=== PATIENT | female | born 1935 | race Caucasian/White ===

== ENCOUNTER 2016-10-18 21:18 | Emergency (ER) | payer MEDICARE ==
[~2016-10-18] VITALS: Ht 170.2 cm; Wt 64.4 kg
[~2016-10-18 21:18] MED LIST changes: -AMOX-355 PO; -Xarelto
--- OUTSIDE RECORDS SUMMARY | 2016-10-18 21:23 | XMS REPORT | Continuity of Care Document ---
Author Author [facility] Organization [facility] Address Unknown Phone Unavailable Care Team Providers Care Table Lever Operator Name Role Phone ESTHER ARZOLA MD PCP Insurance Providers Payer Name Policy Number Subscriber Name Relationship Wps Medicare [id number] Danielle Miller 16 Self / Same As Patient Blue Cross [facility] [id number] Danielle Miller 16 Self / Same As Patient Advance Directives Directive Response Recorded Date/Time Advance Directives No 07/14/15 1:40pm Health Care Power of Software Implementation Project Manager No 07/14/15 1:40pm Organ Donor No 07/14/15 [...] Reaction Status Last Updated Sulfa (Sulfonamide Antibiotics) ([id number]) Allergy Unknown SWELLING Active 07/09/15 Immunizations Name Given Type Date of Pneumonia Vaccine 07/11/12 Historical Date of Influenza Vaccine 06/29/15 Historical Tetanus Booster (TDap) Unknown Historical Vital Signs No known vital signs results. Results No known relevant diagnostic tests, laboratory data and/or discharge summary. Procedures No known history of procedures. Encounters Encounter Location Arrival/Admit Date Discharge/Depart Date Attending Provider Discharged Recurring [facility] 01/21/16 2:24pm 11:59pm ESTHER ARZOLA MD
[2016-10-18] MEDS ORDERED: LIDOCAINE/EPI 1%-1:100,000 (XYLOCAINE) 20ML ONE (21:26)
[2016-10-18] MEDS ORDERED: LIDOCAINE/EPI 1%-1:200,000 (XYLOCAINE) 30 ML VIAL INJ ONE (21:30)
[2016-10-18] MEDS ORDERED: AUGMENTIN 875 MG TAB (AMOXICILLIN/CLAVULANATE) PO SCH (21:30)
[2016-10-18] MEDS ORDERED: Xarelto (21:39)
[2016-10-18] MEDS ORDERED: AMOX-355 PO (21:56)
--- NOTE | 2016-10-18 21:57 | ED Integumentary General ---
General Chief Complaint: Bite-Animal/Human/Insect Stated Complaint: L HAND INJ Nursing Triage Note: Patient presents to ER after her pet dog jumped in her lap and its nail caught her skin on top of left hand creating a skin tear. Pt Super Glued the edges shut as on [place] and was bleeding and now with large hematoma. Source: patient Exam Limitations: no limitations History of Present Illness Time seen by provider: 21:52 Initial Comments To ER or with the laceration to the dorsal aspect of the left hand. This occurred at home just prior to arrival when her dog jumped on her. She has very thin skin and there was a skin tear. The family tried to glue this shut and then the area swelled up. Timing/Duration: just prior to arrival Severity: moderate Associated Symptoms: denies symptoms Allergies and Home Medications Allergies Coded Allergies: Sulfa (Sulfonamide Antibiotics) (Unverified Allergy, Unknown, SWELLING, ) Home Medications (Reported) 0.9 % Sodium Chloride 2 Ml Syringe #1 10-40 ML IV PRN Prescribed by: CONCHIS DOE on 07/23/15 1424 0.9 % Sodium Chloride 2 Ml Syringe #1 10 ML IV Q8H Prescribed by: CONCHIS DOE on 07/23/15 1424 Acetaminophen 325 Mg Tablet #1 650 MG PO Q4H PRN PRN Fever or Pain Prescribed by: BINDU WYLIE on 07/14/15 0842 Amlodipine Besylate 5 Mg Tablet 5 MG PO DAILY (Reported) Aspirin 81 Mg Tabec 81 MG PO HS (Reported) Clonidine HCl 0.2 Mg Tablet 0.2 MG PO HS (Reported) Levothyroxine Sodium 50 Mcg Tablet 50 MCG PO DAILY (Reported) Lisinopril 40 Mg Tablet 40 MG PO DAILY (Reported) Lorazepam 1 Mg Tablet 0.5 MG PO Q4H (Reported) TAKES 1/2 OF A (1 MG) TABLET Metoprolol Succinate 100 Mg Tab.er.24h 50 MG PO DAILY (Reported) TAKES 1/2 OF A (100 MG) TABLET Nitroglycerin 0.4 Mg Tab.subl 0.4 MG PO UD PRN PRN CHEST PAIN (Reported) Polyethylene Glycol 3350 17 Gm Powd.pack #1 34 GM PO BID Prescribed by: CONCHIS DOE on 07/23/15 1430 Sennosides/Docusate Sodium 1 Each Tablet #1 2 EA PO BID Prescribed by: BINDU WYLIE on 07/14/15 0842 Simvastatin 20 Mg Tablet 20 MG PO HS (Reported) Constitutional: see HPI EENTM: see HPI Respiratory: no symptoms reported Cardiovascular: no symptoms reported Genitourinary: no symptoms reported Musculoskeletal: no symptoms reported Skin: see HPI Psychiatric/Neurological: No Symptoms Reported Endocrine: No Symptoms Reported Past Zzzantw-Zmprsi-Xetuly Hx Patient Social History Alcohol Use: Denies Use Recreational Drug Use: No Smoking Status: Former Smoker Former Smoker/When Quit: Jul 10, 1980 Recent Foreign Travel: No Contact w/Someone Who Travel: No Recent Infectious Disease Expo: No Recent Hopitalizations: No Physical Abuse Screen: No Sexual Abuse: No Immunizations Up To Date Tetanus Booster (TDap): Unknown Date of Pneumonia Vaccine: Jul 11, 2012 Date of Influenza Vaccine: Jun 29, 2015 Seasonal Allergies Seasonal Allergies: No Surgeries HX Surgeries: Yes (total knee replacement) Surgeries: Cardiac, Eye Surgery, Joint Replacement Respiratory Hx Respiratory Disorders: Yes Respiratory Disorders: Pulmonary Embolism Cardiovascular Hx Cardiac Disorders: Yes Cardiac Disorders: Atrial Fibrillation, Coronary Artery Disease, Heart Attack Neurological Hx Neurological Disorders: No Reproductive System Hx Reproductive Disorders: No Genitourinary Hx Genitourinary Disorders: No Gastrointestinal Hx Gastrointestinal Disorders: Yes (LACTOSE INTOLERANT) Gastrointestinal Disorders: Hiatal Hernia Musculoskeletal Hx Musculoskeletal Disorders: Yes (DJD RIGHT KNEE) Endocrine Hx Endocrine Disorders: Yes Endocrine Disorders: Hypothyroidsim HEENT HX ENT Disorders: Yes HEENT Disorders: Cataract Cancer Hx Cancer: No Psychosocial Hx Psychiatric Problems: Yes Behavioral Health Disorders: Anxiety Integumentary HX Skin/Integumentary Disorder: No Blood Transfusions Hx Blood Disorders: No Family Medical History Family Medial History: Blood cancer G8 SISTER Diabetes mellitus 19 MOTHER Physical Exam Vital Signs Vital Sign - Last 12Hours 10/18/16 21:26 Temp 98.0 Pulse 80 Resp 18 B/P 168/109 Pulse Ox 93 O2 Delivery Room Air Capillary Refill : Less Than 3 Seconds General Appearance: WD/WN no apparent distress HEENT: PERRL/EOMI normal ENT inspection Neck: non-tender full range of motion Respiratory: no respiratory distress no accessory muscle use Neurologic/Psychiatric: alert normal mood/affect oriented x 3 Skin: normal color warm/dry Skin Problem Character: other (skin tear to the dorsal aspect of the left hand about 1.5 cm in length. The glue that the family had applied was peeled off, the laceration was opened and irrigated with 100 mL saline. A large amount of blood was expressed in addition to a small amount of clot. There was no active bleeding when this was finished.) Laceration Repair : Wound Location: Upper Extremities Wound Length (cm): 2 Wound's Depth, Shape: superficial Wound Explored: clean Irrigated w/ Saline (ccs): 100 Betadine Prep?: Yes Anesthesia: Lidocaine w/ Epi Volume Anesthetic (ccs): 2 Number of Sutures: 1 Layer Closure?: 1 Number Deep Layer Sutures: 0 Progress Area was anesthetized with 1 percent lidocaine with epinephrine. The glue was then peeled off and area was reopened. Blood was expressed and the swelling was immediately reduced, small amount of clot was also expressed. Area was then irrigated with 100-200 mL of saline. Then the largest of the laceration was loosely closed with 1 suture size 5-0 Prolene. Area was then covered with a pressure dressing and left partially open for drainage. Progress/Results/Core Measures Results/Orders My Orders Orders-ESTEFANY GEORGES APRN Amoxicillin/Clavulanate Tablet (Augmenti (10/18/16 21:30) Lidocaine/Epi 1% 1:200,00 (Xylocaine/Epi (10/18/16 21:30) Lidocaine/Epi 1% 1:100,000 (Xylocaine /E (10/18/16 21:26) Medications Given in ED Current Medications Medications Dose Ordered Sig/Julianne Route Start Time Stop Time Status Last Admin Dose Admin Lidocaine/ Epinephrine 20 ml STK-MED ONCE .ROUTE 10/18/16 21:26 10/18/16 21:34 DC 10/18/16 21:50 1 ML Vital Signs/I&O Vital Sign - Last 12Hours 10/18/16 10/18/16 21:26 21:50 Temp 98.0 98.0 Pulse 80 Resp 18 B/P 168/109 Pulse Ox 93 O2 Delivery Room Air Blood Pressure Mean: 128 Departure Impression Impression: Primary Impression: Skin tear Disposition: 01 HOME, SELF-CARE Condition: Stable Departure-Patient Inst. Decision time for Depature: 21:56 Referrals: KIKO KHAN MD (PCP/Family) Primary Care Physician Patient Instructions: Laceration Repair With Stitches (DC) Add. Discharge Instructions: 1. Antibiotics as directed 2. Return to ER in 7 days to have the stitches removed 3. Return to ER before then for any increasing redness swelling or fevers which may indicate infection All discharge instructions reviewed with patient and/or family. Voiced understanding. Scripts Amoxicillin/Potassium Clav (Augmentin 500-125 Tablet)1 Each Tablet1 Each PO BID #10 TAB Prov:ESTEFANY GEORGES APRN 10/18/16 ESTEFANY GEORGES APRN Oct 18, 2016 21:56
[2016-10-18 22:03] VITALS: BP 144/86
== END 2016-10-18 22:03 | disposition home or self-care (01) ==
LOC: EDUNIT# 21:18 → ER 21:19
DX: S61.412A Laceration without foreign body of left hand, initial encounter (principal); I48.2 Chronic atrial fibrillation; I25.10 Atherosclerotic heart disease of native coronary artery without angina pectoris; Z79.82 Long term (current) use of aspirin; Z79.01 Long term (current) use of anticoagulants; Z79.899 Other long term (current) drug therapy; Z86.711 Personal history of pulmonary embolism; W54.8XXA Other contact with dog, initial encounter; Y92.009 Unspecified place in unspecified non-institutional (private) residence as the place of occurrence of the external cause; Y99.8 Other external cause status
CPT/HCPCS: 10160

== ENCOUNTER → 2016-10-18 | Outpatient (CLI) | payer MEDICARE ==
[~2016-10-18] MED LIST: ACET325T49 PO; AMLO5TAB2 PO; AMOX-355 PO; ASP81TEC PO; CIPR250S2 PO; CLON-378 PO; CLON0.2T PO; CLPD75T PO; DABI75CA3 PO; DILT360C30 PO; LEVO50TA6 PO; LISI-597 PO; LISI40TA PO; LORA1TAB PO; LVT.05T PO; METO-274 PO; MORP5SYR IV; MTP100TCR PO; Morphine Sulfate IV; NITR0.4T PO; NITR50CA PO; NORM2DIS3 IV; NTR.4SL SL; ONDA2VIA3 IV; ONDA4VIA28 IV; OXYC-12 PO; OXYC-471 PO; PANT40TA3 PO; POLY17PO23 PO; POLY17PO6 PO; SENN-20 PO; SIMV20TA3 PO; TELM1TAB3 PO; WRF2T PO; Xarelto
--- OUTSIDE RECORDS SUMMARY | 2016-10-18 12:37 | XMS REPORT | Continuity of Care Document ---
Author Author [facility] Organization [facility] Address Unknown Phone Unavailable Care Team Providers Care Quill Machine Operator Name Role Phone ESTHER ARZOLA MD PCP Insurance Providers Payer Name Policy Number Subscriber Name Relationship Wps Medicare [id number] Danielle Miller 18 Self / Same As Patient Blue Cross [facility] [id number] Danielle Miller 16 Self / Same As Patient Advance Directives Directive Response Recorded Date/Time Advance Directives No 07/14/15 1:40pm Health Care Power of Bridge Carpenter No 07/14/15 1:40pm Organ Donor No 07/14/15 1:40pm Problems Active Problems Medical Problem Onset Date Status Chronic atrial fibrillation Unknown Acute Fracture, intertrochanteric, left femur Unknown Acute Intertrochanteric fracture of left hip Unknown Acute Medications Current Home Medications Medication Dose Units Route Directions Days/Qty Instructions Start Date Aspirin 81 Mg 81 Mg Oral Bedtime 03/17/12 Amlodipine Besylate 5 Mg 5 Mg Oral Daily 07/10/15 Lisinopril 40 Mg 40 Mg Oral Daily 07/10/15 Pantoprazole Sodium 40 Mg 40 Mg Oral Twice A Day 07/10/15 Nitrofurantoin Macrocrystal 50 Mg 50 Mg Oral Daily 07/10/15 Simvastatin 20 Mg 20 Mg Oral Bedtime 07/10/15 Levothyroxine Sodium 50 Mcg 50 Mcg Oral Daily 07/10/15 Clonidine Hcl 0.2 Mg 0.2 Mg Oral Bedtime 07/10/15 Lorazepam 1 Mg 0.5 Mg Oral Every 4HRS TAKES 1/2 OF A (1 MG) TABLET Metoprolol Succinate 100 Mg 50 Mg Oral Daily TAKES 1/2 OF A (100 MG) TABLET 07/10/15 Nitroglycerin 0.4 Mg 0.4 Mg Oral As Directed as needed for Chest Pain 07/10/15 Dabigatran Etexilate Mesylate 75 Mg 75 Mg Oral Twice A Day 07/13/15 Oxycodone Hcl/Acetaminophen 1 Each 1 Tab Oral Every 4HRS as needed for Pain 1 07/14/15 Acetaminophen 325 Mg 650 Mg Oral Every 4HRS as needed for Fever Or Pain 1 07/14/15 Sennosides/Docusate Sodium 1 Each 2 Ea Oral Twice A Day 1 07/14/15 Oxycodone Hcl/Acetaminophen 1 Each 1-2 Tab Oral Every 4HRS as needed for Pain 60 07/23/15 0.9 % Sodium Chloride 2 Ml 10-40 Ml Intraven As Needed 1 07/23/15 Morphine Sulfate 5 Mg/1 Ml 5 Mg Intraven Every 2 Hours for Pain 1 Ondansetron Hcl 2 Mg/1 Ml 4 Mg Intraven Every 4HRS for Nausea 1 0.9 % Sodium Chloride 2 Ml 10 Ml Intraven Every 8HRS 1 07/23/15 Polyethylene Glycol 3350 17 Gm 34 Gm Oral Twice A Day 1 07/23/15 Past Home Medications Medication Directions Ordered Status Telmisartan/Hydrochlorothiazide 1 Each Tablet, 1 Each Oral Daily 01/06/11 Discontinued Clonidine Hcl 0.2 Mg Tab, 1 Each Oral Bedtime 01/06/11 Discontinued Simvastatin 20 Mg Tablet, 20 Mg Oral Bedtime 01/06/11 Discontinued Diltiazem Hcl (Tiazac) 360 Mg Capsule.sa, 1 Each Oral Bedtime 01/06/11 Discontinued Lorazepam 1 Mg Tablet, 1 Mg Oral Bedtime as needed 01/06/11 Discontinued Levothyroxine Sodium (Levothroid) 50 Mcg Tablet, 1 Each Oral Daily 01/06/11 Discontinued Metoprolol Succinate 100 Mg Tab, 50 Mg Oral Daily 01/20/11 Discontinued Oxycodone Hcl/Acetaminophen 1 Each Tablet, 1 - 2 Each Oral As Needed Discontinued Warfarin Sodium 2 Mg Tab, 2 Mg Oral Daily@18 01/20/11 Discontinued Ciprofloxacin 250 Mg/5 Ml Daniela.mc.rec, 250 Mg Oral Twice A Day 01/20/11 Discontinued Clopidogrel Bisulfate 75 Mg Tablet, 1 Each Oral Daily 03/17/12 Discontinued Lisinopril 40 Mg Tablet, 40 Mg Oral Daily 03/17/12 Discontinued Nitroglycerin 0.4 Mg Subl, 0.4 Mg Sublingual As Needed 03/17/12 Discontinued Amlodipine Besylate (Norvasc 5 Mg) 5 Mg Tablet, 5 Mg Oral Daily 03/17/12 Discontinued Oxycodone Hcl/Acetaminophen 1 Each Tablet, 1 - 2 Each Oral Every 6 Hours 11/06 Discontinued Dabigatran Etexilate Mesylate 75 Mg Capsule, 75 Mg Oral 08/27/13 Discontinued Polyethylene Glycol 3350 17 Gm Powd.pack, 34 Gm Oral Twice A Day 07/14/15 Discontinued Social History Social History Problem Response Recorded Date/Time Alcohol Use Denies Use 07/14/2015 1:41pm Recreational Drug Use No 07/14/2015 1:41pm Recent Foreign Travel No 11/06/2015 2:13pm Do you dip or chew tobacco? No 07/14/2015 1:44pm Hospital Discharge Instructions No hospital discharge instructions. Plan of Care Prescriptions See Medication Section Functional Status No functional status results. Allergies, Adverse Reactions, Alerts Allergen Type Severity Reaction Status Last Updated Sulfa (Sulfonamide Antibiotics) ([id number]) Allergy Unknown SWELLING Active 07/09/15 Immunizations Name Given Type Date of Pneumonia Vaccine 07/11/12 Historical Date of Influenza Vaccine 06/29/15 Historical Tetanus Booster (TDap) Unknown Historical Vital Signs No known vital signs results. Results No known relevant diagnostic tests, laboratory data and/or discharge summary. Procedures No known history of procedures. Encounters Encounter Location Arrival/Admit Date Discharge/Depart Date Attending Provider Discharged Recurring [facility] 01/21/16 2:24pm 11:59pm ESTHER ARZOLA MD
--- NOTE | 2016-10-21 11:23 | ECHOCARDIOGRAPHY REPORT ---
PROCEDURE PHYSICIAN: MICHAEL DAVID DATE OF PROCEDURE: 10/18/2016 TWO DIMENSIONAL ECHOCARDIOGRAM REPORT PRIMARY PHYSICIAN: Dr. Saeed OTHER PHYSICIAN: REFERRING PHYSICIAN: ORDERING PHYSICIAN: Dr. David INDICATION FOR THE PROCEDURE: Coronary artery disease, hyperlipidemia MEASUREMENTS DERIVED VALUES LV DIAMETER (LAX) NORMALS NORMALS Diastolic 3.7 (3.6-5.2) Eject. Fract. (60%+/-6%) Systolic (2.3-3.9) Diastolic Vol. % Shortening (0.22-0.42) Systolic Vol. Aortic Root 2.8 IVS THICKNESS Diastolic 1.5 (0.6-1.1) LVPW THICKNESS Diastolic 1.4 (0.6-1.1) LA DIAMETER Systolic 5.1 (2.1-3.7) DESCRIPTION: Two dimensional echocardiography shows well preserved global left ventricular systolic function. Left ventricular ejection fraction is approximately 50 to 55%. There is mild to moderate mitral annular calcification. There is mild aortic valve sclerosis. There is no significant pericardial effusion. Aortic, mitral and tricuspid valve leaflets show fair to good leaflet excursion. There is moderate enlargement of the left atrium. There is mild to moderate concentric left ventricular hypertrophy. Doppler imaging shows moderate tricuspid regurgitation. Pulmonary artery systolic pressure is estimated to be approximately 45 to 50 mmHg. There is mild pulmonic regurgitation. Peak pressure gradient across the aortic valve is approximately 11 mmHg. The aortic valve area is calculated to be approximately 1.5 sq cm. There is mild to moderate mitral regurgitation. There is no evidence of any significant mitral stenosis. CONCLUSIONS: 1. Well preserved global left ventricular systolic function with an ejection fraction of 50 to 55%. 2. Mild concentric left ventricular hypertrophy. 3. Moderate enlargement of the left atrium. 4. Mitral annular calcification and aortic valve sclerosis, moderate, without evidence of significant valvular stenosis. 5. Moderate tricuspid regurgitation. 6. Mild to moderate mitral regurgitation. 7. Mild pulmonic regurgitation. 8. Pulmonary artery systolic pressure estimated to be 45 to 50 mmHg. Job ID: [id number] Dictated Date: 10/21/2016 10:17:00 Newspaper Peddler Date: 10/21/2016 11:13:32 / natali
== END ==
LOC: CARD 12:33
PROVIDERS: ATTEND Internal Medicine Cardiovascular Disease
DX: I25.10 Atherosclerotic heart disease of native coronary artery without angina pectoris (principal); I65.23 Occlusion and stenosis of bilateral carotid arteries; E78.4 Other hyperlipidemia; I10 Essential (primary) hypertension
CPT/HCPCS: 93306

== ENCOUNTER → 2017-05-23 | Outpatient (CLI) | payer MEDICARE ==
[~2017-05-23] MED LIST changes: +AMOX-355 PO; +Xarelto
--- NOTE | 2017-05-23 11:38 | Diagnostic Imaging Report ---
INDICATION: Screening. TECHNIQUE: Screening digital mammography was performed bilaterally with a Computer Aided Detection (CAD) system. COMPARISON: 05/17/2016, 08/08/2014, and 07/26/2013. FINDINGS: There is a moderate amount of residual fibroglandular tissue bilaterally. There are benign type calcifications and vascular calcifications. There is no dominant mass, spiculated lesion, or suspicious calcification identified. The skin, nipples, and axillae are unremarkable. IMPRESSION: Benign findings. ACR BI-RADS Category 2: Benign findings. Result letter will be mailed to the patient. Note: At least 10% of breast cancer is not imaged by mammography. Dictated by: Dictated on workstation # [id number]
== END ==
LOC: RAD 09:37
PROVIDERS: ATTEND Nurse Practitioner
DX: Z12.31 Encounter for screening mammogram for malignant neoplasm of breast (principal)
CPT/HCPCS: 77067

== ENCOUNTER → 2018-05-25 | Outpatient (CLI) | payer MEDICARE ==
[~2018-05-25] MED LIST changes: +AMLO5TAB7 PO; -METO-274 PO; +METO-395 PO; +ONDA2VIACC IV; -ONDA4VIA28 IV
--- NOTE | 2018-05-25 11:57 | Diagnostic Imaging Report ---
Indication: Screening. The current study was also evaluated with a Computer Aided Detection (CAD) system. 3-D tomosynthesis was also performed and reviewed. Comparison made with prior examination of 02/20/2017 back through 07/19/2011. Findings: There are scattered fibroglandular densities bilaterally. There are extensive vascular calcifications. There are a few benign type calcifications. There is no new dominant mass, spiculated lesion or suspicious calcifications identified. Skin, nipples and axilla are unremarkable. Impression: Category 2 benign. Dictated by: Dictated on workstation # [id number]
== END ==
LOC: RAD 09:22
PROVIDERS: ATTEND Nurse Practitioner
DX: Z12.31 Encounter for screening mammogram for malignant neoplasm of breast (principal)
CPT/HCPCS: 77067

== ENCOUNTER → 2019-05-28 | Outpatient (CLI) | payer MEDICARE ==
[~2019-05-28] MED LIST changes: -AMLO5TAB7 PO; +AMLO5TAB9 PO; -POLY17PO23 PO; +POLY17PO31 PO
--- NOTE | 2019-05-28 13:17 | Diagnostic Imaging Report ---
Indication: Routine screening. Comparison is made with prior mammogram 05/25/2018 and 05/23/2017. 2-D and 3-D bilateral screening mammography was performed with CAD. Scattered fibroglandular densities are identified bilaterally. Vascular calcifications are again noted bilaterally. No mass or malignant- appearing microcalcifications are identified. Axillae are unremarkable. Impression: BI-RADS category 1. No mammographic features suspicious for malignancy are identified. ACR BI-RADS Category 1: Negative. Result letter will be mailed to the patient. Note: At least 10% of breast cancer is not imaged by mammography. Dictated by: Dictated on workstation # [id number]
== END ==
LOC: RAD 10:17
PROVIDERS: ATTEND Physician Assistant
DX: Z12.31 Encounter for screening mammogram for malignant neoplasm of breast (principal)
CPT/HCPCS: 77067

== ENCOUNTER → 2020-08-17 | Outpatient (CLI) | payer MEDICARE ==
[~2020-08-17] MED LIST changes: +AMLO-250 PO; -AMLO5TAB9 PO; +CATHETER FLUSH 10 ML SYR IV PRN; +CLN.2T PO; -CLON0.2T PO; +HOLD METFORMIN - RECEIVED CONTRAST 20 ML VIAL IV SCH; +IOHEXOL 350 MG/ML 100 ML (OMNIPAQUE 350) VIAL IV ONE; -METO-395 PO; +NS 100 ML (IVPB) BAG IV ONE; -PANT40TA3 PO; +PANT40TA52 PO; +SIMV20TA26 PO
[2020-08-17 12:32] LABS: HEMOGLOBIN 12.6 g/dL (11.5-16.0); MEAN PLATELET VOLUME 9.6 fL (9.0-12.2); WHITE BLOOD COUNT 4.7 10^3/uL (4.3-11.0)
[2020-08-17 12:51] LABS: ALBUMIN 3.7 GM/DL (3.2-4.5); BILIRUBIN,TOTAL 1.1 MG/DL (0.1-1.0); CALCIUM 8.4 MG/DL (8.5-10.1); CREATININE SERUM 1.11 MG/DL (0.60-1.30); POTASSIUM 3.5 MMOL/L (3.6-5.0); TOTAL PROTEIN 7.8 GM/DL (6.4-8.2)
--- NOTE | 2020-08-17 13:54 | Diagnostic Imaging Report ---
PROCEDURE: CT abdomen and pelvis with contrast. TECHNIQUE: Multiple contiguous axial images were obtained through the abdomen and pelvis after administration of intravenous contrast. Auto Exposure Controls were utilized during the CT exam to meet ALARA standards for radiation dose reduction. All CT scans use one or more of the following dose optimizing techniques: automated exposure control, MA and/or KvP adjustment based on patient size and exam type or iterative reconstruction. INDICATION: 4 days history of pain. FINDINGS: There is a nonobstructing hernia in the right groin medial to the neurovascular bundle comprised of fat as well as unobstructed distal small bowel. No inflammatory changes within the hernia sac to suggest strangulation. There is a right pleural effusion nonloculated to a depth of 3 cm. There is some soft plaque in the lumen of the lower thoracic aorta and at least mild degree of cardiomegaly partially visualized. The atherosclerotic aortoiliac vessels are patent and nonaneurysmal. There were no findings of acute end organ ischemia. There is noninflamed diverticulosis of the sigmoid. Kidneys are unobstructed. No acute hepatobiliary abnormality or probable stone within the lumen of the partially contracted gallbladder noted. No bile duct dilatation. Spleen, adrenals and pancreas negative. No mesenteric or retroperitoneal adenopathy. There were no findings of appendicitis or diverticulitis. The uterus, adnexa and urinary bladder unremarkable. IMPRESSION: Right pleural effusion. Atherosclerotic disease without occlusive arterial disease or ischemia. Noninflamed diverticulosis. Nonobstructing and nonacute appearing right inguinal hernia. Probable cholelithiasis without bile duct dilatation. Nonfocal unobstructed urinary tracts Dictated by: Dictated on workstation # [id number]
[2020-08-18 09:38] LABS: BILIRUBIN,URINE NEGATIVE (NEGATIVE); CLARITY,URINE CLEAR; COLOR,URINE YELLOW; GLUCOSE, URINE (UA) NEGATIVE (NEGATIVE); KETONES,URINE NEGATIVE (NEGATIVE); LEUKOCYTE ESTERASE ,URINE 2+ (NEGATIVE); NITRITE,URINE NEGATIVE (NEGATIVE); PH,URINE 7.5 (5-9); PROTEIN,URINE NEGATIVE (NEGATIVE)
[2020-08-18 10:08] LABS: BACTERIA,URINE FEW /HPF; RBC,URINE 0-2 /HPF
== END ==
LOC: RAD 12:10
PROVIDERS: ATTEND Physician Assistant
DX: K57.30 Diverticulosis of large intestine without perforation or abscess without bleeding (principal); J90 Pleural effusion, not elsewhere classified; I25.10 Atherosclerotic heart disease of native coronary artery without angina pectoris; K40.90 Unilateral inguinal hernia, without obstruction or gangrene, not specified as recurrent
CPT/HCPCS: 36415; 74177; 80053; 83690; 85027; 86141

== ENCOUNTER → 2020-08-19 | Outpatient (CLI) | payer MEDICARE ==
[~2020-08-19] MED LIST changes: -CATHETER FLUSH 10 ML SYR IV PRN; -HOLD METFORMIN - RECEIVED CONTRAST 20 ML VIAL IV SCH; -IOHEXOL 350 MG/ML 100 ML (OMNIPAQUE 350) VIAL IV ONE; -NS 100 ML (IVPB) BAG IV ONE
--- NOTE | 2020-08-19 10:39 | Diagnostic Imaging Report ---
PROCEDURE: US Gallbladder. TECHNIQUE: Multiple real-time grayscale images were obtained over the right upper quadrant in various projections. INDICATION: Abdominal pain Liver parenchyma is homogeneous with normal echotexture. There are calculi in the gallbladder. The gallbladder wall is not thickened. Common duct is not dilated. Pancreas appears normal. Aorta and IVC are unremarkable. Right kidney measures 9.7 cm length and appears normal. There is no ascites. IMPRESSION: Cholecystolithiasis Dictated by: Dictated on workstation # [id number]
== END ==
LOC: RAD 07:57
PROVIDERS: ATTEND Physician Assistant
DX: K80.20 Calculus of gallbladder without cholecystitis without obstruction (principal)
CPT/HCPCS: 76705

== ENCOUNTER 2020-09-01 19:36 | Emergency (ER) | payer MEDICARE ==
[~2020-09-01] VITALS: Ht 170.1 cm; Wt 56.2 kg
[2020-09-01] MEDS ORDERED: fentaNYL INJECTION 100 MCG/2 ML AMP IVP ONE (21:00)
[2020-09-01 21:08] LABS: BASOPHILS % (AUTO) 1 % (0-10); EOSINOPHILS # (AUTO) 0.1 10^3/uL (0.0-0.3); EOSINOPHILS % (AUTO) 2 % (0-10); HEMATOCRIT 39 % (35-52); HEMOGLOBIN 12.2 g/dL (11.5-16.0); LYMPHOCYTES # (AUTO) 1.9 10^3/uL (1.0-4.0); LYMPHOCYTES % (AUTO) 36 % (12-44); MEAN CORPUSCULAR HEMOGLOBIN 30 pg (25-34); MEAN CORPUSCULAR HGB CONC 31 g/dL (32-36); MEAN CORPUSCULAR VOLUME 97 fL (80-99); MEAN PLATELET VOLUME 10.4 fL (9.0-12.2); MONOCYTES # (AUTO) 0.5 10^3/uL (0.0-1.0); MONOCYTES % (AUTO) 10 % (0-12); NEUTROPHILS # (AUTO) 2.7 10^3/uL (1.8-7.8); NEUTROPHILS % (AUTO) 51 % (42-75); PLATELET COUNT 180 10^3/uL (130-400); WHITE BLOOD COUNT 5.3 10^3/uL (4.3-11.0)
[2020-09-01 21:15] LABS: INR 1.3 (0.8-1.4); PROTHROMBIN TIME PATIENT 16.5 SEC (12.2-14.7)
--- NOTE | 2020-09-01 21:16 | Diagnostic Imaging Report ---
INDICATION: Atrial fibrillation. COMPARISON is made with a prior study from 07/09/2015. FINDINGS: There are advanced chronic interstitial changes present within the lungs. Parenchymal distortion within the left lung apex is unchanged from the prior examination. There are new interstitial opacities present within the lateral aspect of the right upper lobe and at both lung bases. There is marked enlargement of the cardiac silhouette though not significantly changed from the prior exam. The central pulmonary vascularity appears abnormally prominent. There is diaphragmatic flattening. There are possible pleural effusions. There is no pneumothorax. IMPRESSION: 1. Marked enlargement of the cardiac silhouette not significantly changed from the prior examination. There is prominent central pulmonary vascularity. There are advanced features of underlying pre-existing interstitial lung disease. There is new increased interstitial prominence within the lateral right upper lobe and at both lung bases. Considerations would include edema related to atrial fibrillation but the possibility of interstitial pneumonia should also be considered given the asymmetry involving the right upper lung. Dictated by: Dictated on workstation # [id number]
[2020-09-01 21:18] LABS: ALBUMIN 3.9 GM/DL (3.2-4.5); POTASSIUM 4.5 MMOL/L (3.6-5.0)
[2020-09-01 21:19] LABS: CALCIUM 8.8 MG/DL (8.5-10.1)
[2020-09-01 21:22] LABS: BILIRUBIN,TOTAL 0.7 MG/DL (0.1-1.0)
[2020-09-01 21:24] LABS: CREATININE SERUM 1.31 MG/DL (0.60-1.30)
[2020-09-01 21:28] LABS: CREATINE KINASE MB 1.1 NG/ML (<6.6)
[2020-09-01] MEDS ORDERED: hydrALAZINE (APESOLINE) 20 MG/ML VIAL IV ONE ×2 (21:45→22:00)
[2020-09-01 21:58] LABS: BILIRUBIN,URINE NEGATIVE (NEGATIVE); CLARITY,URINE CLEAR; COLOR,URINE YELLOW; GLUCOSE, URINE (UA) NEGATIVE (NEGATIVE); KETONES,URINE NEGATIVE (NEGATIVE); LEUKOCYTE ESTERASE ,URINE NEGATIVE (NEGATIVE); NITRITE,URINE NEGATIVE (NEGATIVE); PH,URINE 6.5 (5-9); PROTEIN,URINE TRACE (NEGATIVE)
[2020-09-01 22:32] LABS: WBC,URINE 0-2 /HPF
[2020-09-01 22:33] LABS: AMORPHOUS SEDIMENT,UR RARE AMOR URATES /LPF; BACTERIA,URINE TRACE /HPF
[2020-09-01] MEDS ORDERED: RX-ONDANSETRON 4 MG ODT (ZOFRAN) PPK #4 PO STA (22:36)
[2020-09-01] MEDS ORDERED: ONDA4TAB11 PO (22:44)
[2020-09-01] MEDS ORDERED: PANT40TA2 PO (22:44)
[2020-09-01] MEDS ORDERED: ACHD5005 PO (22:44)
--- NOTE | 2020-09-01 22:44 | ED Abdominal Pain ---
General Chief Complaint: Abdominal/GI Problems Stated Complaint: STOMACH PAIN Nursing Triage Note: Pt ambulatory to ED. Pt reports having gallbladder stones and is supposed to have surgery after seeing Dr. Reddy on next Monday. Pt reports pain has worsened tonight. Pt has bilateral edema which pt states is not normal. Sepsis Screen: No Definite Risk Allergies and Home Medications Allergies Coded Allergies: Sulfa (Sulfonamide Antibiotics) (Unverified Allergy, Unknown, SWELLING, 07/09/15) Home Medications 0.9 % Sodium Chloride 2 Ml Syringe, 10-40 ML IV PRN Prescribed by: CONCHIS DOE on 07/23/15 142 0.9 % Sodium Chloride 2 Ml Syringe, 10 ML IV Q8H Prescribed by: CONCHIS DOE on 07/23/15 142 Acetaminophen 325 Mg Tablet, 650 MG PO Q4H PRN for Fever or Pain Prescribed by: BINDU WYLIE on 07/14/15 08 Amlodipine Besylate 5 Mg Tablet, 5 MG PO DAILY, (Reported) Amoxicillin/Potassium Clav 1 Each Tablet, 1 EACH PO BID Prescribed by: ESTEFANY GEORGES on 10/18/162155 Aspirin 81 Mg Tabec, 81 MG PO HS, (Reported) Clonidine HCl 0.2 Mg Tablet, 0.2 MG PO HS, (Reported) Levothyroxine Sodium 50 Mcg Tablet, 50 MCG PO DAILY, (Reported) Lisinopril 40 Mg Tablet, 40 MG PO DAILY, (Reported) Lorazepam 1 Mg Tablet, 0.5 MG PO Q4H, (Reported) TAKES 1/2 OF A (1 MG) TABLET Metoprolol Succinate 100 Mg Tab.er.24h, 50 MG PO DAILY, (Reported) TAKES 1/2 OF A (100 MG) TABLET Nitroglycerin 0.4 Mg Tab.subl, 0.4 MG PO UD PRN for CHEST PAIN, (Reported) Polyethylene Glycol 3350 17 Gm Powd.pack, 34 GM PO BID Prescribed by: CONCHIS DOE on 07/23/15 1430 Sennosides/Docusate Sodium 1 Each Tablet, 2 EA PO BID Prescribed by: BINDU WYLIE on 07/14/15 08 Simvastatin 20 Mg Tablet, 20 MG PO HS, (Reported) Past Pxotbsd-Cjerpi-Xgcyvw Hx Patient Social History Alcohol Use: Denies Use Recreational Drug Use: No Smoking Status: Former Smoker Former Smoker, Quit: Sep 25, 1984 Recent Foreign Travel: No Contact w/Someone Who Travel: No Recent Infectious Disease Expo: No Recent Hopitalizations: No Immunizations Up To Date Tetanus Booster (TDap): Unknown Date of Pneumonia Vaccine: Jul 11, 2012 Date of Influenza Vaccine: Jun 29, 2015 Seasonal Allergies Seasonal Allergies: No Past Medical History Surgeries: Yes (total knee replacement) Cardiac, Eye Surgery, Joint Replacement Respiratory: Yes Pulmonary Embolism Cardiac: Yes Atrial Fibrillation, Coronary Artery Disease, Heart Attack Neurological: No Reproductive Disorders: No Gastrointestinal: Yes (LACTOSE INTOLERANT) Hiatal Hernia Musculoskeletal: Yes (DJD RIGHT KNEE) Endocrine: Yes Hypothyroidsim Cataract Cancer: No Psychosocial: Yes Anxiety Integumentary: No Blood Disorders: No Family Medical History Blood cancer G8 SISTER Diabetes mellitus 19 MOTHER Physical Exam Vital Signs Vital Signs - First Documented 09/01/20 20:25 Temp 36.2 Pulse 79 Resp 21 B/P (MAP) 186/106 (132) Pulse Ox 88 O2 Delivery Room Air Capillary Refill : Less Than 3 Seconds Height/Weight/BMI Height: 5'7" Weight: 142lbs. 5.0oz. [id number]; 19.00 BMI Method:Stated Focused Exam Lactate Level 09/01/20 20:45: Lactic Acid Level 0.86 Lactic Acid Level Laboratory Tests Test 09/01/20 20:45 Lactic Acid Level 0.86 MMOL/L (0.50-2.00) Progress/Results/Core Measures Results/Orders Lab Results Laboratory Tests Test 09/01/20 20:45 09/01/20 21:45 Range/Units White Blood Count 5.3 4.3-11.0 10^3/uL Red Blood Count 4.04 3.80-5.11 10^6/uL Hemoglobin 12.2 11.5-16.0 g/dL Hematocrit 39 35-52 % Mean Corpuscular Volume 97 80-99 fL Mean Corpuscular Hemoglobin 30 25-34 pg Mean Corpuscular Hemoglobin Concent 31 L 32-36 g/dL Red Cell Distribution Width 14.6 H 10.0-14.5 % Platelet Count 180 130-400 10^3/uL Mean Platelet Volume 10.4 9.0-12.2 fL Immature Granulocyte % (Auto) 0 % Neutrophils (%) (Auto) 51 42-75 % Lymphocytes (%) (Auto) 36 12-44 % Monocytes (%) (Auto) 10 0-12 % Eosinophils (%) (Auto) 2 0-10 % Basophils (%) (Auto) 1 0-10 % Neutrophils # (Auto) 2.7 1.8-7.8 10^3/uL Lymphocytes # (Auto) 1.9 1.0-4.0 10^3/uL Monocytes # (Auto) 0.5 0.0-1.0 10^3/uL Eosinophils # (Auto) 0.1 0.0-0.3 10^3/uL Basophils # (Auto) 0.0 0.0-0.1 10^3/uL Immature Granulocyte # (Auto) 0.0 0.0-0.1 10^3/uL Prothrombin Time 16.5 H 12.2-14.7 SEC INR Comment 1.3 0.8-1.4 Activated Partial Thromboplast Time 34 24-35 SEC Sodium Level 138 135-145 MMOL/L Potassium Level 4.5 3.6-5.0 MMOL/L Chloride Level 102 98-107 MMOL/L Carbon Dioxide Level 24 21-32 MMOL/L Anion Gap 12 5-14 MMOL/L Blood Urea Nitrogen 23 H 7-18 MG/DL Creatinine 1.31 H 0.60-1.30 MG/DL Estimat Glomerular Filtration Rate 38 BUN/Creatinine Ratio 18 Glucose Level 102 70-105 MG/DL Lactic Acid Level 0.86 0.50-2.00 MMOL/L Calcium Level 8.8 8.5-10.1 MG/DL Corrected Calcium 8.9 8.5-10.1 MG/DL Magnesium Level 2.0 1.6-2.4 MG/DL Total Bilirubin 0.7 0.1-1.0 MG/DL Aspartate Amino Transf (AST/SGOT) 52 H 5-34 U/L Alanine Aminotransferase (ALT/SGPT) 27 0-55 U/L Alkaline Phosphatase 70 40-136 U/L Total Creatine Kinase 22 L 29-168 U/L Creatine Kinase MB 1.1 <6.6 NG/ML Myoglobin 36.8 10.0-92.0 NG/ML B-Type Natriuretic Peptide 954.8 H <100.0 PG/ML Total Protein 8.0 6.4-8.2 GM/DL Albumin 3.9 3.2-4.5 GM/DL Amylase Level 64 25-125 U/L Lipase 65 8-78 U/L Procalcitonin 0.05 <0.10 NG/ML Urine Color YELLOW Urine Clarity CLEAR Urine pH 6.5 5-9 Urine Specific [place] 1.010 L 1.016-1.022 Urine Protein TRACE H NEGATIVE Urine Glucose (UA) NEGATIVE NEGATIVE Urine Ketones NEGATIVE NEGATIVE Urine Nitrite NEGATIVE NEGATIVE Urine Bilirubin NEGATIVE NEGATIVE Urine Urobilinogen 0.2 < = 1.0 MG/DL Urine Leukocyte Esterase NEGATIVE NEGATIVE Urine RBC (Auto) TRACE-I NEGATIVE Urine RBC 2-5 H /HPF Urine WBC 0-2 /HPF Urine Crystals PRESENT H /LPF Urine Amorphous Sediment RARE DANILO URATES H /LPF Urine Bacteria TRACE /HPF Urine Casts NONE /LPF Urine Mucus NEGATIVE /LPF Urine Culture Indicated NO My Orders Orders - BIBI LEONE DO Ed Iv/Invasive Line Start (09/01/20 20:19) Ekg Tracing (09/01/20 20:19) Monitor-Rhythm Ecg Trace Only (09/01/20 20:19) Amylase (09/01/20 20:19) Cbc With Automated Diff (09/01/20 20:19) Comprehensive Metabolic Panel (09/01/20 20:19) Lipase (09/01/20 20:19) Magnesium (09/01/20 20:19) Ua Culture If Indicated (09/01/20 20:19) Chest 1 View, Ap/Pa Only (09/01/20 20:52) BNP (09/01/20 20:52) Creatine Kinase (09/01/20 20:52) Creatine Kinase Mb (09/01/20 20:52) Lactic Acid Analyzer (09/01/20 20:52) Procalcitonin (Pct) (09/01/20 20:52) Protime With Inr (09/01/20 20:52) Partial Thromboplastin Time (09/01/20 20:52) Blood Culture (09/01/20 20:52) Myoglobin Serum (09/01/20 20:52) Fentanyl Injection (Sublimaze Injection (09/01/20 21:00) Hydralazine Injection (Apresoline Inject (09/01/20 21:45) Straight Cath For Spec.-Adult (09/01/20 21:40) Hydralazine Injection (Apresoline Inject (09/01/20 22:00) Rx-Hydrocodone/Apap 5-325 Mg (Rx-Vicodin (09/01/20 22:45) Rx-Ondansetron Po (Rx-Zofran Po) (09/01/20 22:36) Medications Given in ED Current Medications Medications Dose Ordered Sig/Julianne Route Start Time Stop Time Status Last Admin Dose Admin Fentanyl Citrate 50 mcg ONCE ONCE IVP 09/01/20 21:00 09/01/20 21:01 DC 09/01/20 21:19 50 MCG Hydralazine HCl 10 mg ONCE ONCE IV 09/01/20 21:45 09/01/20 21:46 DC 09/01/20 22:06 10 MG Vital Signs/I&O 09/01/20 20:25 Temp 36.2 Pulse 79 Resp 21 B/P (MAP) 186/106 (132) Pulse Ox 88 O2 Delivery Room Air Blood Pressure Mean: 132 Departure Impression Primary Impression: Abdominal pain Additional Impressions: Biliary colic HTN (hypertension) Disposition: HOME, SELF-CARE Condition: Improved Departure-Patient Inst. Referrals: CHRIS SAVAGE MD, JOHN D MD (PCP/Family) Primary Care Physician Patient Instructions: DASH Diet, Gallbladder Diet, Gallstones (DC), High Blood Pressure (DC), Severe Abdominal Pain, Adult (DC) Add. Discharge Instructions: CLEAR LIQUIDS TOMORROW--WATER, BROTH, JELLO, GATORADE WHEN YOUR PAIN IS BETTER, YOU MAY ADD A BLAND DIET TO CLEAR LIQUIDS--NO FAT, NO SPICY OR ACIDIC FOOD OR DRINK FOLLOW UP WITH DR. REDDY AND DR. SAVAGE THIS WEEK FOR FURTHER CARE All discharge instructions reviewed with patient and/or family. Voiced understanding. Scripts Pantoprazole Sodium (Protonix) 40 Mg Tablet. 40 MG PO DAILY, #15 TAB Prov: BIBI LEONE K DO 09/01/20 Ondansetron (Ondansetron Odt) 4 Mg Tab.rapdis 4 MG PO Q4H for Nausea/Vomiting, #10 TAB Prov: SULEMABIBI K DO 09/01/20 Hydrocodone/Acetaminophen (Hydrocodone-Acetamin 5-325 mg) 1 Each Tablet 1 EACH PO Q4-6 HOURS PRN for PAIN, #20 TAB Prov: ED LEONEA K DO 09/01/20 BIBI LEONE DO Sep 01, 2020 22:44
[2020-09-01] MEDS ORDERED: RX-HYDROCODONE/APAP 5/325 MG #4 TAB PK PO PRN (22:45)
[2020-09-01 23:00] VITALS: BP 142/99
== END 2020-09-01 23:00 | disposition home or self-care (01) ==
LOC: EDUNIT# 19:36 → ER 19:40
DX: R10.9 Unspecified abdominal pain (principal); K80.50 Calculus of bile duct without cholangitis or cholecystitis without obstruction; I10 Essential (primary) hypertension; I25.2 Old myocardial infarction; I25.10 Atherosclerotic heart disease of native coronary artery without angina pectoris; E03.9 Hypothyroidism, unspecified; F41.9 Anxiety disorder, unspecified; Z87.891 Personal history of nicotine dependence; Z83.3 Family history of diabetes mellitus; Z80.6 Family history of leukemia; Z88.2 Allergy status to sulfonamides; Z79.890 Hormone replacement therapy; Z79.82 Long term (current) use of aspirin
CPT/HCPCS: 36415; 51701; 71045; 80053; 81000; 82150; 82550; 82553; 83605; 83690; 83735; 83874; 83880; 84145; 85025; 85610; 85730; 87040; 93005; 93041

== ENCOUNTER 2020-09-08 05:30 | Outpatient (RCR) | payer MEDICARE ==
[~2020-09-08] VITALS: Ht 170 cm; Wt 54.5 kg
[~2020-09-08 05:30] MED LIST changes: +ACHD5005 PO; +ONDA4TAB11 PO; +PANT40TA2 PO
[2020-09-08] MEDS ORDERED: NITR50CA4 PO (10:46)
[2020-09-08] MEDS ORDERED: LORA-405 PO (10:46)
[2020-09-08] MEDS ORDERED: LEVO75CA5 PO (10:46)
[2020-09-08] MEDS ORDERED: RIVA20TA PO (10:46)
[2020-09-08] MEDS ORDERED: CHOL10007 PO (10:46)
== END 2020-09-08 10:58 | disposition home or self-care (01) ==
LOC: PREOP 05:30
PROVIDERS: ATTEND Surgery
DX: Z01.812 Encounter for preprocedural laboratory examination (principal); K80.10 Calculus of gallbladder with chronic cholecystitis without obstruction; Z20.828 Contact with and (suspected) exposure to other viral communicable diseases
CPT/HCPCS: 87635

== ENCOUNTER 2020-09-09 07:47 | Inpatient (IN) | payer MEDICARE ==
[~2020-09-09] VITALS: Ht 165 cm; Wt 60.5 kg
[~2020-09-09 07:47] MED LIST changes: +CHOL10007 PO; +LEVO75CA5 PO; +LORA-405 PO; +NITR50CA4 PO; +RIVA20TA PO
[2020-09-09] MEDS ORDERED: fentaNYL INJECTION 100 MCG/2 ML AMP IVP ONE (08:00)
[2020-09-09] MEDS ORDERED: LACTATED RINGERS 1,000 ML IV ONE ×2 (08:00→12:30)
[2020-09-09 08:17] LABS: BASOPHILS % (AUTO) 1 % (0-10); EOSINOPHILS % (AUTO) 1 % (0-10); HEMATOCRIT 38 % (35-52); HEMOGLOBIN 11.8 g/dL (11.5-16.0); LYMPHOCYTES # (AUTO) 1.7 10^3/uL (1.0-4.0); LYMPHOCYTES % (AUTO) 27 % (12-44); MEAN CORPUSCULAR HEMOGLOBIN 30 pg (25-34); MEAN CORPUSCULAR HGB CONC 31 g/dL (32-36); MEAN CORPUSCULAR VOLUME 97 fL (80-99); MEAN PLATELET VOLUME 10.2 fL (9.0-12.2); MONOCYTES # (AUTO) 0.7 10^3/uL (0.0-1.0); MONOCYTES % (AUTO) 11 % (0-12); NEUTROPHILS # (AUTO) 3.7 10^3/uL (1.8-7.8); NEUTROPHILS % (AUTO) 60 % (42-75); PLATELET COUNT 193 10^3/uL (130-400); WHITE BLOOD COUNT 6.1 10^3/uL (4.3-11.0)
[2020-09-09 08:34] LABS: ALBUMIN 3.8 GM/DL (3.2-4.5); POTASSIUM 4.7 MMOL/L (3.6-5.0)
[2020-09-09 08:37] LABS: TOTAL PROTEIN 7.7 GM/DL (6.4-8.2)
[2020-09-09 08:38] LABS: BILIRUBIN,TOTAL 1.6 MG/DL (0.1-1.0)
[2020-09-09 08:40] LABS: CREATININE SERUM 1.47 MG/DL (0.60-1.30)
[2020-09-09 08:42] LABS: INR 1.2 (0.8-1.4); PROTHROMBIN TIME PATIENT 15.5 SEC (12.2-14.7)
--- NOTE | 2020-09-09 08:51 | Diagnostic Imaging Report ---
INDICATION: Sepsis and dyspnea AP view of the chest is obtained. Since 09/01/2020, there has been an increase in diffuse mixed interstitial and alveolar densities throughout the lungs. Airspace disease is greatest in the right lower lobe and may represent area of superimposed consolidation on background of edema and/or pneumonitis in patient with COPD. No pneumothorax is identified. There is no significant pleural fluid. IMPRESSION: Findings suggest worsening of interstitial edema and/or pneumonitis with possible superimposed atypical pneumonia or pneumonitis in the right lower lobe. Dictated by: Dictated on workstation # [id number]
--- NOTE | 2020-09-09 09:20 | NUR ---
PT STATES HER PAIN IS BETTER
--- NOTE | 2020-09-09 09:33 | NUR ---
DAUGHTER UPDATED BY PHONE.
[2020-09-09] MEDS ORDERED: amLODIPine 5 MG (NORVASC) TAB PO ONE (09:45)
[2020-09-09] MEDS ORDERED: cefTRIAXone FOR IV USE 1,000 MG in WATER (STERILE) FOR INJECTION 10 ML IV ONE (10:00)
[2020-09-09] MEDS ORDERED: RT-ALBUTEROL INHALER HFA (VENTOLIN HFA) 18 GM IH SCH (10:00)
--- NOTE | 2020-09-09 10:06 | ED General ---
General Chief Complaint: Abdominal/GI Problems Stated Complaint: ABD PAIN Nursing Triage Note: PT IS SCHEDULED FOR A LAP CHOLEY TODAY WITH JANETTE AT 1230. CAME HERE TODAY FOR THE SEVERE ABD PAIN. PT COVID WAS NEG YESTERDAY BUT PULSE OX ON ROOM AIR UPON ARRIVAL WAS 75%. PT DOES NOT WEAR OXYGEN AND DENIES SOA. Nursing Sepsis Screen: No Definite Risk Source of Information: Patient Exam Limitations: No Limitations History of Present Illness Date Seen by Provider: Sep 09, 2020 Time Seen by Provider: 07:50 Initial Comments This 85-year-old woman presents to the emergency room with complaints of right- sided abdominal pain worsening through the night. This is thought to be related to chronic cholecystitis since she has surgery scheduled with Dr. Abad later today. She comes to the emergency room because she just could not tolerate the pain any longer. On initial assessment she was found to have oxygen saturations in the mid 70s on room air. She denies recall ever requiring supplemental oxygen at home or acutely during illness. She denies history of COPD. She has remote smoking history in the and . She denies chest pain or shortness of breath. She had a Covid PCR test performed yesterday that was negative. She also reports recent treatment for urinary tract infection. Her primary care provider is Dr. Khan. Dr. Abad is her surgeon. She also had a preop appointment with Dr. Reddy yesterday and reports that he expressed no specific concerns to her about having surgery. Allergies and Home Medications Allergies Coded Allergies: Sulfa (Sulfonamide Antibiotics) (Unverified Allergy, Severe, SWELLING, 09/08/20) Home Medications Amlodipine Besylate 5 Mg Tablet, 5 MG PO DAILY, (Reported) Cholecalciferol (Vitamin D3) 25 Mcg Capsule, 25 MCG PO DAILY, (Reported) Clonidine HCl 0.2 Mg Tablet, 0.2 MG PO HS, (Reported) Levothyroxine Sodium 75 Mcg Capsule, 75 MCG PO DAILY, (Reported) Lisinopril 40 Mg Tablet, 40 MG PO DAILY, (Reported) Lorazepam 1 Mg Tablet, 0.5 MG PO PRN, (Reported) Nitrofurantoin Macrocrystal 50 Mg Capsule, 50 MG PO DAILY, (Reported) Nitroglycerin 0.4 Mg Tab.subl, 0.4 MG PO UD PRN for CHEST PAIN, (Reported) Rivaroxaban 20 Mg Tablet, 20 MG PO DAILY, (Reported) Simvastatin 20 Mg Tablet, 20 MG PO HS, (Reported) Patient Home Medication List Home Medication List Reviewed: Yes Review of Systems Review of Systems Constitutional: no symptoms reported EENTM: no symptoms reported Respiratory: see HPI Cardiovascular: no symptoms reported Gastrointestinal: see HPI Genitourinary: no symptoms reported : No Musculoskeletal: no symptoms reported Skin: no symptoms reported Psychiatric/Neurological: No Symptoms Reported Hematologic/Lymphatic: No Symptoms Reported Immunological/Allergic: no symptoms reported Past Mxttpql-Nlhwxc-Qzcpxf Hx Past Med/Social Hx: Reviewed Nursing Past Med/Soc Hx Patient Social History Alcohol Use: Denies Use Recreational Drug Use: No Smoking Status: Former Smoker Type Used: Cigarettes Former Smoker, Quit: Sep 25, 1984 2nd Hand Smoke Exposure: Yes Recent Foreign Travel: No Contact w/Someone Who Travel: No Recent Infectious Disease Expo: No Recent Hopitalizations: No Immunizations Up To Date Tetanus Booster (TDap): Unknown Date of Pneumonia Vaccine: Jul 03, 2017 Date of Influenza Vaccine: Jun 29, 2020 Seasonal Allergies Seasonal Allergies: No Past Medical History Surgeries: Yes (R TKR, L FEMUR FX) Adenoidectomy, Eye Surgery, Joint Replacement, Orthopedic, Tonsillectomy Respiratory: Yes Pulmonary Embolism Cardiac: Yes Atrial Fibrillation, Chronic Edema/Swelling, Coronary Artery Disease, Heart Attack, High Cholesterol, Hypertension Neurological: No Reproductive Disorders: No Sexually Transmitted Disease: No HIV/AIDS: No Genitourinary: Yes UTI-Chronic Gastrointestinal: Yes (LACTOSE INTOLERANT) Gastroesophageal Reflux, Chronic Constipation, Hiatal Hernia, Gall Bladder Disease Musculoskeletal: Yes (DJD RIGHT KNEE; RIGHT TOTAL KNEE REPLACEMENT) Arthritis Endocrine: Yes Hypothyroidsim HEENT: Yes (GLASSES, DENTURES) Cataract Loss of Vision: Denies Hearing Impairment: Denies Cancer: No Psychosocial: Yes Anxiety Integumentary: No Blood Disorders: No Adverse Reaction/Blood Tranf: No (N/A) Family Medical History Blood cancer G8 SISTER Diabetes mellitus 19 MOTHER Physical Exam Vital Signs Vital Signs - First Documented 09/09/20 07:55 Temp 36.3 Pulse 78 Resp 16 B/P (MAP) 158/112 (127) Pulse Ox 75 O2 Delivery Nasal Cannula O2 Flow Rate 2.00 Capillary Refill : Less Than 3 Seconds Height, Weight, BMI Height: 5'7" Weight: 142lbs. 5.0oz. 64.783015vf; 21.00 BMI Method:Stated General Appearance: No Apparent Distress, WD/WN, Thin HEENT: PERRL/EOMI, Normal ENT Inspection Neck: Normal Inspection; No JVD Respiratory: Lungs Clear, Normal Breath Sounds, No Accessory Muscle Use, No Respiratory Distress, Other (Prolonged expiratory phase) Cardiovascular: Regular Rate, Rhythm, No Edema, Systolic Murmur Gastrointestinal: Normal Bowel Sounds, Soft, Tenderness (Right mid abdominal pain/tenderness) Extremity: Normal Inspection, No Pedal Edema Neurologic/Psychiatric: Alert, Oriented x3, No Motor/Sensory Deficits, Normal Mood/Affect, chain maker hand II-XII Norm as Tested Skin: Normal Color, Warm/Dry Focused Exam Lactate Level 09/09/20 08:07: Lactic Acid Level 2.37*H 09/09/20 10:09: Lactic Acid Level 2.34*H 09/09/20 12:30: Lactic Acid Level 1.32 Lactic Acid Level Laboratory Tests Test 09/09/20 12:30 Lactic Acid Level 1.32 MMOL/L (0.50-2.00) Progress/Results/Core Measures Suspected Sepsis Recent Fever Within 48 Hours: No Infection Criteria Present: None New/Unexplained Altered Menta: No Sepsis Screen: No Definite Risk SIRS Temperature: Pulse: 78 Respiratory Rate: 16 Laboratory Tests 09/09/20 08:07: White Blood Count 6.1 Blood Pressure 158 /112 Mean: 127 09/09/20 08:07: Lactic Acid Level 2.37*H 09/09/20 10:09: Lactic Acid Level 2.34*H 09/09/20 12:30: Lactic Acid Level 1.32 Laboratory Tests 09/09/20 08:07: Creatinine 1.47H, INR Comment 1.2, Platelet Count 193, Total Bilirubin 1.6H Results/Orders Lab Results Laboratory Tests Test 09/09/20 08:07 09/09/20 08:40 09/09/20 09:30 09/09/20 10:09 Range/Units White Blood Count 6.1 4.3-11.0 10^3/uL Red Blood Count 3.88 3.80-5.11 10^6/uL Hemoglobin 11.8 11.5-16.0 g/dL Hematocrit 38 35-52 % Mean Corpuscular Volume 97 80-99 fL Mean Corpuscular Hemoglobin 30 25-34 pg Mean Corpuscular Hemoglobin Concent 31 L 32-36 g/dL Red Cell Distribution Width 15.6 H 10.0-14.5 % Platelet Count 193 130-400 10^3/uL Mean Platelet Volume 10.2 9.0-12.2 fL Immature Granulocyte % (Auto) 1 % Neutrophils (%) (Auto) 60 42-75 % Lymphocytes (%) (Auto) 27 12-44 % Monocytes (%) (Auto) 11 0-12 % Eosinophils (%) (Auto) 1 0-10 % Basophils (%) (Auto) 1 0-10 % Neutrophils # (Auto) 3.7 1.8-7.8 10^3/uL Lymphocytes # (Auto) 1.7 1.0-4.0 10^3/uL Monocytes # (Auto) 0.7 0.0-1.0 10^3/uL Eosinophils # (Auto) 0.0 0.0-0.3 10^3/uL Basophils # (Auto) 0.0 0.0-0.1 10^3/uL Immature Granulocyte # (Auto) 0.0 0.0-0.1 10^3/uL Prothrombin Time 15.5 H 12.2-14.7 SEC INR Comment 1.2 0.8-1.4 Activated Partial Thromboplast Time 31 24-35 SEC Sodium Level 137 135-145 MMOL/L Potassium Level 4.7 3.6-5.0 MMOL/L Chloride Level 102 98-107 MMOL/L Carbon Dioxide Level 24 21-32 MMOL/L Anion Gap 11 5-14 MMOL/L Blood Urea Nitrogen 22 H 7-18 MG/DL Creatinine 1.47 H 0.60-1.30 MG/DL Estimat Glomerular Filtration Rate 34 BUN/Creatinine Ratio 15 Glucose Level 110 H 70-105 MG/DL Lactic Acid Level 2.37 *H 2.34 *H 0.50-2.00 MMOL/L Calcium Level 9.0 8.5-10.1 MG/DL Corrected Calcium 9.2 8.5-10.1 MG/DL Total Bilirubin 1.6 H 0.1-1.0 MG/DL Aspartate Amino Transf (AST/SGOT) 38 H 5-34 U/L Alanine Aminotransferase (ALT/SGPT) 31 0-55 U/L Alkaline Phosphatase 71 40-136 U/L Lactate Dehydrogenase 248 H 125-220 U/L C-Reactive Protein High Sensitivity 3.05 H 0.00-0.50 MG/DL B-Type Natriuretic Peptide 1507.0 H <100.0 PG/ML Total Protein 7.7 6.4-8.2 GM/DL Albumin 3.8 3.2-4.5 GM/DL Lipase 36 8-78 U/L Procalcitonin 0.05 <0.10 NG/ML Coronavirus 2019 (MARGY) Negative Negative Thyroid Stimulating Hormone (TSH) 1.64 0.35-4.94 UIU/ML Free Thyroxine 1.72 H 0.70-1.48 NG/DL Test 09/09/20 12:30 Range/Units Lactic Acid Level 1.32 0.50-2.00 MMOL/L My Orders Orders - DEJAH GOLD MD Cbc With Automated Diff (09/09/20 07:50) Comprehensive Metabolic Panel (09/09/20 07:50) Hs C Reactive Protein (09/09/20 07:50) Lipase (09/09/20 07:50) Ed Iv/Invasive Line Start (09/09/20 07:50) Fentanyl Injection (Sublimaze Injection (09/09/20 08:00) Lactated Ringers (Lr 1000 Ml Iv Solution (09/09/20 08:00) Procalcitonin (Pct) (09/09/20 08:08) LDH (09/09/20 08:08) Covid 19 Inhouse Test (09/09/20 08:08) Blood Culture (09/09/20 08:08) Sputum Culture (09/09/20 08:08) Urinalysis (09/09/20 08:08) Urine Culture (09/09/20 08:08) Protime With Inr (09/09/20 08:08) Partial Thromboplastin Time (09/09/20 08:08) Chest 1 View, Ap/Pa Only (09/09/20 08:08) Vital Signs Adult Sepsis Patie Q15M (09/09/20 08:08) O2 (09/09/20 08:08) Remove Rings In Anticipation O (09/09/20 08:08) Lactic Acid Analyzer (09/09/20 08:08) BNP (09/09/20 09:24) Albuterol Inhaler (Ventolin Hfa) (09/09/20 10:00) Amlodipine Tablet (Norvasc Tablet) (09/09/20 09:45) Thyroid Stimulating Hormone (09/09/20 09:45) Free T4 (Free Thyroxine) (09/09/20 09:45) Ceftriaxone For Iv Use (Rocephin For I (09/09/20 10:00) Coronavirus Sars-Cov-2 So 2019 (09/09/20 09:30) Lactated Ringers (Lr 1000 Ml Iv Solution (09/09/20 12:30) Medications Given in ED Current Medications Medications Dose Ordered Sig/Julianne Route Start Time Stop Time Status Last Admin Dose Admin Amlodipine Besylate 5 mg ONCE ONCE PO 09/09/20 09:45 09/09/20 09:47 DC 09/09/20 10:09 5 MG Fentanyl Citrate 50 mcg ONCE ONCE IVP 09/09/20 08:00 09/09/20 08:01 DC 09/09/20 08:33 50 MCG Lactated Ringer's 1,000 ml @ 0 mls/hr Q0M ONCE IV 09/09/20 08:00 09/09/20 08:01 DC 09/09/20 08:34 1,000 MLS/HR Vital Signs/I&O 09/09/20 09/09/20 09/09/20 09/09/20 07:55 07:55 13:30 13:45 Temp 36.3 36.6 Pulse 78 87 78 Resp 16 16 B/P (MAP) 158/112 (127) 168/93 145/109 Pulse Ox 75 75 91 95 O2 Delivery Nasal Cannula Room Air Nasal Cannula Nasal Cannula O2 Flow Rate 2.00 4.00 2.00 2.00 09/09/20 14:01 Pulse Ox 95 O2 Delivery Nasal Cannula O2 Flow Rate 2.00 Capillary Refill : Less Than 3 Seconds Blood Pressure Mean: 127 Progress Note #1: Time: 10:03 Progress Note Patient was treated with fentanyl and IV fluids. Nasal cannula oxygen was titrated down to 2 L/min and she was maintaining oxygen saturations in the mid 90s. An albuterol inhaler has been ordered as she had some prolonged expiratory phase and subtle wheezing. BNP and thyroid labs are pending at this time. Patient denies having any history of heart failure or cardiac conditions. I discussed the situation with Dr. Abad. Since pneumonia was identified on the chest x-ray and she is hypoxic, she cannot proceed with surgery today. He is willing to perform the surgery during this admission if she recovers well enough to proceed. I discussed CODE STATUS with the patient and she requests full code. Antibiotic therapy for pneumonia was started with Rocephin in the emergency room. She received a liter of IV fluids. Lactic acid was mildly elevated but this was felt to be due to hydration status rather than sepsis. Hypoxia is likely due to a combination of splinting, pneumonia, and mild un diagnosed COPD. I do not believe she is suffering from sepsis at this time. Progress Note #2: Progress Note Repeat lactic acid was not much improved. A second liter of IV fluid was ordered. Diagnostic Imaging Diagonstic Imaging: Xray Plain Films/CT/US/NM/MRI: chest Comments NAME: TAYLOR MILLER [facility] REC#: [id number] PT STATUS: REG ER : 1935 PHYSICIAN: DEJAH GOLD MD ADMIT DATE: 09/09/20/ER Draft Date of Exam:09/09/20 CHEST 1 VIEW, AP/PA ONLY INDICATION: Sepsis and dyspnea AP view of the chest is obtained. Since 09/01/2020, there has been an increase in diffuse mixed interstitial and alveolar densities throughout the lungs. Airspace disease is greatest in the right lower lobe and may represent area of superimposed consolidation on background of edema and/or pneumonitis in patient with COPD. No pneumothorax is identified. There is no significant pleural fluid. IMPRESSION: Findings suggest worsening of interstitial edema and/or pneumonitis with possible superimposed atypical pneumonia or pneumonitis in the right lower lobe. Dictated on workstation # [id number] Dict: 09/09/20 0845 Trans: 09/09/20 0851 PENDING SALE TO [facility] [id number] Interpreted by: PREMA SOLIS MD Reviewed: Reviewed by Me Departure Communication (Admissions) Time/Spoke to Admitting Phy: 09:50 Dr. Almanzar Time/Spoke to Consulting Phy: 09:20 Dr. Abad Impression Primary Impression: Right lower lobe pneumonia Qualified Codes: J18.9 - Pneumonia, unspecified organism Additional Impressions: Hypoxia Person under investigation for COVID-19 Chronic cholecystitis Disposition: ADMITTED INPATIENT Condition: Improved Admissions Decision to Admit Reason: Admit from ER (General) Decision to Admit/Date: Sep 09, 2020 Time/Decision to Admit Time: 08:05 Departure-Patient Inst. Referrals: KIKO KHAN MD (PCP/Family) Primary Care Physician DEJAH GOLD MD Sep 09, 2020 10:05
--- NOTE | 2020-09-09 10:18 | NUR ---
CHUCK BONER CONTACTED FOR A BED.
[2020-09-09 10:26] LABS: FREE T4 (FREE THYROXINE) 1.72 NG/DL (0.70-1.48)
--- NOTE | 2020-09-09 10:30 | NUR ---
PULSE OX 97% ON 4L ET DECREASED TO 2L NC.
--- NOTE | 2020-09-09 10:45 | NUR ---
PULSE OX 92% ON 2L NC.
--- NOTE | 2020-09-09 11:04 | NUR ---
PHOTOGRAPHIC COLORIST CONTACTED AGAIN FOR A BED.
--- NOTE | 2020-09-09 11:38 | NUR ---
PT IS SLEEPING AT THIS TIME.
--- NOTE | 2020-09-09 11:49 | NUR ---
CLEAR LIQUIDS ORDERED FOR THE PT.
--- NOTE | 2020-09-09 12:16 | NUR ---
DAUGHTER DEANDRE UPDATED. DEANDRE IS WHO I HAVE BEEN TALKING TOO. SHE SAID SHE WOULD UPDATE HER SISTER SANDRA.
--- NOTE | 2020-09-09 13:11 | NUR ---
DAUGHTER UPDATED ON ROOM NUMBER.
--- NOTE | 2020-09-09 13:15 | NUR ---
PULSE OX 88% ON 2L NC ET INCREASED TO 4L. DR NOTIFIED.
--- NOTE | 2020-09-09 13:31 | NUR ---
Report received from GABRIELA Schuler.
[2020-09-09 13:45] VITALS: BP 145/109
[2020-09-09] MEDS ORDERED: AZITHROMYCIN 500 MG/NS 250 ML IVPB IV NR ×2 (14:30)
[2020-09-09] MEDS ORDERED: HYDROcodone/APAP 5 MG/325 MG (LORTAB) TAB PO PRN (14:30)
[2020-09-09] MEDS ORDERED: fentaNYL INJECTION 100 MCG/2 ML AMP IV PRN (14:30)
[2020-09-09] MEDS ORDERED: ONDANSETRON 4 MG/2 ML (SDV) Z0FRAN IV PRN (14:30)
[2020-09-09] MEDS ORDERED: LACTATED RINGERS 1,000 ML IV SCH (14:30)
[2020-09-09] MEDS ORDERED: fentaNYL INJECTION 100 MCG/2 ML AMP IVP PRN (15:00)
[2020-09-09] MEDS: FAMOTIDINE 20 MG (PEPCID) TABLET PO SCH (15:15)
[2020-09-09] MEDS ORDERED: CATHETER FLUSH 10 ML SYR IV PRN (15:15)
--- NOTE | 2020-09-09 15:23 | History & Physical-Hospitalist ---
History of Present Illness HPI/Chief Complaint Pt is an 85yoCF with a PMH of HTN, pAF, hypothyroidism, postop PE in 2015 who presented to the ER due to abdominal pain. She was scheduled to have a cholecystectomy today with Dr Abad for chronic cholecystitis but her pain continued to worsen and became unbearable overnight prompting her to seek evaluation in the ER. She was incidentally found to be hypoxic in the 70s on arrival. She had a negative COVID test yesterday for preoperative assessment. She reports no symptoms of hypoxia and is not coughing or SOB. She states she's been told she is "low breather" but never diagnosed with any lung diseases. She smoked for years in the 70s and 80s but quit over 30 years ago. She does not use any inhalers at home. Her only complaint is her abdominal pain still. Source: patient Date Seen 09/09/20 Time Seen by a Provider: 14:30 Attending Physician Star Almanzar MD PCP Chuck Saeed MD Referring Physician Date of Admission Sep 09, 2020 at 09:57 Home Medications & Allergies Home Medications Reviewed patient Home Medication Reconciliation performed by pharmacy medication reconciliations glass technician/installer and/or nursing. Patients Allergies have been reviewed. Allergies Allergies Coded Allergies Sulfa (Sulfonamide Antibiotics) (Unverified Allergy, Severe, SWELLING, 09/08/20) Past Ebzkqwq-Hnguvc-Wqzrkl Hx Past Med/Social Hx: Reviewed Nursing Past Med/Soc Hx Patient Social History Alcohol Use: Denies Use Recreational Drug Use: No Smoking Status: Former Smoker Former Smoker, Quit: Sep 25, 1984 Type Used: Cigarettes 2nd Hand Smoke Exposure: Yes Recent Foreign Travel: No Contact w/other who traveled: No Recent Hopitalizations: No Recent Infectious Disease Expo: No Immunizations Up To Date Tetanus Booster (TDap): Unknown Date of Pneumonia Vaccine: Jul 03, 2017 Date of Influenza Vaccine: Jun 29, 2020 Seasonal Allergies Seasonal Allergies: No Past Medical History Surgeries: Adenoidectomy, Eye Surgery, Joint Replacement, Orthopedic, Tonsillectomy Cardiac: Atrial Fibrillation, Chronic Edema/Swelling, Coronary Artery Disease, Heart Attack, High Cholesterol, Hypertension Reproductive: No Sexually Transmitted Disease: No HIV/AIDS: No Genitourinary: UTI-Chronic Gastrointestinal: Gastroesophageal Reflux, Chronic Constipation, Hiatal Hernia, Gall Bladder Disease Musculoskeletal: Arthritis Endocrine: Hypothyroidsim HEENT: Cataract Loss of Vision: Denies Hearing Impairment: Denies Psychosocial: Anxiety History of Blood Disorders: No Adverse Reaction to Blood Daley: No (N/A) Family History Blood cancer G8 SISTER Diabetes mellitus 19 MOTHER Review of Systems Constitutional: No chills, No fever, No weakness EENTM: no symptoms reported Respiratory: see HPI Cardiovascular: No chest pain, No edema, No palpitations Gastrointestinal: see HPI, abdominal pain Genitourinary: no symptoms reported Musculoskeletal: no symptoms reported Skin: no symptoms reported Physical Exam Physical Exam Vital Signs Vital Signs - First Documented 09/09/20 07:55 Temp 36.3 Pulse 78 Resp 16 B/P (MAP) 158/112 (127) Pulse Ox 75 O2 Delivery Nasal Cannula O2 Flow Rate 2.00 Capillary Refill : Less Than 3 SecondsLess Than 3 Seconds Height, Weight, BMI Height: 5'7" Weight: 142lbs. 5.0oz. [id number]; 21.48 BMI Method:Stated General Appearance: No Apparent Distress, Chronically ill, Thin HEENT: PERRL/EOMI, Moist Mucous Membranes Respiratory: Lungs Clear, No Accessory Muscle Use, No Respiratory Distress, Other (on 2lpm NC) Cardiovascular: Regular Rate, Rhythm, No Murmur Gastrointestinal: Normal Bowel Sounds, Non Tender, Soft Extremity: No Calf Tenderness, No Pedal Edema Neurologic/Psychiatric: Alert, Oriented x3 Results Results/Procedures Labs Laboratory Tests 09/12/20 04:37 Patient resulted labs reviewed. Imaging: Reviewed Imaging Report Imaging [facility], [place] NAME: ANGELATAYLOR J MED REC#: [id number] PT STATUS: REG ER : 1935 PHYSICIAN: DEJAH GOLD MD ADMIT DATE: 09/09/20/ER Draft Date of Exam:09/09/20 CHEST 1 VIEW, AP/PA ONLY INDICATION: Sepsis and dyspnea AP view of the chest is obtained. Since 09/01/2020, there has been an increase in diffuse mixed interstitial and alveolar densities throughout the lungs. Airspace disease is greatest in the right lower lobe and may represent area of superimposed consolidation on background of edema and/or pneumonitis in patient with COPD. No pneumothorax is identified. There is no significant pleural fluid. IMPRESSION: Findings suggest worsening of interstitial edema and/or pneumonitis with possible superimposed atypical pneumonia or pneumonitis in the right lower lobe. Dictated on workstation # [id number] Dict: 09/09/20 0845 Trans: 09/09/20 0851 [facility] [id number] Interpreted by: PREMA SOLIS MD Electronically signed by: Assessment/Plan Admission Diagnosis Acute hypoxic Respiratory Failure Admission Status: Inpatient Order (span 2 midnights) Reason for Inpatient Admission: see below Assessment and Plan Acute hypoxic Respiratory Failure RLL PNA COVID PUI Continue on IV abx Does not meet sepsis criteria Lacic acidosis likely due to hypoxia Continue oxygen supplementation to maintain sats >90 Await cultures D-dimer Chronic Cholecystitis Dr Abad consulted, appreciate recs Continue pain regimen pAF HTN HLD Continue home antihypertensives Rate controlled, has not filled Metoprolol since April Continue statin Hold Xarelto for surgery DVT ppx: SCDS Clinical Quality Measures DVT/VTE Risk/Contraindication: Risk Factor Score Per Nursin RFS Level Per Nursing on Admit: 4+=Very High STAR ALMANZAR MD Sep 09, 2020 15:23
[2020-09-09 16:00] VITALS: BP 173/121
[2020-09-09 16:42] VITALS: BP 173/121
[2020-09-09] MEDS ORDERED: RT-ALBUTEROL/IPRATROPIUM 3 ML (DUONEB) VIAL INH PRN (17:00)
[2020-09-09 19:45] VITALS: BP 193/115
[2020-09-09] MEDS: LORazepam 0.5 MG (ATIVAN) TABLET PO PRN (20:47)
[2020-09-09] MEDS: cloNIDine 0.2 MG (CATAPRES) TAB PO SCH (20:47)
[2020-09-10] VITALS: BP 123/55
[2020-09-10 04:04] VITALS: BP 142/71
[2020-09-10] MEDS: LEVOTHYROXINE 75 MCG (LEVOTHROID) TABLET PO SCH (06:40)
--- NOTE | 2020-09-10 07:36 | Diagnostic Imaging Report ---
CHEST 1 VIEW, AP/PA ONLY Indication: Shortness of air. Comparison: 09/09/2020. Findings: Worsening of diffuse bilateral heterogeneous opacities which are more confluent in the bilateral lung bases. Small to moderate right pleural effusion and small left pleural effusion. Marked cardiomegaly is unchanged. Atherosclerotic aorta. Impression: 1. Worsening of diffuse bilateral pulmonary opacities that may be due to pulmonary edema and/or ARDS superimposed on multifocal pneumonia. Dictated by: Dictated on workstation # [id number]
[2020-09-10 08:10] VITALS: BP 145/88
[2020-09-10] MEDS: AZITHROMYCIN 250 MG TAB (ZITHROMAX) PO SCH (09:08)
[2020-09-10] MEDS: cloNIDine 0.2 MG (CATAPRES) TAB PO SCH ×2 (09:08→19:38)
[2020-09-10] MEDS: FAMOTIDINE 20 MG (PEPCID) TABLET PO SCH (09:08)
[2020-09-10] MEDS: amLODIPine 5 MG (NORVASC) TAB PO SCH (09:09)
[2020-09-10] MEDS: cefTRIAXone 1,000 MG/SWFI 10 ML IV PUSH IV SCH ×2 (09:09)
--- NOTE | 2020-09-10 10:14 | Progress Note - Hospitalist ---
Subjective HPI/CC On Admission Date Seen by Provider: Sep 10, 2020 Time Seen by Provider: 10:09 Pt is an 85yoCF with a PMH of HTN, pAF, hypothyroidism, postop PE in 2014 who presented to the ER due to abdominal pain. She was scheduled to have a cholecystectomy today with Dr Abad for chronic cholecystitis but her pain continued to worsen and became unbearable overnight prompting her to seek evaluation in the ER. She was incidentally found to be hypoxic in the 70s on arrival. She had a negative COVID test yesterday for preoperative assessment. She reports no symptoms of hypoxia and is not coughing or SOB. She states she's been told she is "low breather" but never diagnosed with any lung diseases. She smoked for years in the 70s and 80s but quit over 30 years ago. She does not use any inhalers at home. Her only complaint is her abdominal pain still. Subjective/Events-last exam Pt reports doing better today. Ate breakfast and doing well. No complaints. Focused Exam Lactate Level 09/09/20 08:07: Lactic Acid Level 2.37*H 09/09/20 10:09: Lactic Acid Level 2.34*H 09/09/20 12:30: Lactic Acid Level 1.32 Objective Exam Vital Signs Vital Signs Date Time Temp Pulse Resp B/P (MAP) Pulse Ox O2 Delivery O2 Flow Rate FiO2 09/10/20 16:00 36.6 102 16 157/82 (107) 92 Nasal Cannula 4.00 Capillary Refill : Less Than 3 SecondsLess Than 3 Seconds General Appearance: No Apparent Distress, Chronically ill, Thin Respiratory: Lungs Clear, No Respiratory Distress Cardiovascular: Regular Rate, Rhythm, No Murmur Neurologic/Psychiatric: Alert, Oriented x3 Results/Procedures Lab Laboratory Tests 09/10/20 10:35 Patient resulted labs reviewed. Imaging: Reviewed Imaging Report Assessment/Plan Assessment and Plan Assess & Plan/Chief Complaint Acute hypoxic Respiratory Failure RLL PNA Continue on IV abx Continue oxygen supplementation to maintain sats >90 Await cultures D-dimer up at 3.79, will get usg cover with Lovenox for now COVID negative Chronic Cholecystitis Dr Abad consulted, appreciate recs Continue pain regimen pAF HTN HLD Continue home antihypertensives Rate controlled, has not filled Metoprolol since April Continue statin Hold Xarelto for surgery but now covering with Lovenox due to elevated d- dimer DVT ppx: SCDS Clinical Quality Measures DVT/VTE Risk/Contraindication: Risk Factor Score Per Nursin RFS Level Per Nursing on Admit: 4+=Very High STAR CID MD Sep 10, 2020 10:14
--- NOTE | 2020-09-10 10:35 | NUR ---
PHARMACY TO DOSE LOVENOX TREATMENT DOSE: CrCl 24; DOSED LOVENOX 60 MG SC DAILY
--- NOTE | 2020-09-10 10:51 | NUR ---
"RD ASSESSMENT PMHx: HTN; hypothyroidism; hypercholesterolemia; PE; CAD; GERD; chronic constipation; hiatal hernia; chronic UTI; afib; PT INTERACTION: Note pt is currently in COVID isolation, per chart review. Note all diet information for nutrition assessment is per Rachel RN, or per chart review. Rachel states current appetite appears alright. Note avg PO intake 45% x2meal, per chart review. Rachel states no issues with nausea, vomiting, constipation, or diarrhea that she is aware of, and that her last BM was 09/09. Note pt not currently on bowel regimen per chart review. Note unable to determine recent wt hx, per chart review. ABNORMAL NUTRITION-RELATED LAB VALUES LOW: HIGH: BUN 22; cr 1.47; glu 110; bili 1.6; AST 38 Est. kcal needs: 4412-6327 kcal | 25-30 kcal/kg Est. Pro needs: 49-61 g Pro | 0.8-1.0 g Pro/kg PES STATEMENT: Inadequate oral intake (NI-2.1) related to loss of appetite, as evidenced by chart review, and avg PO intake 45% x2meal. INTERVENTION: Continue with current diet order of Fat Restricted diet. Add Ensure Enlive (vary) to meals TID, for increased kcal intake. Provides 350 kcal and 20 g Pro per serving. Will continue to follow and reassess as pt needs, intake, and status change. Carin JUAREZ, MS RD LD [phone] cell"
[2020-09-10 10:58] LABS: CALCIUM 7.9 MG/DL (8.5-10.1); CREATININE SERUM 1.24 MG/DL (0.60-1.30); POTASSIUM 3.9 MMOL/L (3.6-5.0)
[2020-09-10] MEDS ORDERED: ENOXAPARIN 60 MG/0.6 ML (LOVENOX) SYR SC SCH (11:00)
[2020-09-10 11:25] VITALS: BP 118/67
--- NOTE | 2020-09-10 12:01 | Progress Note ---
Subjective Date Seen by a Provider: Sep 10, 2020 Time Seen by a Provider: 11:00 Subjective/Events-last exam doing better today. less abd pain. still has some SOB. mild LE swelling. Focused Exam Lactate Level 09/09/20 08:07: Lactic Acid Level 2.37*H 09/09/20 10:09: Lactic Acid Level 2.34*H 09/09/20 12:30: Lactic Acid Level 1.32 Objective Exam Vital Signs Date Time Temp Pulse Resp B/P (MAP) Pulse Ox O2 Delivery O2 Flow Rate FiO2 09/10/20 08:10 36.6 74 16 145/88 (107) 91 Nasal Cannula 3.50 09/10/20 04:04 36.0 63 18 142/71 (94) 93 Nasal Cannula 4.00 09/10/20 00:00 37.0 70 14 123/55 (77) 90 Nasal Cannula 4.00 09/09/20 20:00 91 Nasal Cannula 3.00 09/09/20 19:53 91 Nasal Cannula 3.00 09/09/20 19:45 36.8 92 18 193/115 (141) Nasal Cannula 4.00 09/09/20 16:42 37.0 88 92 09/09/20 16:00 37.0 88 18 173/121 (138) 92 Nasal Cannula 4.00 09/09/20 14:01 95 Nasal Cannula 2.00 09/09/20 13:45 36.6 78 16 145/109 95 Nasal Cannula 2.00 2.00 09/09/20 13:30 87 16 168/93 91 Nasal Cannula 4.00 I & O 09/10/20 06:59 Intake Total 3785 ml Output Total 0 ml Balance 3785 ml Capillary Refill : Less Than 3 SecondsLess Than 3 Seconds General Appearance: No Apparent Distress HEENT: PERRL/EOMI Neck: Full Range of Motion Respiratory: Chest Non Tender, Decreased Breath Sounds Cardiovascular: Regular Rate, Rhythm Gastrointestinal: normal bowel sounds, soft, tenderness Extremity: Normal Capillary Refill Neurologic/Psychiatric: Alert, Oriented x3 Skin: Normal Color Lymphatic: No Adenopathy Results Lab Laboratory Tests 09/09/20 12:30: Lactic Acid Level 1.32 09/10/20 10:35: Sodium Level 137, Potassium Level 3.9, Chloride Level 104, Carbon Dioxide Level 27, Anion Gap 6, Blood Urea Nitrogen 17, Creatinine 1.24, Estimat Glomerular Filtration Rate 41, BUN/Creatinine Ratio 14, Glucose Level 110H, Calcium Level 7.9L Assessment/Plan Assessment/Plan Assess & Plan/Chief Complaint sx chronic calculous cholecystitis with pneumonia vs. r/o PE check u/s LE. if less sx from gallbladder standpoint will wait for surgery until medically optimized Clinical Quality Measures DVT/VTE Risk/Contraindication: Risk Factor Score Per Nursin RFS Level Per Nursing on Admit: 4+=Very High CHRIS SAVAGE MD Sep 10, 2020 12:01
[2020-09-10 16:00] VITALS: BP 157/82
--- NOTE | 2020-09-10 16:51 | Diagnostic Imaging Report ---
PROCEDURE: US venous lower ext izabel. TECHNIQUE: Multiple real-time grayscale images were obtained over the lower extremities in various projections, bilaterally. Additional duplex Doppler and color Doppler images were also obtained. INDICATION: Elevated d-dimer. Bilateral leg pain and swelling. FINDINGS: Color Doppler imaging shows normal blood flow throughout the lower extremity venous system, bilaterally. Calf compression shows normal augmentation of flow at the popliteal level. No evidence of popliteal cyst. IMPRESSION: No evidence of venous thrombosis within the lower extremities. Dictated by: Dictated on workstation # [id number]
--- NOTE | 2020-09-10 17:12 | NUR ---
Low urine output, Dr Almanzar notified. 270 ml bladder scanned after voiding 200 mls. Patient states this is normal for her and voids frequently at night. Encouraged to increase fluids as urine concentrated.
[2020-09-10] MEDS ORDERED: HOLD METFORMIN - RECEIVED CONTRAST 20 ML VIAL IV SCH (17:30)
[2020-09-10] MEDS ORDERED: NS 100 ML (IVPB) BAG IV ONE (17:30)
[2020-09-10] MEDS ORDERED: IOHEXOL 350 MG/ML 100 ML (OMNIPAQUE 350) VIAL IV ONE (17:30)
--- NOTE | 2020-09-10 18:33 | Diagnostic Imaging Report ---
EXAMINATION: CT angiography of the chest. TECHNIQUE: Contrast enhanced thin section helical images were obtained through the chest with intravenous contrast timed for the optimal opacification of the arterial structures per CTA protocol. Post-processing, reconstructions and interpretation of angiographic images of the vessels was performed. 3D MIP reconstructions were performed and reviewed. All CT scans use one or more of the following dose optimizing techniques: automated exposure control, MA and/or KvP adjustment based on a patient size and exam type, or iterative reconstruction. HISTORY: Shortness of breath, pneumonia COMPARISON: 01/15/2011 FINDINGS: There is no pulmonary embolism. There is moderate pulmonary edema. There is a moderate right and small left pleural effusion. There is mild pulmonary emphysema. There is right lower lobe collapse. No pneumothorax. No suspicious nodules. There is no axillary or supraclavicular lymphadenopathy. Mildly enlarged mediastinal lymph nodes are likely reactive. There is severe dilation of the atria and moderate dilation of the ventricles. There are moderate coronary artery calcifications. No pericardial effusion. Aorta is normal in caliber. The inferior vena cava is distended. Limited views of the upper abdomen are unremarkable. There are no suspicious osseus lesions. There is a moderate L1 compression fracture, age indeterminate. IMPRESSION: 1. Findings of heart failure with moderate right and small left effusions, markedly dilated atria and moderately dilated ventricles, distended inferior vena cava and moderate pulmonary edema. 2. No pulmonary embolism. 3. Moderate age-indeterminate L1 compression fracture. Dictated by: Dictated on workstation # [id number]
[2020-09-10] MEDS: LORazepam 0.5 MG (ATIVAN) TABLET PO PRN (19:38)
[2020-09-10] MEDS: SIMvastatin 20 MG (ZOCOR) TAB PO SCH (19:38)
[2020-09-10 20:00] VITALS: BP 163/91
[2020-09-11] VITALS (7 sets, daily range): BP systolic 105–145; BP diastolic 61–87
[2020-09-11] MEDS: LEVOTHYROXINE 75 MCG (LEVOTHROID) TABLET PO SCH (05:56)
[2020-09-11] MEDS: LORazepam 0.5 MG (ATIVAN) TABLET PO PRN ×2 (07:13→16:11)
--- NOTE | 2020-09-11 08:56 | Progress Note - Hospitalist ---
Subjective HPI/CC On Admission Date Seen by Provider: Sep 11, 2020 Time Seen by Provider: 08:51 Pt is an 85yoCF with a PMH of HTN, pAF, hypothyroidism, postop PE in 2014 who presented to the ER due to abdominal pain. She was scheduled to have a cholecystectomy today with Dr Abad for chronic cholecystitis but her pain continued to worsen and became unbearable overnight prompting her to seek evaluation in the ER. She was incidentally found to be hypoxic in the 70s on arrival. She had a negative COVID test yesterday for preoperative assessment. She reports no symptoms of hypoxia and is not coughing or SOB. She states she's been told she is "low breather" but never diagnosed with any lung diseases. She smoked for years in the 70s and 80s but quit over 30 years ago. She does not use any inhalers at home. Her only complaint is her abdominal pain still. Subjective/Events-last exam Pt reports doing well this mornign. Eating breakfast, States she got quite anxious about an hour ago but resolved with ativan. Focused Exam Lactate Level 09/09/20 08:07: Lactic Acid Level 2.37*H 09/09/20 10:09: Lactic Acid Level 2.34*H 09/09/20 12:30: Lactic Acid Level 1.32 Objective Exam Vital Signs Vital Signs Date Time Temp Pulse Resp B/P (MAP) Pulse Ox O2 Delivery O2 Flow Rate FiO2 09/11/20 04:00 35.9 54 18 120/61 (80) 93 Nasal Cannula 3.50 Capillary Refill : Less Than 3 SecondsLess Than 3 Seconds General Appearance: No Apparent Distress, Chronically ill Respiratory: No Crackles; Decreased Breath Sounds; No Wheezing; Other (on 3lpm) Cardiovascular: Regular Rate, Rhythm, No Murmur Gastrointestinal: Normal Bowel Sounds, Non Tender, Soft Neurologic/Psychiatric: Alert, Oriented x3 Results/Procedures Lab Laboratory Tests 09/10/20 10:35 Patient resulted labs reviewed. Imaging: Reviewed Imaging Report Assessment/Plan Assessment and Plan Assess & Plan/Chief Complaint Acute hypoxic Respiratory Failure RLL PNA Continue on IV abx Continue oxygen supplementation to maintain sats >90- stable on 3-4lpm Await cultures D-dimer up at 3.79, b/l usg negative as is CTA (not PE but finding of heart failure) Echo ordered COVID negative Chronic Cholecystitis Dr Abad consulted, appreciate recs Continue pain regimen pAF HTN HLD Continue home antihypertensives Rate controlled, has not filled Metoprolol since April Continue statin Resume Xarelto as surgery on hold for now DVT ppx: SCDS Diagnosis/Problems Diagnosis/Problems (1) Right lower lobe pneumonia Status: Acute Qualifiers: Pneumonia type: due to unspecified organism Qualified Codes: J18.9 - Pneumonia, unspecified organism (2) Hypoxia Status: Acute (3) Chronic calculous cholecystitis (4) HTN (hypertension) Status: Acute (5) Chronic atrial fibrillation Status: Acute Clinical Quality Measures DVT/VTE Risk/Contraindication: Risk Factor Score Per Nursin RFS Level Per Nursing on Admit: 4+=Very High STAR CID MD Sep 11, 2020 08:56
[2020-09-11] MEDS: cloNIDine 0.2 MG (CATAPRES) TAB PO SCH ×2 (10:01→20:44)
[2020-09-11] MEDS: amLODIPine 5 MG (NORVASC) TAB PO SCH (10:01)
[2020-09-11] MEDS: FAMOTIDINE 20 MG (PEPCID) TABLET PO SCH (10:01)
[2020-09-11] MEDS: cefTRIAXone 1,000 MG/SWFI 10 ML IV PUSH IV SCH ×2 (10:01)
[2020-09-11] MEDS: AZITHROMYCIN 250 MG TAB (ZITHROMAX) PO SCH (10:01)
--- NOTE | 2020-09-11 11:44 | Progress Note ---
Subjective Date Seen by a Provider: Sep 11, 2020 Time Seen by a Provider: 10:00 Subjective/Events-last exam doing better.tolerating diet. still on O2 NC at 15L/min. Focused Exam Lactate Level 09/09/20 08:07: Lactic Acid Level 2.37*H 09/09/20 10:09: Lactic Acid Level 2.34*H 09/09/20 12:30: Lactic Acid Level 1.32 Objective Exam Vital Signs Date Time Temp Pulse Resp B/P (MAP) Pulse Ox O2 Delivery O2 Flow Rate FiO2 09/11/20 08:00 36.2 70 20 138/87 (104) 96 Nasal Cannula 4.00 09/11/20 04:00 35.9 54 18 120/61 (80) 93 Nasal Cannula 3.50 09/11/20 00:00 36.0 68 18 105/68 (80) 94 Nasal Cannula 3.50 09/10/20 21:30 91 Nasal Cannula 3.50 09/10/20 20:00 36.5 78 18 163/91 (115) 91 Nasal Cannula 4.00 09/10/20 20:00 Nasal Cannula 3.50 09/10/20 16:00 36.6 102 16 157/82 (107) 92 Nasal Cannula 4.00 I & O 09/11/20 07:00 Intake Total 1090 ml Output Total 650 ml Balance 440 ml Capillary Refill : Less Than 3 SecondsLess Than 3 Seconds General Appearance: No Apparent Distress HEENT: PERRL/EOMI Neck: Full Range of Motion Respiratory: Chest Non Tender, Decreased Breath Sounds Cardiovascular: Regular Rate, Rhythm Gastrointestinal: normal bowel sounds, non tender, soft Extremity: Normal Capillary Refill Neurologic/Psychiatric: Alert, Oriented x3 Skin: Normal Color Lymphatic: No Adenopathy Results Lab Microbiology 09/09/20 Blood Culture - Preliminary, Resulted No growth Assessment/Plan Assessment/Plan Assess & Plan/Chief Complaint sx chronic calculous cholecystitis with pneumonia vs. r/o PE check u/s LE. if less sx from gallbladder standpoint will wait for surgery until medically optimized Clinical Quality Measures DVT/VTE Risk/Contraindication: Risk Factor Score Per Nursin RFS Level Per Nursing on Admit: 4+=Very High CHRIS SAVAGE MD Sep 11, 2020 11:44
[2020-09-11] MEDS: RIVAROXABAN 20 MG TABLET (XARELTO) PO SCH (17:00)
[2020-09-11] MEDS: SIMvastatin 20 MG (ZOCOR) TAB PO SCH (20:44)
[2020-09-12 03:45] VITALS: BP 139/81
[2020-09-12 05:13] LABS: HEMOGLOBIN 10.1 g/dL (11.5-16.0); MEAN PLATELET VOLUME 10.3 fL (9.0-12.2); WHITE BLOOD COUNT 4.4 10^3/uL (4.3-11.0)
[2020-09-12 05:28] LABS: POTASSIUM 4.5 MMOL/L (3.6-5.0)
[2020-09-12 05:34] LABS: CREATININE SERUM 1.17 MG/DL (0.60-1.30)
[2020-09-12] MEDS: LORazepam 0.5 MG (ATIVAN) TABLET PO PRN ×3 (06:00→21:20)
[2020-09-12] MEDS: LEVOTHYROXINE 75 MCG (LEVOTHROID) TABLET PO SCH (06:01)
[2020-09-12 08:00] VITALS: BP 149/90
[2020-09-12] MEDS: FAMOTIDINE 20 MG (PEPCID) TABLET PO SCH (08:25)
[2020-09-12] MEDS: cefTRIAXone 1,000 MG/SWFI 10 ML IV PUSH IV SCH ×2 (08:25)
[2020-09-12] MEDS: cloNIDine 0.2 MG (CATAPRES) TAB PO SCH ×2 (08:25→20:17)
[2020-09-12] MEDS: amLODIPine 5 MG (NORVASC) TAB PO SCH (08:25)
[2020-09-12] MEDS: AZITHROMYCIN 250 MG TAB (ZITHROMAX) PO SCH (08:28)
--- NOTE | 2020-09-12 11:30 | Progress Note - Hospitalist ---
Subjective HPI/CC On Admission Date Seen by Provider: Sep 12, 2020 Time Seen by Provider: 11:21 Pt is an 85yoCF with a PMH of HTN, pAF, hypothyroidism, postop PE in 2014 who presented to the ER due to abdominal pain. She was scheduled to have a cholecystectomy today with Dr Abad for chronic cholecystitis but her pain continued to worsen and became unbearable overnight prompting her to seek evaluation in the ER. She was incidentally found to be hypoxic in the 70s on arrival. She had a negative COVID test yesterday for preoperative assessment. She reports no symptoms of hypoxia and is not coughing or SOB. She states she's been told she is "low breather" but never diagnosed with any lung diseases. She smoked for years in the 70s and 80s but quit over 30 years ago. She does not use any inhalers at home. Her only complaint is her abdominal pain still. Subjective/Events-last exam Pt reports feeling well. No complaints. Abdominal pain better. Patient's only request is to be able to watch the [employer] game tomorrow. I called and spoke with daughter, Victoria, and updated her to all of this. Focused Exam Lactate Level 09/09/20 12:30: Lactic Acid Level 1.32 Objective Exam Vital Signs Vital Signs Date Time Temp Pulse Resp B/P (MAP) Pulse Ox O2 Delivery O2 Flow Rate FiO2 09/12/20 08:00 36.5 89 20 149/90 (109) 95 Nasal Cannula 4.00 Capillary Refill : Less Than 3 SecondsLess Than 3 Seconds General Appearance: No Apparent Distress, WD/WN Respiratory: Lungs Clear, No Respiratory Distress Cardiovascular: Regular Rate, Rhythm, No Murmur Gastrointestinal: Normal Bowel Sounds, Non Tender, Soft Neurologic/Psychiatric: Alert, Oriented x3 Results/Procedures Lab Laboratory Tests 09/12/20 04:37 Patient resulted labs reviewed. Imaging: Reviewed Imaging Report Assessment/Plan Assessment and Plan Assess & Plan/Chief Complaint Acute hypoxic Respiratory Failure RLL PNA Continue on IV abx Continue oxygen supplementation to maintain sats >90- stable on 3-4lpm NGTD on blood cultures D-dimer up at 3.79, b/l usg negative as is CTA (not PE but finding of heart failure) Echo reveals EF of 40% with severe mitral regurg Cardiology consulted, appreciate recs COVID negative Chronic Cholecystitis Dr Abad consulted, appreciate recs Continue pain regimen Plan for surgery after this acute stay pAF HTN HLD Continue home antihypertensives Rate controlled, has not filled Metoprolol since April Continue statin Continue Xarelto DVT ppx: SCDS Diagnosis/Problems Diagnosis/Problems (1) Right lower lobe pneumonia Status: Acute Qualifiers: Pneumonia type: due to unspecified organism Qualified Codes: J18.9 - Pneumonia, unspecified organism (2) Hypoxia Status: Acute (3) Chronic calculous cholecystitis (4) HTN (hypertension) Status: Acute (5) Chronic atrial fibrillation Status: Acute Clinical Quality Measures DVT/VTE Risk/Contraindication: Risk Factor Score Per Nursin RFS Level Per Nursing on Admit: 4+=Very High STAR CID MD Sep 12, 2020 11:30
[2020-09-12 12:00] VITALS: BP 148/85
[2020-09-12 16:00] VITALS: BP 146/77
[2020-09-12] MEDS ORDERED: BENZOCAINE 20% ORAL GEL (ORALJEL MAX ST) MM PRN (16:15)
[2020-09-12] MEDS: RIVAROXABAN 20 MG TABLET (XARELTO) PO SCH (16:35)
--- NOTE | 2020-09-12 16:43 | NUR ---
PT C/O GUM PAIN. DR CID NOTIFIED AND ORDERED AMBUSOL FOR GUMS. ADMIN TO PT BY THIS RN. TUBE OF AMBUSOL IS IN ABORIGINAL EDUCATION WORKER COORDINATOR ROOM AND BARCODE IS ON A LABEL ON THE CARDBOARD CONTAINER IT CAME IN WELL.
--- NOTE | 2020-09-12 18:24 | Consultation-Cardiology ---
HPI-Cardiology Cardiology Consultation: Date of Consultation 09/12/20 Date of Admission Attending Physician Arlene Almanzar MD Admitting Physician Chuck Saeed MD Consulting Physician Kristin SNELL MD HPI: Time Seen by a Provider: 14:00 Chief Complaint: Preop cardiovascular risk assessment This is a 85 year old lady with history of PAF, HTN who presented with abdominal pain. She is being considered for cholecystectomy by Dr Abad for chronic cholecystitis. Hypoxic in the ER with Oxygen saturation in the 70s in the ER. negative covid. Previous smoker. Review of Systems-Cardiology Review of Systems Constitutional: As described under HPI; No As described under HPI, No no symptoms reported, No chills, No fever, No lightheadedness Eyes: No As described under HPI, No no symptoms reported, No blindness, No blurred vision, No contact lenses, No drainage, No decreased acuity, No foreign body sensation, No pain, No vision change Ears/Nose/Throat: No As described under HPI, No no symptoms reported, No rubber tubing splicer kay hearing loss, No ear discharge, No ear pain, No nasal drainage, No ulcerations Respiratory: No no symptoms reported; As described under HPI; No As described under HPI, No cough, No orthopnea; shortness of breath; No SOB with excertion Cardiovascular: No no symptoms reported; As described under HPI; No As described under HPI, No chest pain, No edema, No irregular heart rate, No lightheadedness, No palpitations Gastrointestinal: No no symptoms reported, No As described under HPI, No abdomen distended; abdominal pain; No blood streaked bowels, No constipation, No diarrhea, No nausea, No vomiting, No stool coloration changes Genitourinary: No As described under HPI, No burning, No dysuria, No discharge, No frequency, No flank pain, No hematuria, No urgency : No Skin: No rash, No skin related problems, No ulcerations Psychiatric/Neurological: No anxiety, No depression, No seizure, No focal weakness, No syncope Hematologic: No bleeding abnormalities [id number] Hx Patient Social History Alcohol Use: Denies Use Recreational Drug Use: No Smoking Status: Former Smoker Former smoker/When Quit: Jul 10, 1980 Type Used: Cigarettes 2nd Hand Smoke Exposure: Yes Recent Foreign Travel: No Recent Infectious Disease Expo: No Immunizations Up To Date Tetanus Booster (TDap): Unknown Date of Pneumonia Vaccine: Jul 03, 2017 Date of Influenza Vaccine: Jun 29, 2020 Past Medical History PMH As described under Assessment. Family Medical History Family History: Blood cancer G8 SISTER Diabetes mellitus 19 MOTHER Allergies and Home Medications Allergies Coded Allergies: Sulfa (Sulfonamide Antibiotics) (Unverified Allergy, Severe, SWELLING, 09/08/20) Home Medications Amlodipine Besylate 5 Mg Tablet, 5 MG PO DAILY, (Reported) Cholecalciferol (Vitamin D3) 25 Mcg Capsule, 25 MCG PO DAILY, (Reported) Clonidine HCl 0.2 Mg Tablet, 0.2 MG PO HS, (Reported) Levothyroxine Sodium 75 Mcg Capsule, 75 MCG PO DAILY, (Reported) Lisinopril 40 Mg Tablet, 40 MG PO DAILY, (Reported) Lorazepam 1 Mg Tablet, 0.5 MG PO PRN, (Reported) Nitrofurantoin Macrocrystal 50 Mg Capsule, 50 MG PO DAILY, (Reported) Nitroglycerin 0.4 Mg Tab.subl, 0.4 MG PO UD PRN for CHEST PAIN, (Reported) Rivaroxaban 20 Mg Tablet, 20 MG PO DAILY, (Reported) Simvastatin 20 Mg Tablet, 20 MG PO HS, (Reported) Patient Home Medication List Home Medication List Reviewed: Yes Physical Exam-Cardiology Physical Exam Vital Signs/I&O 09/13/20 09/13/20 09/13/20 09/13/20 07:56 08:00 10:43 12:41 Temp 36.2 36.5 Pulse 76 84 Resp 18 18 B/P (MAP) 166/85 (112) 137/76 (96) Pulse Ox 92 94 92 O2 Delivery Nasal Cannula Nasal Cannula Nasal Cannula O2 Flow Rate 4.00 3.00 3.00 4.00 09/13/20 16:00 Temp 36.7 Pulse 73 Resp 18 B/P (MAP) 138/73 (94) Pulse Ox 95 O2 Delivery Nasal Cannula O2 Flow Rate 4.00 09/13/20 00:00 Intake Total 1140 ml Output Total 400 ml Balance 740 ml Capillary Refill : Less Than 3 SecondsLess Than 3 Seconds Constitutional: AAO x 3 HEENT: PERRL; No discharge; hearing is well preserved, oral hygience is good; No ulceration, No xanthelasmas are seen Neck: No carotid bruit; carotid pulses are 2 + bilaterally Respiratory: chest is bilaterally symmetric, lungs clear to auscultation Cardiovascular: regular rate-rhythm, S1 and S2, systolic murmur Gastrointestinal: soft, audible bowel sounds; No spleenomegaly Rectal: deferred Extremities: normal range of motion, non-tender, normal inspection; No clubbing, No cyanosis; no lower extremity edema bilateral; No significant edema Neurologic/Psychiatric: no motor/sensory deficits, alert, normal mood/affect, oriented x 3, power is 5/5 both on sides Skin: normal color, warm/dry; No rash, No ulcerations Data Review Labs Microbiology 09/09/20 Blood Culture - Preliminary, Resulted No growth A/P-Cardiology Assessment/Admission Diagnosis Preop Cardiovascular risk assessment, chronic cholecystitis, Aortic stenosis, Mitral regurgitation, Severe pulmonary hypertension Plan Preop Cardiovascular risk assessment, The patient will be considered at moderate to high risk for perioperative major adverse cardiac events undergoing an intermediate risk non-cardiac surgery. chronic cholecystitis, defer to Dr Abad and Dr Almanzar. Aortic stenosis, likely overestimated on Echo. likely atleast moderate . Severe Mitral regurgitation, not in congestive heart failure. Severe pulmonary hypertension; could be due to previous PE. Thank you for your consultation. Please call me if you have any questions. Jj Snell MD, FACP, FACC, FSCAI, FHRS, CCDS Interventional Cardiology Cardiac Electrophysiology Vascular Medicine and Endovascular Interventions Clinical Quality Measures DVT/VTE Risk/Contraindication: Risk Factor Score Per Nursin RFS Level Per Nursing on Admit: 4+=Very High Kristin SNELL MD Sep 12, 2020 18:24
[2020-09-12 20:00] VITALS: BP 123/75
[2020-09-12] MEDS: SIMvastatin 20 MG (ZOCOR) TAB PO SCH (20:17)
[2020-09-12 23:32] VITALS: BP 136/75
[2020-09-13 04:14] VITALS: BP 140/81
[2020-09-13] MEDS: LEVOTHYROXINE 75 MCG (LEVOTHROID) TABLET PO SCH (05:48)
[2020-09-13 07:56] VITALS: BP 166/85
[2020-09-13] MEDS: LORazepam 0.5 MG (ATIVAN) TABLET PO PRN ×2 (08:15→17:22)
[2020-09-13] MEDS: AZITHROMYCIN 250 MG TAB (ZITHROMAX) PO SCH (08:15)
[2020-09-13] MEDS: amLODIPine 5 MG (NORVASC) TAB PO SCH (08:15)
[2020-09-13] MEDS: FAMOTIDINE 20 MG (PEPCID) TABLET PO SCH (08:15)
[2020-09-13] MEDS: cefTRIAXone 1,000 MG/SWFI 10 ML IV PUSH IV SCH ×2 (08:15)
[2020-09-13] MEDS: cloNIDine 0.2 MG (CATAPRES) TAB PO SCH ×2 (08:16→20:26)
--- NOTE | 2020-09-13 10:27 | Progress Note - Hospitalist ---
Subjective HPI/CC On Admission Date Seen by Provider: Sep 13, 2020 Time Seen by Provider: 10:24 Pt is an 85yoCF with a PMH of HTN, pAF, hypothyroidism, postop PE in 2014 who presented to the ER due to abdominal pain. She was scheduled to have a cholecystectomy today with Dr Abad for chronic cholecystitis but her pain continued to worsen and became unbearable overnight prompting her to seek evaluation in the ER. She was incidentally found to be hypoxic in the 70s on arrival. She had a negative COVID test yesterday for preoperative assessment. She reports no symptoms of hypoxia and is not coughing or SOB. She states she's been told she is "low breather" but never diagnosed with any lung diseases. She smoked for years in the 70s and 80s but quit over 30 years ago. She does not use any inhalers at home. Her only complaint is her abdominal pain still. Subjective/Events-last exam Pt reports feeling more short of breath but thinks it is due to anxiety and it is improving since she took her Ativan this morning. Now her only request is to watch the [employer] game later today. Objective Exam Vital Signs Vital Signs Date Time Temp Pulse Resp B/P (MAP) Pulse Ox O2 Delivery O2 Flow Rate FiO2 09/13/20 08:00 Nasal Cannula 3.00 09/13/20 07:56 36.2 76 18 166/85 (112) 92 Capillary Refill : Less Than 3 SecondsLess Than 3 Seconds General Appearance: No Apparent Distress, Chronically ill Respiratory: Lungs Clear, No Accessory Muscle Use Cardiovascular: Regular Rate, Rhythm, No Murmur Gastrointestinal: Normal Bowel Sounds, Non Tender, Soft Neurologic/Psychiatric: Alert, Oriented x3, Normal Mood/Affect Results/Procedures Lab Patient resulted labs reviewed. Imaging: Reviewed Imaging Report Assessment/Plan Assessment and Plan Assess & Plan/Chief Complaint Acute hypoxic Respiratory Failure RLL PNA New diagnosis of systolic CHF Continue on IV abx Continue oxygen supplementation to maintain sats >90- stable on 3-4lpm NGTD on blood cultures D-dimer up at 3.79, b/l usg negative as is CTA (not PE but finding of heart failure) Echo reveals EF of 40% with severe mitral regurg Cardiology consulted, appreciate recs COVID negative Chronic Cholecystitis Dr Abad consulted, appreciate recs Continue pain regimen Plan for surgery after this acute stay per Dr Abad pAF HTN HLD Continue home antihypertensives Rate controlled, has not filled Metoprolol since April Continue statin Continue Xarelto DVT ppx: Xarelto Diagnosis/Problems Diagnosis/Problems (1) Right lower lobe pneumonia Status: Acute Qualifiers: Pneumonia type: due to unspecified organism Qualified Codes: J18.9 - Pneumonia, unspecified organism (2) Hypoxia Status: Acute (3) Chronic calculous cholecystitis (4) HTN (hypertension) Status: Acute (5) Chronic atrial fibrillation Status: Acute Clinical Quality Measures DVT/VTE Risk/Contraindication: Risk Factor Score Per Nursin RFS Level Per Nursing on Admit: 4+=Very High STAR CID MD Sep 13, 2020 10:27
[2020-09-13 12:41] VITALS: BP 137/76
[2020-09-13 16:00] VITALS: BP 138/73
[2020-09-13] MEDS: RIVAROXABAN 20 MG TABLET (XARELTO) PO SCH (17:22)
--- NOTE | 2020-09-13 19:18 | Cardiology Progress Note ---
Cardiology SOAP Progress Note Subjective: no cardiac complaints Objective: I&O/Vital Signs 09/13/20 09/13/20 09/13/20 09/13/20 07:56 08:00 10:43 12:41 Temp 36.2 36.5 Pulse 76 84 Resp 18 18 B/P (MAP) 166/85 (112) 137/76 (96) Pulse Ox 92 94 92 O2 Delivery Nasal Cannula Nasal Cannula Nasal Cannula O2 Flow Rate 4.00 3.00 3.00 4.00 09/13/20 16:00 Temp 36.7 Pulse 73 Resp 18 B/P (MAP) 138/73 (94) Pulse Ox 95 O2 Delivery Nasal Cannula O2 Flow Rate 4.00 09/13/20 00:00 Intake Total 1140 ml Output Total 400 ml Balance 740 ml Weight (Pounds): 142 Weight (Ounces): 5.0 Weight (Calculated Kilograms): 64.200436 Constitutional: AAO x 3 Respiratory: chest is bilaterally symmetric, lungs clear to auscultation Cardiovascular: regular rate-rhythm, S1 and S2, systolic murmur Gastrointestional: soft, audible bowel sounds; No spleenomegaly Extremities: normal range of motion, non-tender, normal inspection; No clubbing, No cyanosis; no lower extremity edema bilateral; No significant edema Neurologic/Psychiatric: no motor/sensory deficits, alert, normal mood/affect, oriented x 3, power is 5/5 both on sides Skin: normal color, warm/dry; No rash, No ulcerations Results/Procedures: Labs Microbiology 09/09/20 Blood Culture - Preliminary, Resulted No growth A/P: Assessment/Dx: Preop Cardiovascular risk assessment, chronic cholecystitis, Aortic stenosis, Mitral regurgitation, Severe pulmonary hypertension Plan: Preop Cardiovascular risk assessment, The patient will be considered at moderate to high risk for perioperative major adverse cardiac events undergoing an intermediate risk non-cardiac surgery. This is due to valvular heart disease including aortic stenosis, mitral regurgitation, advanced age and severe pulmonary hypertension chronic cholecystitis, defer to Dr Abad and Dr Almanzar. Aortic stenosis, likely overestimated on Echo. likely atleast moderate . Severe Mitral regurgitation, not in congestive heart failure. Severe pulmonary hypertension; could be due to previous PE. Dr David bonbon dipper for cardiology tomorrow Thank you for your consultation. Please call me if you have any questions. Jj Snell MD, FACP, FACC, FSCAI, FHRS, CCDS Interventional Cardiology Cardiac Electrophysiology Vascular Medicine and Endovascular Interventions Kristin SNELL MD Sep 13, 2020 19:18
[2020-09-13 20:00] VITALS: BP 147/72
[2020-09-13] MEDS: SIMvastatin 20 MG (ZOCOR) TAB PO SCH (20:26)
[2020-09-14 00:07] VITALS: BP 160/81
[2020-09-14] MEDS: LORazepam 0.5 MG (ATIVAN) TABLET PO PRN ×2 (01:20→16:31)
[2020-09-14 03:54] VITALS: BP 147/81
[2020-09-14] MEDS: LEVOTHYROXINE 75 MCG (LEVOTHROID) TABLET PO SCH (06:34)
[2020-09-14 08:10] VITALS: BP 176/80
[2020-09-14] MEDS: cefTRIAXone 1,000 MG/SWFI 10 ML IV PUSH IV SCH ×2 (08:32)
[2020-09-14] MEDS: FAMOTIDINE 20 MG (PEPCID) TABLET PO SCH (08:32)
[2020-09-14] MEDS: cloNIDine 0.2 MG (CATAPRES) TAB PO SCH (08:32)
[2020-09-14] MEDS: amLODIPine 5 MG (NORVASC) TAB PO SCH (08:32)
--- NOTE | 2020-09-14 09:33 | Progress Note - Cardiology ---
Cardiology SOAP Progress Note Subjective: No cp Abd pain better Chronic, exertional shortness of breath No palp or syncope No n/v Gen malaise Objective: I&O/Vital Signs 09/14/20 09/14/20 09/14/20 09/14/20 00:07 02:55 03:54 07:17 Temp 35.9 36.0 Pulse 72 87 Resp 20 18 B/P (MAP) 160/81 (107) 147/81 (103) Pulse Ox 94 95 95 O2 Delivery Nasal Cannula Nasal Cannula Nasal Cannula Nasal Cannula O2 Flow Rate 4.00 3.00 3.00 3.00 09/14/20 08:10 Temp 36.4 Pulse 92 Resp 20 B/P (MAP) 176/80 (112) Pulse Ox 93 O2 Delivery Nasal Cannula O2 Flow Rate 4.00 09/14/20 00:00 Intake Total 1045 ml Output Total 850 ml Balance 195 ml Weight (Pounds): 142 Weight (Ounces): 5.0 Weight (Calculated Kilograms): 64.605743 Constitutional: AAO x 3 Respiratory: other (good air entry, scattered wheezes) Cardiovascular: regular rate-rhythm, S1 and S2, systolic murmur (2/6 MSM and HSM) Gastrointestional: soft, audible bowel sounds; No spleenomegaly Extremities: normal range of motion, non-tender, normal inspection; No clubbing, No cyanosis; no lower extremity edema bilateral; No significant edema Neurologic/Psychiatric: oriented x 3, other (moves all limbs equally), power is 5/5 both on sides Skin: normal color, warm/dry; No rash, No ulcerations Results/Procedures: Labs Microbiology 09/09/20 Blood Culture - Preliminary, Resulted No growth A/P: Assessment: RLL pneumonia Chronic HFpEF, probably related to uncontrolled hypertension, valvular heart disease and chronic cor pulmonale Valvular heart disease, chronic cor pulmonale, and mod to severe pulmonary hypertension. Echo of 09/11/20 reviewed: LVEF approx 50%, marked biatrial enlargement, mod MAC and aortic valve sclerosis, mod MR, mod , mod TR, PASP approx 75 mmHg PAF. On chronic rivaroxaban anticoag Chronic cholecystitis and intermittent abdominal pain, managed by Dr Abad and Dr Almanzar. Plan: * Increase amlodipine * Add diuretic * Monitor labs * I reviewed her records, reviewed her echo images, interviewed and examined her, and answered her questions MICHAEL MENARD MD FACP FAC CCDS Sep 14, 2020 09:33
[2020-09-14] MEDS ORDERED: KCL 8 MEQ (MICRO K) TABLET PO ONE (10:00)
[2020-09-14] MEDS ORDERED: FUROSEMIDE 20 MG (LASIX) TAB PO ONE (10:00)
[2020-09-14] MEDS ORDERED: amLODIPine 5 MG (NORVASC) TAB PO ONE (10:00)
--- NOTE | 2020-09-14 10:41 | NUR ---
REPORTED EKG RESULTS TO JOHNNA TEMPLE. NO NEW ORDERS AT THIS TIME
[2020-09-14 12:00] VITALS: BP 136/84
--- NOTE | 2020-09-14 12:52 | Progress Note - Hospitalist ---
Subjective HPI/CC On Admission Date Seen by Provider: Sep 14, 2020 Time Seen by Provider: 09:50 Pt is an 85yoCF with a PMH of HTN, pAF, hypothyroidism, postop PE in 2014 who presented to the ER due to abdominal pain. She was scheduled to have a cholecystectomy today with Dr Abad for chronic cholecystitis but her pain continued to worsen and became unbearable overnight prompting her to seek evaluation in the ER. She was incidentally found to be hypoxic in the 70s on arrival. She had a negative COVID test yesterday for preoperative assessment. She reports no symptoms of hypoxia and is not coughing or SOB. She states she's been told she is "low breather" but never diagnosed with any lung diseases. She smoked for years in the 70s and 80s but quit over 30 years ago. She does not use any inhalers at home. Her only complaint is her abdominal pain still. Subjective/Events-last exam She is feeling well. She was a bit short of breath this morning. She has not had any fevers. She denies any abdominal pain. He is not having any nausea or vomiting. Objective Exam Vital Signs Vital Signs Date Time Temp Pulse Resp B/P (MAP) Pulse Ox O2 Delivery O2 Flow Rate FiO2 09/14/20 12:00 36.6 81 20 136/84 (101) 92 Nasal Cannula 4.00 Capillary Refill : Less Than 3 SecondsLess Than 3 Seconds General Appearance: No Apparent Distress, Thin Respiratory: Lungs Clear, Normal Breath Sounds, No Respiratory Distress Cardiovascular: Systolic Murmur, Irregularly Irregular, Tachycardia Gastrointestinal: Normal Bowel Sounds, Non Tender, Soft Extremity: Normal Inspection, Non Tender, Pedal Edema Neurologic/Psychiatric: Alert, Oriented x3, No Motor/Sensory Deficits, Normal Mood/Affect Skin: Normal Color, Warm/Dry Results/Procedures Lab Patient resulted labs reviewed. Imaging: Reviewed Imaging Report Assessment/Plan Assessment and Plan Assess & Plan/Chief Complaint Acute respiratory failure with hypoxia Acute HFrEF s/p course of antibiotics Continue oxygen supplementation, requiring 6 L during my exam NGTD on blood cultures D-dimer elevated, negative dopplers and CT Echo reveals HFrEF and valvular dysfunction Cardiology consulted, appreciate recs COVID negative Begin Lasix Chronic Cholecystitis Dr Abad consulted, appreciate recs Continue pain regimen Plan for surgery after this acute stay per Dr Abad pAF HTN HLD Increase Amlodipine Continue Clonidine Continue statin Continue Xarelto DVT ppx: Xarelto RLL PNA, resolved Diagnosis/Problems Diagnosis/Problems (1) Acute respiratory failure with hypoxia Status: Acute (2) Acute HFrEF (heart failure with reduced ejection fraction) Status: Acute (3) Chronic calculous cholecystitis Status: Chronic (4) Chronic atrial fibrillation Status: Chronic (5) HTN (hypertension) Status: Acute (6) Right lower lobe pneumonia Status: Resolved Qualifiers: Pneumonia type: due to unspecified organism Qualified Codes: J18.9 - Pneumonia, unspecified organism Resolution Date/Time: 09/14/20 @ 12:53 Clinical Quality Measures DVT/VTE Risk/Contraindication: Risk Factor Score Per Nursin RFS Level Per Nursing on Admit: 4+=Very High LARON GROVE MD Sep 14, 2020 12:52
[2020-09-14] MEDS ORDERED: FURO20TA4 PO (13:39)
[2020-09-14] MEDS ORDERED: AMLO-251 PO (13:39)
--- NOTE | 2020-09-14 14:15 | NUR ---
CM/SS: Visited with pt as per plan per discharge related to oxygen set up and [employer]. Plan: Pt to be discharged to home - pt lives with daughter and will have home oxygen Summary: Pt is getting oxygen study and will need home oxygen set up at time of discharge. Pt lives with her daughter Victoria. Pt would like to use [facility] for her oxygen. Dr. Steven calls and speaks with daughter Victoria as to her plan for discharge today after the oxygen study. Pt is aware of the oxygen study and that daughter will pick her up when the oxygen has been delivered to the hospital. Pt verbalizes understanding.
--- NOTE | 2020-09-14 14:17 | NUR ---
home oxygen study pt desated to 80% on room air resting placed patient back on 3 lpm nasal cannula and stabalized spo2 at 92%, pt will require 3 lpm oxygen via nasal cannula at all times.
--- NOTE | 2020-09-14 14:31 | NUR ---
CM/SS: Qualified for oxygen - Information sent - faxed to [facility].
[2020-09-14] MEDS: RIVAROXABAN 20 MG TABLET (XARELTO) PO SCH (16:33)
[2020-09-14 16:45] VITALS: BP 136/84
[2020-09-15] MEDS ORDERED: KCL 8 MEQ (MICRO K) TABLET PO SCH (07:00)
[2020-09-15] MEDS ORDERED: FUROSEMIDE 20 MG (LASIX) TAB PO SCH (09:00)
[2020-09-15] MEDS ORDERED: amLODIPine 10 MG (NORVASC) TAB PO SCH (09:00)
== END 2020-09-14 16:45 | disposition home or self-care (01) | DRG 193 ==
LOC: EDUNIT# 07:47 → ER 07:49 → 4TH 09:57
PROVIDERS: ADMIT Family Medicine; ATTEND Internal Medicine
DX: J18.9 Pneumonia, unspecified organism (principal); J96.01 Acute respiratory failure with hypoxia; I50.23 Acute on chronic systolic (congestive) heart failure; K80.10 Calculus of gallbladder with chronic cholecystitis without obstruction; I11.0 Hypertensive heart disease with heart failure; I08.0 Rheumatic disorders of both mitral and aortic valves; I27.29 Other secondary pulmonary hypertension; I48.0 Paroxysmal atrial fibrillation; Z20.828 Contact with and (suspected) exposure to other viral communicable diseases; K21.9 Gastro-esophageal reflux disease without esophagitis; E78.00 Pure hypercholesterolemia, unspecified; E78.5 Hyperlipidemia, unspecified; I25.10 Atherosclerotic heart disease of native coronary artery without angina pectoris; E03.9 Hypothyroidism, unspecified; F41.9 Anxiety disorder, unspecified; M19.91 Primary osteoarthritis, unspecified site; Z87.891 Personal history of nicotine dependence; Z86.711 Personal history of pulmonary embolism; Z79.01 Long term (current) use of anticoagulants; I25.2 Old myocardial infarction; Z88.2 Allergy status to sulfonamides; Z88.8 Allergy status to other drugs, medicaments and biological substances
CPT/HCPCS: 36415; 71045; 71275; 80048; 80053; 83605; 83615; 83690; 83880; 84145; 84439; 84443; 85025; 85027; 85379; 85610; 85730; 86141; 87040; 87635; 93306; 93970; 94640; 94664; 94760; 94761; 96361; 96374

== ENCOUNTER → 2020-10-29 | Outpatient (CLI) | payer MEDICARE ==
[~2020-10-29] MED LIST changes: +AMLO-251 PO; +FURO20TA4 PO; +RT-ALBUTEROL SULF 2.5 MG/3 ML PRE-MIX VIAL INH ONE
== END ==
LOC: RT 15:30
PROVIDERS: ATTEND Internal Medicine Critical Care Medicine
DX: Z13.83 Encounter for screening for respiratory disorder NEC (principal); R06.00 Dyspnea, unspecified
CPT/HCPCS: 94060; 94726; 94729

== ENCOUNTER → 2020-11-16 | Outpatient (CLI) | payer MEDICARE ==
[~2020-11-16] MED LIST changes: -LISI40TA PO; +LISI40TA9 PO; -OXYC-471 PO; +OXYC1TAB11 PO; -RT-ALBUTEROL SULF 2.5 MG/3 ML PRE-MIX VIAL INH ONE
--- NOTE | 2020-11-16 10:56 | Diagnostic Imaging Report ---
INDICATION: Follow-up. History of pneumonia. COMPARISON: 09/10/2020 FINDINGS: Frontal and lateral radiograph views of the chest were obtained and show significant interval improved aeration. Cardiac silhouette remains borderline prominent. Pulmonary vasculature significantly improved. There are a few residual scattered interstitial opacities as well, greatest within the bilateral upper lungs, right greater than left. Background COPD changes are noted. There is flattening of the hemidiaphragms and asymmetric elevation right hemidiaphragm. Small bibasilar effusions are noted. There is no pneumothorax. IMPRESSION: 1. Interval improved aeration, but with residual scattered interstitial pneumonia versus pulmonary edema. 2. Background COPD changes. 3. Small bibasilar effusions. 4. Mild cardiomegaly and vascular congestion. Dictated by: Dictated on workstation # [id number]
== END ==
LOC: RAD 09:43
PROVIDERS: ATTEND Physician Assistant
DX: J84.9 Interstitial pulmonary disease, unspecified (principal); J44.9 Chronic obstructive pulmonary disease, unspecified; J90 Pleural effusion, not elsewhere classified; I51.7 Cardiomegaly
CPT/HCPCS: 71046

== ENCOUNTER → 2021-05-10 | Outpatient (CLI) | payer MEDICARE ==
[~2021-05-10] MED LIST changes: -POLY17PO31 PO; +POLY17PO54 PO
--- NOTE | 2021-05-10 13:39 | Diagnostic Imaging Report ---
INDICATION: Hypoxia. COPD. FINDINGS: Two views of the chest show cardiomegaly with normal vascularity. There is obstructive airway disease with the appearance of interstitial lung disease. There were patchy infiltrates on the study from 11/16/2020 that have resolved in the interval. There are no alveolar infiltrates or significant effusions. IMPRESSION: There is cardiomegaly. There is interstitial lung disease present. No acute abnormality is evident. Dictated by: Dictated on workstation # [id number]
== END ==
LOC: RAD 10:46
PROVIDERS: ATTEND Internal Medicine
DX: I51.7 Cardiomegaly (principal); J84.9 Interstitial pulmonary disease, unspecified; J44.9 Chronic obstructive pulmonary disease, unspecified
CPT/HCPCS: 71046

== ENCOUNTER 2021-05-16 08:50 | Outpatient (RCR) | payer MEDICARE ==
[2021-05-14 09:32] VITALS: BP 174/112
[2021-05-14] MEDS: VANCOMYCIN 1 GM/NS 250 ML IVPB IV SCH ×2 (10:47)
[2021-05-15 08:55] VITALS: BP 168/86
[2021-05-15] MEDS: VANCOMYCIN 1 GM/NS 250 ML IVPB IV SCH ×2 (09:03)
[~2021-05-16] VITALS: Ht 170.2 cm; Wt 52.7 kg
[2021-05-16] MEDS: VANCOMYCIN 1 GM/NS 250 ML IVPB IV SCH ×2 (09:02)
[2021-05-16 09:20] VITALS: BP 167/78
== END 2021-05-16 10:09 | disposition home or self-care (01) ==
LOC: SDC 08:50
PROVIDERS: ATTEND Nurse Practitioner Family
DX: N39.0 Urinary tract infection, site not specified (principal)
CPT/HCPCS: 96365

== ENCOUNTER → 2021-06-05 | Outpatient (CLI) | payer MEDICARE ==
[2021-06-05 12:20] LABS: ALBUMIN 3.4 GM/DL (3.2-4.5); BILIRUBIN,TOTAL 0.9 MG/DL (0.1-1.0); CALCIUM 9.3 MG/DL (8.5-10.1); CREATININE SERUM 1.4 MG/DL (0.60-1.30); POTASSIUM 4.5 MMOL/L (3.6-5.0); TOTAL PROTEIN 7.2 GM/DL (6.4-8.2)
== END ==
LOC: LAB 11:44
PROVIDERS: ATTEND Nurse Practitioner Family
DX: I48.91 Unspecified atrial fibrillation (principal); I48.92 Unspecified atrial flutter; I10 Essential (primary) hypertension; E78.49 Other hyperlipidemia; S61.409A Unspecified open wound of unspecified hand, initial encounter; R60.0 Localized edema
CPT/HCPCS: 36415; 80053; 83880

== ENCOUNTER 2021-06-11 10:00 | Day surgery (SDC) | payer MEDICARE ==
[~2021-06-11] VITALS: Ht 165 cm; Wt 58.0 kg
[2021-06-11] VITALS (10 sets, daily range): BP systolic 106–140; BP diastolic 47–94
[2021-06-11 08:46] LABS: HEMATOCRIT 32 % (35-52); HEMOGLOBIN 9.8 g/dL (11.5-16.0); MEAN CORPUSCULAR HEMOGLOBIN 30 pg (25-34); MEAN CORPUSCULAR HGB CONC 31 g/dL (32-36); MEAN CORPUSCULAR VOLUME 98 fL (80-99); PLATELET COUNT 199 10^3/uL (130-400); WHITE BLOOD COUNT 5.1 10^3/uL (4.3-11.0)
[2021-06-11 08:55] LABS: INR 1.2 (0.8-1.4); PROTHROMBIN TIME PATIENT 15.6 SEC (12.2-14.7)
[2021-06-11 08:58] LABS: ALBUMIN 3.4 GM/DL (3.2-4.5); POTASSIUM 3.9 MMOL/L (3.6-5.0)
[2021-06-11 08:59] LABS: CALCIUM 8.7 MG/DL (8.5-10.1)
[2021-06-11 09:01] LABS: TOTAL PROTEIN 7.3 GM/DL (6.4-8.2)
[2021-06-11 09:03] LABS: BILIRUBIN,TOTAL 0.7 MG/DL (0.1-1.0)
[2021-06-11 09:04] LABS: CREATININE SERUM 1.59 MG/DL (0.60-1.30)
--- NOTE | 2021-06-11 09:41 | Diagnostic Imaging Report ---
INDICATION: CHF Frontal chest obtained at 09:08 a.m. compared to 05/10/2021 There is cardiomegaly. There are underlying chronic interstitial changes but the interstitial disease appears to be worsened compared to the prior study, probably due to superimposed edema. There is some patchy infiltrate in the right midlung and base. There is no pneumothorax or gross pleural fluid. There is unchanged elevation of the right hemidiaphragm. IMPRESSION: Cardiomegaly and central vascular congestion. There are underlying chronic interstitial changes with worsening interstitial appearance compared to the prior study, suspect superimposed edema. There is patchy infiltrate in the right midlung and base. There is underlying COPD. There is unchanged elevation of the right hemidiaphragm. Dictated by: Dictated on workstation # [id number]
[~2021-06-11 10:00] MED LIST changes: -CEFU500T63 PO; +HEParin (CATH LAB) 2,000 ML IV ONE; +LIDOCAINE 1% INJ 20 ML 20 ML VIAL ONE; +NS IV 1000 ML 1,000 ML IV SCH; +NS IV 1000 ML 1,000 ML ONE
--- NOTE | 2021-06-11 10:46 | Conscious Sedation/ASA ---
Conscious Sedation Pre-Proced Time 09:00 ASA Score 3 For ASA 3 and 4: Consider anesthesia and medical clearance. Also, for patients with a history of failed moderate sedation consider anesthesia. Airway Lungs Heart ASA score ASA 1: a normal healthy patient ASA 2: a patient with a mild systemic disease (mid diabetes, controlled hypertension, obesity x ASA 3: a patient with a severe systemic disease that limits activity (angina, COPD, prior Myocardial infarction) ASA 4: a patient with an incapacitating disease that is a constant threat to life (CHF, renal failure) ASA 5: a moribund patient not expected to survive 24 hrs. (ruptured aneurysm) ASA 6: a declared brain- patient whose organs are being harvested. For emergent operations, add the letter E after the classification Mallampati Classification Grade 3 Sedation Plan Analgesia, Amnesia, Plan communicated to team members, Discussed options with patient/fam, Discussed risks with patient/fam The patient is an appropriate candidate to undergo the planned procedure, sedation, and anesthesia. The patient immediately re-assessed prior to indication. DELMIS FISCHER MD Jun 11, 2021 10:46
--- NOTE | 2021-06-11 10:48 | Discharge Inst-Post CATH ---
Discharge Inst-CATH/EP Problems Reviewed?: Yes Post Cardiac Cath/EP D/C Inst Follow Up/Plan Appointment with Dr. Reddy in 2 to 4 weeks <b>CARDIAC CATH/EP PROCEDURE DISCHARGE INSTRUCTIONS</b> ACTIVITY * Go Home directly and rest. * Limit activity of the leg (or wrist if it was used) for 7 days including aerobics, swimming, jogging, bicycling, etc. * Restrict stair-climbing for 7 days if possible, if not, climb up with your non-cath leg, then bring together on the same step. * Avoid lifting, pushing, pulling or excessive movement of the affected extremity for 7 days. * Customary sexual activity may be resumed after 2 days-use caution not to use a position that strains or causes pain to the affected extremity. * No driving for 24 hours. * NO SMOKING. * Avoid straining for bowel movements for 7 days. * Gentle walking on level ground is allowed. * Returning to work will depend on the type of procedure and the results. Your doctor will discuss this with you. CALL YOUR DOCTOR FOR ANY OF THE FOLLOWING: *If bleeding from the puncture site occurs- Apply gentle pressure to site with clean cloth and call your doctor or EMS. * If a knot or lump forms under the skin, increases in size, or causes pain. * If bruising appears to be worsening or moving further down your leg instead of disappearing. * Temperature above 101 F. CARE OF YOUR GROIN INCISION; * Bruising or purple discoloration of the skin near the puncture site is common. * You may shower only, no bathtub bathing for 5 days. Be careful to avoid slipping as your leg may feel stiff. * If a closure device was used on your femoral artery, please see the attached guide regarding care of the device and your leg. * Leave dressing on FOR 24 hours. CARE OF YOUR WRIST INCISION; * Bruising or purple discoloration of the skin near the puncture site is common. * You may shower. * DO NOT submerge wrist. * Leave dressing on FOR 24 hours. DELMIS REDDY MD Jun 11, 2021 10:48
[2021-06-11] MEDS ORDERED: MIDAZOLAM 5 MG/5 ML (VERSED) VIAL ONE (10:49)
[2021-06-11] MEDS ORDERED: fentaNYL INJ 100 MCG/2 ML AMP ONE (10:49)
--- NOTE | 2021-06-11 10:59 | Cardiac Cath Report ---
Cardiac Cath Report Physician (s)/Neuroscientist (s) Physician DELMIS FISCHER MD Pre-Procedure Diagnosis Pre-Procedure Diagnosis: Coronary artery disease, mitral regurgitation Post-Procedure Note Procedure Start Date: Jun 11, 2021 Name of Procedure: Right and left heart catheterization Aortic arch angiogram Abdominal aortogram Findings/Procedure Note PROCEDURE NOTE: 85-year-old lady with severe mitral regurgitation, mild to moderate coronary artery disease per cardiac catheterization over 10 years ago, we were discussing referral for mitral valve repair versus replacement, discussed the need for cardiac catheterization prior to the referral. Patient was scheduled for right and left heart catheterization possible PTCA. After explaining the procedure to the patient, all pros and cons were explained, all questions were answered. The patient signed the consent and then she was placed on the cardiac catheterization laboratory. Groin was prepped SL fashion local anesthesia was used. Sheath placed in the right femoral artery and right femoral vein. [place] catheter was advanced through the venous sheath up to the main pulmonary artery and advanced to the wedge position, due to the severe mitral regurgitation I was unable to keep the tip of the catheter in the pulmonary artery subsequently I was unable to do the thermodilution, I evaluated oxygen saturation and calculated cardiac output. During the measurement the V wave was noted to be significantly large in the wedge position due to the mitral regurgitation. Pressure and cardiac output and oxygen saturation were measured I was unable to advance J-wire through the abdominal aorta I used a Storq wire and advanced a pigtail catheter to the abdominal aorta did abdominal aortogram, was unable to cross the aortic valve, exchanged the catheter and used Kathy left and angiogram was done then exchanged to Kathy right and I was able with the Storq wire to advance the Kathy right catheter to the left ventricular c avity, I did not do left ventriculogram to limit exposure to contrast, intubated the right coronary artery and angiogram was done. Then exchanged again then used pigtail catheter which was advanced to the aortic arch and aortic arch angiogram due to the heavy calcification noted. At the end of the procedure the sheath was removed. Closure device was deployed at the site of the arterial sheath and manual pressure applied to the venous sheath FINDINGS: Hemodynamics LV 185/25, end-diastolic pressure of 25 Aorta 176/80 mean of 118 PA 74/39 mean of 52 RV 74/17, end-diastolic pressure of 17 RA 20 Pulmonary capillary wedge pressure 28 with large V waves Oxygen saturation AO 84.9% PA 39.7% RV 32.6% RA 31% Cindy equation cardiac output 2.06, cardiac index 1.26 ANATOMY: Left Main has severe ostial stenosis Left Anterior Descending is moderate in size with mild to moderate disease at the midportion nonobstructive disease Left Circumflex has mild disease nonobstructive disease Right Coronary Artery is dominant artery with mild disease nonobstructive disease LV Gram was not done, pressure was measured Aorta evaluation was done with aortic arch angiogram and abdominal aortogram Aortic arch angiogram showed heavily calcified aortic arch, no dissection or aneurysm, calcified origin of the brachiocephalic artery with mild to moderate stenosis proximally, the left carotid artery is calcified with no obstructive disease, left subclavian artery is calcified with no obstructive disease Abdominal aortogram was done in the AP position, showed S shaped aorta with infrarenal abdominal aortic aneurysm small to moderate in size, the left renal artery has mild to moderate disease, the right renal artery appears to be occluded, superior mesenteric artery was not visualized, inferior mesenteric artery is calcified CONCLUSION: 1. Severe ostial left main coronary artery stenosis calcified. 2. Otherwise mild to moderate disease nonobstructive disease 3. Heavily calcified aortic arch with mild to moderate disease at the proximal brachiocephalic artery 4. Infrarenal abdominal aortic aneurysm moderate in size 5. 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 Has severe pulmonary hypertension due to heart failure and valv ular heart disease Anesthesia Type: Conscious Sedation Estimated blood loss (mL): 25 ml Contrast Amount: 60 ml Total Radiation Dose: 179 mGy Post-Procedure Diagnosis Post-operative diagnosis: Coronary artery disease Congestive heart failure, chronic compensated left ventricular systolic dysfunction, ischemic cardiomyopathy Severe mitral regurgitation Severe hypertension Renal artery stenosis Abdominal aortic aneurysm DELMIS FISCHER MD Jun 11, 2021 10:59
[2021-06-11] MEDS ORDERED: PATIENT MAY USE OWN MEDS, ALL PO SCH (11:00)
[2021-06-11] MEDS ORDERED: NS IV 1000 ML 1,000 ML IV SCH (11:00)
== END 2021-06-11 16:04 ==
LOC: CATH 10:00 → CSD 11:33 → CATH 16:04
PROVIDERS: ATTEND Internal Medicine Cardiovascular Disease
DX: I25.10 Atherosclerotic heart disease of native coronary artery without angina pectoris (principal); I25.5 Ischemic cardiomyopathy; I70.1 Atherosclerosis of renal artery; I71.4 Abdominal aortic aneurysm, without rupture; I25.2 Old myocardial infarction; I27.20 Pulmonary hypertension, unspecified; I08.0 Rheumatic disorders of both mitral and aortic valves; I50.23 Acute on chronic systolic (congestive) heart failure; I49.5 Sick sinus syndrome; J44.9 Chronic obstructive pulmonary disease, unspecified; I11.0 Hypertensive heart disease with heart failure; E03.9 Hypothyroidism, unspecified; I65.23 Occlusion and stenosis of bilateral carotid arteries; I26.99 Other pulmonary embolism without acute cor pulmonale; Z79.890 Hormone replacement therapy; Z79.899 Other long term (current) drug therapy
CPT/HCPCS: 36221; 71045; 75625; 80053; 80061; 82810; 85027; 85610; 85730; 87081; 93005; 93460; C1760; C1769; C1894; 36415

== ENCOUNTER → 2021-06-11 | Outpatient (CLI) | payer MEDICARE ==
[~2021-06-11] MED LIST changes: +ACET325T38 PO; +AMLO2.5T4 PO; +BISM262T16 PO; +CEFU500T63 PO; +FURO80TA3 PO; +PEG15DRO9 OU; +POTA10TA36 PO
== END ==
LOC: CARD 14:30
PROVIDERS: ATTEND Nurse Practitioner Family
DX: I08.3 Combined rheumatic disorders of mitral, aortic and tricuspid valves (principal); I31.3 Pericardial effusion (noninflammatory)
CPT/HCPCS: 93306

== ENCOUNTER → 2021-06-14 | Outpatient (CLI) | payer MEDICARE ==
[~2021-06-14] MED LIST changes: -HEParin (CATH LAB) 2,000 ML IV ONE; -LIDOCAINE 1% INJ 20 ML 20 ML VIAL ONE; -NS IV 1000 ML 1,000 ML IV SCH; -NS IV 1000 ML 1,000 ML ONE
--- NOTE | 2021-06-15 10:06 | Diagnostic Imaging Report ---
INDICATION: Screening. TECHNIQUE: The current study was also evaluated with a Computer Aided Detection (CAD) system. 3D Tomographic imaging was also performed. COMPARISON: 05/29/2020, 05/28/2019, and 05/25/2018. FINDINGS: There are scattered fibroglandular densities. There are extensive vascular calcifications. There is no new dominant mass, spiculated lesion, or suspicious calcification identified. The skin, nipples, and axillae are unremarkable. IMPRESSION: Benign findings. ACR BI-RADS Category 2: Benign findings. Result letter will be mailed to the patient. Note: At least 10% of breast cancer is not imaged by mammography. Dictated by: Dictated on workstation # [id number]
== END ==
LOC: RAD 15:15
PROVIDERS: ATTEND Internal Medicine
DX: Z12.31 Encounter for screening mammogram for malignant neoplasm of breast (principal)
CPT/HCPCS: 77063; 77067

== ENCOUNTER 2021-06-17 17:30 | Emergency (ER) | payer MEDICARE ==
[~2021-06-17] VITALS: Ht 170.1 cm; Wt 58.4 kg
--- NOTE | 2021-06-17 18:27 | ED Lower Extremity ---
General Chief Complaint: Lower Extremity Stated Complaint: HEART CATH X5DAYS / L LEG SWELLING Source: patient, family (BIBI GALLAGHER DO) History of Present Illness Date Seen by Provider: Jun 17, 2021 Time Seen by Provider: 18:10 Initial Comments PT ARRIVES VIA POV FROM HOME WITH DAUGHTER PT HAD CARDIAC CATH BY DR. REDDY 06/11/21 THRU LEFT GROIN PT HAS HAD INCREASING PAIN AND SWELLING TO ENTIRE LEFT LEG ALL WEEK CALLED DR. REDDY'S OFFICE JUST PRIOR TO ARRIVAL AND THEY WERE CLOSED. HAS NOT ATTEMPTED TO CONTACT HIM AT ANY OTHER TIME HAS TAKEN TYLENOL X1 TODAY WITHOUT RELIEF OF PAIN NO CHEST PAIN NO INCREASE IN CHRONIC SHORTNESS OF BREATH NO FEVER NO COUGH NO PARESTHESIAS OR MOTOR DEFICITS PT HELD HER XARELTO FOR 2 DAYS BEFORE AND 2 DAYS AFTER THE PROCEDURE (SULEMABIBI Deana WILLAMS) Allergies and Home Medications Allergies Coded Allergies: Sulfa (Sulfonamide Antibiotics) (Unverified Allergy, Severe, SWELLING, 09/08/20) Patient Home Medication List Home Medication List Reviewed: Yes (SCARLET READ MD) Acetaminophen (Tylenol) 325 Mg Tablet, 650 MG PO Q6H PRN for PAIN-MILD (1-4), (Reported) Entered as Reported by: VEE DUNHAM on 06/11/21 09 Amlodipine Besylate (Amlodipine Besylate) 2.5 Mg Tablet, 2.5 MG PO BID, (Reported) Entered as Reported by: VEE DUNHAM on 06/11/21 09 Bismuth Subsalicylate (Pepto-Bismol) 262 Mg Tab.chew, 262 MG PO DAILY PRN for HEARTBURN, (Reported) Entered as Reported by: VEE DUNHAM on 06/11/21 09 Cefuroxime Axetil (Cefuroxime) 500 Mg Tablet, 500 MG PO BID Prescribed by: SCARLET READ on 06/17/212003 Cholecalciferol (Vitamin D3) (Vitamin D3) 25 Mcg Capsule, 25 MCG PO DAILY, (Reported) Entered as Reported by: KINGS DIAS on 09/08/20 1046 Clonidine HCl (Clonidine HCl) 0.2 Mg Tablet, 0.2 MG PO HS, (Reported) Entered as Reported by: VEE DUNHAM on 06/11/21 09 Furosemide (Furosemide) 80 Mg Tablet, 80 MG PO DAILY, (Reported) Entered as Reported by: VEE DUNHAM on 06/11/21 09 Hydrocodone Bit/Acetaminophen (HYDROcodone/APAP 5 MG/325 MG TAB) 1 Tab Tab, 1 TAB PO Q6H Prescribed by: SCARLET READ on 06/17/212003 Levothyroxine Sodium (Levothyroxine) 75 Mcg Capsule, 75 MCG PO DAILY, (Reported) Entered as Reported by: VEE DUNHAM on 06/11/21 09 Lisinopril (Lisinopril) 40 Mg Tablet, 40 MG PO DAILY, (Reported) Entered as Reported by: HÉCTOR CLAUDIO on 07/10/15 08 Lorazepam (Ativan) 1 Mg Tablet, 0.5 MG PO Q6H PRN for ANXIETY, (Reported) Entered as Reported by: VEE DUNHAM on 06/11/21910 Metoprolol Succinate (Metoprolol Succinate) 100 Mg Tab.er.24h, 50 MG PO DAILY, (Reported) Entered as Reported by: VEE DUNHAM on 06/11/21910 Nitrofurantoin Macrocrystal (Macrodantin) 50 Mg Capsule, 50 MG PO DAILY, (Reported) Entered as Reported by: KINGS DIAS on 09/08/20 104 Nitroglycerin (Nitrostat) 0.4 Mg Tab.subl, 0.4 MG PO UD PRN for CHEST PAIN, (Reported) Entered as Reported by: HÉCTOR CLAUDIO on 07/10/15 08 Peg 400/Hypromellose/Glycerin (Visine Dry Eye Relief Drop) 15 Ml Drops, 1 DROP OU DAILY PRN for DRY EYES, (Reported) Entered as Reported by: VEE DUNHAM on 06/11/21 09 Potassium Chloride (Potassium Chloride) 10 Meq Tab.er.prt, 10 MEQ PO DAILY, (Reported) Entered as Reported by: VEE DUNHAM on 06/11/21 0936 Rivaroxaban (Xarelto) 20 Mg Tablet, 20 MG PO HS, (Reported) Entered as Reported by: KINGS DIAS on 09/08/20 1046 Simvastatin (Simvastatin) 20 Mg Tablet, 20 MG PO HS, (Reported) Entered as Reported by: HÉCTOR CLAUDIO on 07/10/15 0810 Discontinued Medications Amlodipine Besylate (Amlodipine Besylate) 10 Mg Tablet, 10 MG PO DAILY Discontinued Reason: No Longer Taking Prescribed by: LARON GROVE on 09/14/20 1339 Clonidine HCl (Clonidine HCl) 0.2 Mg Tablet, 0.2 MG PO HS, (Reported) Discontinued Reason: Duplicate Order Entered as Reported by: HÉCTOR CLAUDIO on 07/10/15 0810 Furosemide (Furosemide) 20 Mg Tablet, 20 MG PO DAILY Discontinued Reason: No Longer Taking Prescribed by: LARON GROVE on 09/14/20 1339 Levothyroxine Sodium (Levothyroxine) 75 Mcg Capsule, 75 MCG PO DAILY, (Reported) Discontinued Reason: Duplicate Order Entered as Reported by: KINGS DIAS on 09/08/20 1046 Lorazepam (Ativan) 1 Mg Tablet, 0.5 MG PO PRN, (Reported) Discontinued Reason: Duplicate Order Entered as Reported by: KINGS DIAS on 09/08/20 1046 Review of Systems Constitutional: no symptoms reported Respiratory: see HPI Cardiovascular: see HPI Gastrointestinal: no symptoms reported Genitourinary: no symptoms reported Musculoskeletal: see HPI Skin: see HPI Psychiatric/Neurological: No Symptoms Reported (ED GALLAGHERA Deana DO) Past Ezskwzc-Mocnqn-Ppmnar Hx Patient Social History Tobacco Use?: No Use of E-Cig and/or Vaping dev: No Substance use?: No Alcohol Use?: No Pt feels they are or have been: No (SULEMABIBI K DO) Immunizations Up To Date Tetanus Booster (TDap): Unknown Influenza Vaccine Up-to-Date: No; Not Current Second COVID19 Vaccination [place]: 12/13 COVID19 Vaccine Accordion Maker: Jose (ED GALLAGHERA Deana WILLAMS) Seasonal Allergies Seasonal Allergies: No (SULEMABIBI K ) Past Medical History Surgery/Hospitalization HX: CARDIAC CATH 06/11/[address] REDDY--NO INTERVENTION Surgeries: Yes (R TKR, L FEMUR FX) Adenoidectomy, Eye Surgery, Joint Replacement, Orthopedic, Tonsillectomy Respiratory: Yes Pulmonary Embolism Cardiac: Yes Atrial Fibrillation, Chronic Edema/Swelling, High Cholesterol, Hypertension, Valvular Heart Disease Neurological: No Reproductive Disorders: No Sexually Transmitted Disease: No HIV/AIDS: No Genitourinary: Yes UTI-Chronic Gastrointestinal: Yes (LACTOSE INTOLERANT; LARGE INGUINAL/FEMORAL HERNIA) Abdominal Hernia, Gastroesophageal Reflux, Chronic Constipation, Hiatal Hernia, Gall Bladder Disease Musculoskeletal: Yes (DJD RIGHT KNEE; RIGHT TOTAL KNEE REPLACEMENT;L FEMUR FX) Arthritis Endocrine: Yes Hypothyroidsim HEENT: Yes (GLASSES, DENTURES) Cataract Loss of Vision: Denies Hearing Impairment: Denies Cancer: No Psychosocial: Yes Anxiety Integumentary: No Blood Disorders: No Adverse Reaction/Blood Tranf: No (N/A) (BIBI GALLAGHER DO) Family Medical History Blood cancer G8 SISTER Diabetes mellitus 19 MOTHER Physical Exam Vital Signs Vital Signs - First Documented 06/17/21 18:15 Temp 36.9 Pulse 68 Resp 20 B/P (MAP) 174/97 (122) Pulse Ox 97 O2 Delivery Nasal Cannula O2 Flow Rate 2.00 (SCARLET READ MD) Vital Signs Capillary Refill : (BIBI GALLAGHER DO) Height, Weight, BMI Height: 5'7" Weight: 142lbs. 5.0oz. 64.566101db; 21.30 BMI Method:Stated General Appearance: WD/WN, no apparent distress, other (WEARING HOME O2; PL EASANT, HARD OF HEARING) Cardiovascular: regular rate, rhythm, systolic murmur (2-3/6) Respiratory: normal breath sounds, no respiratory distress Legs: bilateral leg other (RIGHT LEG, NORMAL APPEARING THIGH, WITH SIGNFICANT BELOW THE KNEE EDEMA AND CHRONIC VENOUS STASIS CHANGES--EDEMA IS 3+. LEFT INGINAL AREA WITH OLDER APPEARING BRUSING CONSISTENT WITH RECENT CATH AND IS NON TENDER AND NO SWELLING DIRECTLY OVER INTRANCE SITE. ENTIRE LEFT LEG WITH 4+ EDEMA, DIFFUSELY TENDER. MEDIAL ASPECT OF LEFT THIGH AND PROXIMAL HALF OF LOWER LEG WITH DIFFUSE ERYTHEMA AND HARD INDURATION. MID POLK WITH 5 CM AREA OF ECCHYMOSIS AND "BLOOD BLISTER" FORMATION. ENTIRE LEFT LEG IS DIFFUSELY TENDER. DISTAL MOTOR AND SENSATION IS INTACT. BOTH FEET ARE COOL AND TOES ARE DUSKY BUT IS GREATER ON THE LEFT. UNABLE TO PALPATE PULSES IN EITHER FOOT --LIKELY DUE IN PART TO SIGNIFICANT EDEMA BILATERALLY. ) (BIBI GALLAGHER DO) Progress/Results/Core Measures Results/Orders Lab Results Laboratory Tests Test 06/17/21 18:34 Range/Units White Blood Count 5.5 4.3-11.0 10^3/uL Red Blood Count 2.94 L 3.80-5.11 10^6/uL Hemoglobin 8.9 L 11.5-16.0 g/dL Hematocrit 29 L 35-52 % Mean Corpuscular Volume 98 80-99 fL Mean Corpuscular Hemoglobin 30 25-34 pg Mean Corpuscular Hemoglobin Concent 31 L 32-36 g/dL Red Cell Distribution Width 15.7 H 10.0-14.5 % Platelet Count 195 130-400 10^3/uL Mean Platelet Volume 10.5 9.0-12.2 fL Immature Granulocyte % (Auto) 0 % Neutrophils (%) (Auto) 56 42-75 % Lymphocytes (%) (Auto) 27 12-44 % Monocytes (%) (Auto) 14 H 0-12 % Eosinophils (%) (Auto) 3 0-10 % Basophils (%) (Auto) 1 0-10 % Neutrophils # (Auto) 3.1 1.8-7.8 10^3/uL Lymphocytes # (Auto) 1.5 1.0-4.0 10^3/uL Monocytes # (Auto) 0.7 0.0-1.0 10^3/uL Eosinophils # (Auto) 0.1 0.0-0.3 10^3/uL Basophils # (Auto) 0.0 0.0-0.1 10^3/uL Immature Granulocyte # (Auto) 0.0 0.0-0.1 10^3/uL Prothrombin Time 20.8 H 12.2-14.7 SEC INR Comment 1.8 H 0.8-1.4 Activated Partial Thromboplast Time 39 H 24-35 SEC D-Dimer 2.13 H 0.00-0.49 UG/ML Sodium Level 136 135-145 MMOL/L Potassium Level 4.0 3.6-5.0 MMOL/L Chloride Level 99 98-107 MMOL/L Carbon Dioxide Level 26 21-32 MMOL/L Anion Gap 11 5-14 MMOL/L Blood Urea Nitrogen 25 H 7-18 MG/DL Creatinine 1.44 H 0.60-1.30 MG/DL Estimat Glomerular Filtration Rate 34 BUN/Creatinine Ratio 17 Glucose Level 106 H 70-105 MG/DL Calcium Level 8.5 8.5-10.1 MG/DL C-Reactive Protein High Sensitivity 1.70 H 0.00-0.50 MG/DL B-Type Natriuretic Peptide 1618.6 H <100.0 PG/ML (SCARLET READ MD) My Orders Orders - SCARLET READ MD Hs C Reactive Protein (06/17/21 18:54) Fentanyl Inj (Sublimaze Injection) (06/17/21 19:51) Hydrocodone/Apap 5/325 Tablet (Lortab 5 (06/17/21 20:00) Ceftriaxone (Rocephin) (06/17/21 19:51) Rx-Hydrocodone/Apap 5-325 Mg (Rx-Vicodin (06/17/21 20:15) (SCARLET READ MD) Medications Given in ED Current Medications Medications Dose Ordered Sig/Julianne Route Start Time Stop Time Status Last Admin Dose Admin Acetaminophen/ Hydrocodone Bitart 1 ea ONCE ONCE PO 06/17/21 20:00 06/17/21 20:01 DC 06/17/21 20:02 1 EA Acetaminophen/ Hydrocodone Bitart 1 ea Q6H PRN PO 06/17/21 20:15 06/17/21 20:40 DC 06/17/21 20:20 1 EA (SCARLET READ MD) Vital Signs/I&O 06/17/21 06/17/21 18:15 20:39 Temp 36.9 Pulse 68 70 Resp 20 18 B/P (MAP) 174/97 (122) 166/84 Pulse Ox 97 94 O2 Delivery Nasal Cannula Nasal Cannula O2 Flow Rate 2.00 2.00 (SCARLET READ MD) Progress Progress Note : Progress Note 1849--CARE TURNED OVER TO DR. READ AT SHIFT CHANGE (BIBI GALLAGHER DO) Progress Note : Progress Note 1849: Assumed care of the patient from Dr. Gallagher with ultrasound pending. 1950: Ultrasound complete. Results posted and noted below. I did discuss the results with Dr. Reddy, patient's science intern. He is recommending outpatient Ceftin 500 mg p.o. twice daily and he will see the patient in clinic on Monday. Also agrees with pain control. I did order fentanyl 25 mcg IV now and hydrocodone 5/325 1 tab p.o. now and Rocephin 1 g IV now. All findings concerns were discussed with patient and family. Discharged home with return precautions. Patient and family verbalized understanding of instructions and agreement with plan. (SCARLET READ MD) Diagnostic Imaging Diagonstic Imaging: Ultrasound Plain Films/CT/US/NM/MRI: leg Comments [facility] [place] [place] NAME: TAYLOR MILLER [facility] REC#: [id number] PT STATUS: REG ER : 1935 PHYSICIAN: BIBI GALLAGHER DO ADMIT DATE: 06/17/21/ER Draft Date of Exam:06/17/21 US VENOUS LOWER EXT LT PROCEDURE: US left lower extremity venous. TECHNIQUE: Multiple real-time grayscale images were obtained over the left lower extremity in various projections. Additional duplex Doppler and color Doppler images were also obtained. INDICATION: Left lower extremity pain and swelling EXAMINATION: Grayscale and color Doppler evaluation of the deep veins of the right lower extremity were performed with waveform analysis. FINDINGS: Continuous venous flow is present. No intraluminal filling defect is identified. There is normal compressibility and response to augmentation. No abnormal perivascular fluid collection is identified. IMPRESSION: No ultrasound evidence of right lower extremity deep venous thrombosis. Dictated on workstation # [id number] Dict: 06/17/211926 Trans: 06/17/211928 [facility] [id number] Interpreted by: PREMA SOLIS MD Electronically signed by: Diagonstic Imaging: Ultrasound Plain Films/CT/US/NM/MRI: leg Comments [facility] [place] [place] NAME: TAYLOR MILLER [facility] REC#: [id number] PT STATUS: REG ER : 1935 PHYSICIAN: BIBI GALLAGHER DO ADMIT DATE: 06/17/21/ER Draft Date of Exam:06/17/21 US LEFT LOW EXT ARTERIAL [id number] INDICATION: Left leg pain and swelling Grayscale and color flow imaging of the left lower extremity is performed with spectral analysis. Normal arterial waveforms are seen throughout the left lower extremity arterial tree. There is focal swelling and hematoma in the left groin adjacent to the common femoral artery with what appears to be hematoma or thrombosed pseudoaneurysm measuring 4.6 x 2.0 x 0.9 cm. No definite extraluminal flow is identified at this time. IMPRESSION: Focal hematoma or thrombosed pseudoaneurysm in the left groin without evidence of extraluminal flow. Clinical correlation is recommended. Otherwise, there is wide patency of the left lower extremity arteries. Dictated on workstation # [id number] Dict: 06/17/211927 Trans: 06/17/211931 [facility] [id number] Interpreted by: PREMA SOLIS MD Electronically signed by: (SCARLET READ MD) Departure Impression Primary Impression: Hematoma of groin Qualified Codes: S30.1XXA - Contusion of abdominal wall, initial encounter Additional Impression: Phlebitis of left lower extremity Disposition: HOME, SELF-CARE Condition: Stable Departure-Patient Inst. Decision time for Depature: 20:00 (SCARLET READ MD) Referrals: KIKO KHAN MD (PCP/Family) Primary Care Physician Patient Instructions: Phlebitis (DC) Add. Discharge Instructions: All discharge instructions reviewed with patient and/or family. Voiced understanding. Take medication as directed. Do not take Tylenol/acetaminophen with the prescribed pain medicine as they both have acetaminophen in them. Call Dr. Reddy's office tomorrow for appointment for Monday for recheck. You may use warm, moist heat to area of concern or cool packs whichever causes greatest relief. Elevate the leg to reduce swelling. Return for worse pain, fever, chills, weakness or other concerns as needed. Continue other home medications as previously prescribed. Scripts Hydrocodone Bit/Acetaminophen (HYDROcodone/APAP 5 MG/325 MG TAB) 1 Tab Tab 1 TAB PO Q6H for Pain, #10 TAB 0 Refills Prov: SCARLET READ MD 06/17/21 Cefuroxime Axetil (Cefuroxime) 500 Mg Tablet 500 MG PO BID, #10 TAB Prov: SCARLET READ MD 06/17/21 BIBI GALLAGHER DO Jun 17, 2021 18:27 SCARLET READ MD Jun 17, 2021 19:35
[2021-06-17 18:44] LABS: BASOPHILS % (AUTO) 1 % (0-10); EOSINOPHILS # (AUTO) 0.1 10^3/uL (0.0-0.3); EOSINOPHILS % (AUTO) 3 % (0-10); HEMATOCRIT 29 % (35-52); HEMOGLOBIN 8.9 g/dL (11.5-16.0); LYMPHOCYTES # (AUTO) 1.5 10^3/uL (1.0-4.0); LYMPHOCYTES % (AUTO) 27 % (12-44); MEAN CORPUSCULAR HEMOGLOBIN 30 pg (25-34); MEAN CORPUSCULAR HGB CONC 31 g/dL (32-36); MEAN CORPUSCULAR VOLUME 98 fL (80-99); MEAN PLATELET VOLUME 10.5 fL (9.0-12.2); MONOCYTES # (AUTO) 0.7 10^3/uL (0.0-1.0); MONOCYTES % (AUTO) 14 % (0-12); NEUTROPHILS # (AUTO) 3.1 10^3/uL (1.8-7.8); NEUTROPHILS % (AUTO) 56 % (42-75); PLATELET COUNT 195 10^3/uL (130-400); WHITE BLOOD COUNT 5.5 10^3/uL (4.3-11.0)
[2021-06-17 18:49] LABS: CALCIUM 8.5 MG/DL (8.5-10.1)
[2021-06-17 18:53] LABS: CREATININE SERUM 1.44 MG/DL (0.60-1.30)
[2021-06-17 18:55] LABS: FIBRIN DEGRADATION PRODUCTS 2.13 UG/ML (0.00-0.49); INR 1.8 (0.8-1.4); PROTHROMBIN TIME PATIENT 20.8 SEC (12.2-14.7)
--- NOTE | 2021-06-17 19:29 | Diagnostic Imaging Report ---
PROCEDURE: US left lower extremity venous. TECHNIQUE: Multiple real-time grayscale images were obtained over the left lower extremity in various projections. Additional duplex Doppler and color Doppler images were also obtained. INDICATION: Left lower extremity pain and swelling EXAMINATION: Grayscale and color Doppler evaluation of the deep veins of the right lower extremity were performed with waveform analysis. FINDINGS: Continuous venous flow is present. No intraluminal filling defect is identified. There is normal compressibility and response to augmentation. No abnormal perivascular fluid collection is identified. IMPRESSION: No ultrasound evidence of right lower extremity deep venous thrombosis. Dictated by: Dictated on workstation # [id number]
--- NOTE | 2021-06-17 19:33 | Diagnostic Imaging Report ---
INDICATION: Left leg pain and swelling Grayscale and color flow imaging of the left lower extremity is performed with spectral analysis. Normal arterial waveforms are seen throughout the left lower extremity arterial tree. There is focal swelling and hematoma in the left groin adjacent to the common femoral artery with what appears to be hematoma or thrombosed pseudoaneurysm measuring 4.6 x 2.0 x 0.9 cm. No definite extraluminal flow is identified at this time. IMPRESSION: Focal hematoma or thrombosed pseudoaneurysm in the left groin without evidence of extraluminal flow. Clinical correlation is recommended. Otherwise, there is wide patency of the left lower extremity arteries. Dictated by: Dictated on workstation # [id number]
[2021-06-17] MEDS ORDERED: fentaNYL INJ 100 MCG/2 ML AMP IVP STA (19:51)
[2021-06-17] MEDS ORDERED: cefTRIAXone 1,000 MG in WATER (STERILE) FOR INJECTION 10 ML IV STA (19:51)
[2021-06-17] MEDS ORDERED: HYDROcodone/APAP 5 MG/325 MG (LORTAB) TAB PO ONE (20:00)
[2021-06-17] MEDS ORDERED: CEFU500T63 PO (20:04)
[2021-06-17] MEDS ORDERED: ACHD5005 PO (20:04)
[2021-06-17 20:39] VITALS: BP 166/84
== END 2021-06-17 20:19 | disposition home or self-care (01) ==
LOC: EDUNIT# 17:30 → ER 17:32
DX: S30.1XXA Contusion of abdominal wall, initial encounter (principal); I80.3 Phlebitis and thrombophlebitis of lower extremities, unspecified; I10 Essential (primary) hypertension; F41.9 Anxiety disorder, unspecified; E03.9 Hypothyroidism, unspecified; E78.00 Pure hypercholesterolemia, unspecified; I48.91 Unspecified atrial fibrillation; Z86.711 Personal history of pulmonary embolism; Z95.9 Presence of cardiac and vascular implant and graft, unspecified; Z79.899 Other long term (current) drug therapy; Z79.01 Long term (current) use of anticoagulants; Z79.890 Hormone replacement therapy; X58.XXXA Exposure to other specified factors, initial encounter
CPT/HCPCS: 36415; 80048; 83880; 85025; 85379; 85610; 85730; 86141; 93926

== ENCOUNTER → 2021-12-31 | Outpatient (CLI) | payer MEDICARE ==
[~2021-12-31] MED LIST changes: +CEFU500T63 PO; -POTA10TA36 PO; +POTA10TA37 PO
--- NOTE | 2021-12-31 14:47 | Diagnostic Imaging Report ---
PROCEDURE: US Renal Bilateral. TECHNIQUE: Multiple real-time grayscale images were obtained over the kidneys in various projections bilaterally. INDICATION: Chronic kidney disease stage IV. Right kidney measures 8.4 x 4.4 x 4.7 cm and left kidney measures 8.7 x 4.6 x 3.1 cm. The left kidney is somewhat difficult to visualize due to overlying bowel. Right renal cortex does show normal thickness and echogenicity. No calculi or hydronephrosis seen. The right ureteral jet was visualized. Left ureteral jet was not visualized. IMPRESSION: There is some limited visualization of the left kidney due to overlying bowel gas. However, no gross abnormality is seen. No definite hydronephrosis is detected. Dictated by: Dictated on workstation # [id number]
== END ==
LOC: RAD 12:30
PROVIDERS: ATTEND Internal Medicine Nephrology
DX: N18.4 Chronic kidney disease, stage 4 (severe) (principal)
CPT/HCPCS: 76770

== ENCOUNTER → 2022-06-21 | Outpatient (CLI) | payer MEDICARE ==
[~2022-06-21] MED LIST changes: -NORM2DIS3 IV; +NORM2DIS8 IV; +POTA-177 PO; -POTA10TA37 PO
--- NOTE | 2022-06-21 16:28 | Diagnostic Imaging Report ---
Indication: Routine screening. Comparison is made with prior mammograms from 06/14/2021 and 05/29/2020. 2-D and 3-D bilateral screening mammography was performed with CAD. Both breasts are heterogeneously dense, limiting the sensitivity of mammography. Vascular calcifications are noted bilaterally. No mass or malignant appearing microcalcifications are seen. Axillae are unremarkable. IMPRESSION: BI-RADS Category 1 No mammographic features suspicious for malignancy are identified. ACR BI-RADS Category 1: Negative. Result letter will be mailed to the patient. Note: At least 10% of breast cancer is not imaged by mammography. Dictated by: Dictated on workstation # [id number]
== END ==
LOC: RAD 13:59
PROVIDERS: ATTEND Nurse Practitioner Family
DX: Z12.31 Encounter for screening mammogram for malignant neoplasm of breast (principal)
CPT/HCPCS: 77063; 77067

== ENCOUNTER 2022-06-28 14:56 | Inpatient (IN) | payer MEDICARE ==
[2022-06-28] VITALS (9 sets, daily range): BP systolic 126–141; BP diastolic 73–92
[~2022-06-28] VITALS: Ht 170.2 cm; Wt 59.8 kg
--- NOTE | 2022-06-28 15:03 | ED Respiratory ---
General Stated Complaint: FEET/LEGS SWELLING RETAINING FLUID SOA Source: patient Exam Limitations: no limitations (EUSEBIO BECERRA APRN) History of Present Illness Date Seen by Provider: Jun 28, 2022 Time Seen by Provider: 15:03 (EUSEBIO BECERRA APRN) Initial Comments Ms. Miller is a an 86-year-old woman who presents to the emergency room with complaints of shortness of breath and worsening edema over the past several days. She is noted to have an oxygen saturation of 84% on room air. She does sometimes use 3 L/min of oxygen support at home but is inconsistent with this usage and does not use it outside of the home. She notes a history of congestive heart failure and recalls being admitted at [facility] about a year ago for inpatient diuresis. She reports losing about 40 pounds of water weight at that time. She does currently use furosemide 40 mg daily and 20 mg in the afternoon every other day. She denies any fever. She has no chest pain. Dr. Khan is her primary care provider and Dr. Reddy is her open hearth worker. (DEJAH GOLD MD) Allergies and Home Medications Allergies Coded Allergies: Sulfa (Sulfonamide Antibiotics) (Unverified Allergy, Severe, SWELLING, 09/08/20) Patient Home Medication List Home Medication List Reviewed: Yes (DEJAH GOLD MD) Acetaminophen (Tylenol) 325 Mg Tablet, 650 MG PO Q6H PRN for PAIN-MILD (1-4), (Reported) Entered as Reported by: VEE DUNHAM on 06/11/21910 Amlodipine Besylate (Amlodipine Besylate) 2.5 Mg Tablet, 2.5 MG PO BID, (Reported) Entered as Reported by: VEE DUNHAM on 06/11/21910 Bismuth Subsalicylate (Pepto-Bismol) 262 Mg Tab.chew, 262 MG PO DAILY PRN for HEARTBURN, (Reported) Entered as Reported by: VEE DUNHAM on 06/11/21910 Cefuroxime Axetil (Cefuroxime) 500 Mg Tablet, 500 MG PO BID Prescribed by: SCARLET READ on 06/17/212003 Cholecalciferol (Vitamin D3) (Vitamin D3) 25 Mcg Capsule, 25 MCG PO DAILY, (Reported) Entered as Reported by: KINGS DIAS on 09/08/20 1046 Clonidine HCl (Clonidine HCl) 0.2 Mg Tablet, 0.2 MG PO HS, (Reported) Entered as Reported by: VEE DUNHAM on 06/11/21 09 Furosemide (Furosemide) 80 Mg Tablet, 80 MG PO DAILY, (Reported) Entered as Reported by: VEE DUNHAM on 06/11/21 09 Hydrocodone Bit/Acetaminophen (HYDROcodone/APAP 5 MG/325 MG TAB) 1 Tab Tab, 1 TAB PO Q6H Prescribed by: SCARLET READ on 06/17/212003 Levothyroxine Sodium (Levothyroxine) 75 Mcg Capsule, 75 MCG PO DAILY, (Reported) Entered as Reported by: VEE DUNHAM on 06/11/21 09 Lisinopril (Lisinopril) 40 Mg Tablet, 40 MG PO DAILY, (Reported) Entered as Reported by: HÉCTOR CLAUDIO on 07/10/15 08 Lorazepam (Ativan) 1 Mg Tablet, 0.5 MG PO Q6H PRN for ANXIETY, (Reported) Entered as Reported by: VEE DUNHAM on 06/11/21910 Metoprolol Succinate (Metoprolol Succinate) 100 Mg Tab.er.24h, 50 MG PO DAILY, (Reported) Entered as Reported by: VEE DUNHAM on 06/11/21 09 Nitrofurantoin Macrocrystal (Macrodantin) 50 Mg Capsule, 50 MG PO DAILY, (Reported) Entered as Reported by: KINGS DIAS on 09/08/20 1046 Nitroglycerin (Nitrostat) 0.4 Mg Tab.subl, 0.4 MG PO UD PRN for CHEST PAIN, (Reported) Entered as Reported by: HÉCTOR CLAUDIO on 07/10/15 0810 Peg 400/Hypromellose/Glycerin (Visine Dry Eye Relief Drop) 15 Ml Drops, 1 DROP OU DAILY PRN for DRY EYES, (Reported) Entered as Reported by: VEE DUNHAM on 06/11/21 09 Potassium Chloride (Potassium Chloride) 10 Meq Tab.er.prt, 10 MEQ PO DAILY, (Reported) Entered as Reported by: VEE DUNHAM on 06/11/21 0936 Rivaroxaban (Xarelto) 20 Mg Tablet, 20 MG PO HS, (Reported) Entered as Reported by: KINGS DIAS on 09/08/20 1046 Simvastatin (Simvastatin) 20 Mg Tablet, 20 MG PO HS, (Reported) Entered as Reported by: HÉCTOR CLAUDIO on 07/10/15 0810 Review of Systems Review of Systems Constitutional: no symptoms reported EENTM: no symptoms reported Respiratory: see HPI Cardiovascular: see HPI Gastrointestinal: no symptoms reported Genitourinary: no symptoms reported : No Musculoskeletal: no symptoms reported Skin: no symptoms reported Psychiatric/Neurological: No Symptoms Reported Hematologic/Lymphatic: No Symptoms Reported (DEJAH GOLD MD) Past Zvvmsbw-Cfiyfn-Widqdz Hx Patient Social History Tobacco Use?: No Smoking Status: Former Smoker Use of E-Cig and/or Vaping dev: No Substance use?: No Alcohol Use?: No (DEJAH GOLD MD) Immunizations Up To Date Tetanus Booster (TDap): Unknown Second COVID19 Vaccination [place]: 12/13 (EUSEBIO BECERRA APRN) Seasonal Allergies Seasonal Allergies: No (EUSEBIO BECERRA APRN) Past Medical History Surgery/Hospitalization HX: CARDIAC CATH 06/11/[address] REDDY--NO INTERVENTION Surgeries: Yes (R TKR, L FEMUR FX) Adenoidectomy, Eye Surgery, Joint Replacement, Orthopedic, Tonsillectomy Respiratory: Yes Pulmonary Embolism Cardiac: Yes Atrial Fibrillation, Chronic Edema/Swelling, High Cholesterol, Hypertension, Valvular Heart Disease Neurological: No Reproductive Disorders: No Sexually Transmitted Disease: No HIV/AIDS: No Genitourinary: Yes UTI-Chronic Gastrointestinal: Yes (LACTOSE INTOLERANT; LARGE INGUINAL/FEMORAL HERNIA) Abdominal Hernia, Gastroesophageal Reflux, Chronic Constipation, Hiatal Hernia, Gall Bladder Disease Musculoskeletal: Yes (DJD RIGHT KNEE; RIGHT TOTAL KNEE REPLACEMENT;L FEMUR FX) Arthritis Endocrine: Yes Hypothyroidsim HEENT: Yes (GLASSES, DENTURES) Cataract Loss of Vision: Denies Hearing Impairment: Denies Cancer: No Psychosocial: Yes Anxiety Integumentary: No Blood Disorders: No Adverse Reaction/Blood Tranf: No (N/A) (EUSEBIO BECERRA APRN) Surgeries: Yes Adenoidectomy, Cardiac (Heart cath), Eye Surgery, Joint Replacement, Orthopedic, Tonsillectomy Respiratory: No Cardiac: Yes Atrial Fibrillation, Chronic Edema/Swelling, Coronary Artery Disease, Hypertension Neurological: No : No Reproductive Disorders: No Genitourinary: No Gastrointestinal: No Musculoskeletal: No Endocrine: No HEENT: Yes Cataract Cancer: No Psychosocial: No Integumentary: No (DEJAH GOLD MD) Family Medical History Blood cancer G8 SISTER Diabetes mellitus 19 MOTHER Physical Exam Vital Signs - First Documented 06/28/22 06/28/22 15:00 15:05 Temp 36.8 Pulse 100 Resp 20 B/P (MAP) 119/80 (93) Pulse Ox 95 O2 Delivery Nasal Cannula O2 Flow Rate 3.00 (DEJAH GOLD MD) Capillary Refill : (EUSEBIO BECERRA APRN) Height: 5'7" Weight: 142lbs. 5.0oz. [id number]; 20.00 BMI Method:Stated (EUSEBIO BECERRA APRN) General Appearance: WD/WN, no apparent distress, thin HEENT: PERRL/EOMI, normal ENT inspection Neck: normal inspection Respiratory: no respiratory distress (Increased work of breathing but no distress), no accessory muscle use, decreased breath sounds (Decreased breath sounds in the left lower lobe), crackles (Faint in the right lower lobe) Cardiovascular: no edema, no murmur, irregularly irregular (Rate controlled) Gastrointestinal: non tender, soft Extremities: non-tender, pedal edema, swelling Neurologic/Psychiatric: no motor/sensory deficits, alert, normal mood/affect, oriented x 3 Skin: normal color, warm/dry (DEJAH GOLD MD) Focused Exam Lactate Level 06/28/22 15:14: Lactic Acid Level 2.37*H 06/28/22 17:05: Lactic Acid Level 1.45 (DEJAH GOLD MD) Lactic Acid Level Laboratory Tests Test 06/28/22 15:14 06/28/22 17:05 Lactic Acid Level 2.37 MMOL/L (0.50-2.00) *H 1.45 MMOL/L (0.50-2.00) (DEJAH GOLD MD) Progress/Results/Core Measures Suspected Sepsis SIRS Temperature: Pulse: Respiratory Rate: Laboratory Tests 06/28/22 15:14: Blood Pressure / Mean: 06/28/22 15:14: Laboratory Tests 06/28/22 15:14: (EUSEBIO BECERRA APRN) Results/Orders Lab Results Laboratory Tests Test 06/28/22 15:09 06/28/22 15:14 06/28/22 16:50 06/28/22 17:05 Range/Units Influenza Type A (RT-PCR) Not Detected Not Detecte Influenza Type B (RT-PCR) Not Detected Not Detecte SARS-CoV-2 RNA (RT-PCR) Not Detected Not Detecte White Blood Count 7.8 4.3-11.0 10^3/uL Red Blood Count 3.16 L 3.80-5.11 10^6/uL Hemoglobin 9.8 L 11.5-16.0 g/dL Hematocrit 31 L 35-52 % Mean Corpuscular Volume 99 80-99 fL Mean Corpuscular Hemoglobin 31 25-34 pg Mean Corpuscular Hemoglobin Concent 31 L 32-36 g/dL Red Cell Distribution Width 15.1 H 10.0-14.5 % Platelet Count 348 130-400 10^3/uL Mean Platelet Volume 9.4 9.0-12.2 fL Immature Granulocyte % (Auto) 0 % Neutrophils (%) (Auto) 72 42-75 % Lymphocytes (%) (Auto) 16 12-44 % Monocytes (%) (Auto) 10 0-12 % Eosinophils (%) (Auto) 2 0-10 % Basophils (%) (Auto) 0 0-10 % Neutrophils # (Auto) 5.6 1.8-7.8 X 10^3 Lymphocytes # (Auto) 1.2 1.0-4.0 X 10^3 Monocytes # (Auto) 0.8 0.0-1.0 X 10^3 Eosinophils # (Auto) 0.1 0.0-0.3 10^3/uL Basophils # (Auto) 0.0 0.0-0.1 10^3/uL Immature Granulocyte # (Auto) 0.0 0.0-0.1 10^3/uL Prothrombin Time 20.6 H 12.2-14.7 SEC INR Comment 1.7 H 0.8-1.4 Activated Partial Thromboplast Time 42 H 24-35 SEC Sodium Level 138 135-145 MMOL/L Potassium Level 2.9 L 3.6-5.0 MMOL/L Chloride Level 97 L 98-107 MMOL/L Carbon Dioxide Level 29 21-32 MMOL/L Anion Gap 12 5-14 MMOL/L Blood Urea Nitrogen 19 H 7-18 MG/DL Creatinine 1.29 0.60-1.30 MG/DL Estimat Glomerular Filtration Rate 40 BUN/Creatinine Ratio 15 Glucose Level 137 H 70-105 MG/DL Lactic Acid Level 2.37 *H 1.45 0.50-2.00 MMOL/L Calcium Level 9.0 8.5-10.1 MG/DL Corrected Calcium 9.5 8.5-10.1 MG/DL Magnesium Level 1.8 1.6-2.4 MG/DL Total Bilirubin 1.0 0.1-1.0 MG/DL Aspartate Amino Transf (AST/SGOT) 12 5-34 U/L Alanine Aminotransferase (ALT/SGPT) 7 0-55 U/L Alkaline Phosphatase 86 40-136 U/L Total Creatine Kinase 15 L 29-168 U/L Creatine Kinase MB 0.5 <6.6 NG/ML Myoglobin 56.2 10.0-92.0 NG/ML Troponin I < 0.028 <0.028 NG/ML C-Reactive Protein High Sensitivity 10.25 H 0.00-0.50 MG/DL B-Type Natriuretic Peptide 918.7 H <100.0 PG/ML Total Protein 7.2 6.4-8.2 GM/DL Albumin 3.4 3.2-4.5 GM/DL Lipase 33 8-78 U/L Thyroid Stimulating Hormone (TSH) 1.79 0.35-4.94 UIU/ML Free Thyroxine 1.02 0.70-1.48 NG/DL Urine Color YELLOW Urine Clarity SL CLOUDY Urine pH 6.0 5-9 Urine Specific [place] 1.010 L 1.016-1.022 Urine Protein 1+ H NEGATIVE Urine Glucose (UA) NEGATIVE NEGATIVE Urine Ketones NEGATIVE NEGATIVE Urine Nitrite NEGATIVE NEGATIVE Urine Bilirubin NEGATIVE NEGATIVE Urine Urobilinogen 1.0 < = 1.0 MG/DL Urine Leukocyte Esterase 3+ H NEGATIVE Urine RBC (Auto) 2+ H NEGATIVE Urine RBC NONE /HPF Urine WBC >100 H /HPF Urine Squamous Epithelial Cells 5-10 /HPF Urine Renal Epithelial Cells NONE /HPF Urine Crystals NONE /LPF Urine Bacteria LARGE H /HPF Urine Casts NONE /LPF Urine Mucus NEGATIVE /LPF Urine Culture Indicated CULTURE PENDING (DEJAH GOLD MD) My Orders Orders - DEJAH GOLD MD Hs C Reactive Protein (06/28/22 16:03) Blood Culture (06/28/22 16:28) Sputum Culture (06/28/22 16:28) Urinalysis (06/28/22 16:28) Urine Culture (06/28/22 16:28) Vital Signs Adult Sepsis Patie Q15M (06/28/22 16:28) Remove Rings In Anticipation O (06/28/22 16:28) Cefepime Injection (Maxipime Injection) (06/28/22 16:30) Potassium Chloride (Tablet) (Klor Con Ta (06/28/22 16:30) Furosemide Injection (Lasix Injection) (06/28/22 16:30) Ns (Ivpb) (Sodium Chloride 0.9%) (06/28/22 16:30) Potassium Cl 10meq/50ml Ivpb (Kcl 10 Meq (06/28/22 16:30) Thyroid Stimulating Hormone (06/28/22 17:23) Free T4 (Free Thyroxine) (06/28/22 17:23) (DEJAH GOLD MD) Medications Given in ED Current Medications Medications Dose Ordered Sig/Julianne Route Start Time Stop Time Status Last Admin Dose Admin Cefepime HCl 2000 mg/Sodium Chloride 50 ml @ 100 mls/hr ONCE ONCE IV 06/28/22 16:30 06/28/22 16:59 DC 06/28/22 17:01 100 MLS/HR Furosemide 40 mg ONCE ONCE IVP 06/28/22 16:30 06/28/22 16:32 DC 06/28/22 16:50 40 MG Potassium Chloride 40 meq ONCE ONCE PO 06/28/22 16:30 06/28/22 16:32 DC 06/28/22 16:50 40 MEQ Potassium Chloride 50 ml @ 50 mls/hr ONCE ONCE IV 06/28/22 16:30 06/28/22 17:29 DC 06/28/22 17:16 50 MLS/HR Sodium Chloride 250 ml @ 50 mls/hr Q5H ONCE IV 06/28/22 16:30 06/28/22 21:29 06/28/22 17:17 50 MLS/HR (DEJAH GOLD MD) Vital Signs/I&O 06/28/22 06/28/22 15:00 15:05 Temp 36.8 Pulse 100 Resp 20 B/P (MAP) 119/80 (93) Pulse Ox 95 O2 Delivery Nasal Cannula Nasal Cannula O2 Flow Rate 3.00 4.00 (DEJAH GOLD MD) Vital Signs/I&O Capillary Refill : (EUSEBIO BECERRA APRN) Progress Note : Progress Note Patient was found to have suggestion of both heart failure and pneumonia based on chest x-ray, elevated BNP, and elevated CRP. Antibiotic therapy was started with cefepime. UTI was also noted and is being treated with the cefepime as well. Patient remained stable on nasal cannula at 5 L/min. Lasix was administered for the fluid overload and exacerbation of heart failure. 40 mg IV was administered. Patient had notable hypokalemia which was treated with 10 mEq of potassium by IV route and 40 mEq by oral route. I discussed CODE STATUS with the patient and she elects full code. Case was discussed with Dr. Reddy and Dr. Kenny who accepted consultation and admission. (DEJAH GOLD MD) ECG Initial ECG Impression Date: Jun 28, 2022 Initial ECG Impression Time: 15:03 Initial ECG Rate: 102 Initial ECG Rhythm: A Fib/Flutter Initial ECG Impression: Atrial Fibrillation Comment Atrial fibrillation with no diagnostic ST elevation or depression. Left axis deviation. No abnormal intervals. There is artifact on this EKG. (DEJAH GOLD MD) Diagnostic Imaging Diagonstic Imaging: Xray Plain Films/CT/US/NM/MRI: chest Comments Chest x-ray viewed by me and report reviewed. Compared with prior. See report below: NAME: TAYLOR MILLER [facility] REC#: [id number] PT STATUS: REG ER : 1935 PHYSICIAN: EUSEBIO BECERRA APRN ADMIT DATE: 06/28/22/ER Signed Date of Exam:06/28/22 CHEST 1 VIEW, AP/PA ONLY INDICATION: Shortness of breath. TECHNIQUE: Frontal chest obtained at 04:01 p.m. and compared to 06/11/2021. FINDINGS: There is prominent cardiomegaly. There is central vascular congestion with diffuse interstitial edema. There is some alveolar infiltrate in the right medial base. There is no pneumothorax or pleural fluid. IMPRESSION: Cardiomegaly. Central vascular congestion with diffuse interstitial edema with some patchy alveolar infiltrate in the right lung base. Dictated by: Dictated on workstation # [id number] Dict: 06/28/22 1606 Trans: 06/28/22 1616 [phone] Interpreted by: CAR DENNIS MD Electronically signed by: CAR DENNIS MD 06/28/22 1616 (DEJAH GOLD MD) Departure Communication (Admissions) Time/Spoke to Admitting Phy: 17:10 Dr. Almanzar Time/Spoke to Consulting Phy: 17:15 Dr. Reddy (DEJHA GOLD MD) Impression Primary Impression: Acute exacerbation of congestive heart failure Qualified Codes: I50.9 - Heart failure, unspecified Additional Impressions: Pneumonia Qualified Codes: J18.9 - Pneumonia, unspecified organism Hypoxia Hypokalemia Urinary tract infection Qualified Codes: N39.0 - Urinary tract infection, site not specified Disposition: ADMITTED INPATIENT Condition: Stable Admissions Decision to Admit Reason: Admit from ER (General) Decision to Admit/Date: Jun 28, 2022 Time/Decision to Admit Time: 17:10 (DEJAH GOLD MD) Departure-Patient Inst. Referrals: KIKO KHAN MD (PCP/Family) Primary Care Physician Copy Copies To 1: KIKO KHAN MD Copies To 2: DELMIS REDDY MD, [employer] Jun 28, 2022 15:03 DEJAH GOLD MD Jun 28, 2022 17:21
[2022-06-28 15:26] LABS: BASOPHILS % (AUTO) 0 % (0-10); EOSINOPHILS # (AUTO) 0.1 10^3/uL (0.0-0.3); EOSINOPHILS % (AUTO) 2 % (0-10); HEMATOCRIT 31 % (35-52); HEMOGLOBIN 9.8 g/dL (11.5-16.0); LYMPHOCYTES # (AUTO) 1.2 X 10^3 (1.0-4.0); LYMPHOCYTES % (AUTO) 16 % (12-44); MEAN CORPUSCULAR HEMOGLOBIN 31 pg (25-34); MEAN CORPUSCULAR HGB CONC 31 g/dL (32-36); MEAN CORPUSCULAR VOLUME 99 fL (80-99); MEAN PLATELET VOLUME 9.4 fL (9.0-12.2); MONOCYTES # (AUTO) 0.8 X 10^3 (0.0-1.0); MONOCYTES % (AUTO) 10 % (0-12); NEUTROPHILS # (AUTO) 5.6 X 10^3 (1.8-7.8); NEUTROPHILS % (AUTO) 72 % (42-75); PLATELET COUNT 348 10^3/uL (130-400); WHITE BLOOD COUNT 7.8 10^3/uL (4.3-11.0)
[2022-06-28 15:36] LABS: ALBUMIN 3.4 GM/DL (3.2-4.5); CHLORIDE 97 MMOL/L (98-107); POTASSIUM 2.9 MMOL/L (3.6-5.0); SODIUM 138 MMOL/L (135-145)
[2022-06-28 15:38] LABS: INR 1.7 (0.8-1.4); PROTHROMBIN TIME PATIENT 20.6 SEC (12.2-14.7)
[2022-06-28 15:39] LABS: GLUCOSE 137 MG/DL (70-105); TOTAL PROTEIN 7.2 GM/DL (6.4-8.2)
[2022-06-28 15:40] LABS: CARBON DIOXIDE 29 MMOL/L (21-32)
[2022-06-28 15:42] LABS: ALKALINE PHOSPHATASE 86 U/L (40-136); CREATININE SERUM 1.29 MG/DL (0.60-1.30); GFR ESTIMATED 40
[2022-06-28 15:43] LABS: BUN/CREATININE RATIO 15
[2022-06-28 15:45] LABS: ALANINE AMINOTRANSFERASE 7 U/L (0-55); MAGNESIUM 1.8 MG/DL (1.6-2.4)
[2022-06-28 15:52] LABS: CREATINE KINASE MB 0.5 NG/ML (<6.6)
--- NOTE | 2022-06-28 16:10 | Diagnostic Imaging Report ---
INDICATION: Shortness of breath. TECHNIQUE: Frontal chest obtained at 04:01 p.m. and compared to 06/11/2021. FINDINGS: There is prominent cardiomegaly. There is central vascular congestion with diffuse interstitial edema. There is some alveolar infiltrate in the right medial base. There is no pneumothorax or pleural fluid. IMPRESSION: Cardiomegaly. Central vascular congestion with diffuse interstitial edema with some patchy alveolar infiltrate in the right lung base. Dictated by: Dictated on workstation # [id number]
[2022-06-28] MEDS ORDERED: KCL 10 MEQ TAB (MICRO K) PO ONE (16:30)
[2022-06-28] MEDS ORDERED: CEFEPIME INJECTION 2,000 MG in NS (IVPB) 50 ML IV ONE (16:30)
[2022-06-28] MEDS ORDERED: POTASSIUM CL 10MEQ/50ML IVPB 50 ML IV ONE (16:30)
[2022-06-28] MEDS ORDERED: NS (IVPB) 250 ML IV ONE (16:30)
[2022-06-28] MEDS ORDERED: FUROSEMIDE 40 MG/4 ML INJ (LASIX) IVP ONE (16:30)
[2022-06-28 16:58] LABS: BILIRUBIN,URINE NEGATIVE (NEGATIVE); CLARITY,URINE SL CLOUDY; COLOR,URINE YELLOW; GLUCOSE, URINE (UA) NEGATIVE (NEGATIVE); KETONES,URINE NEGATIVE (NEGATIVE); LEUKOCYTE ESTERASE ,URINE 3+ (NEGATIVE); NITRITE,URINE NEGATIVE (NEGATIVE); PROTEIN,URINE 1+ (NEGATIVE)
[2022-06-28 17:09] LABS: WBC,URINE >100 /HPF
[2022-06-28 17:10] LABS: BACTERIA,URINE LARGE /HPF
[2022-06-28 18:02] LABS: FREE T4 (FREE THYROXINE) 1.02 NG/DL (0.70-1.48)
[2022-06-28] MEDS ORDERED: FLU QUAD HIGH DOSE 240 MCG/0.7 ML 2022-23 (FLUZONE) IM ONE (18:45)
[2022-06-28] MEDS ORDERED: CATHETER FLUSH 10 ML SYR IVP PRN (18:45)
[2022-06-28] MEDS ORDERED: RIVAROXABAN 20 MG TABLET (XARELTO) PO SCH (19:00)
[2022-06-28] MEDS ORDERED: LORazepam 0.5 MG (ATIVAN) TABLET ONE (20:33)
[2022-06-28] MEDS ORDERED: amLODIPine 5 MG (NORVASC) TAB ONE (20:33)
[2022-06-28] MEDS: LORazepam 0.5 MG (ATIVAN) TABLET PO PRN (20:34)
[2022-06-28] MEDS: amLODIPine 2.5MG (NORVASC) TAB PO SCH (20:35)
[2022-06-28] MEDS ORDERED: cloNIDine 0.2 MG (CATAPRES) TAB ONE (20:38)
[2022-06-28] MEDS: CATHETER FLUSH 10 ML SYR IVP SCH (20:43)
[2022-06-28] MEDS: cloNIDine 0.2 MG (CATAPRES) TAB PO SCH (20:43)
[2022-06-29] VITALS (7 sets, daily range): BP systolic 114–141; BP diastolic 69–88
[2022-06-29 05:34] LABS: CALCIUM 8.7 MG/DL (8.5-10.1); CREATININE SERUM 1.16 MG/DL (0.60-1.30); POTASSIUM 3.6 MMOL/L (3.6-5.0)
[2022-06-29] MEDS ORDERED: CEFEPIME 1,000 MG/NS 50 ML IVPB IV SCH ×2 (06:00)
[2022-06-29] MEDS: LEVOTHYROXINE 50 MCG (LEVOTHROID) TAB PO SCH (06:25)
[2022-06-29] MEDS: CATHETER FLUSH 10 ML SYR IVP SCH ×3 (06:25→20:28)
[2022-06-29] MEDS: cloNIDine 0.2 MG (CATAPRES) TAB PO SCH (08:21)
[2022-06-29] MEDS: amLODIPine 2.5MG (NORVASC) TAB PO SCH ×2 (08:21→20:28)
[2022-06-29] MEDS: LORazepam 0.5 MG (ATIVAN) TABLET PO PRN ×2 (08:46→18:56)
--- NOTE | 2022-06-29 10:18 | History & Physical ---
LOULOU ARIAS 06/29/22 1018: History of Present Illness History of Present Illness Reason for visit/HPI Reason for visit: Acute exacerbation of congestive heart failure HPI: Danielle is a 86yo F with a past medicla history of CHF(preserved EF), CAD, hypothyrodiism, atrial fibrillation, recurrent UTIs, HTN, HLD, and anxiety. She presented to the ER yesterday with bilateral leg edema and SOB. Patient says the swelling and SOB began two days ago and progressively got worse. She tried elevating her legs which did not reduce the swelling. She takes furosemide at home and denies missing any doses. She called her petroleum analyst who recommended that she be seen by a physician. In the ER a chest X-ray showed cardiomegaly and alveolar infiltrates. Lactic acid was elevated at 2.37 and CRP was elevated at 10.25. BNP was 918. K was low at 2.9. UA showed large amounts of bacteria and leukocyte esterase. She was put on a nasal cannula 3L/min in the ER. She was admitted for CHF exacerbation and pneumonia. She was given IV and oral potassium chloride in the ER as well as IV furosemide. Cefepime was given to treat the pneumonia and UTI in the ER as well. Patient was laying in bed awake at the beg inning of the interview. She said she was feeling much better today. Patient states her legs are not as swollen today and that she no longer is having discomfort while urinating. Patient has had some anxiety about being in the hospital and is wanting to leave as soon as possible. The patient's oxygen dropped last night to high 80's and so her nasal cannula was increased to 5L/min. Patient denies SOB, chest pain, and leg pain. Date of Admission Jun 28, 2022 at 17:30 Date Seen by a Provider: Jun 29, 2022 Time Seen by a Provider: 09:05 I consulted on this patient on 06/29/22 10:03 Attending Physician Chuck Saeed MD Admitting Physician Admitting Physician: Star Cid MD Attending Physician: Star Cid MD Consult Allergies and Home Medications Allergies Coded Allergies: Sulfa (Sulfonamide Antibiotics) (Unverified Allergy, Severe, SWELLING, 09/08/20) Patient Home Medication List Allopurinol (Allopurinol) 100 Mg Tablet, 100 MG PO DAILY, (Reported) Entered as Reported by: LAURA CHIU on 06/29/221099 Last Action: Reviewed Amlodipine Besylate (Amlodipine Besylate) 2.5 Mg Tablet, 2.5 MG PO BID, (Repo rted) Entered as Reported by: VEE DUNHAM on 06/11/21910 Last Action: Reviewed Apixaban (Eliquis) 5 Mg Tablet, 5 MG PO BID, (Reported) Entered as Reported by: LAURA CHIU on 06/29/221099 Last Action: Reviewed Clonidine HCl (Clonidine HCl) 0.2 Mg Tablet, 0.1 MG PO BID, (Reported) Entered as Reported by: VEE DUNHAM on 06/11/21910 Last Action: Reviewed Ferrous Sulfate (Ferrous Sulfate) 325 Mg (65 Mg Iron) Tablet.dr, 325 MG PO Q48H, (Reported) Entered as Reported by: LAURA CHIU on 06/29/221100 Last Action: Reviewed Furosemide (Furosemide) 40 Mg Tablet, 40 MG PO BID, (Reported) Entered as Reported by: LAURA CHIU on 06/29/221099 Last Action: Reviewed Levothyroxine Sodium (Levothyroxine Sodium) 75 Mcg Tablet, 75 MCG PO DAILY, (Reported) Entered as Reported by: LAURA CHIU on 06/29/221099 Last Action: Reviewed Lorazepam (Ativan) 1 Mg Tablet, 0.5 MG PO Q6H, (Reported) Entered as Reported by: LAURA CHIU on 06/29/221099 Last Action: Reviewed Losartan Potassium (Losartan Potassium) 50 Mg Tablet, 50 MG PO DAILY, (Reported) Entered as Reported by: LAURA CHIU on 06/29/221099 Last Action: Reviewed Metoprolol Succinate (Metoprolol Succinate) 100 Mg Tab.er.24h, 50 MG PO DAILY, (Reported) Entered as Reported by: VEE DUNHAM on 06/11/21910 Last Action: Reviewed Nitroglycerin (Nitroglycerin) 0.4 Mg Tab.subl, 0.4 MG SL UD PRN for CHEST PAIN (ANGINA), (Reported) Entered as Reported by: LAURA CHIU on 06/29/221099 Last Action: Reviewed Simvastatin (Simvastatin) 20 Mg Tablet, 20 MG PO HS, (Reported) Entered as Reported by: HÉCTOR CLAUDIO on 07/10/15809 Last Action: Reviewed Discontinued Medications Acetaminophen (Tylenol) 325 Mg Tablet, 650 MG PO Q6H PRN for PAIN-MILD (1-4), (Reported) Discontinued Reason: No Longer Taking Entered as Reported by: VEE DUNHAM on 06/11/21910 Last Action: Discontinued Bismuth Subsalicylate (Pepto-Bismol) 262 Mg Tab.chew, 262 MG PO DAILY PRN for HEARTBURN, (Reported) Discontinued Reason: No Longer Taking Entered as Reported by: VEE DUNHAM on 06/11/21910 Last Action: Discontinued Cefuroxime Axetil (Cefuroxime) 500 Mg Tablet, 500 MG PO BID Discontinued Reason: No Longer Taking Prescribed by: SCARLET READ on 06/17/212003 Last Action: Discontinued Cholecalciferol (Vitamin D3) (Vitamin D3) 25 Mcg Capsule, 25 MCG PO DAILY, (Reported) Discontinued Reason: No Longer Taking Entered as Reported by: KINGS DIAS on 09/08/20 1046 Last Action: Discontinued Furosemide (Furosemide) 80 Mg Tablet, 80 MG PO DAILY, (Reported) Discontinued Reason: No Longer Taking Entered as Reported by: VEE DUNHAM on 06/11/21910 Last Action: Discontinued Hydrocodone Bit/Acetaminophen (HYDROcodone/APAP 5 MG/325 MG TAB) 1 Tab Tab, 1 TAB PO Q6H Discontinued Reason: No Longer Taking Prescribed by: SCARLET READ on 06/17/212003 Last Action: Discontinued Levothyroxine Sodium (Levothyroxine) 75 Mcg Capsule, 75 MCG PO DAILY, (Reported) Discontinued Reason: No Longer Taking Entered as Reported by: VEE DUNHAM on 06/11/21910 Last Action: Discontinued Lisinopril (Lisinopril) 40 Mg Tablet, 40 MG PO DAILY, (Reported) Discontinued Reason: No Longer Taking Entered as Reported by: HÉCTOR CLAUDIO on 07/10/15809 Last Action: Discontinued Lorazepam (Ativan) 1 Mg Tablet, 0.5 MG PO Q6H PRN for ANXIETY, (Reported) Discontinued Reason: No Longer Taking Entered as Reported by: VEE DUNHAM on 06/11/21910 Last Action: Discontinued Nitrofurantoin Macrocrystal (Macrodantin) 50 Mg Capsule, 50 MG PO DAILY, (Reported) Discontinued Reason: No Longer Taking Entered as Reported by: KINGS DIAS on 09/08/20 1046 Last Action: Discontinued Nitroglycerin (Nitrostat) 0.4 Mg Tab.subl, 0.4 MG PO UD PRN for CHEST PAIN, (Reported) Discontinued Reason: No Longer Taking Entered as Reported by: HÉCTOR CLAUDIO on 07/10/15 0810 Last Action: Discontinued Peg 400/Hypromellose/Glycerin (Visine Dry Eye Relief Drop) 15 Ml Drops, 1 DROP OU DAILY PRN for DRY EYES, (Reported) Discontinued Reason: No Longer Taking Entered as Reported by: VEE DUNHMA on 06/11/21 0911 Last Action: Discontinued Potassium Chloride (Potassium Chloride) 10 Meq Tab.er.prt, 10 MEQ PO DAILY, (Reported) Discontinued Reason: No Longer Taking Entered as Reported by: VEE DUNHAM on 06/11/21 0936 Last Action: Discontinued Rivaroxaban (Xarelto) 20 Mg Tablet, 20 MG PO HS, (Reported) Discontinued Reason: No Longer Taking Entered as Reported by: KINGS DIAS on 09/08/20 1046 Last Action: Discontinued Past Drmqppr-Aehfqv-Judikt Hx Patient Social History Marrital Status: single Living Status: Lives with daughter Employed/Student: retired Tobacco Use?: No Smoking Status: Former Smoker (Quit in high school) Use of E-Cig and/or Vaping dev: No Substance use?: No Alcohol Use?: No Pt feels they are or have been: No Immunizations Up To Date Date of Influenza Vaccine: Jun 29, 2020 First/Initial COVID19 Vaccinat: 12/13 Second COVID19 Vaccination [place]: 12/13 Tetanus Booster (TDap): Unknown Date of Pneumonia Vaccine: Jul 03, 2017 Seasonal Allergies Seasonal Allergies: No Current Status Advance Directives: No Communicates: Verbally Primary Language: Latvian Preferred Spoken Language: Latvian Sensory deficits: Vision impairment Past Medical History Surgeries: Adenoidectomy, Cardiac (Heart cath), Eye Surgery, Joint Replacement, Orthopedic, Tonsillectomy Pulmonary Embolism Atrial Fibrillation, Chronic Edema/Swelling, Coronary Artery Disease, Hypertension Sexually Transmitted Disease: No HIV/AIDS: No UTI-Chronic Abdominal Hernia, Gastroesophageal Reflux, Chronic Constipation, Hiatal Hernia, Gall Bladder Disease Arthritis Hypothyroidsim Cataract Loss of Vision: Denies Hearing Impairment: Denies Anxiety Blood Disorders: No Adverse Reaction/Blood Tranf: No (N/A) Family Medical History Blood cancer G8 SISTER Diabetes mellitus 19 MOTHER Review of Systems Constitutional: No chills, No dizziness, No fever, No weakness EENTM: No hearing loss, No vision loss, No throat pain Respiratory: No cough, No dyspnea on exertion, No phlegm, No short of breath Cardiovascular: No chest pain; edema; No palpitations Gastrointestinal: No abdominal pain, No constipation, No diarrhea, No loss of appetite, No melena, No nausea, No vomiting Genitourinary: No decreased output, No dysuria, No frequency, No hematuria : No Musculoskeletal: No joint pain, No joint swelling, No muscle pain, No muscle stiffness Skin: No change in color, No rash Psychiatric/Neurological: Anxiety; Denies Headache, Denies Numbness, Denies Weakness Physical Exam Vital Signs Vital Signs - First Documented 06/28/22 06/28/22 15:00 15:05 Temp 36.8 Pulse 100 Resp 20 B/P (MAP) 119/80 (93) Pulse Ox 95 O2 Delivery Nasal Cannula O2 Flow Rate 3.00 Capillary Refill : Less Than 3 Seconds Height, Weight, BMI Height: 5'7" Weight: 142lbs. 5.0oz. [id number]; 20.64 BMI Method:Stated General Appearance: No Apparent Distress, WD/WN HEENT: Moist Mucous Membranes Neck: Full Range of Motion, Normal Inspection, Non Tender, Supple Respiratory: Chest Non Tender, No Accessory Muscle Use, No Respiratory Distress, Decreased Breath Sounds (Right base of lung) Cardiovascular: No Murmur, Irregularly Irregular Gastrointestinal: No Organomegaly, No Pulsatile Mass, Non Tender, Soft Back: Normal Inspection, No Vertebral Tenderness Extremity: Normal Capillary Refill, Normal Range of Motion, No Calf Tenderness, Swelling (2+ pitting edema of bilateral feet and ankles) Neurologic/Psychiatric: Alert, Oriented x3, No Motor/Sensory Deficits, Normal Mood/Affect Skin: Normal Color, Warm/Dry Assessment/Plan Assessment and Plan 1) Acute exacerbation of congestive heart failure Patient has a preserved ejection fractions with severe aortic stenosis according to a 2020 report Echocardiogram has been ordered to assess EF Patient continues to have edema of the lower extremities, IV Furosemide 40mg will be given Hold home medication of furosemide since we are giving her IV furosemide instead Restart heart failure home medications Metoprolol 20mg 1xD, Simvasatin 20mg 1xD, Lisinopril 40mg 1xD 2) Hypoxia Patient currently on 4L/min nasal cannula, her baseline is 3L/min so we will continue to lower her oxygen and monitor her progress Patient will likely need to use oxygen all day once she returns home Restart home medication Albuterol 2.5mg Q4hr per patient request 3) Severe sepsis Patient is being treated with Abx to cover UTI and pneumonia Blood cultures and sputum cultures are still pending Urine culture positive for possible Klebsiella and Enterobacter, deescalation of Abx is appropriate 4) Community acquired pneumonia Cefepime 50ml @ 100mls/hr Sputum culture pending Patient should be using incentive spirometer 5) Urinary tract infection Cefepime 50ml @ 100mls/hr can be changed to IV Rocephin 1mg 1xD Was recently treated with nitrofurantoin for a previous UTI 6) Hypokalemia Potassium is WNL at 3.6 Will give oral potassium chloride 20mEq 2xD to ensure K doesn't decrease with the furosemide Monitor to ensure it remains stable 7) Atrial fibrillation Restart homed medication Rivaroxaban Patient is currently on telemetry Cardiology has been consulted 8) Hypothyroidism Restart home medication Levothyroxine 50mcg 1xD 9) HTN Restart home medications Clonidine 0.2mg BID and Amlodipine 2.5mg BID 10) HLD Restart home medication Simvastatin 11) Non-ambulatory Rivaroxaban has already been restarted which will help with DVT prophylaxis PT and OT have been ordered STAR CID MD 06/29/22 1512: Allergies and Home Medications Allergies Coded Allergies: Sulfa (Sulfonamide Antibiotics) (Unverified Allergy, Severe, SWELLING, 09/08/20) Patient Home Medication List Home Medication List Reviewed: Yes Allopurinol (Allopurinol) 100 Mg Tablet, 100 MG PO DAILY, (Reported) Entered as Reported by: LAURA CHIU on 06/29/22 1100 Last Action: Reviewed Amlodipine Besylate (Amlodipine Besylate) 2.5 Mg Tablet, 2.5 MG PO BID, (Reported) Entered as Reported by: VEE DUNHAM on 06/11/21 0911 Last Action: Reviewed Apixaban (Eliquis) 5 Mg Tablet, 5 MG PO BID, (Reported) Entered as Reported by: LAURA CHIU on 06/29/221099 Last Action: Reviewed Clonidine HCl (Clonidine HCl) 0.2 Mg Tablet, 0.1 MG PO BID, (Reported) Entered as Reported by: VEE DUNHAM on 06/11/21910 Last Action: Reviewed Ferrous Sulfate (Ferrous Sulfate) 325 Mg (65 Mg Iron) Tablet.dr, 325 MG PO Q48H, (Reported) Entered as Reported by: LAURA CHIU on 06/29/221100 Last Action: Reviewed Furosemide (Furosemide) 40 Mg Tablet, 40 MG PO BID, (Reported) Entered as Reported by: LAURA CHIU on 06/29/221099 Last Action: Reviewed Levothyroxine Sodium (Levothyroxine Sodium) 75 Mcg Tablet, 75 MCG PO DAILY, (R eported) Entered as Reported by: LAURA CHIU on 06/29/221099 Last Action: Reviewed Lorazepam (Ativan) 1 Mg Tablet, 0.5 MG PO Q6H, (Reported) Entered as Reported by: LAURA CHIU on 06/29/221099 Last Action: Reviewed Losartan Potassium (Losartan Potassium) 50 Mg Tablet, 50 MG PO DAILY, (Reported) Entered as Reported by: LAURA CHIU on 06/29/221099 Last Action: Reviewed Metoprolol Succinate (Metoprolol Succinate) 100 Mg Tab.er.24h, 50 MG PO DAILY, (Reported) Entered as Reported by: VEE DUNHAM on 06/11/21910 Last Action: Reviewed Nitroglycerin (Nitroglycerin) 0.4 Mg Tab.subl, 0.4 MG SL UD PRN for CHEST PAIN ( ANGINA), (Reported) Entered as Reported by: LAURA CHIU on 06/29/221099 Last Action: Reviewed Simvastatin (Simvastatin) 20 Mg Tablet, 20 MG PO HS, (Reported) Entered as Reported by: HÉCTOR CLAUDIO on 07/10/15 0810 Last Action: Reviewed Discontinued Medications Acetaminophen (Tylenol) 325 Mg Tablet, 650 MG PO Q6H PRN for PAIN-MILD (1-4), (Reported) Discontinued Reason: No Longer Taking Entered as Reported by: VEE DUNHAM on 06/11/21910 Last Action: Discontinued Bismuth Subsalicylate (Pepto-Bismol) 262 Mg Tab.chew, 262 MG PO DAILY PRN for HEARTBURN, (Reported) Discontinued Reason: No Longer Taking Entered as Reported by: VEE DUNHAM on 06/11/21910 Last Action: Discontinued Cefuroxime Axetil (Cefuroxime) 500 Mg Tablet, 500 MG PO BID Discontinued Reason: No Longer Taking Prescribed by: SCARLET READ on 06/17/212003 Last Action: Discontinued Cholecalciferol (Vitamin D3) (Vitamin D3) 25 Mcg Capsule, 25 MCG PO DAILY, (Reported) Discontinued Reason: No Longer Taking Entered as Reported by: KINGS DIAS on 09/08/20 1046 Last Action: Discontinued Furosemide (Furosemide) 80 Mg Tablet, 80 MG PO DAILY, (Reported) Discontinued Reason: No Longer Taking Entered as Reported by: VEE DUNHAM on 06/11/21910 Last Action: Discontinued Hydrocodone Bit/Acetaminophen (HYDROcodone/APAP 5 MG/325 MG TAB) 1 Tab Tab, 1 TAB PO Q6H Discontinued Reason: No Longer Taking Prescribed by: SCARLET READ on 06/17/212003 Last Action: Discontinued Levothyroxine Sodium (Levothyroxine) 75 Mcg Capsule, 75 MCG PO DAILY, (Reported) Discontinued Reason: No Longer Taking Entered as Reported by: VEE DUNHAM on 06/11/21910 Last Action: Discontinued Lisinopril (Lisinopril) 40 Mg Tablet, 40 MG PO DAILY, (Reported) Discontinued Reason: No Longer Taking Entered as Reported by: HÉCTOR CLAUDIO on 07/10/15 0810 Last Action: Discontinued Lorazepam (Ativan) 1 Mg Tablet, 0.5 MG PO Q6H PRN for ANXIETY, (Reported) Discontinued Reason: No Longer Taking Entered as Reported by: VEE DUNHAM on 06/11/21910 Last Action: Discontinued Nitrofurantoin Macrocrystal (Macrodantin) 50 Mg Capsule, 50 MG PO DAILY, (Reported) Discontinued Reason: No Longer Taking Entered as Reported by: KINGS DIAS on 09/08/20 1046 Last Action: Discontinued Nitroglycerin (Nitrostat) 0.4 Mg Tab.subl, 0.4 MG PO UD PRN for CHEST PAIN, (Reported) Discontinued Reason: No Longer Taking Entered as Reported by: HÉCTOR CLAUDIO on 07/10/15 0810 Last Action: Discontinued Peg 400/Hypromellose/Glycerin (Visine Dry Eye Relief Drop) 15 Ml Drops, 1 DROP OU DAILY PRN for DRY EYES, (Reported) Discontinued Reason: No Longer Taking Entered as Reported by: VEE DUNHAM on 06/11/21 0911 Last Action: Discontinued Potassium Chloride (Potassium Chloride) 10 Meq Tab.er.prt, 10 MEQ PO DAILY, (Reported) Discontinued Reason: No Longer Taking Entered as Reported by: VEE DUNHAM on 06/11/21 0936 Last Action: Discontinued Rivaroxaban (Xarelto) 20 Mg Tablet, 20 MG PO HS, (Reported) Discontinued Reason: No Longer Taking Entered as Reported by: KINGS DIAS on 09/08/20 1046 Last Action: Discontinued Past Vmasgzw-Latqvv-Tkkokc Hx Family Medical History Blood cancer G8 SISTER Diabetes mellitus 19 MOTHER Assessment/Plan Assessment and Plan Patient is an 86-year-old female with past medical history of diastolic congestive heart failure coronary artery disease who presented to the emergency department due to shortness of breath and lower extremity edema. She was found to be hypoxic and in an acute CHF exacerbation. She was admitted for diuresis. She reports feeling much better today and her edema has improved. She was also found to have bilateral pulmonary infiltrates and bacteriuria concerning for sepsis given her lactic acidosis. She is being treated with IV antibiotics as well as IV diuretics. Her breathing has improved and she is actually requesting discharge home. Discussed that I do not feel she is medically appropriate to discharge home and she states she will consider staying if Dr. Reddy thinks it is warranted. We will continue diuresis and IV antibiotics. We will titrate oxygen as able. Hopefully home tomorrow. PT/OT have been consulted. Admission Diagnosis Admission Status: Inpatient Order (span 2 midnights) Reason for Inpatient Admission: see below Supervisory-Addendum Brief Verification & Attestation Participated in pt care: history, MDM, physical Personally performed: exam, history, MDM, supervision of care Care discussed with: Medical Student Procedures: n/a Results interpretation: Verified all documentation Verification and Attestation of Medical Student E/M Service A medical student performed and documented this service in my presence. I reviewed and verified all information documented by the medical student and made modifications to such information, when appropriate. I personally performed the physical exam and medical decision making. Star Cid, Jun 29, 2022,15:11 LOULOU ARIAS Jun 29, 2022 10:18 STAR CID MD Jun 29, 2022 15:12
[2022-06-29] MEDS ORDERED: NITR0.4T42 SL (11:00)
[2022-06-29] MEDS ORDERED: APIX5TAB PO (11:00)
[2022-06-29] MEDS ORDERED: LOSA50TA63 PO (11:00)
[2022-06-29] MEDS ORDERED: LORA-405 PO (11:00)
[2022-06-29] MEDS ORDERED: ALLO100T PO (11:00)
[2022-06-29] MEDS ORDERED: FURO40TA4 PO (11:00)
[2022-06-29] MEDS ORDERED: LEVO75TA6 PO (11:00)
[2022-06-29] MEDS ORDERED: FERR325T5 PO (11:01)
[2022-06-29] MEDS ORDERED: FUROSEMIDE 40 MG/4 ML INJ (LASIX) IVP NR (11:15)
[2022-06-29] MEDS ORDERED: RT-ALBUTEROL HFA 8.5 GM INHALER IH PRN (11:15)
[2022-06-29] MEDS ORDERED: RT-ALBUTEROL SULF 2.5 MG/3 ML PRE-MIX VIAL INH PRN (11:30)
--- NOTE | 2022-06-29 13:12 | Consultation-Cardiology ---
HPI-Cardiology Cardiology Consultation Date of Consultation 06/29/22 Date of Admission Time Seen by Provider: 09:05 HPI Patient is an 86 y/o female with history of CAD, permanent afib, HTN, COPD. Presented to the ER with complaints of increased dyspnea and peripheral edema f or the past 2 days. Denies any chest pain, dizziness or syncope. Home Medications & Allergies Allergies: Coded Allergies: Sulfa (Sulfonamide Antibiotics) (Unverified Allergy, Severe, SWELLING, 09/08/20) Home Medication List Reviewed: Yes YMF-[id number]-Vqpxgi Hx Patient Social History Marital Status: single Living Status: Lives with daughter Employed/Student: retired Smoking Status: Former Smoker (Quit in high school) Former smoker/When Quit: Jul 10, 1980 Type Used: Cigarettes 2nd Hand Smoke Exposure: Yes Recent Hopitalizations: No Have you traveled recently?: No Alcohol Use?: No Immunizations Up To Date Tetanus Booster (TDap): Unknown Date of Pneumonia Vaccine: Jul 03, 2017 Date of Influenza Vaccine: Jun 29, 2020 Past Medical History CAD, permanent afib, HTN, COPD Family Medical History Family History: Blood cancer G8 SISTER Diabetes mellitus 19 MOTHER Review of Systems-General Review of Systems Constitutional: see HPI; No chills, No dizziness, No fever, No weakness EENTM: see HPI; No hearing loss, No vision loss, No throat pain Respiratory: see HPI; No cough; dyspnea on exertion, orthopnea; No phlegm; short of breath Cardiovascular: see HPI; No chest pain; edema; No palpitations Gastrointestinal: see HPI; No abdominal pain, No constipation, No diarrhea, No loss of appetite, No melena, No nausea, No vomiting Genitourinary: see HPI; No decreased output, No dysuria, No frequency, No hematuria : No Musculoskeletal: see HPI; No joint pain, No joint swelling, No muscle pain, No muscle stiffness Skin: see HPI; No change in color, No rash Psychiatric/Neurological: Anxiety; Denies Headache, Denies Numbness, Denies Weakness Reviewed Test Results Reviewed Test Results Lab Laboratory Tests 06/28/22 15:09: Influenza Type A (RT-PCR) Not Detected, Influenza Type B (RT-PCR) Not Detected, SARS-CoV-2 RNA (RT-PCR) Not Detected 06/28/22 15:14: White Blood Count 7.8, Red Blood Count 3.16L, Hemoglobin 9.8L, Hematocrit 31L, Mean Corpuscular Volume 99, Mean Corpuscular Hemoglobin 31, Mean Corpuscular Hemoglobin Concent 31L, Red Cell Distribution Width 15.1H, Platelet Count 348, Mean Platelet Volume 9.4, Immature Granulocyte % (Auto) 0, Neutrophils (%) (Auto) 72, Lymphocytes (%) (Auto) 16, Monocytes (%) (Auto) 10, Eosinophils (%) (Auto) 2, Basophils (%) (Auto) 0, Neutrophils # (Auto) 5.6, Lymphocytes # (Auto) 1.2, Monocytes # (Auto) 0.8, Eosinophils # (Auto) 0.1, Basophils # (Auto) 0.0, Immature Granulocyte # (Auto) 0.0, Prothrombin Time 20.6H, INR Comment 1.7H, Activated Partial Thromboplast Time 42H, Sodium Level 138, Potassium Level 2.9L, Chloride Level 97L, Carbon Dioxide Level 29, Anion Gap 12, Blood Urea Nitrogen 19H, Creatinine 1.29, Estimat Glomerular Filtration Rate 40, BUN/Creatinine Ratio 15, Glucose Level 137H, Lactic Acid Level 2.37*H, Calcium Level 9.0, Corrected Calcium 9.5, Magnesium Level 1.8, Total Bilirubin 1.0, Aspartate Amino Transf (AST/SGOT) 12, Alanine Aminotransferase (ALT/SGPT) 7, Alkaline Phosphatase 86, Total Creatine Kinase 15L, Creatine Kinase MB 0.5, Myoglobin 56.2, Troponin I < 0.028, C-Reactive Protein High Sensitivity 10.25H, B-Type Natriuretic Peptide 918.7H, Total Protein 7.2, Albumin 3.4, Lipase 33, Thyroid Stimulating Hormone (TSH) 1.79, Free Thyroxine 1.02 06/28/22 16:50: Urine Color YELLOW, Urine Clarity SL CLOUDY, Urine pH 6.0, Urine Specific [place] 1.010L, Urine Protein 1+H, Urine Glucose (UA) NEGATIVE, Urine Ketones NEGATIVE, Urine Nitrite NEGATIVE, Urine Bilirubin NEGATIVE, Urine Urobilinogen 1.0, Urine Leukocyte Esterase 3+H, Urine RBC (Auto) 2+H, Urine RBC NONE, Urine WBC >100H, Urine Squamous Epithelial Cells 5-10, Urine Renal Epithelial Cells NONE, Urine Crystals NONE, Urine Bacteria LARGEH, Urine Casts NONE, Urine Mucus NEGATIVE, Urine Culture Indicated CULTURE PENDING 06/28/22 17:05: Lactic Acid Level 1.45 06/29/22 04:50: Sodium Level 142, Potassium Level 3.6, Chloride Level 101, Carbon Dioxide Level 28, Anion Gap 13, Blood Urea Nitrogen 19H, Creatinine 1.16, Estimat Glomerular Filtration Rate 45, BUN/Creatinine Ratio 16, Glucose Level 113H, Calcium Level 8.7 Microbiology 06/28/22 Urine Culture - Preliminary, Resulted Probable Klebsiella/Enterobact ECG Impression ECG Initial ECG Impression: Atrial Fibrillation Physical Exam Physical Exam Vital Signs Vital Signs - First Documented 06/28/22 06/28/22 15:00 15:05 Temp 36.8 Pulse 100 Resp 20 B/P (MAP) 119/80 (93) Pulse Ox 95 O2 Delivery Nasal Cannula O2 Flow Rate 3.00 Capillary Refill : Less Than 3 Seconds Height, Weight, BMI Height: 5'7" Weight: 142lbs. 5.0oz. 64.998519sq; 20.64 BMI Method:Stated General Appearance: No Apparent Distress, WD/WN HEENT: Moist Mucous Membranes Neck: Full Range of Motion, Normal Inspection, Non Tender, Supple Respiratory: Chest Non Tender, No Accessory Muscle Use, No Respiratory Distress, Decreased Breath Sounds (Right base of lung) Cardiovascular: No Murmur, Irregularly Irregular Gastrointestinal: No Organomegaly, No Pulsatile Mass, Non Tender, Soft Back: Normal Inspection, No Vertebral Tenderness Extremity: Normal Capillary Refill, Normal Range of Motion, No Calf Tenderness, Swelling (2+ pitting edema of bilateral feet and ankles) Neurologic/Psychiatric: Alert, Oriented x3, No Motor/Sensory Deficits, Normal Mood/Affect Skin: Normal Color, Warm/Dry A/P-Cardiology Admission Diagnosis Pneumonia UTI CAD CHF AFib Assessment/Plan Pneumonia, started on antibiotic, management per medical services UTI, on antibiotic, management per medical services. Congestive heart failure, acute on chronic left ventricular systolic dysfunction, 2D Echo done June 2021 showing borderline LVH, EF 60%. Biatrial enlargement with LA 5.3cm, mderate mitral and tricuspid insufficiency, Mild . Continue to diurese and monitor response. Coronary artery disease, history of non-ST elevation myocardial infarction had a cardiac catheterization done in February 2012 showing mild to moderate disease in her coronary nonobstructive disease. Underwent [facility]C on 06/11/21 showing severe ostial left main, occluded right renal artery , moderate disease in left renal artery. Continue with conservative management. Severe pulmonary hypertension, 2D echo in May 2021 showed PA pressure of 75 mmHg, mean PA on CHC was 52. Planning to repeat echo. Severe mitral regurgitation, moderate aortic valve stenosis, was referred to Dr. Howell for possible surgical intervention, thought not to be a good candidate at this time. Continue conservative management. Sinus node dysfunction, permanent atrial fibrillation, continue on current medications and continue to monitor. [id number] score of 4, yearly risk of stroke without oral anticoagulation is 4.2 percent, maintained on Xarelto. 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 Hyperlipidemia, followed and managed by primary care physician Hypothyroidism, followed and managed by primary care physician History of severe bradycardia occurred secondary to medication, improved after stopping Cardizem and reducing beta gertrudis dose Moderate bilateral carotid stenosis with heavy plaque burden, last ultrasound was done in March 2022 Thank you for allowing us to participate in the management of Ms. Brock. This is Dena Ferreira PA-C, as a scribe for Dr. Reddy. Patient was seen and evaluated with Dena, I interviewed and examined the patient, discussed the management plan and agree with the current scribed note Patient was noted to have UTI and possible pneumonia, receiving antibiotic She has been in congestive heart failure and has acute on chronic left ventricular systolic dysfunction, last echocardiogram showed preserved systolic function. We will repeat 2D echo Responding well to diuretics, has extensive coronary artery disease, treated conservatively, has severe mitral regurgitation. Discussed the management plan with Dr. Jenelle MARCANO,DENA JOSEPH Jun 29, 2022 13:12 DELMIS REDDY MD Jun 29, 2022 13:42
--- NOTE | 2022-06-29 13:47 | Occupational Therapy Eval ---
OT Evaluation-General/PLF Medical Diagnosis Admission Date Jun 28, 2022 at 17:30 Medical Diagnosis: Acute exacberation of CHF, pnemonia, UTI Onset Date: Jun 28, 2022 Therapy Diagnosis Therapy Diagnosis: N/A Height/Weight Height (Feet): 5 Height (Inches): 7 Weight (Pounds): 142 Weight (Ounces): 5.0 Precautions Precautions/Isolations: Fall Prevention, Standard Precautions Referral Physician: Jenelle Referral Reason: Evaluation/Treatment Medical History Pertinent Medical History: Atrial Fib, CAD, Fractures, HTN, Hypothroidism, [place], Smoking Current History Pt came to ER with c/o of SOB and LE swelling. Pt lives with daughter. Per pt she was independent with dressing and toileting and was max assist for showering. She used a walker and a cane at base level. 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 Reviewed History: Yes Social History Home: Single Level Current Living Status: Children Entry Into Home: Ramp ADL-Prior Level of Function SCALE: Activities may be completed with or without assistive devices. 2-Upeeppsomq-vpuakro completes the activity by him/herself with no assistance from a helper. 5-Set-up or Clean-up Assistance-helper sets up or cleans up; patient completes activity. [place] assists only prior to or following the activity. 4-Supervision or Touching Assistance-helper provides verbal cues and/or touching/steadying and/or contact guard assistance as patient completes activity. Assistance may be provided throughout the activity or intermittently. 3-Partial/Moderate Assistance-helper does LESS THAN HALF the effort. [place] lifts, holds or supports trunk or limbs, but provides less than half the effort. 2-Substantial/Maximal Assistance-helper does MORE THAN HALF the effort. [place] lifts or holds trunk or limbs and provides more than half the effort. 3-Mnxxyymot-aujoee does ALL the effort. Patient does none of the effort to complete the activity. Or, the assistance of 2 or more helpers is required for the patient to complete the activity. If activity was not attempted, code reason: 7-Patient Refused. 9-Not Applicable-not attempted and the patient did not perform the activity before the current illness, exacerbation or injury. 10-Not Attempted due to Environmental Limitations-(lack of equipment, weather restraints, etc.). 88-Not Attempted due to Medical Conditions or Safety Concerns. Self Care: Needed Some Help Functional Cognition: Needed Some Help DME/Equipment: Bath Bench, Grab Bars, Shower OT Current Status Subjective Pt laying in bed upon arrival agreeable to therapy eval. Appearance Pt was left laying in bed with all needs within reach. Mental Status/Objective Patient Orientation: Person, Confused, Place, Situation Attachments: IV, Oxygen (3 L), Telemetry Current Glasses/Contacts: Yes Upper Extremity ROM WFL ~170 degrees shoulder Upper Extremity Strength 3/5: shoulders Blind Hanger strength: mod-max impaired ADL-Treatment Oral Hygiene (QC): 5 Upper Body Dressing (QC): 6 (per clinical jugment) Lower Body Dressing (QC): 6 On/Off Footwear (QC): 6 Pt was pleasantly confused during session and would agree to ADL task, but then disagree few minutes later. Good static sitting and standing balance at EOB and ambulating in/out of bathroom. Pt doffed/donned socks with independence sitting EOB. Pt is demonstrating baseline level ADLs and does not have any concerns with self-care tasks. Pt does not qualify for skilled OT services at this time. Pt will be d/c. Education OT Patient Education: Correct positioning, Energy conservation, Modified ADL techniques, Progress toward Goal/Update tx plan, Purpose of tx/functional activities, Rehab process, Safety issues Teaching Recipient: Patient Teaching Methods: Discussion Response to Teaching: Verbalize Understanding, Return Demonstration OT Intermediate Goals Intermediate Goals 1=Demonstrate adherence to instructed precautions during ADL tasks. 2=Patient will verbalize/demonstrate understanding of assistive devices/modifications for ADL. 3=Patient will improve strength/tolerance for activity to enable patient to perform ADL's. OT Education/Plan Problem List/Assessment Assessment: No Skilled OT Needs ID'd Discharge Recommendations Plan/Recommendations: Discontinue OT Therapy Discharge Recommendati: Bath Aide, Homemaker Support, Home & Family Treatment Plan/Plan of Care Treatment,Training & Education: Yes Patient would benefit from OT for education, treatment and training to promote independence in ADL's, mobility, safety and/or upper extremity function for ADL's. Plan of Care: ADL Retraining, Functional Mobility Treatment Duration: Jun 29, 2022 Frequency: 1 time per week Estimated Hrs Per Day: .25 hour per day Time/GCodes Start Time: 13:24 Stop Time: 13:37 Total Time Billed (hr/min): 13 Billed Treatment Time 1 visit Lianne Harris OT Jun 29, 2022 13:47
--- NOTE | 2022-06-29 14:48 | Physical Therapy Evaluation ---
PT Evaluation-General Medical Diagnosis Admission Date Jun 28, 2022 at 17:30 Medical Diagnosis: Acute exacberation of CHF, pnemonia, UTI Onset Date: Jun 28, 2022 Therapy Diagnosis Therapy Diagnosis: impaired mobility, strength Height/Weight Height (Feet): 5 Height (Inches): 7 Weight (Pounds): 142 Weight (Ounces): 5.0 Precautions Precautions/Isolations: Fall Prevention, Standard Precautions Referral Physician: Jenelle Reason for Referral: Evaluation/Treatment Medical History Pertinent Medical History: Atrial Fib, CAD, Fractures, HTN, Hypothroidism, [place], Smoking History of Falls (past yr): Unknown Prior Surgery (last 100 days): Unknown Additional Medical History Past Medical History Surgeries: Adenoidectomy, Cardiac (Heart cath), Eye Surgery, Joint Replacement, Orthopedic, Tonsillectomy Pulmonary Embolism Atrial Fibrillation, Chronic Edema/Swelling, Coronary Artery Disease, Hypertension Sexually Transmitted Disease: No HIV/AIDS: No UTI-Chronic Abdominal Hernia, Gastroesophageal Reflux, Chronic Constipation, Hiatal Hernia, Gall Bladder Disease Arthritis Hypothyroidsim Cataract Loss of Vision: Denies Hearing Impairment: Denies Anxiety Blood Disorders: No Adverse Reaction/Blood Tranf: No (N/A) Reviewed History: Yes Social History Home: Single Level Current Living Status: Children Entry Into Home: Ramp Prior Prior Level of Function SCALE: Activities may be completed with or without assistive devices. 2-Cpdpxlnrmb-zpidyqq completes the activity by him/herself with no assistance from a helper. 5-Set-up or Clean-up Assistance-helper sets up or cleans up; patient completes activity. [place] assists only prior to or following the activity. 4-Supervision or Touching Assistance-helper provides verbal cues and/or touching/steadying and/or contact guard assistance as patient completes activity. Assistance may be provided throughout the activity or intermittently. 3-Partial/Moderate Assistance-helper does LESS THAN HALF the effort. [place] lifts, holds or supports trunk or limbs, but provides less than half the effort. 2-Substantial/Maximal Assistance-helper does MORE THAN HALF the effort. [place] lifts or holds trunk or limbs and provides more than half the effort. 9-Amafhmare-bjnkho does ALL the effort. Patient does none of the effort to complete the activity. Or, the assistance of 2 or more helpers is required for the patient to complete the activity. If activity was not attempted, code reason: 7-Patient Refused. 9-Not Applicable-not attempted and the patient did not perform the activity before the current illness, exacerbation or injury. 10-Not Attempted due to Environmental Limitations-(lack of equipment, weather restraints, etc.). 88-Not Attempted due to Medical Conditions or Safety Concerns. Bed Mobility: 6 Transfers (B,C,W/C): 6 Gait: 6 Indoor Mobility (Ambulation): Independent Prior Devices Use: Walker PT Evaluation-Current Subjective Patient in bed pre tx, agrees to PT, has no complaints of pain at rest. Patient is confused. Pt/Family Goals none stated Objective Patient Orientation: Person, Confused Attachments: Oxygen ROM/Strength ROM Lower Extremities WNL Strength Lower Extremities grossly 4-/5 BLE Sensory Hearing: Functional Sensation Right Lower Extremit: Intact Sensation Left Lower Extremity: Intact Transfers Roll Left to Right (QC): 3 Sit to Lying (QC): 3 Lying to Sitting/Side of Bed(Q: 3 Sit to Stand (QC): 3 Min assist for supine <-> sit and sit to stand. Gait Does the Patient Walk?: Yes Mode of Locomotion: Walk Anticipated Mode of Locomotion: Walk Walk 10 feet (QC): 4 Distance: 20'x2 Gait Assistive Device: FWW Comments/Gait Description Patient ambulated into the hallway and back to her bed with CGA, after sitting back down on her bed her O2 was 89%, came back up to 90% quickly with purse lip breathing, patient states she has to use the restroom, ambulated to the restroom and she was able to push down her pants and sit on the toilet herself. Nurse notified patient is on toilet. Balance Sitting Static: Fair Sitting Dynamic: Fair Standing Static: Fair Standing Dynamic: Fair Assessment/Needs Patient on toilet post tx, instructed to pull nurse call when done, nurse notified. Patient has impaired mobility, strength, endurance. Min assist for supine to sit and sit to stand but CGA for ambulation. 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 Goals [facility] Goals PT [facility] Goals Time Frame: Jul 06, 2022 Roll Left & Right (QC): 6 Sit to Lying (QC): 6 Lying-Sitting on Side/Bed(QC): 6 Sit to Stand (QC): 4 Chair/Vxx-yd-Hqqcn Xfer(QC): 4 (SBA) Walk 10 feet (QC): 4 (SBA) Walk 50ft with 2 Turns (QC): 4 (SBA) PT Plan Problem List Problem List: Activity Tolerance, Functional Strength, Safety, Balance, Gait, Transfer, Bed Mobility, ROM Treatment/Plan Treatment Plan: Continue Plan of Care Treatment Plan: Bed Mobility, Education, Functional Activity [place], Functional Strength, Gait, Safety, Therapeutic Exercise, Transfers Treatment Duration: Jul 06, 2022 Frequency: 6 times per week Estimated Hrs Per Day: .25 hour per day Patient and/or Family Agrees t: Yes Safety Risks/Education Patient Education: Gait Training, Transfer Techniques, Correct Positioning, Safety Issues Teaching Recipient: Patient Teaching Methods: Demonstration, Discussion Response to Teaching: Reinforcement Needed Discharge Recommendations Plan Paitent will perform bed mobility and transfer training, balance and endurance training, functional strengthening, gait training, and education, to improve functional mobility and independence at home. Therapy Discharge Recommendati: Scheduled Assistance, Home & Family, Post Acute PT Time/GCodes Time In: 1414 Time Out: 1428 Total Billed Treatment Time: 14 Total Billed Treatment 1 visit FRANC ARVIZU PT Jun 29, 2022 14:48
[2022-06-29] MEDS ORDERED: cefTRIAXone 1 GM PRE-MIX 50 ML IV SCH (15:00)
[2022-06-29] MEDS ORDERED: KCL 20 MEQ TAB (K-DUR) PO NR (16:30)
[2022-06-29] MEDS ORDERED: RIVAROXABAN 15 MG TABLET (XARELTO) PO SCH (17:00)
[2022-06-29] MEDS ORDERED: AtorvaSTATin TABLET 10 MG TABLET PO SCH (21:00)
[2022-06-29] MEDS ORDERED: NON-FORMULARY MEDICATION 1 EA EA (Simvastatin 20 MG) PO SCH (21:00)
[2022-06-30] VITALS: BP 135/93
[2022-06-30] MEDS ORDERED: OXYMETAZOLINE (AFRIN) 0.05% NA 30 ML BTL ONE (01:08)
[2022-06-30] MEDS: LORazepam 0.5 MG (ATIVAN) TABLET PO PRN ×2 (02:14→07:54)
[2022-06-30 03:00] VITALS: BP 117/79
[2022-06-30] MEDS ORDERED: ONDANSETRON 4 MG/2 ML (SDV) Z0FRAN ONE (04:59)
[2022-06-30] MEDS ORDERED: ONDANSETRON 4 MG/2 ML (SDV) Z0FRAN IVP PRN (05:00)
[2022-06-30 05:15] LABS: HEMATOCRIT 30 % (35-52); HEMOGLOBIN 9.1 g/dL (11.5-16.0); MEAN CORPUSCULAR HEMOGLOBIN 30 pg (25-34); MEAN CORPUSCULAR HGB CONC 31 g/dL (32-36); MEAN CORPUSCULAR VOLUME 98 fL (80-99); MEAN PLATELET VOLUME 9.3 fL (9.0-12.2); PLATELET COUNT 300 10^3/uL (130-400); WHITE BLOOD COUNT 9.5 10^3/uL (4.3-11.0)
[2022-06-30 05:22] LABS: POTASSIUM 4.1 MMOL/L (3.6-5.0)
[2022-06-30 05:23] LABS: CALCIUM 8.5 MG/DL (8.5-10.1)
[2022-06-30 05:28] LABS: CREATININE SERUM 1.1 MG/DL (0.60-1.30)
[2022-06-30] MEDS: CATHETER FLUSH 10 ML SYR IVP SCH ×2 (06:44→14:52)
[2022-06-30] MEDS: LEVOTHYROXINE 50 MCG (LEVOTHROID) TAB PO SCH (06:44)
[2022-06-30 07:40] VITALS: BP 126/84
[2022-06-30] MEDS: amLODIPine 2.5MG (NORVASC) TAB PO SCH (07:54)
--- NOTE | 2022-06-30 08:35 | Cardiology Progress Note ---
Subjective Date Seen by Provider: Jun 30, 2022 Time Seen by Provider: 08:32 Subjective/Events-last exam Patient was seen at bedside, sitting comfortably, still requiring 4 L oxygen. Started to have a nosebleed last night Review of Systems General: No Chills, No Night Sweats; Fatigue, Malaise; No Appetite, No Other HEENT: No Head Aches, No Visual Changes, No Eye Pain, No Ear Pain, No Dysphasia, No Sinus Congestion, No Post Nasal Drip, No Sore Throat, No Other Pulmonary: Dyspnea; No Cough, No Pleuritic Chest Pain, No Other Cardiovascular: No: Chest Pain, Palpitations, Orthopnea, Paroxysmal Noc. Dyspnea, Edema, Lt Headedness, Other Focused Exam Lactate Level 06/28/22 15:14: Lactic Acid Level 2.37*H 06/28/22 17:05: Lactic Acid Level 1.45 Objective-Cardiology Exam Last Set of Vital Signs Vital Signs 06/30/22 07:40 Temp 36.9 Pulse 97 Resp 25 B/P (MAP) 126/84 (98) Pulse Ox 95 O2 Delivery Nasal Cannula O2 Flow Rate 4.00 I&O Intake and Output 06/30/22 00:00 Intake Total 700 ml Output Total 1300 ml Balance -600 ml Intake Oral 600 ml IV Total 100 ml Output Urine Total 1300 ml # Voids 4 General: Alert, Oriented X3, Cooperative HEENT: Atraumatic, PERRLA Neck: Supple, No JVD, No Thyromegaly Lungs: Normal Air Movement, Other (Bilateral rhonchi) Heart: Normal S1, Normal S2, Other (Atrial fibrillation, systolic murmur at the left sternal border) Abdomen: Normal Bowel Sounds, Soft, No Tenderness, No Hepatosplenomegaly, No Masses Extremities: No Clubbing, No Cyanosis, No Edema, Normal Pulses, No Tenderness/Swelling Skin: No Rashes, No Breakdown, No Significant Lesion Neuro: Normal Speech, Normal Tone, Sensation Intact Psych/Mental Status: Mental Status NL, Mood NL Results Lab Laboratory Tests 06/30/22 04:55 A/P-Cardiology Admission Diagnosis Pneumonia UTI CAD CHF AFib Assessment/Plan Pneumonia, and UTI, working diagnosis Receiving antibiotics, managed by medical team. Congestive heart failure, acute on chronic left ventricular systolic dysfunction, 2D Echo done June 2021 showing borderline LVH, EF 60%. Biatrial enlargement with LA 5.3cm, mderate mitral and tricuspid insufficiency, Mild . Responded well to diuretics, planning to repeat 2D echocardiogram today. Coronary artery disease, history of non-ST elevation myocardial infarction. Underwent [facility] on 06/11/21 showing severe ostial left main, occluded right renal artery , moderate disease in left renal artery. Patient was deemed poor bertram date for bypass surgery or percutaneous intervention. Continue with conservative management. Severe pulmonary hypertension, 2D echo in May 2021 showed PA pressure of 75 mmHg, mean PA on CHC was 52. Planning to repeat echo. Severe mitral regurgitation, moderate aortic valve stenosis, was referred to Dr. Howell for possible surgical intervention, thought not to be a good candidate at this time. Continue conservative management. Sinus node dysfunction, permanent atrial fibrillation, continue on current medications and continue to monitor. [id number] score of 4, yearly risk of stroke without oral anticoagulation is 4.2 percent, maintained on Xarelto. 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 Hyperlipidemia, followed and managed by primary care physician Hypothyroidism, followed and managed by primary care physician History of severe bradycardia occurred secondary to medication, improved after stopping Cardizem and reducing beta gertrudis dose Moderate bilateral carotid stenosis with heavy plaque burden, last ultrasound was done in March 2022 DELMIS FISCHER MD Jun 30, 2022 08:35
--- NOTE | 2022-06-30 08:39 | Discharge Inst-Simple/Standard ---
Discharge Inst-Standard Patient Instructions/Follow Up Plan of Care/Instructions/FU: Please continue to take your medications as written. Please follow up with your primary care doctor to follow up this hospital stay. Activity as Tolerated: Yes Discharge Diet: Low Sodium Diet, Cardiac Diet Return to The Hospital For: Chest pain, shortness of breath, leg swelling, fever, weakness, if you feel you are getting worse. STAR CID MD Jun 30, 2022 08:39
[2022-06-30] MEDS ORDERED: CEPH500T PO (08:40)
[2022-06-30] MEDS ORDERED: OXYMETAZOLINE (AFRIN) 0.05% NA 30 ML BTL SCH (09:00)
[2022-06-30] MEDS ORDERED: meTOprolol SUCCINATE 100 MG (TOPROL XL) TAB PO SCH (09:00)
[2022-06-30] MEDS ORDERED: FUROSEMIDE 40 MG/4 ML INJ (LASIX) IVP SCH (09:00)
[2022-06-30 11:50] VITALS: BP 100/86
--- NOTE | 2022-06-30 12:25 | Discharge Summary ---
LOULOU ARIAS 06/30/22 1225: Diagnosis/Chief Complaint Date of Admission Jun 28, 2022 at 17:30 Date of Discharge Discharge Date: Jun 30, 2022 Admission Diagnosis Acute exacerbation of congestive heart failure Primary Care Chuck Saeed MD Discharge Diagnosis Acute exacerbation of congestive heart failure Discharge Summary Discharge Physical Exam Allergies: Coded Allergies: Sulfa (Sulfonamide Antibiotics) (Unverified Allergy, Severe, SWELLING, 09/08/20) Vitals & I&Os Vital Signs Date Time Temp Pulse Resp B/P (MAP) Pulse Ox O2 Delivery O2 Flow Rate FiO2 06/30/22 11:50 36.7 80 18 100/86 (91) 96 Nasal Cannula 4.00 General Appearance: No Apparent Distress, Thin HEENT: Normal ENT Inspection, Moist Mucous Membranes Respiratory: Chest Non Tender, Lungs Clear, Normal Breath Sounds, No Accessory Muscle Use, No Respiratory Distress Cardiovascular: Systolic Murmur (Aortic stenosis), Irregularly Irregular Gastrointestinal: No Organomegaly, No Pulsatile Mass, Non Tender, Soft Extremity: Normal Capillary Refill, Normal Range of Motion, No Calf Tenderness, Pedal Edema (1+ pitting edema) Skin: Normal Color, Warm/Dry Neurologic/Psychiatric: Alert, Oriented x3 Hospital Course Was the Problem List Reviewed?: Yes Danielle is a 86yo F with a past medicla history of CHF(preserved EF), CAD, hypothyrodiism, atrial fibrillation, recurrent UTIs, HTN, HLD, and anxiety. She presented to the ER two days ago with bilateral leg edema and SOB. Patient says the swelling and SOB began three days ago and progressively got worse. She called her digital analytics manager who recommended that she be seen by a physician. In the ER she had 3+ pitting edema and was diagnosed with CHF exacerbation, pneumonia, hypokalemia, and a UTI. Patient wears 3L/min of oxygen nasal cannula at home but while in the hospital her oxygen had to be increased to 5L/min because of hypoxia. She was given IV and oral potassium chloride which resolved her hypokalemia. She received IV furosemide for diuresis and her pitting edema im proved. Cefepime was given to treat the pneumonia and UTI and the Abx was deescalated to Ceftriaxone after the urine culture grew Klebsiella. Patient reported feeling good today and is eager to return home. The patient is currently at her baseline oxygen of 3L/min and will be sent home on oral Cefpodoxime to finish the treatment of her UTI and pneumonia. An echocardiogram is being done to assess cardiac function. Labs (last 24 hrs) Laboratory Tests 06/30/22 04:55: White Blood Count 9.5, Red Blood Count 3.01L, Hemoglobin 9.1L, Hematocrit 30L, Mean Corpuscular Volume 98, Mean Corpuscular Hemoglobin 30, Mean Corpuscular Hemoglobin Concent 31L, Red Cell Distribution Width 15.0H, Platelet Count 300, Mean Platelet Volume 9.3, Sodium Level 139, Potassium Level 4.1, Chloride Level 99, Carbon Dioxide Level 29, Anion Gap 11, Blood Urea Nitrogen 25H, Creatinine 1.10, Estimat Glomerular Filtration Rate 48, BUN/Creatinine Ratio 23, Glucose Level 117H, Calcium Level 8.5 Microbiology 06/28/22 Blood Culture - Preliminary, Resulted No growth 06/28/22 Urine Culture - Final, Complete Klebsiella pneumoniae Patient resulted labs reviewed. Pending Labs Laboratory Tests 06/30/22 04:55: White Blood Count 9.5, Red Blood Count 3.01, Hemoglobin 9.1, Hematocrit 30, Mean Corpuscular Volume 98, Mean Corpuscular Hemoglobin 30, Mean Corpuscular Hemoglobin Concent 31, Red Cell Distribution Width 15.0, Platelet Count 300, Mean Platelet Volume 9.3, Sodium Level 139, Potassium Level 4.1, Chloride Level 99, Carbon Dioxide Level 29, Anion Gap 11, Blood Urea Nitrogen 25, Creatinine 1.10, Estimat Glomerular Filtration Rate 48, BUN/Creatinine Ratio 23, Glucose Level 117, Calcium Level 8.5 Discharge Home Medications: Active Scripts Active Cephalexin 500 Mg Tablet 500 Mg PO BID Reported Ferrous Sulfate 325 Mg (65 Mg Iron) Tablet.dr 325 Mg PO Q48H Ativan (Lorazepam) 1 Mg Tablet 0.5 Mg PO Q6H TAKES OF A 1MG Nitroglycerin 0.4 Mg Tab.subl 0.4 Mg SL UD PRN Allopurinol 100 Mg Tablet 100 Mg PO DAILY Furosemide 40 Mg Tablet 40 Mg PO BID Eliquis (Apixaban) 5 Mg Tablet 5 Mg PO BID Levothyroxine Sodium 75 Mcg Tablet 75 Mcg PO DAILY Losartan Potassium 50 Mg Tablet 50 Mg PO DAILY Metoprolol Succinate 100 Mg Tab.er.24h 50 Mg PO DAILY TAKES (100MG) TABLET Clonidine HCl 0.2 Mg Tablet 0.1 Mg PO BID TAKES OF A 0.2MG TAB Amlodipine Besylate 2.5 Mg Tablet 2.5 Mg PO BID Simvastatin 20 Mg Tablet 20 Mg PO HS Instructions to patient/family Please see electronic discharge instructions given to patient. Clinical Quality Measures Admission Status Admission Dx 1) Acute exacerbation of congestive heart failure Patient has a preserved ejection fractions with severe aortic stenosis according to a 2017 report Echocardiogram has been ordered to assess cardiac function Patient has completed inpatieint diuresis with IV Furosemide as evidenced by her improving pitting edema Patient should continue to take her home medication of Furosemide Restart heart failure home medications Metoprolol 20mg 1xD, Simvasatin 20mg 1xD, Lisinopril 40mg 1xD 2) Hypoxia Patient currently on 3L/min nasal cannula which is her baseline Restart home medication Albuterol 2.5mg Q4hr per patient request 3) Severe sepsis Patient is being treated with Abx to cover UTI and pneumonia Blood cultures and sputum cultures are still pending Urine culture positive for Klebsiella 4) Community acquired pneumonia Will be discharged with Cefpodoxime 100mg 2xD for 5 days Sputum culture pending Patient should be using incentive spirometer 5) Urinary tract infection Will be discharged with Cefpodoxime 100mg 2xD for 5 days Was recently treated with nitrofurantoin for a previous UTI 6) Hypokalemia Potassium is WNL at 4.1 7) Atrial fibrillation Restart homed medication Rivaroxaban Patient is currently on telemetry Cardiology has been consulted 8) Hypothyroidism Restart home medication Levothyroxine 50mcg 1xD 9) HTN Restart home medications Clonidine 0.2mg BID and Amlodipine 2.5mg BID 10) HLD Restart home medication Simvastatin 11) Non-ambulatory Rivaroxaban has already been restarted which will help with DVT prophylaxis PT and OT have worked with the patient and ensured that she can perform baseline ADLs STAR CID MD 07/02/22 1211: Discharge Summary Discharge Physical Exam Allergies: Coded Allergies: Sulfa (Sulfonamide Antibiotics) (Unverified Allergy, Severe, SWELLING, 09/08/20) Discussion & Recommendations Discharge Planning: >30 minutes discharge planning Supervisory-Addendum Brief Verification & Attestation Participated in pt care: history, MDM, physical Personally performed: exam, history, MDM, supervision of care Care discussed with: Medical Student Procedures: n/a Results interpretation: Verified all documentation (Patient sent home on Keflex not Vantin.) Verification and Attestation of Medical Student E/M Service A medical student performed and documented this service in my presence. I reviewed and verified all information documented by the medical student and made modifications to such information, when appropriate. I personally performed the physical exam and medical decision making. Star Cid, Jul 02, 2022,12:06 LOULOU ARIAS Jun 30, 2022 12:25 STAR CID MD Jul 02, 2022 12:11
== END 2022-06-30 15:04 | disposition home or self-care (01) | DRG 871 ==
LOC: EDUNIT# 14:56 → ER 14:58 → CSD 17:30
PROVIDERS: ADMIT Family Medicine; ATTEND Family Medicine
DX: A41.59 Other Gram-negative sepsis (principal); I50.33 Acute on chronic diastolic (congestive) heart failure; J18.9 Pneumonia, unspecified organism; N39.0 Urinary tract infection, site not specified; I48.21 Permanent atrial fibrillation; I11.0 Hypertensive heart disease with heart failure; A41.9 Sepsis, unspecified organism; R65.20 Severe sepsis without septic shock; E87.6 Hypokalemia; R09.02 Hypoxemia; I08.3 Combined rheumatic disorders of mitral, aortic and tricuspid valves; I27.20 Pulmonary hypertension, unspecified; E78.00 Pure hypercholesterolemia, unspecified; K21.9 Gastro-esophageal reflux disease without esophagitis; E03.9 Hypothyroidism, unspecified; F41.9 Anxiety disorder, unspecified; I25.10 Atherosclerotic heart disease of native coronary artery without angina pectoris; I70.1 Atherosclerosis of renal artery; I49.5 Sick sinus syndrome; I65.23 Occlusion and stenosis of bilateral carotid arteries; I25.2 Old myocardial infarction; Z79.01 Long term (current) use of anticoagulants; Z95.0 Presence of cardiac pacemaker; Z86.711 Personal history of pulmonary embolism; Z87.891 Personal history of nicotine dependence; Z96.651 Presence of right artificial knee joint; Z88.2 Allergy status to sulfonamides; Z20.822 Contact with and (suspected) exposure to COVID-19
CPT/HCPCS: 36415; 71045; 80048; 80053; 81000; 82550; 82553; 83605; 83690; 83735; 83874; 83880; 84439; 84443; 84484; 85025; 85027; 85610; 85730; 86141; 87040; 87077; 87088; 87186; 87636; 93005; 93041; 93306; 94760; 96361; 96365; 96375

== ENCOUNTER 2022-11-14 15:59 | Emergency (ER) | payer MEDICARE ==
[~2022-11-14] VITALS: Ht 170 cm; Wt 56.0 kg
[~2022-11-14 15:59] MED LIST changes: +ALLO100T PO; +APIX5TAB PO; +CEPH500T PO; +FERR325T5 PO; +FURO40TA4 PO; +LEVO75TA6 PO; +LOSA50TA63 PO; +NITR0.4T42 SL
--- NOTE | 2022-11-14 16:18 | ED Abdominal Pain ---
General Chief Complaint: Abdominal/GI Problems Stated Complaint: ABD PAIN History of Present Illness Date Seen by Provider: Nov 14, 2022 Time Seen by Provider: 16:10 Initial Comments 87-year-old female presents with right lower quadrant abdominal pain. Patient has a known abdominal wall hernia. She reports is a little more painful than normal and she feels like she has a lot of gas. Patient has an appointment in [address] Abad to have it repaired. She presents today just because of the worst pain and she feels like she just needs a "pass gas" she has no reports of fevers chills nausea or vomiting. Allergies and Home Medications Allergies Coded Allergies: Sulfa (Sulfonamide Antibiotics) (Unverified Allergy, Severe, SWELLING, 09/08/20) Patient Home Medication List Home Medication List Reviewed: Yes Allopurinol (Allopurinol) 100 Mg Tablet, 100 MG PO DAILY, (Reported) Entered as Reported by: LAURA CHIU on 06/29/22 1100 Amlodipine Besylate (Amlodipine Besylate) 2.5 Mg Tablet, 2.5 MG PO BID, (Reported) Entered as Reported by: VEE DUNHAM on 06/11/21 0911 Apixaban (Eliquis) 5 Mg Tablet, 5 MG PO BID, (Reported) Entered as Reported by: LAURA CHIU on 06/29/22 1100 Cephalexin (Cephalexin) 500 Mg Tablet, 500 MG PO BID Prescribed by: STAR CID on 06/30/22 0840 Clonidine HCl (Clonidine HCl) 0.2 Mg Tablet, 0.1 MG PO BID, (Reported) Entered as Reported by: VEE DUNHAM on 06/11/21 0911 Ferrous Sulfate (Ferrous Sulfate) 325 Mg (65 Mg Iron) Tablet.dr, 325 MG PO Q48H, (Reported) Entered as Reported by: LAURA CHIU on 06/29/22 1101 Furosemide (Furosemide) 40 Mg Tablet, 40 MG PO BID, (Reported) Entered as Reported by: LAURA CHIU on 06/29/22 1100 Levothyroxine Sodium (Levothyroxine Sodium) 75 Mcg Tablet, 75 MCG PO DAILY, (Reported) Entered as Reported by: LAURA CHIU on 06/29/22 1100 Lorazepam (Ativan) 1 Mg Tablet, 0.5 MG PO Q6H, (Reported) Entered as Reported by: LAURA CHIU on 06/29/22 1100 Losartan Potassium (Losartan Potassium) 50 Mg Tablet, 50 MG PO DAILY, (Reported) Entered as Reported by: LAURA CHIU on 06/29/22 1100 Metoprolol Succinate (Metoprolol Succinate) 100 Mg Tab.er.24h, 50 MG PO DAILY, (Reported) Entered as Reported by: VEE DUNHAM on 06/11/21 0911 Nitroglycerin (Nitroglycerin) 0.4 Mg Tab.subl, 0.4 MG SL UD PRN for CHEST PAIN (ANGINA), (Reported) Entered as Reported by: LAURA CHIU on 06/29/22 1100 Simvastatin (Simvastatin) 20 Mg Tablet, 20 MG PO HS, (Reported) Entered as Reported by: HÉCTOR CLAUDIO on 07/10/15 0810 Review of Systems Review of Systems Constitutional: see HPI EENTM: No Symptoms Reported Respiratory: No Symptoms Reported Cardiovascular: No Symptoms Reported Gastrointestinal: See HPI Genitourinary: No Symptoms Reported Musculoskeletal: no symptoms reported Skin: no symptoms reported Psychiatric/Neurological: No Symptoms Reported Endocrine: No Symptoms Reported Past Niqazcr-Anjpyg-Izriwy Hx Immunizations Up To Date Tetanus Booster (TDap): Unknown First/Initial COVID19 Vaccinat: 12/13 Second COVID19 Vaccination [place]: 12/13 Third COVID19 Vaccination Date: 12/13 Seasonal Allergies Seasonal Allergies: No Past Medical History Surgery/Hospitalization HX: CARDIAC CATH 06/11/[address] FISCHER--NO INTERVENTION Surgeries: Yes Adenoidectomy, Cardiac, Eye Surgery, Joint Replacement, Orthopedic, Tonsillectomy Respiratory: No Pulmonary Embolism Cardiac: Yes Atrial Fibrillation, Chronic Edema/Swelling, Coronary Artery Disease, Hypertension Neurological: No Reproductive Disorders: No Sexually Transmitted Disease: No HIV/AIDS: No Genitourinary: No UTI-Chronic Gastrointestinal: No Abdominal Hernia, Gastroesophageal Reflux, Chronic Constipation, Hiatal Hernia, Gall Bladder Disease Musculoskeletal: No Arthritis Endocrine: No Hypothyroidsim HEENT: Yes Cataract Loss of Vision: Denies Hearing Impairment: Denies Cancer: No Psychosocial: No Anxiety Integumentary: No Blood Disorders: No Adverse Reaction/Blood Tranf: No (N/A) Family Medical History Blood cancer G8 SISTER Diabetes mellitus 19 MOTHER Physical Exam Vital Signs Vital Signs - First Documented 11/14/22 16:12 Temp 36.4 Pulse 113 Resp 20 B/P (MAP) 168/106 (126) O2 Delivery Room Air Capillary Refill : Height/Weight/BMI Height: 5'7" Weight: 142lbs. 5.0oz. 64.609508ip; 20.64 BMI Method:Stated General Appearance: WD/WN, no apparent distress Respiratory: lungs clear, normal breath sounds Cardiovascular: normal peripheral pulses, regular rate, rhythm Gastrointestinal: soft, hernia (Right lower quadrant, easily reducible) Extremities: normal range of motion, non-tender Neurologic/Psychiatric: alert, normal mood/affect, oriented x 3 Skin: normal color, warm/dry Focused Exam Lactate Level 11/14/22 16:30: Lactic Acid Level 1.17 Lactic Acid Level Laboratory Tests Test 11/14/22 16:30 Lactic Acid Level 1.17 MMOL/L (0.50-2.00) Progress/Results/Core Measures Results/Orders Lab Results Laboratory Tests Test 11/14/22 16:30 Range/Units White Blood Count 6.3 4.3-11.0 10^3/uL Red Blood Count 3.33 L 3.80-5.11 10^6/uL Hemoglobin 10.5 L 11.5-16.0 g/dL Hematocrit 33 L 35-52 % Mean Corpuscular Volume 99 80-99 fL Mean Corpuscular Hemoglobin 32 25-34 pg Mean Corpuscular Hemoglobin Concent 32 32-36 g/dL Red Cell Distribution Width 15.8 H 10.0-14.5 % Platelet Count 203 130-400 10^3/uL Mean Platelet Volume 10.3 9.0-12.2 fL Immature Granulocyte % (Auto) 0 % Neutrophils (%) (Auto) 69 42-75 % Lymphocytes (%) (Auto) 20 12-44 % Monocytes (%) (Auto) 8 0-12 % Eosinophils (%) (Auto) 2 0-10 % Basophils (%) (Auto) 1 0-10 % Neutrophils # (Auto) 4.4 1.8-7.8 10^3/uL Lymphocytes # (Auto) 1.3 1.0-4.0 10^3/uL Monocytes # (Auto) 0.5 0.0-1.0 10^3/uL Eosinophils # (Auto) 0.1 0.0-0.3 10^3/uL Basophils # (Auto) 0.0 0.0-0.1 10^3/uL Immature Granulocyte # (Auto) 0.0 0.0-0.1 10^3/uL Sodium Level 139 135-145 MMOL/L Potassium Level 4.0 3.6-5.0 MMOL/L Chloride Level 102 98-107 MMOL/L Carbon Dioxide Level 26 21-32 MMOL/L Anion Gap 11 5-14 MMOL/L Blood Urea Nitrogen 32 H 7-18 MG/DL Creatinine 1.40 H 0.60-1.30 MG/DL Estimat Glomerular Filtration Rate 36 BUN/Creatinine Ratio 23 Glucose Level 117 H 70-105 MG/DL Lactic Acid Level 1.17 0.50-2.00 MMOL/L Calcium Level 8.8 8.5-10.1 MG/DL Corrected Calcium 9.0 8.5-10.1 MG/DL Total Bilirubin 0.6 0.1-1.0 MG/DL Aspartate Amino Transf (AST/SGOT) 19 5-34 U/L Alanine Aminotransferase (ALT/SGPT) 10 0-55 U/L Alkaline Phosphatase 80 40-136 U/L Total Protein 7.1 6.4-8.2 GM/DL Albumin 3.8 3.2-4.5 GM/DL My Orders Orders - NUNEZ,TU L DO Cbc With Automated Diff (11/14/22 16:14) Comprehensive Metabolic Panel (11/14/22 16:14) Lactic Acid Analyzer (11/14/22 16:14) Vital Signs/I&O 11/14/22 16:12 Temp 36.4 Pulse 113 Resp 20 B/P (MAP) 168/106 (126) O2 Delivery Room Air Progress Progress Note : Progress Note Patient with easily reducible right lower quadrant abdominal wall hernia. Patient already has surgery and appointment with her general surgery and arrange for a couple days from now. Discussed with her that at this time there is no further indications for further treatment in the emergency room. Patient is negative lactic acid and no signs of any incarceration. Patient should call her primary care provider or general surgery if she feels like she needs to be seen prior from 3 days from now. She is stable and discharged Departure Impression Primary Impression: Hernia of abdominal wall Disposition: 01 HOME, SELF-CARE Condition: Stable Departure-Patient Inst. Referrals: KIKO KHAN MD (PCP/Family) Primary Care Physician Patient Instructions: Abdominal Hernia (DC) Add. Discharge Instructions: Please call Dr. Abad's office or your primary care provider if you need further management between now and when your surgery is scheduled. i Encouraged you to stay well-hydrated and drink plenty of fluids. All discharge instructions reviewed with patient and/or family. Voiced understanding. TU NUNEZ DO Nov 14, 2022 16:18
[2022-11-14 16:41] LABS: BASOPHILS % (AUTO) 1 % (0-10); EOSINOPHILS # (AUTO) 0.1 10^3/uL (0.0-0.3); EOSINOPHILS % (AUTO) 2 % (0-10); HEMATOCRIT 33 % (35-52); HEMOGLOBIN 10.5 g/dL (11.5-16.0); LYMPHOCYTES # (AUTO) 1.3 10^3/uL (1.0-4.0); LYMPHOCYTES % (AUTO) 20 % (12-44); MEAN CORPUSCULAR HEMOGLOBIN 32 pg (25-34); MEAN CORPUSCULAR HGB CONC 32 g/dL (32-36); MEAN CORPUSCULAR VOLUME 99 fL (80-99); MEAN PLATELET VOLUME 10.3 fL (9.0-12.2); MONOCYTES # (AUTO) 0.5 10^3/uL (0.0-1.0); MONOCYTES % (AUTO) 8 % (0-12); NEUTROPHILS # (AUTO) 4.4 10^3/uL (1.8-7.8); NEUTROPHILS % (AUTO) 69 % (42-75); PLATELET COUNT 203 10^3/uL (130-400); WHITE BLOOD COUNT 6.3 10^3/uL (4.3-11.0)
[2022-11-14 16:52] LABS: ALBUMIN 3.8 GM/DL (3.2-4.5)
[2022-11-14 16:54] LABS: CALCIUM 8.8 MG/DL (8.5-10.1)
[2022-11-14 16:55] LABS: TOTAL PROTEIN 7.1 GM/DL (6.4-8.2)
[2022-11-14 16:57] LABS: BILIRUBIN,TOTAL 0.6 MG/DL (0.1-1.0)
[2022-11-14 16:58] LABS: CREATININE SERUM 1.4 MG/DL (0.60-1.30)
[2022-11-14 17:33] VITALS: BP 148/79
[2022-11-15] MEDS ORDERED: POTA-179 PO (10:41)
[2022-11-15] MEDS ORDERED: NYST15CR36 TP (10:41)
[2022-11-15] MEDS ORDERED: LEVO88TA54 PO (10:41)
== END 2022-11-14 17:38 | disposition home or self-care (01) ==
LOC: EDUNIT# 15:59 → ER 15:59
DX: K43.9 Ventral hernia without obstruction or gangrene (principal)
CPT/HCPCS: 36415; 80053; 83605; 85025; 99281

== ENCOUNTER 2022-11-15 05:36 | Outpatient (CLI) | payer MEDICARE ==
[~2022-11-15] VITALS: Ht 162.6 cm; Wt 57.8 kg
[2022-11-15] MEDS ORDERED: POTA-179 PO (10:41)
[2022-11-15] MEDS ORDERED: LEVO88TA54 PO (10:41)
[2022-11-15] MEDS ORDERED: NYST15CR36 TP (10:41)
== END 2022-11-15 10:42 | disposition home or self-care (01) ==
LOC: PREOP 05:36
PROVIDERS: ATTEND Surgery
DX: Z01.818 Encounter for other preprocedural examination (principal)

== ENCOUNTER 2022-11-17 11:49 | Day surgery (SDC) | payer MEDICARE ==
[~2022-11-17] VITALS: Ht 162.6 cm; Wt 57.8 kg
[2022-11-17] VITALS (11 sets, daily range): BP systolic 138–181; BP diastolic 73–115
[~2022-11-17 11:49] MED LIST changes: +LEVO88TA54 PO; +NYST15CR36 TP; +POTA-179 PO
[2022-11-17] MEDS ORDERED: ACHD5005 PO (12:06)
--- NOTE | 2022-11-17 12:07 | Progress Note-Pre Operative ---
Pre-Operative Progress Note Date H&P Reviewed: Nov 17, 2022 Time H&P Reviewed: 12:05 History & Physical: H&P Reviewed, Patient Examed, No changes noted Pre-Operative Diagnosis: Symptomatic right inguinal hernia LEISA FARLEY APRN Nov 17, 2022 12:07
--- NOTE | 2022-11-17 12:07 | Discharge Inst-Surgical ---
D/C Lap Instructions-KIDO Reconcile Patient Problems Problems Reviewed?: Yes New, Converted, or Re-Newed RX: RX on Chart Follow Up Appt in 2 weeks Activity as tolerated No driving for 24 hours No driving while on pain medications Incentive Spirometry use every 2 hours while awake Regular Diet Symptoms to Report: Fever over 101 degree F, Nausea/Vomiting Infection Signs and Symptoms to report: Increased redness, Foul odor of wound, Increased drainage Bathing instructions: May shower Operative Area Clean/Dry; Keep incision clean/dry If any problems/questions: Contact your physician or go to Emergency Room LEISA FARLEY APRN Nov 17, 2022 12:06
[2022-11-17] MEDS ORDERED: BUP/EPI 0.25% 1:200,000 (MARCAINE) 30 ML VIAL ONE (12:08)
[2022-11-17] MEDS ORDERED: ONDANSETRON 4 MG/2 ML (SDV) Z0FRAN IVP PRN ×2 (12:15→15:00)
[2022-11-17] MEDS ORDERED: morphine INJ 10 MG/ML 1ML (SYR OR VIAL) IVP PRN (12:15)
[2022-11-17] MEDS ORDERED: HYDROcodone/APAP 5 MG/325 MG (LORTAB) TAB PO ONE (12:15)
[2022-11-17] MEDS ORDERED: ACETAMINOPHEN 325 MG TABLET PO PRN (12:15)
[2022-11-17] MEDS ORDERED: LACTATED RINGERS 1,000 ML IV PRN (12:30)
[2022-11-17] MEDS ORDERED: ceFAZolin INJECTION 2,000 MG in NS (IVPB) 50 ML IV ONE ×4 (12:30)
[2022-11-17] MEDS ORDERED: fentaNYL INJ 100 MCG/2 ML AMP ONE (13:21)
[2022-11-17] MEDS ORDERED: proPOfol 200 MG/20 ML (DIPRIVAN) VIAL IV ONE (13:21)
[2022-11-17] MEDS ORDERED: BUP/EPI 0.25% 1:200,000 (MARCAINE) 30 ML VIAL IJ ONE (14:02)
[2022-11-17] MEDS ORDERED: PHENYLEPHRINE 100 MCG/ML 10 ML (ANESTHESIA) SYR ONE (14:20)
[2022-11-17] MEDS ORDERED: SEVOFLURANE (ULTANE) 15 ML INHAL SOLN ONE ×3 (14:21→14:50)
[2022-11-17] MEDS ORDERED: ONDANSETRON 4 MG/2 ML (SDV) Z0FRAN ONE (14:27)
[2022-11-17] MEDS ORDERED: LIDOCAINE PF 2% 5 ML (XYLOCAINE) VIAL ONE (14:29)
--- NOTE | 2022-11-17 14:49 | Progress Note-Post Operative ---
Post-Operative Progess Note Surgeon (s)/Jewelry Repairer (s) Surgeon CHRIS SAVAGE MD Jewelry Repairer: darshan beavers COMMUNITY ENGAGEMENT LEADER Pre-Operative Diagnosis Symptomatic right inguinal hernia Post-Operative Diagnosis sx reducible direct ing hernia Procedure & Operative Findings Date of Procedure 11/17/22 Procedure Performed/Findings open right ing hernia repair with mesh. Anesthesia Type general LMA Estimated Blood Loss Estimated blood loss (mL): minimal Specimens/Packing Specimens Removed none CHRIS SAVAGE MD Nov 17, 2022 14:49
[2022-11-17] MEDS ORDERED: morphine INJ 10 MG/ML 1ML (SYR OR VIAL) IVP ONE (15:00)
[2022-11-17] MEDS ORDERED: morphine INJ 10 MG/ML 1ML (SYR OR VIAL) ONE (15:07)
[2022-11-17] MEDS ORDERED: LABETALOL HCL 20 MG/4 ML VIAL ONE (15:11)
--- NOTE | 2022-11-17 15:11 | Anesthesia-General Post-Op ---
General Patient Condition Mental Status/LOC: Same as Preop Cardiovascular: Satisfactory Nausea/Vomiting: Absent Respiratory: Satisfactory Pain: Controlled Complications: Absent Post Op Complications Complications None Follow Up Care/Instructions Patient Instructions None needed. Anesthesia/Patient Condition Patient Condition Patient is awake in PACU and doing well. She is hypertensive and now having some pain, which is to be expected. I have ordered morphine and labetalol. Otherwise she has stable vital signs, no apparent adverse anesthesia problems. No complications reported per nursing. TAYE EASLEY DO Nov 17, 2022 15:11
[2022-11-17] MEDS ORDERED: LABETALOL HCL 20 MG/4 ML VIAL IV PRN (15:15)
[2022-11-17] MEDS ORDERED: HYDROcodone/APAP 5 MG/325 MG (LORTAB) TAB ONE (15:56)
--- NOTE | 2022-11-17 17:24 | OPERATIVE REPORT ---
DATE OF SERVICE: 11/17/2022 ATTENDING PIPE FITTER HELPER: Dr. Chuck Saeed. PREOPERATIVE DIAGNOSIS: Symptomatic reducible right inguinal hernia. POSTOPERATIVE DIAGNOSIS: Symptomatic reducible right direct inguinal hernia. PROCEDURE: Open inguinal hernia repair with mesh. SURGEON: Dr. Savage ENGAGEMENT SPECIALIST: Duane Rene APRN ANESTHESIA: General laryngeal mask airway. ESTIMATED BLOOD LOSS: Minimal. FINDINGS: Symptomatic reducible right direct inguinal hernia. DISPOSITION: The patient tolerated the procedure well. INDICATIONS: The patient is an 87-year-old female known to us. She did have symptomatic gallstones and underwent laparoscopic cholecystectomy back in August 2020. We have known that she has had a right inguinal hernia; however, this was not initially symptomatic. She states in the past 2 years this has grown significantly larger in size and painful and does occasionally become incarcerated. She was seen by her brand designer with a recommendation to repair the hernia and that she is also cleared for surgery. DESCRIPTION OF PROCEDURE: The patient was brought to the operating room, laid supine on the table. After adequate IV pain and sedative medications and general laryngeal mask airway intubation, the abdomen was prepped and draped in standard surgical fashion. A 0.5% Marcaine with epinephrine was then used to anesthetize the overlying skin in the right inguinal region. We then measured along the anterior superior iliac crest to the pubic bone and marked the middle third with a marking pen. Skin incision was then made using a #15 blade. The subcutaneous tissue was then dissected down until the external oblique identified. The external oblique was then opened with Metzenbaum scissors and opened to the pubic tubercle medially and to the internal ring laterally. Good hemostasis was observed. The ilioinguinal nerve and the round ligament identified and looped with quarter-inch Jose Enrique drain. The hernia sac was then dissected out. This was a large direct inguinal hernia. Once dissected out bluntly, this was pushed back into the abdominal cavity and a large plug placed and sutured to Richard's ligament medially and to the shelving portion of the inguinal ligament laterally. The overlay mesh was then placed and we then proceeded to suture the superior portion of the mesh to the conjoined tendon and the inferior portion to the shelving portion of the inguinal ligament with 0 Prolene interrupted sutures. The external ring was recreated using the precut opening in the overlay mesh. Good hemostasis was observed. The external oblique was then reapproximated using running 0 Vicryl suture. Subcutaneous tissue was then reapproximated using 3-0 Vicryl interrupted suture. Skin was closed using 4-0 Monocryl running subcuticular suture. Wound was then cleaned and covered with Dermabond. The patient tolerated the procedure well. We will start IV normal pain medication as well as a clear liquid diet. Once she is tolerating clears, has good pain control with oral pain medications, ambulating well, we will discharge her home where she will be instructed to do no heavy lifting or exertion for the next 2 weeks. Job ID: [id number] DocumentID: [id number] Dictated Date: 11/17/2022 14:47:41 Public Works Laborer Date: 11/17/2022 17:22:00 Dictated By: CHRIS SAVAGE MD
== END 2022-11-17 17:00 ==
LOC: SDC 11:49
PROVIDERS: ATTEND Surgery
DX: K40.90 Unilateral inguinal hernia, without obstruction or gangrene, not specified as recurrent (principal); J44.9 Chronic obstructive pulmonary disease, unspecified; Z99.81 Dependence on supplemental oxygen; Z90.49 Acquired absence of other specified parts of digestive tract
CPT/HCPCS: 49505; 87081; C1781

== ENCOUNTER 2022-12-09 12:10 | Observation (INO) | payer MEDICARE ==
[~2022-12-09] VITALS: Ht 170.2 cm; Wt 60.7 kg
--- NOTE | 2022-12-09 12:14 | ED General ---
General Stated Complaint: FEVER | VOMITING Source of Information: Patient Exam Limitations: No Limitations History of Present Illness Date Seen by Provider: Dec 09, 2022 Time Seen by Provider: 12:20 Initial Comments Patient is an 87-year-old female who presents with fever of 103.1, diffuse lower abdominal pain, and bilious emesis starting several hours prior to ED arrival. Patient is approximately 3 weeks status post ventral abdominal wall hernia repair. Patient given Tylenol prior to ED arrival. Denies dizziness headache, cough, shortness of breath or dysuria. No flank pain, rash, leg pain or swelling. No other symptoms or complaints Timing/Duration: 1-3 Hours Severity: Moderate Modifying Factors: improves with Other Associated Systoms: Other Allergies and Home Medications Allergies Coded Allergies: Sulfa (Sulfonamide Antibiotics) (Verified Allergy, Severe, SWELLING, 11/17/22) Patient Home Medication List Home Medication List Reviewed: Yes Allopurinol (Allopurinol) 100 Mg Tablet, 100 MG PO DAILY, (Reported) Entered as Reported by: LAURA CHIU on 06/29/22 1100 Apixaban (Eliquis) 5 Mg Tablet, 2.5 MG PO BID, (Reported) Entered as Reported by: LAURA CHIU on 06/29/22 1100 Ferrous Sulfate (Ferrous Sulfate) 325 Mg (65 Mg Iron) Tablet.dr, 325 MG PO Q48H, (Reported) Entered as Reported by: LAURA CHIU on 06/29/22 1101 Furosemide (Furosemide) 40 Mg Tablet, 40 MG PO UD, (Reported) Entered as Reported by: LAURA CHIU on 06/29/22 1100 Hydrocodone/Acetaminophen (Hydrocodone-Acetamin 5-325 mg) 5 Mg-325 Mg Tablet, 1 TAB PO Q4H PRN for PAIN-MODERATE (5-7) Prescribed by: LEISA FARLEY on 11/17/22 1206 Levothyroxine Sodium (Levothyroxine Sodium) 88 Mcg Tablet, 88 MCG PO DAILY, (Reported) Entered as Reported by: JAXON AMBRIZ on 11/15/22 1041 Lorazepam (Ativan) 1 Mg Tablet, 0.5 MG PO Q6H, (Reported) Entered as Reported by: LAURA CHIU on 06/29/22 1100 Losartan Potassium (Losartan Potassium) 50 Mg Tablet, 50 MG PO DAILY, (Reported) Entered as Reported by: LAURA CHIU on 06/29/22 1100 Metoprolol Succinate (Metoprolol Succinate) 100 Mg Tab.er.24h, 25 MG PO DAILY, (Reported) Entered as Reported by: VEE DUNHAM on 06/11/21 0911 Nystatin/Triamcinolone (Nystatin-Triamcinolone Cream) 100,000 Unit/Gram-0.1 % Cr, 15 GM TP UD, (Reported) Entered as Reported by: JAXON AMBRIZ on 11/15/22 1041 Potassium Chloride (Potassium Chloride) 20 Meq Tab.er.prt, 20 MEQ PO UD, (Reported) Entered as Reported by: JAXON AMBRIZ on 11/15/22 1041 Simvastatin (Simvastatin) 20 Mg Tablet, 20 MG PO HS, (Reported) Entered as Reported by: HÉCTOR CLAUDIO on 07/10/15 0810 Review of Systems Review of Systems Constitutional: see HPI EENTM: see HPI Respiratory: see HPI Cardiovascular: see HPI Gastrointestinal: see HPI Genitourinary: see HPI Musculoskeletal: see HPI Skin: see HPI Psychiatric/Neurological: See HPI Hematologic/Lymphatic: See HPI Immunological/Allergic: see HPI All Other Systems Reviewed Negative Unless Noted: No Past Warxcfo-Gbhvlt-Nrprro Hx Patient Social History Tobacco Use?: No Immunizations Up To Date Tetanus Booster (TDap): Unknown First/Initial COVID19 Vaccinat: 10/28/2020 Second COVID19 Vaccination [place]: 11/25/2020 Third COVID19 Vaccination Date: 12/13 Seasonal Allergies Seasonal Allergies: No Past Medical History Surgery/Hospitalization HX: CARDIAC CATH 06/11/[address] FISCHER--NO INTERVENTION Surgeries: Yes (CATARACT, RTKR, 2015 LEFT BROKEN LEG PLATE/SCREWS ?) Adenoidectomy, Cardiac, Eye Surgery, Joint Replacement, Orthopedic, Tonsillectomy Respiratory: No (NC 3L CONTINUOUS) Pulmonary Embolism Currently Using CPAP: No Currently Using BIPAP: No Cardiac: Yes Atrial Fibrillation, Chronic Edema/Swelling, Coronary Artery Disease, Hypertension Neurological: No Reproductive Disorders: No Sexually Transmitted Disease: No HIV/AIDS: No Genitourinary: Yes UTI-Chronic Gastrointestinal: No Abdominal Hernia, Gastroesophageal Reflux, Chronic Constipation, Hiatal Hernia, Gall Bladder Disease Musculoskeletal: Yes Arthritis, Fractures Endocrine: No Hypothyroidsim HEENT: Yes Cataract Loss of Vision: Denies Hearing Impairment: Denies Cancer: No Psychosocial: Yes Anxiety Integumentary: No Blood Disorders: No Adverse Reaction/Blood Tranf: No (N/A) Family Medical History Blood cancer G8 SISTER Diabetes mellitus 19 MOTHER Physical Exam Vital Signs Vital Signs - First Documented 12/09/22 12:20 Temp 38.3 Pulse 114 Resp 18 B/P (MAP) 116/71 (86) Pulse Ox 92 O2 Delivery Nasal Cannula O2 Flow Rate 3.00 Capillary Refill : Height, Weight, BMI Height: 5'7" Weight: 142lbs. 5.0oz. [id number]; 21.86 BMI Method:Stated General Appearance: No Apparent Distress, WD/WN Eyes: Bilateral Eye Normal Inspection, Bilateral Eye PERRL, Bilateral Eye EOMI HEENT: PERRL/EOMI, Normal ENT Inspection, Pharynx Normal Neck: Full Range of Motion, Normal Inspection, Non Tender Respiratory: Chest Non Tender, Lungs Clear Cardiovascular: Regular Rate, Rhythm, Tachycardia Gastrointestinal: Soft, Other (Right lower quadrant abdominal surgical scar from without tenderness.) Focused Exam Lactate Level 12/09/22 12:45: Lactic Acid Level 1.76 Lactic Acid Level Laboratory Tests Test 12/09/22 12:45 Lactic Acid Level 1.76 MMOL/L (0.50-2.00) Progress/Results/Core Measures Suspected Sepsis SIRS Temperature: Pulse: Respiratory Rate: Laboratory Tests 12/09/22 12:45: White Blood Count 6.9 Blood Pressure / Mean: 12/09/22 12:45: Lactic Acid Level 1.76 Laboratory Tests 12/09/22 12:45: Creatinine 1.39H, Platelet Count 186, Total Bilirubin 1.0 Results/Orders Lab Results Laboratory Tests Test 12/09/22 12:45 12/09/22 14:37 Range/Units White Blood Count 6.9 4.3-11.0 10^3/uL Red Blood Count 3.19 L 3.80-5.11 10^6/uL Hemoglobin 10.0 L 11.5-16.0 g/dL Hematocrit 32 L 35-52 % Mean Corpuscular Volume 99 80-99 fL Mean Corpuscular Hemoglobin 31 25-34 pg Mean Corpuscular Hemoglobin Concent 32 32-36 g/dL Red Cell Distribution Width 15.4 H 10.0-14.5 % Platelet Count 186 130-400 10^3/uL Mean Platelet Volume 10.3 9.0-12.2 fL Immature Granulocyte % (Auto) 0 % Neutrophils (%) (Auto) 83 H 42-75 % Lymphocytes (%) (Auto) 8 L 12-44 % Monocytes (%) (Auto) 9 0-12 % Eosinophils (%) (Auto) 0 0-10 % Basophils (%) (Auto) 0 0-10 % Neutrophils # (Auto) 5.7 1.8-7.8 10^3/uL Lymphocytes # (Auto) 0.5 L 1.0-4.0 10^3/uL Monocytes # (Auto) 0.6 0.0-1.0 10^3/uL Eosinophils # (Auto) 0.0 0.0-0.3 10^3/uL Basophils # (Auto) 0.0 0.0-0.1 10^3/uL Immature Granulocyte # (Auto) 0.0 0.0-0.1 10^3/uL Neutrophils % (Manual) 82 % Lymphocytes % (Manual) 6 % Monocytes % (Manual) 5 % Band Neutrophils 5 % Atypical Lymphocytes 1 % Reactive Lymphocytes 1 % Clumped Platelets SLIGHT Sodium Level 138 135-145 MMOL/L Potassium Level 3.6 3.6-5.0 MMOL/L Chloride Level 99 98-107 MMOL/L Carbon Dioxide Level 26 21-32 MMOL/L Anion Gap 13 5-14 MMOL/L Blood Urea Nitrogen 28 H 7-18 MG/DL Creatinine 1.39 H 0.60-1.30 MG/DL Estimat Glomerular Filtration Rate 36 BUN/Creatinine Ratio 20 Glucose Level 142 H 70-105 MG/DL Lactic Acid Level 1.76 0.50-2.00 MMOL/L Calcium Level 8.9 8.5-10.1 MG/DL Corrected Calcium 9.1 8.5-10.1 MG/DL Total Bilirubin 1.0 0.1-1.0 MG/DL Aspartate Amino Transf (AST/SGOT) 27 5-34 U/L Alanine Aminotransferase (ALT/SGPT) 22 0-55 U/L Alkaline Phosphatase 82 40-136 U/L Total Protein 6.9 6.4-8.2 GM/DL Albumin 3.7 3.2-4.5 GM/DL Influenza Type A (RT-PCR) Not Detected Not Detecte Influenza Type B (RT-PCR) Not Detected Not Detecte SARS-CoV-2 RNA (RT-PCR) Not Detected Not Detecte Urine Color YELLOW Urine Clarity CLEAR Urine pH 6.0 5-9 Urine Specific [place] 1.010 L 1.016-1.022 Urine Protein TRACE H NEGATIVE Urine Glucose (UA) NEGATIVE NEGATIVE Urine Ketones NEGATIVE NEGATIVE Urine Nitrite NEGATIVE NEGATIVE Urine Bilirubin NEGATIVE NEGATIVE Urine Urobilinogen 0.2 < = 1.0 MG/DL Urine Leukocyte Esterase NEGATIVE NEGATIVE Urine RBC (Auto) 1+ H NEGATIVE Urine RBC 2-5 H /HPF Urine WBC 2-5 /HPF Urine Crystals PRESENT H /LPF Urine Calcium Oxalate Crystals FEW H /LPF Urine Bacteria TRACE /HPF Urine Casts PRESENT /LPF Urine Hyaline Casts 0-2 H /LPF Urine Mucus NEGATIVE /LPF Urine Culture Indicated NO My Orders Orders - IDANIA BENITEZ DO Cbc With Automated Diff (12/09/22 12:32) Comprehensive Metabolic Panel (12/09/22 12:32) Blood Culture (12/09/22 12:32) Urinalysis (12/09/22 12:32) Urine Culture (12/09/22 12:32) Chest 1 View, Ap/Pa Only (12/09/22 12:32) Ed Iv/Invasive Line Start (12/09/22 12:32) Vital Signs Adult Sepsis Patie Q15M (12/09/22 12:32) Ondansetron Injection (Zofran Injectio (12/09/22 12:45) O2 (12/09/22 12:32) Remove Rings In Anticipation O (12/09/22 12:32) Lactic Acid Analyzer (12/09/22 12:32) Ns Iv 1000 Ml (Sodium Chloride 0.9%) (12/09/22 12:45) Piperacillin Sodium/Tazobactam (Zosyn Vi (12/09/22 12:45) Covid 19 Inhouse Test (12/09/22 12:32) Influenza A And B By Pcr (12/09/22 12:32) Isolation Central Supply Req (12/09/22 12:32) Manual Differential (12/09/22 12:45) Ct Abdomen/Pelvis W (12/09/22 13:35) Iohexol Injection (Omnipaque 350 Mg/Ml 1 (12/09/22 14:00) Received Contrast (Hold Metformin- Contr (12/09/22 14:00) Ns (Ivpb) (Sodium Chloride 0.9% Ivpb Bag (12/09/22 14:00) Straight Cath For Spec.-Adult (12/09/22 14:24) Medications Given in ED Current Medications Medications Dose Ordered Sig/Julianne Route Start Time Stop Time Status Last Admin Dose Admin Iohexol 59 ml ONCE ONCE IV 12/09/22 14:00 12/09/22 14:01 DC 12/09/22 13:56 59 ML Ondansetron HCl 4 mg PRN PRN IV 12/09/22 12:45 12/09/22 12:48 DC 12/09/22 12:47 4 MG Piperacillin Sod/ Tazobactam Sod 4.5 gm/Sodium Chloride 100 ml @ 200 mls/hr ONCE ONCE IV 12/09/22 12:45 12/09/22 13:14 DC 12/09/22 15:20 200 MLS/HR Sodium Chloride 100 ml ONCE ONCE IV 12/09/22 14:00 12/09/22 14:01 DC 12/09/22 13:56 80 ML Sodium Chloride 1,740 ml @ 1,740 mls/hr ONCE ONCE IV 12/09/22 12:45 12/09/22 13:44 DC 12/09/22 12:48 1,740 MLS/HR Vital Signs/I&O 12/09/22 12:20 Temp 38.3 Pulse 114 Resp 18 B/P (MAP) 116/71 (86) Pulse Ox 92 O2 Delivery Nasal Cannula O2 Flow Rate 3.00 Capillary Refill : Departure Communication (Admissions) CT abdomen pelvis: Edema and subcutaneous fat beneath recent surgical wound in the right lower quadrant per radiology report. Patient with fever vomiting and abdominal pain. Lab and imaging nondiagnostic. Abdomen remains soft, nonsurgical. Surgical scar does not appear to be part or infected. No cellulitis present. Empiric antibiotics and IV fluids given. Dr. SAVAGE to admit.. Impression Primary Impression: Abdominal pain Additional Impressions: Nausea and vomiting Acute febrile illness Disposition: ADMITTED INPATIENT Condition: Stable Admissions Decision to Admit Reason: Admit from ER (Trauma) Decision to Admit/Date: Dec 09, 2022 Time/Decision to Admit Time: 15:10 (Dr. SAVAGE) Departure-Patient Inst. Referrals: KIKO KHAN MD (PCP/Family) Primary Care Physician IDANIA BENITEZ DO Dec 09, 2022 12:14
[2022-12-09] MEDS ORDERED: NS IV ONE (12:45)
[2022-12-09] MEDS ORDERED: PIPERACILLIN SODIUM/TAZOBACTAM 4.5 GM in NS (IVPB) 100 ML IV ONE (12:45)
[2022-12-09] MEDS ORDERED: ONDANSETRON 4 MG/2 ML (SDV) Z0FRAN IV PRN (12:45)
--- NOTE | 2022-12-09 12:50 | Diagnostic Imaging Report ---
INDICATION: Fever, vomiting. TECHNIQUE: Single view chest 12:31 PM. CORRELATION STUDY: 06/28/2022 FINDINGS: Heart size remains enlarged. There is pulmonary vascular congestion and perihilar edema but less severe from prior. Prominent interstitial markings some of which may be chronic but also appears to be prominent raising concern for potential edema. Again less severe from prior. Slight asymmetric increased opacity right lung base. Probable small effusions. IMPRESSION: 1. Similar but overall less severe findings from previous study. Features favor that a probable pulmonary vascular congestion and interstitial edema superimposed on chronic lung disease. Superimposed infiltrate or edema the right lung base present. Dictated by: Dictated on workstation # [id number]
[2022-12-09 13:00] LABS: BASOPHILS % (AUTO) 0 % (0-10); EOSINOPHILS % (AUTO) 0 % (0-10); HEMATOCRIT 32 % (35-52); LYMPHOCYTES # (AUTO) 0.5 10^3/uL (1.0-4.0); LYMPHOCYTES % (AUTO) 8 % (12-44); MEAN CORPUSCULAR HEMOGLOBIN 31 pg (25-34); MEAN CORPUSCULAR HGB CONC 32 g/dL (32-36); MEAN CORPUSCULAR VOLUME 99 fL (80-99); MEAN PLATELET VOLUME 10.3 fL (9.0-12.2); MONOCYTES # (AUTO) 0.6 10^3/uL (0.0-1.0); MONOCYTES % (AUTO) 9 % (0-12); NEUTROPHILS # (AUTO) 5.7 10^3/uL (1.8-7.8); NEUTROPHILS % (AUTO) 83 % (42-75); PLATELET COUNT 186 10^3/uL (130-400); WHITE BLOOD COUNT 6.9 10^3/uL (4.3-11.0)
[2022-12-09 13:10] LABS: ALBUMIN 3.7 GM/DL (3.2-4.5)
[2022-12-09 13:11] LABS: POTASSIUM 3.6 MMOL/L (3.6-5.0)
[2022-12-09 13:12] LABS: CALCIUM 8.9 MG/DL (8.5-10.1)
[2022-12-09 13:13] LABS: TOTAL PROTEIN 6.9 GM/DL (6.4-8.2)
[2022-12-09 13:17] LABS: CREATININE SERUM 1.39 MG/DL (0.60-1.30)
[2022-12-09 13:26] LABS: ATYPICAL LYMPHOCYTES 1 %; BAND NEUTROPHILS 5 %; LYMPHOCYTES % (MANUAL) 6 %; MONOCYTES % (MANUAL) 5 %; NEUTROPHILS % (MANUAL) 82 %; PLATELET CLUMPS SLIGHT; REACTIVE LYMPHOCYTES 1 %
[2022-12-09] MEDS ORDERED: IOHEXOL 350 MG/ML 100 ML (OMNIPAQUE 350) VIAL IV ONE (14:00)
[2022-12-09] MEDS ORDERED: NS 100 ML (IVPB) BAG IV ONE (14:00)
[2022-12-09] MEDS ORDERED: HOLD METFORMIN - RECEIVED CONTRAST 20 ML VIAL IV SCH (14:00)
--- NOTE | 2022-12-09 14:12 | Diagnostic Imaging Report ---
INDICATION: Fever, vomiting, abdominal pain. TECHNIQUE: Multiple contiguous axial images were obtained through the abdomen and pelvis after administration of intravenous contrast. Auto Exposure Controls were utilized during the CT exam to meet ALARA standards for radiation dose reduction. All CT scans use one or more of the following dose optimizing techniques: automated exposure control, MA and/or KvP adjustment based on patient size and exam type or iterative reconstruction. COMPARISON: Comparison made with 08/17/2020. FINDINGS: Visualized portions of the lung bases demonstrate some chronic interstitial changes with a small right pleural effusion which appears similar to the prior study. There is cardiomegaly. The liver shows no focal lesion. There is incidental gallstone in the gallbladder. Spleen, adrenals, and pancreas appear unremarkable. The right kidney appears normal. The left kidney appears to be atrophic and poorly enhancing. There is no retroperitoneal mass or adenopathy. There is no ascites or abnormal fluid collection. There are uncomplicated sigmoid diverticula. There is no bowel obstruction. There is some edema in the right pubic subcutaneous fat, without well-defined fluid collection. There is no acute bony abnormality. IMPRESSION: Cardiomegaly. Stable small right pleural effusion. Incidental gallstone in nondistended gallbladder. Chronic atrophy of the left kidney. Uncomplicated colonic diverticula. No overt bowel obstruction or focal bowel wall thickening. There is some nonspecific edema in the right anterior pelvic subcutaneous fat, at the site of previous hernia. Dictated by: Dictated on workstation # [id number]
[2022-12-09 14:44] LABS: BILIRUBIN,URINE NEGATIVE (NEGATIVE); CLARITY,URINE CLEAR; COLOR,URINE YELLOW; GLUCOSE, URINE (UA) NEGATIVE (NEGATIVE); KETONES,URINE NEGATIVE (NEGATIVE); LEUKOCYTE ESTERASE ,URINE NEGATIVE (NEGATIVE); NITRITE,URINE NEGATIVE (NEGATIVE); PROTEIN,URINE TRACE (NEGATIVE)
[2022-12-09 15:03] LABS: BACTERIA,URINE TRACE /HPF
[2022-12-09 15:05] LABS: CALCIUM OXALATE CRYSTALS,UR FEW /LPF; HYALINE CASTS, URINE 0-2 /LPF
[2022-12-09] MEDS ORDERED: LORazepam 0.5 MG (ATIVAN) TABLET PO STA (16:29)
[2022-12-09] MEDS ORDERED: ONDANSETRON 4 MG/2 ML (SDV) Z0FRAN IVP ONE (16:30)
[2022-12-09] MEDS ORDERED: LORazepam 0.5 MG (ATIVAN) TABLET ONE (16:31)
--- NOTE | 2022-12-09 16:50 | HISTORY AND PHYSICAL ---
ATTENDING PRIMARY CARE PHYSICIAN: Chuck Saeed MD HISTORY OF PRESENT ILLNESS: The patient is an 87-year-old female known to us. She was seen 08/2020 for right upper abdominal quadrant pain, was found to have gallstones and underwent laparoscopic cholecystectomy; however, did have to have cardiac as well as pulmonary clearance due to her multitude of medical comorbidities. She underwent an open right inguinal hernia repair with mesh on 11/17/2022. The patient as well as her daughter reports that she developed fevers this morning and also nausea, vomiting. They report before this she was otherwise doing well; however, had not been drinking adequate amounts of liquids. She is able to eat and having bowel function, however, has not had much of an appetite. A CT scan was performed, which did not show any abdominal wall or intra-abdominal abscess. Her white count is normal at 6.9. Chest x-ray was performed, which did show some vascular congestion and interstitial edema. CT scan of the abdomen and pelvis was also performed, which did not show any abscess or any inflammatory changes. PAST MEDICAL HISTORY: Hypertension, hypothyroid, hypercholesterolemia, anxiety, atrial fibrillation, gastroesophageal reflux disease, history of urinary tract infection, COPD. PAST SURGICAL HISTORY: Left femur ORIF 06/2015, right total knee arthroplasty 2009, tonsillectomy, open right inguinal hernia repair with mesh 11/17/2022. ALLERGIES: SULFA. MEDICATIONS: Metoprolol 100 mg daily, furosemide 40 mg b.i.d., iron 325 mg daily, Eliquis 2.5 mg b.i.d., allopurinol 100 mg daily, lorazepam 1 mg p.r.n., simvastatin 20 mg daily, potassium 20 mEq daily, losartan 50 mg daily, levothyroxine 88 mcg daily, nitroglycerin p.r.n. SOCIAL HISTORY: Previous smoke approximately 30 pack years, negative alcohol. FAMILY HISTORY: Sibling with lung cancer. VITAL SIGNS: Temperature 38.3, blood pressure 116/71, pulse 114, respirations 18, pulse ox 92% on 3 liters nasal cannula. REVIEW OF SYSTEMS: A slightly thin-appearing female, who is awake and alert and does answer all questions appropriately. She reports the onset of fever as well as nausea and vomiting at approximately 7:30 this morning. She then presented to the Emergency Department where she was found to have borderline fever. Her white count is normal. She does not report any new cough or sputum production. Less urine output in the past several days, also darker in coloration. No known diarrhea, no constipation, no red blood per rectum, no dark tarry stools. She has started having fevers this morning. No recent inadvertent weight loss. All other review of systems negative. PHYSICAL EXAMINATION: CHEST: Distant breath sounds and scattered wheezes bilaterally. HEART: Regular. No murmurs. EXTREMITIES: No lower extremity edema. Negative Homans sign. HEENT: No scleral icterus. No cervical lymphadenopathy. ABDOMEN: Soft, nontender, nondistended. Previous skin incision in the right lower abdominal quadrant is healing well with no redness, erythema or any fluctuance. SKIN: Warm, dry. LABORATORY DATA: WBC 8.6, hemoglobin 10.0, hematocrit 32, platelets 186, BUN 28, creatinine 1.39. ASSESSMENT AND PLAN: An 87-year-old female with fevers and nausea, vomiting of unknown etiology. She states that she did go out to eat yesterday and this may be related to an antral pathogenic bacteria causing the nausea, vomiting as well as fevers. She also appears dehydrated clinically as well as laboratory work and we will admit her for observation and start IV fluids as well as clear liquid diet and advance as tolerated. We will also consult Internal Medicine while admitted. Job ID: [id number] DocumentID: [id number] Dictated Date: 12/09/2022 16:26:36 Veterinary Dentist Date: 12/09/2022 16:48:00 Dictated By: CHRIS SAVAGE MD
[2022-12-09] MEDS ORDERED: FURO-124 PO (18:06)
[2022-12-09] MEDS ORDERED: AMLO2.5T4 PO (18:10)
[2022-12-09 19:00] VITALS: BP 102/58
[2022-12-09 19:16] VITALS: BP 124/60
[2022-12-09 19:39] VITALS: BP 116/71
[2022-12-09] MEDS ORDERED: RT-ALBUTEROL/IPRATROPIUM 3 ML (DUONEB) VIAL INH PRN (20:00)
[2022-12-09] MEDS: LACTATED RINGERS 1,000 ML IV SCH (20:24)
[2022-12-09] MEDS: RT-ALBUTEROL/IPRATROPIUM 3 ML (DUONEB) VIAL INH SCH (20:57)
[2022-12-09 23:22] VITALS: BP 113/64
[2022-12-10] MEDS: ONDANSETRON 4 MG/2 ML (SDV) Z0FRAN IV PRN ×2 (00:57→10:11)
[2022-12-10] MEDS: RT-ALBUTEROL/IPRATROPIUM 3 ML (DUONEB) VIAL INH SCH ×4 (02:37→21:08)
[2022-12-10 03:25] VITALS: BP 106/64
[2022-12-10] MEDS: LACTATED RINGERS 1,000 ML IV SCH ×3 (04:03→17:43)
[2022-12-10 06:22] LABS: BASOPHILS % (AUTO) 0 % (0-10); EOSINOPHILS % (AUTO) 0 % (0-10); HEMATOCRIT 26 % (35-52); HEMOGLOBIN 8.3 g/dL (11.5-16.0); LYMPHOCYTES % (AUTO) 14 % (12-44); MEAN CORPUSCULAR HEMOGLOBIN 31 pg (25-34); MEAN CORPUSCULAR HGB CONC 31 g/dL (32-36); MEAN CORPUSCULAR VOLUME 100 fL (80-99); MEAN PLATELET VOLUME 10.8 fL (9.0-12.2); MONOCYTES # (AUTO) 0.8 10^3/uL (0.0-1.0); MONOCYTES % (AUTO) 11 % (0-12); NEUTROPHILS # (AUTO) 5.4 10^3/uL (1.8-7.8); NEUTROPHILS % (AUTO) 75 % (42-75); PLATELET COUNT 129 10^3/uL (130-400); WHITE BLOOD COUNT 7.2 10^3/uL (4.3-11.0)
[2022-12-10 06:43] LABS: CALCIUM 8.2 MG/DL (8.5-10.1); CREATININE SERUM 1.33 MG/DL (0.60-1.30); POTASSIUM 3.2 MMOL/L (3.6-5.0)
[2022-12-10 07:16] VITALS: BP 110/67
[2022-12-10] MEDS: APIXABAN 2.5 MG (ELIQUIS) TABLET PO SCH ×2 (09:14→20:36)
[2022-12-10] MEDS: LORazepam 0.5 MG (ATIVAN) TABLET PO PRN ×2 (09:45→17:38)
[2022-12-10 12:08] VITALS: BP 101/62
--- NOTE | 2022-12-10 12:29 | Progress Note ---
Subjective Date Seen by a Provider: Dec 10, 2022 Time Seen by a Provider: 11:40 Subjective/Events-last exam Patient seen with Dr. Abad. Patient reports still having nausea and some vomiting. Nausea better with medication. Patient reports she tried small amount of liquids this AM but did not tolerate it. Denies any other issues. Focused Exam Lactate Level 12/09/22 12:45: Lactic Acid Level 1.76 Objective Exam Vital Signs Date Time Temp Pulse Resp B/P (MAP) Pulse Ox O2 Delivery O2 Flow Rate FiO2 12/10/22 12:08 35.8 80 18 101/62 (75) 95 Nasal Cannula 4.00 12/10/22 08:01 99 Nasal Cannula 4.00 12/10/22 08:00 99 Nasal Cannula 4.00 12/10/22 07:16 36.5 70 20 110/67 (81) 95 Nasal Cannula 4.00 12/10/22 03:25 36.2 75 16 106/64 (78) 96 Nasal Cannula 3.00 12/10/22 02:37 99 Nasal Cannula 4.00 12/09/22 23:22 37.0 78 16 113/64 (80) 95 Nasal Cannula 3.00 12/09/22 20:57 94 Nasal Cannula 4.00 12/09/22 20:30 Nasal Cannula 3.00 12/09/22 19:39 38.3 114 92 12/09/22 19:16 37.8 80 20 124/60 (81) 97 Nasal Cannula 3.00 12/09/22 19:00 37.7 85 22 102/58 (73) 94 12/09/22 18:31 Nasal Cannula 3.00 12/09/22 17:54 98 22 111/72 93 Nasal Cannula 3.00 I & O 12/10/22 07:00 Intake Total 2140 ml Balance 2140 ml Capillary Refill : Less Than 3 Seconds General Appearance: No Apparent Distress, WD/WN Neck: Normal Inspection, Supple Respiratory: No Accessory Muscle Use, No Respiratory Distress Gastrointestinal: normal bowel sounds, non tender, soft Extremity: Normal Inspection, Normal Range of Motion Neurologic/Psychiatric: Alert, Oriented x3 Skin: Normal Color, Warm/Dry Results Lab Laboratory Tests 12/09/22 12:45: White Blood Count 6.9, Red Blood Count 3.19L, Hemoglobin 10.0L, Hematocrit 32L, Mean Corpuscular Volume 99, Mean Corpuscular Hemoglobin 31, Mean Corpuscular Hemoglobin Concent 32, Red Cell Distribution Width 15.4H, Platelet Count 186, Mean Platelet Volume 10.3, Immature Granulocyte % (Auto) 0, Neutrophils (%) (Auto) 83H, Lymphocytes (%) (Auto) 8L, Monocytes (%) (Auto) 9, Eosinophils (%) (Auto) 0, Basophils (%) (Auto) 0, Neutrophils # (Auto) 5.7, Lymphocytes # (Auto) 0.5L, Monocytes # (Auto) 0.6, Eosinophils # (Auto) 0.0, Basophils # (Auto) 0.0, Immature Granulocyte # (Auto) 0.0, Neutrophils % (Manual) 82, Lymphocytes % (Manual) 6, Monocytes % (Manual) 5, Band Neutrophils 5, Atypical Lymphocytes 1, Reactive Lymphocytes 1, Clumped Platelets SLIGHT, Sodium Level 138, Potassium Level 3.6, Chloride Level 99, Carbon Dioxide Level 26, Anion Gap 13, Blood Urea Nitrogen 28H, Creatinine 1.39H, Estimat Glomerular Filtration Rate 36, BU N/Creatinine Ratio 20, Glucose Level 142H, Lactic Acid Level 1.76, Calcium Level 8.9, Corrected Calcium 9.1, Total Bilirubin 1.0, Aspartate Amino Transf (AST/SGOT) 27, Alanine Aminotransferase (ALT/SGPT) 22, Alkaline Phosphatase 82, Total Protein 6.9, Albumin 3.7, Influenza Type A (RT-PCR) Not Detected, Influenza Type B (RT-PCR) Not Detected, SARS-CoV-2 RNA (RT-PCR) Not Detected 12/09/22 14:37: Urine Color YELLOW, Urine Clarity CLEAR, Urine pH 6.0, Urine Specific [place] 1.010L, Urine Protein TRACEH, Urine Glucose (UA) NEGATIVE, Urine Ketones NEGATIV E, Urine Nitrite NEGATIVE, Urine Bilirubin NEGATIVE, Urine Urobilinogen 0.2, Urine Leukocyte Esterase NEGATIVE, Urine RBC (Auto) 1+H, Urine RBC 2-5H, Urine WBC 2-5, Urine Crystals PRESENTH, Urine Calcium Oxalate Crystals FEWH, Urine Bacteria TRACE, Urine Casts PRESENT, Urine Hyaline Casts 0-2H, Urine Mucus NEGATIVE, Urine Culture Indicated NO 12/10/22 05:52: White Blood Count 7.2, Red Blood Count 2.65L, Hemoglobin 8.3L, Hematocrit 26L, Mean Corpuscular Volume 100H, Mean Corpuscular Hemoglobin 31, Mean Corpuscular Hemoglobin Concent 31L, Red Cell Distribution Width 15.5H, Platelet Count 129L, Mean Platelet Volume 10.8, Immature Granulocyte % (Auto) 0, Neutrophils (%) (Auto) 75, Lymphocytes (%) (Auto) 14, Monocytes (%) (Auto) 11, Eosinophils (%) (Auto) 0, Basophils (%) (Auto) 0, Neutrophils # (Auto) 5.4, Lymphocytes # (Auto) 1.0, Monocytes # (Auto) 0.8, Eosinophils # (Auto) 0.0, Basophils # (Auto) 0.0, Immature Granulocyte # (Auto) 0.0, Sodium Level 140, Potassium Level 3.2L, Chloride Level 105, Carbon Dioxide Level 24, Anion Gap 11, Blood Urea Nitrogen 27H, Creatinine 1.33H, Estimat Glomerular Filtration Rate 38, BUN/Creatinine Ratio 20, Glucose Level 101, Calcium Level 8.2L Microbiology 12/09/22 Urine Culture - Preliminary, Resulted NO GROWTH Assessment/Plan Assessment/Plan Assess & Plan/Chief Complaint An 87-year-old female with fevers and nausea, vomiting of unknown etiology. VSS Fevers resolved Still having nausea and vomiting but does have a known history of gallstones however has significant cardiac history and was not cleared in the past for surgery Will continue with IV fluids, pain and nausea meds Clear liquid diet and will advance once her symptoms have resolved LEISA FARLEY APRN Dec 10, 2022 12:29
--- NOTE | 2022-12-10 13:20 | Consultation - Hospitalist ---
HPI History of Present Illness: HPI/Chief Complaint Danielle Brock is an 87 year old female with PMH HTN, HLD, CAD, hypothyroidism, AFib, anxiety, who presented with abdominal pain. She was also having nausea and vomiting. She had a fever on arrival. She had a bowel movement yesterday. She denies diarrhea. She had a hernia repair done about 3 weeks ago. She was having pain around her incision site. Source: patient Exam Limitations: no limitations Date Seen 12/10/22 Attending Physician Chuck Saeed MD PCP Admitting Physician: Marta Abad MD Attending Physician: Marta Abad MD Referring Physician Date of Admission Dec 09, 2022 at 17:50 Home Medications & Allergies Home Medications Reviewed patient Home Medication Reconciliation performed by pharmacy medication reconciliations digital field service technician and/or nursing. Patients Allergies have been reviewed. Allergies Allergies Coded Allergies Sulfa (Sulfonamide Antibiotics) (Verified Allergy, Severe, SWELLING, 11/17/22) Past Hairqdh-Gvtcft-Jwnbyl Hx Patient Social History Tobacco Use?: No Smoking Status: Former Smoker Use of E-Cig and/or Vaping dev: No Substance use?: No Alcohol Use?: No Pt feels they are or have been: No Immunizations Up To Date Date of Influenza Vaccine: Jul 26, 2022 First/Initial COVID19 Vaccinat: 10/28/2020 Second COVID19 Vaccination [place]: 11/25/2020 Tetanus Booster (TDap): More Than 5 Years Hepatitis A: No Hepatitis B: No Date of Pneumonia Vaccine: Jul 03, 2017 Seasonal Allergies Seasonal Allergies: No Current Status status: No status: No Advance Directives: No Communicates: Verbally Primary Language: Argentine Preferred Spoken Language: Argentine Sensory deficits: Vision impairment Implanted or Applied Medical D: None Past Medical History Surgeries: Adenoidectomy, Cardiac, Eye Surgery, Joint Replacement, Orthopedic, Tonsillectomy Pulmonary Embolism Currently Using CPAP: No Currently Using BIPAP: No Atrial Fibrillation, Chronic Edema/Swelling, Coronary Artery Disease, Hypertension Sexually Transmitted Disease: No HIV/AIDS: No UTI-Chronic Abdominal Hernia, Gastroesophageal Reflux, Chronic Constipation, Hiatal Hernia, Gall Bladder Disease Arthritis, Fractures Hypothyroidsim Cataract Loss of Vision: Denies Hearing Impairment: Denies Anxiety Blood Disorders: No Adverse Reaction/Blood Tranf: No (N/A) Family Medical History Blood cancer G8 SISTER Diabetes mellitus 19 MOTHER Review of Systems Constitutional: fever Respiratory: no symptoms reported Cardiovascular: no symptoms reported Gastrointestinal: abdominal pain, nausea, vomiting Physical Exam Physical Exam Vital Signs Vital Signs - First Documented 12/09/22 12:20 Temp 38.3 Pulse 114 Resp 18 B/P (MAP) 116/71 (86) Pulse Ox 92 O2 Delivery Nasal Cannula O2 Flow Rate 3.00 Capillary Refill : Less Than 3 Seconds Height, Weight, BMI Height: 5'7" Weight: 142lbs. 5.0oz. 64.257416er; 20.95 BMI Method:Stated General Appearance: No Apparent Distress, WD/WN Eyes: Bilateral Eye Normal Inspection, Bilateral Eye PERRL, Bilateral Eye EOMI HEENT: PERRL/EOMI, Pharynx Normal Neck: Normal Inspection, Supple Respiratory: Lungs Clear, No Respiratory Distress Cardiovascular: Regular Rate, Rhythm, Systolic Murmur Gastrointestinal: Normal Bowel Sounds, Soft, Other (Right lower quadrant abdominal surgical scar from without tenderness.) Extremity: Normal Inspection, No Pedal Edema Neurologic/Psychiatric: Alert, No Motor/Sensory Deficits Skin: Normal Color, Warm/Dry Results Results/Procedures Labs Laboratory Tests 12/09/22 12:45 12/10/22 05:52 Patient resulted labs reviewed. Imaging: Reviewed Imaging Films, Reviewed Imaging Report Assessment/Plan Assessment and Plan Assess & Plan/Chief Complaint SIRS Abdominal pain Nausea and vomiting Recent hernia repair No evidence of infection No antibiotics IV fluids Antiemetics Pain resolved Clear liquid diet HTN HLD Anxiety Hypothyroidism Gout AFib Advanced age Resume home meds as able Diagnosis/Problems Diagnosis/Problems (1) SIRS (systemic inflammatory response syndrome) Status: Acute (2) Nausea & vomiting Status: Acute (3) Abdominal pain Status: Acute (4) S/P hernia repair Status: Acute LARON GROVE MD Dec 10, 2022 13:20
[2022-12-10 15:59] VITALS: BP 98/53
[2022-12-10 19:25] VITALS: BP 138/76
[2022-12-10 23:06] VITALS: BP 133/83
[2022-12-11] MEDS: LORazepam 0.5 MG (ATIVAN) TABLET PO PRN ×2 (00:31→06:40)
[2022-12-11] MEDS: RT-ALBUTEROL/IPRATROPIUM 3 ML (DUONEB) VIAL INH SCH ×2 (02:42→07:26)
[2022-12-11 03:11] VITALS: BP 138/72
[2022-12-11] MEDS ORDERED: LEVOTHYROXINE 88 MCG (LEVOTHORID) TAB PO SCH (06:30)
[2022-12-11] MEDS: LACTATED RINGERS 1,000 ML IV SCH (06:40)
[2022-12-11 07:09] VITALS: BP 129/89
[2022-12-11] MEDS: APIXABAN 2.5 MG (ELIQUIS) TABLET PO SCH (08:26)
[2022-12-11 08:49] LABS: POTASSIUM 3.4 MMOL/L (3.6-5.0)
[2022-12-11 08:50] LABS: CALCIUM 8.6 MG/DL (8.5-10.1)
[2022-12-11 08:55] LABS: CREATININE SERUM 1.5 MG/DL (0.60-1.30)
[2022-12-11 08:56] LABS: BASOPHILS % (AUTO) 0 % (0-10); EOSINOPHILS # (AUTO) 0.1 10^3/uL (0.0-0.3); EOSINOPHILS % (AUTO) 2 % (0-10); HEMATOCRIT 30 % (35-52); HEMOGLOBIN 9.4 g/dL (11.5-16.0); LYMPHOCYTES # (AUTO) 1.3 10^3/uL (1.0-4.0); LYMPHOCYTES % (AUTO) 21 % (12-44); MEAN CORPUSCULAR HEMOGLOBIN 32 pg (25-34); MEAN CORPUSCULAR HGB CONC 31 g/dL (32-36); MEAN CORPUSCULAR VOLUME 101 fL (80-99); MEAN PLATELET VOLUME 10.8 fL (9.0-12.2); MONOCYTES # (AUTO) 0.4 10^3/uL (0.0-1.0); MONOCYTES % (AUTO) 7 % (0-12); NEUTROPHILS # (AUTO) 4.4 10^3/uL (1.8-7.8); NEUTROPHILS % (AUTO) 70 % (42-75); PLATELET COUNT 162 10^3/uL (130-400); WHITE BLOOD COUNT 6.3 10^3/uL (4.3-11.0)
[2022-12-11 08:57] LABS: MAGNESIUM 1.8 MG/DL (1.6-2.4)
[2022-12-11] MEDS ORDERED: meTOprolol SUCCINATE 100 MG (TOPROL XL) TAB PO SCH (09:00)
[2022-12-11] MEDS ORDERED: ALLOPURINOL 100 MG (ZYLOPRIM) TAB PO SCH (09:00)
--- NOTE | 2022-12-11 09:21 | Progress Note ---
Subjective Date Seen by a Provider: Dec 11, 2022 Time Seen by a Provider: 09:00 Subjective/Events-last exam Patient seen with Dr. Abad. Patient reports doing well this morning. Denies any nausea or vomiting. Reports that she ate breakfast this AM and has been able to keep it down. She reports she feels she is ready to go home. Focused Exam Lactate Level 12/09/22 12:45: Lactic Acid Level 1.76 Objective Exam Vital Signs Date Time Temp Pulse Resp B/P (MAP) Pulse Ox O2 Delivery O2 Flow Rate FiO2 12/11/22 08:00 Nasal Cannula 3.00 12/11/22 07:30 94 Nasal Cannula 4.00 12/11/22 07:09 36.6 89 17 129/89 (102) 95 4.00 12/11/22 03:11 36.7 83 16 138/72 (94) 96 Nasal Cannula 5.00 12/10/22 23:06 36.5 99 16 133/83 (100) 91 Nasal Cannula 4.00 12/10/22 21:08 93 Nasal Cannula 2.00 12/10/22 20:38 Nasal Cannula 3.00 12/10/22 19:25 36.5 94 20 138/76 (96) 96 Nasal Cannula 2.00 12/10/22 15:59 36.6 71 18 98/53 (68) 98 Nasal Cannula 3.00 12/10/22 15:26 96 Nasal Cannula 4.00 12/10/22 12:08 35.8 80 18 101/62 (75) 95 Nasal Cannula 4.00 I & O 12/11/22 07:00 Intake Total 1420 ml Balance 1420 ml Capillary Refill : Less Than 3 Seconds General Appearance: No Apparent Distress, WD/WN Neck: Normal Inspection, Supple Respiratory: No Accessory Muscle Use, No Respiratory Distress Gastrointestinal: normal bowel sounds, non tender, soft Extremity: Normal Inspection, Normal Range of Motion Neurologic/Psychiatric: Alert, Oriented x3 Skin: Normal Color, Warm/Dry Results Lab Laboratory Tests 12/11/22 08:30: White Blood Count 6.3, Red Blood Count 2.98L, Hemoglobin 9.4L, Hematocrit 30L, Mean Corpuscular Volume 101H, Mean Corpuscular Hemoglobin 32, Mean Corpuscular Hemoglobin Concent 31L, Red Cell Distribution Width 15.6H, Platelet Count 162, Mean Platelet Volume 10.8, Immature Granulocyte % (Auto) 0, Neutrophils (%) (Auto) 70, Lymphocytes (%) (Auto) 21, Monocytes (%) (Auto) 7, Eosinophils (%) (Auto) 2, Basophils (%) (Auto) 0, Neutrophils # (Auto) 4.4, Lymphocytes # (Auto) 1.3, Monocytes # (Auto) 0.4, Eosinophils # (Auto) 0.1, Basophils # (Auto) 0.0, Immature Granulocyte # (Auto) 0.0, Sodium Level 140, Potassium Level 3.4L, Chloride Level 104, Carbon Dioxide Level 24, Anion Gap 12, Blood Urea Nitrogen 27H, Creatinine 1.50H, Estimat Glomerular Filtration Rate 33, BUN/Creatinine Ratio 18, Glucose Level 153H, Calcium Level 8.6, Magnesium Level 1.8 Microbiology 12/09/22 Urine Culture - Final, Complete NO GROWTH 12/09/22 Blood Culture - Preliminary, Resulted No growth Assessment/Plan Assessment/Plan Assess & Plan/Chief Complaint An 87-year-old female with fevers and nausea, vomiting of unknown etiology. VSS Fevers resolved Nausea and vomiting resolved Tolerated diet Will DC home LEISA FARLEY APRN Dec 11, 2022 09:21
--- NOTE | 2022-12-11 09:22 | Discharge Inst-Surgical ---
D/C Lap Instructions-DEREKO Reconcile Patient Problems Problems Reviewed?: Yes Follow Up Appt in 1 week Activity as tolerated No driving while on pain medications Regular Diet Symptoms to Report: Fever over 101 degree F, Nausea/Vomiting Infection Signs and Symptoms to report: Increased redness, Foul odor of wound, Increased drainage Bathing instructions: May shower Operative Area Clean/Dry; Keep incision clean/dry If any problems/questions: Contact your physician or go to Emergency Room LEISA FARLEY APRN Dec 11, 2022 09:22
== END 2022-12-11 10:35 | disposition home or self-care (01) ==
LOC: EDUNIT# 12:10 → ER 12:12 → 4TH 17:50
PROVIDERS: ADMIT Surgery; ATTEND Surgery
DX: R50.9 Fever, unspecified (principal); R11.2 Nausea with vomiting, unspecified; I10 Essential (primary) hypertension; E78.5 Hyperlipidemia, unspecified; F41.9 Anxiety disorder, unspecified; E03.9 Hypothyroidism, unspecified; M10.9 Gout, unspecified; R54 Age-related physical debility; Z98.890 Other specified postprocedural states; Z87.891 Personal history of nicotine dependence
CPT/HCPCS: 51701; 71045; 74177; 80048 ×2; 80053; 81000; 83605; 83735; 85007; 85025 ×2; 85027; 87040; 87088; 87636; 94640 ×3; 94760 ×2; 96376; 99284; G0378; 36415

== ENCOUNTER → 2023-03-01 | Outpatient (CLI) | payer MEDICARE ==
[~2023-03-01] MED LIST changes: +FURO-124 PO; +HOLD METFORMIN - RECEIVED CONTRAST 20 ML VIAL IV SCH; +IOHEXOL 350 MG/ML 150 ML (OMNIPAQUE 350) VIAL IV ONE; +NS 100 ML (IVPB) BAG IV ONE
[2023-03-01 13:45] LABS: CREATININE SERUM 1.3 MG/DL (0.60-1.30)
--- NOTE | 2023-03-01 15:01 | Diagnostic Imaging Report ---
INDICATION: Peripheral vascular disease, lower extremity pain. TECHNIQUE: CT of the aorta and pelvis and lower extremities was performed with IV contrast bolus and axial slices and MIP reconstructions. Dose reduction protocol was used. FINDINGS: Visualized portions of the lung bases show some bibasilar scarring. There is a small right pleural effusion. There is cardiomegaly. The liver shows no focal lesion. Spleen, pancreas, and adrenals appear unremarkable. The left kidney is atrophic. The right kidney appears unremarkable. There is no retroperitoneal mass or adenopathy. There is no ascites or abnormal fluid collection. There is prominent stool throughout the colon with uncomplicated sigmoid diverticula. There are chronic changes in the right groin, question previous hernia repair. CTA images demonstrate the abdominal aorta to show diffuse atherosclerotic change and some tortuosity, without evidence of true aneurysm. The celiac trunk and SMA are patent and without stenosis. The renal arteries on both sides are patent with moderate plaquing. The inferior mesenteric artery is patent. The common iliac arteries show eccentric moderate plaquing on both sides with no high-grade stenosis. Internal iliac arteries are diffusely diseased but are patent. The external iliac arteries are patent and without stenosis. There is some eccentric plaquing in the common femoral arteries on both sides. The profunda femoris arteries are patent. The SFA is patent on each side with diffuse moderate plaquing, without high-grade stenosis or occluded segment. Imaging in the right knee region is limited due to metallic artifact from right knee prosthesis. Popliteal arteries, however, appear to be patent. There is diffuse calcified plaquing throughout the tibial vessels, but the tibial vessels are not well seen due to contrast dilution and calcification. IMPRESSION: Diffuse peripheral vascular disease as described above with no occluded segment above the knee or significant stenosis. Sxrzi-fop-vrsv vessels are not well evaluated. There is atrophy of the left kidney. There is no abdominal mass or abnormal fluid collection. Dictated by: Dictated on workstation # [id number]
== END ==
LOC: CARD 12:57
PROVIDERS: ATTEND Physician Assistant
DX: I73.9 Peripheral vascular disease, unspecified (principal); N26.1 Atrophy of kidney (terminal); I10 Essential (primary) hypertension; I25.10 Atherosclerotic heart disease of native coronary artery without angina pectoris
CPT/HCPCS: 75635; 82565; 84520; C8929; 36415; 93306

== ENCOUNTER 2023-06-14 12:45 | Inpatient (IN) | payer MEDICARE ==
[~2023-06-14] VITALS: Ht 170 cm; Wt 60.4 kg
[~2023-06-14 12:45] MED LIST changes: -HOLD METFORMIN - RECEIVED CONTRAST 20 ML VIAL IV SCH; -IOHEXOL 350 MG/ML 150 ML (OMNIPAQUE 350) VIAL IV ONE; -NS 100 ML (IVPB) BAG IV ONE
--- NOTE | 2023-06-14 13:00 | ED Hip Pain/Injury ---
General Chief Complaint: Hip/Pelvic Problems Stated Complaint: FALL | HIP INJ Source: patient Exam Limitations: no limitations (CAIO MANLEY) History of Present Illness Date Seen by Provider: Jun 14, 2023 Time Seen by Provider: 12:58 Initial Comments Patient is a 87-year-old female presents ED for evaluation after a fall. She fell yesterday mechanical tripping over her oxygen tubing. She landed on her left hip lower back. Denies hitting her head or loss of consciousness. She does take Eliquis. Chronically wears 3 to 4 L daily. She is complaining of left hip pain. Has not been able to ambulate. Patient with a previous fracture treated by Dr. Bermudez. Patient denies of any distal numbness and tingling, chest pain, headache, dizziness, neck pain, Isaiah pain vomiting or diarrhea. Patient was not wearing her oxygen on arrival. Oxygen level in the mid to lower 80s. Improvement after placing on 5 L. She states her oxygen typically runs in the lower 90s upper 80s. History of CHF, COPD and hypertension. Patient took Tylenol right before arrival. (CAIO MANLEY) Allergies and Home Medications Allergies Coded Allergies: Sulfa (Sulfonamide Antibiotics) (Verified Allergy, Severe, SWELLING, 06/14/23) Patient Home Medication List Home Medication List Reviewed: Yes (CAIO MANLEY) Allopurinol (Allopurinol) 100 Mg Tablet, 100 MG PO DAILY, (Reported) Entered as Reported by: LAURA CHIU on 06/29/22 1100 Amlodipine Besylate (Amlodipine Besylate) 2.5 Mg Tablet, 2.5 MG PO BID, (Reported) Entered as Reported by: LES BAIG on 12/09/22 181 Apixaban (Eliquis) 5 Mg Tablet, 2.5 MG PO BID, (Reported) Entered as Reported by: LAURA CHIU on 06/29/22 1100 Ferrous Sulfate (Ferrous Sulfate) 325 Mg (65 Mg Iron) Tablet., 325 MG PO DAILY, (Reported) Entered as Reported by: LAURA HCIU on 06/29/22 1101 Furosemide (Furosemide) 40 Mg Tablet, 40 MG PO DAILY, (Reported) Entered as Reported by: LAURA CHIU on 06/29/22 1100 Furosemide (Lasix) 40 Mg Tablet, 40 MG PO EVERY OTHER PM, (Reported) Entered as Reported by: LES BAIG on 12/09/22 1806 Levothyroxine Sodium (Levothyroxine Sodium) 88 Mcg Tablet, 88 MCG PO DAILY, (Reported) Entered as Reported by: JAXON AMBRIZ on 11/15/22 1041 Lorazepam (Ativan) 1 Mg Tablet, 0.5 MG PO Q6H, (Reported) Entered as Reported by: LAURA CHIU on 06/29/22 1100 Losartan Potassium (Losartan Potassium) 50 Mg Tablet, 50 MG PO DAILY, (Reported) Entered as Reported by: LAURA CHIU on 06/29/22 1100 Metoprolol Succinate (Metoprolol Succinate) 100 Mg Tab.er.24h, 50 MG PO DAILY, (Reported) Entered as Reported by: VEE DUNHAM on 06/11/21 0911 Simvastatin (Simvastatin) 20 Mg Tablet, 20 MG PO HS, (Reported) Entered as Reported by: HÉCTOR CLAUDIO on 07/10/15 0810 Review of Systems Constitutional: No chills, No diaphoresis EENTM: No hearing loss, No ear pain, No blurred vision Respiratory: No cough, No dyspnea on exertion Cardiovascular: No chest pain Gastrointestinal: No abdominal pain, No diarrhea, No nausea, No vomiting Genitourinary: No decreased output, No discharge Musculoskeletal: No back pain; joint pain, joint swelling, muscle pain Skin: No change in color, No change in hair/nails (CAIO MANLEY) All Other Systems Reviewed Negative Unless Noted: Yes (CAIO MANLEY) Past Jsecjkk-Akrkns-Lcrbyr Hx Immunizations Up To Date Tetanus Booster (TDap): Unknown First/Initial COVID19 Vaccinat: 10/28/2020 Second COVID19 Vaccination [place]: 11/25/2020 Third COVID19 Vaccination Date: 08/12/2021, 07/26/2022 (CAIO MANLEY) Seasonal Allergies Seasonal Allergies: No (CAIO MANLEY) Past Medical History Surgery/Hospitalization HX: LEFT HIP SURGERY, RIGHT KNEE, ABD HERNIA SURGERY 3 WEEKS AGO, COPD,CHF Surgeries: Yes (CATARACT, RTKR, 2015 LEFT BROKEN LEG PLATE/SCREWS ?) Adenoidectomy, Cardiac, Eye Surgery, Joint Replacement, Orthopedic, Tonsillectomy Respiratory: No (NC 3L CONTINUOUS) Pulmonary Embolism Currently Using CPAP: No Currently Using BIPAP: No Cardiac: Yes Atrial Fibrillation, Chronic Edema/Swelling, Coronary Artery Disease, Hypertension Neurological: No Reproductive Disorders: No Sexually Transmitted Disease: No HIV/AIDS: No Genitourinary: Yes UTI-Chronic Gastrointestinal: No Abdominal Hernia, Gastroesophageal Reflux, Chronic Constipation, Hiatal Hernia, Gall Bladder Disease Musculoskeletal: Yes Arthritis, Fractures Endocrine: No Hypothyroidsim HEENT: Yes Cataract Loss of Vision: Denies Hearing Impairment: Denies Cancer: No Psychosocial: Yes Anxiety Integumentary: No Blood Disorders: No Adverse Reaction/Blood Tranf: No (N/A) (CAIO MANLEY) Family Medical History Blood cancer G8 SISTER Diabetes mellitus 19 MOTHER Physical Exam Vital Signs Vital Signs - First Documented 06/14/23 06/14/23 12:58 13:25 Temp 37.1 Pulse 117 Resp 22 B/P (MAP) 140/40 (73) Pulse Ox 93 O2 Flow Rate 5.00 (DEJAH GOLD MD) Vital Signs Capillary Refill : (CAIO MANLEY) Height, Weight, BMI Height: 5'7" Weight: 142lbs. 5.0oz. 64.237166ym; 20.95 BMI Method:Stated General Appearance: No Apparent Distress, WD/WN HEENT: PERRL/EOMI, TMs Normal, Normal ENT Inspection, Pharynx Normal Neck: Full Range of Motion, Normal Inspection, Non Tender, Supple Cardiovascular: Regular Rate, Rhythm, No Edema, No Gallop, No JVD Respiratory: Chest Non Tender, Lungs Clear, Normal Breath Sounds, No Accessory Muscle Use, No Respiratory Distress Gastrointestinal: Normal Bowel Sounds, No Organomegaly, No Pulsatile Mass, Non Tender Back: Vertebral Tenderness (Left lumbar paraspinal muscle tenderness. Lower lumbar midline tenderness, left posterior pelvis tenderness.) Extremity: Normal Capillary Refill, Normal Inspection, Normal Range of Motion, Non Tender, Other (No shortening or rotation of the lower extremity) Neurologic/Psychiatric: Alert, Oriented x3, No Motor/Sensory Deficits, Normal Mood/Affect, superintendent transmission II-XII Norm as Tested Skin: Normal Color, Warm/Dry (CAIO MANLEY) Progress/Results/Core Measures Results/Orders Lab Results Laboratory Tests Test 06/14/23 13:23 Range/Units White Blood Count 8.0 4.3-11.0 10^3/uL Red Blood Count 3.47 L 3.80-5.11 10^6/uL Hemoglobin 10.7 L 11.5-16.0 g/dL Hematocrit 34 L 35-52 % Mean Corpuscular Volume 99 80-99 fL Mean Corpuscular Hemoglobin 31 25-34 pg Mean Corpuscular Hemoglobin Concent 31 L 32-36 g/dL Red Cell Distribution Width 14.6 H 10.0-14.5 % Platelet Count 205 130-400 10^3/uL Mean Platelet Volume 9.8 9.0-12.2 fL Immature Granulocyte % (Auto) 1 % Neutrophils (%) (Auto) 78 H 42-75 % Lymphocytes (%) (Auto) 13 12-44 % Monocytes (%) (Auto) 7 0-12 % Eosinophils (%) (Auto) 1 0-10 % Basophils (%) (Auto) 1 0-10 % Neutrophils # (Auto) 6.2 1.8-7.8 10^3/uL Lymphocytes # (Auto) 1.0 1.0-4.0 10^3/uL Monocytes # (Auto) 0.6 0.0-1.0 10^3/uL Eosinophils # (Auto) 0.1 0.0-0.3 10^3/uL Basophils # (Auto) 0.0 0.0-0.1 10^3/uL Immature Granulocyte # (Auto) 0.0 0.0-0.1 10^3/uL Sodium Level 141 135-145 MMOL/L Potassium Level 3.5 L 3.6-5.0 MMOL/L Chloride Level 103 98-107 MMOL/L Carbon Dioxide Level 24 21-32 MMOL/L Anion Gap 14 5-14 MMOL/L Blood Urea Nitrogen 34 H 7-18 MG/DL Creatinine 1.67 H 0.60-1.30 MG/DL Estimat Glomerular Filtration Rate 29 BUN/Creatinine Ratio 20 Glucose Level 165 H 70-105 MG/DL Calcium Level 8.8 8.5-10.1 MG/DL Corrected Calcium 9.0 8.5-10.1 MG/DL Total Bilirubin 0.8 0.1-1.0 MG/DL Aspartate Amino Transf (AST/SGOT) 18 5-34 U/L Alanine Aminotransferase (ALT/SGPT) 13 0-55 U/L Alkaline Phosphatase 72 40-136 U/L Total Protein 6.8 6.4-8.2 GM/DL Albumin 3.7 3.2-4.5 GM/DL (DEJAH GOLD MD) Vital Signs/I&O 06/14/23 06/14/23 12:58 13:25 Temp 37.1 Pulse 117 Resp 22 B/P (MAP) 140/40 (73) Pulse Ox 93 O2 Flow Rate 5.00 (DEJAH GOLD MD) Departure Communication (PCP) History of CHF, A-fib. Patient with a mechanical fall yesterday. Has not been able to bear weight. History of previous hip fracture requiring a compression screw. Patient having difficulty standing. No obvious shortening or rotation. She has some mild left lumbar midline tenderness. She denies hitting her head or loss of consciousness. Patient is currently on Eliquis. She does have some tenderness to the left posterior pelvis. CT scan the lumbar spine and pelvis was ordered. She refused anything for pain. She took Tylenol right before arrival. CT scan shows a compression screw and lateral sideplate transfixing a left hip fracture. Femoral acetabular alignment is normal bilateral. There is acute fracture of the left superior pubic ramus near the pubic body nondisplaced there is also acute fracture of the left inferior pubic ramus. Right sided rami are intact. Symphysis is not widened and there is also acute fracture of the left sacral mariel. Discussed patient with orthopedic Dr. Padgett. At this time recommends conservative treatment. Admission for pain control and PT. Patient was discussed with Dr. Kenny who agreed to accept patient. Lab work was obt ained. She is currently pain-free if she does not move. Denies hitting her head or loss conscious. Neurologically intact. She has no chest pain short of breath cough fever chills, bowel or urine incontinence, saddle paresthesia, lower extremity weakness or sensory change (CAIO MANLEY) Impression Primary Impression: Fracture of left pelvis Disposition: ADMITTED INPATIENT Condition: Stable Admissions Decision to Admit Reason: Admit from ER (General) Decision to Admit/Date: Jun 14, 2023 Time/Decision to Admit Time: 13:46 (CAIO MANLEY) Departure-Patient Inst. Referrals: KIKO KHAN MD (PCP/Family) Primary Care Physician ATTENDING PHYSICIAN NOTE: I was physically present as attending physician in the emergency department during the care of this patient, but I was not directly involved in the decision making or delivery of care for this patient. (DEJAH GOLD MD) CAIO MANLEY Jun 14, 2023 13:00 DEJAH GOLD MD Jun 15, 2023 13:02
--- NOTE | 2023-06-14 13:36 | Diagnostic Imaging Report ---
PROCEDURE: CT lumbar spine without contrast. TECHNIQUE: Multiple contiguous axial images were obtained through the lumbar spine without the use of intravenous contrast. Sagittal and coronal reformations were then performed. Auto Exposure Controls were utilized during the CT exam to meet ALARA standards for radiation dose reduction. INDICATION: Fall and low back pain. Correlation is made with CT study from 12/09/2022. There is right convexity lumbar scoliotic curvature. There appears to be normal lordotic curvature. Chronic compression fracture deformity of the L1 vertebral body appears similar to examination from November. No fractures are identified. There is multilevel degenerative disc disease with variable disc space narrowing and marginal spurring. Aorta is heavily calcified but nonaneurysmal. There is a small right pleural effusion. IMPRESSION: Lumbar spondylosis and scoliosis. No acute compression fractures identified. There is a chronic compression fracture deformity of L1 vertebral body. Small right pleural effusion. Dictated by: Dictated on workstation # [id number]
--- NOTE | 2023-06-14 13:37 | Diagnostic Imaging Report ---
PROCEDURE: CT pelvis without contrast. TECHNIQUE: Multiple contiguous axial images were obtained through the pelvis without the use of intravenous contrast. Sagittal and coronal reformations were performed. Auto Exposure Controls were utilized during the CT exam to meet ALARA standards for radiation dose reduction. INDICATION: Fall and pelvic pain and low back pain. Postoperative changes to the left hip are noted. There is a compression screw and lateral sideplate transfixing a left hip fracture. Femoral acetabular alignment is normal bilaterally. There is an acute fracture of the left superior pubic ramus near the pubic body, nondisplaced. There is also an acute fracture of the left inferior pubic ramus. Right-sided rami are intact. Symphysis is non-widened. There is also an acute fracture of the left sacral ala. Right sacral alar is intact. SI joints are non-widened. IMPRESSION: Left-sided pelvic fractures, as described. Dictated by: Dictated on workstation # [id number]
[2023-06-14 13:40] LABS: BASOPHILS % (AUTO) 1 % (0-10); EOSINOPHILS # (AUTO) 0.1 10^3/uL (0.0-0.3); EOSINOPHILS % (AUTO) 1 % (0-10); HEMATOCRIT 34 % (35-52); HEMOGLOBIN 10.7 g/dL (11.5-16.0); LYMPHOCYTES % (AUTO) 13 % (12-44); MEAN CORPUSCULAR HEMOGLOBIN 31 pg (25-34); MEAN CORPUSCULAR HGB CONC 31 g/dL (32-36); MEAN CORPUSCULAR VOLUME 99 fL (80-99); MEAN PLATELET VOLUME 9.8 fL (9.0-12.2); MONOCYTES # (AUTO) 0.6 10^3/uL (0.0-1.0); MONOCYTES % (AUTO) 7 % (0-12); NEUTROPHILS # (AUTO) 6.2 10^3/uL (1.8-7.8); NEUTROPHILS % (AUTO) 78 % (42-75); PLATELET COUNT 205 10^3/uL (130-400)
[2023-06-14 13:49] LABS: ALBUMIN 3.7 GM/DL (3.2-4.5); CALCIUM 8.8 MG/DL (8.5-10.1); POTASSIUM 3.5 MMOL/L (3.6-5.0)
[2023-06-14 13:53] LABS: BILIRUBIN,TOTAL 0.8 MG/DL (0.1-1.0); TOTAL PROTEIN 6.8 GM/DL (6.4-8.2)
[2023-06-14 14:01] LABS: CREATININE SERUM 1.67 MG/DL (0.60-1.30)
[2023-06-14] MEDS ORDERED: MELATONIN 3 MG TABLET PO PRN (14:30)
[2023-06-14] MEDS ORDERED: ACETAMINOPHEN 500 MG TABLET PO PRN (14:30)
[2023-06-14] MEDS ORDERED: LACTULOSE SYRUP 10GM/15ML 30ML UDC PO PRN (14:30)
[2023-06-14] MEDS ORDERED: CALCIUM CARBONATE 500 MG CHEW TABLET PO PRN (14:30)
[2023-06-14] MEDS ORDERED: ACETAMINOPHEN 325 MG TABLET PO PRN (14:30)
[2023-06-14] MEDS ORDERED: BISACODYL 10 MG SUPPOSITORY PR PRN (14:30)
[2023-06-14] MEDS ORDERED: MILK OF MAGNESIA 400 MG/5 ML 30 ML UDC PO PRN (14:30)
[2023-06-14] MEDS ORDERED: ONDANSETRON INJECTION 4 MG/2 ML (SDV) IV PRN (14:30)
[2023-06-14 14:39] VITALS: BP 140/40
[2023-06-14 14:44] VITALS: BP 142/81
[2023-06-14] MEDS ORDERED: RT-Ipratropium/Albuterol NEB 3 ML VIAL INH PRN (14:45)
--- NOTE | 2023-06-14 15:00 | Occ Therapy Progress Note ---
Therapy Progress Note OT order received, patpreet with DR CID, OT will return next available opportunity YUMIKO PEDERSEN OT Jun 14, 2023 15:00
--- NOTE | 2023-06-14 15:07 | History & Physical-Hospitalist ---
History of Present Illness HPI/Chief Complaint Patient is an 87-year-old female with past medical history of hypertension, A-fib, anxiety, hypothyroidism who presented to the emergency department due to a fall. She reports she was folding some close and bent over and tripped over her oxygen tubing and fell down. It took her a while to get up but she was not on the ground for more than an hour. Her family was able to help her get into bed but she did not sleep very well due to the pain. Her daughter tried to take her to the emergency department but she refused yesterday. Finally today her pain first denies that she agreed to come. In the ER she was found to have left sided pelvic fractures so was admitted for PT/OT and pain control. Source: patient Date Seen 06/14/23 Time Seen by a Provider: 14:30 Attending Physician Chuck Saeed MD PCP Admitting Physician: Star Cid MD Attending Physician: Star Cid MD Referring Physician Date of Admission Jun 14, 2023 at 14:14 Home Medications & Allergies Home Medications Reviewed patient Home Medication Reconciliation performed by pharmacy medication reconciliations fabrication technician and/or nursing. Patients Allergies have been reviewed. Allergies Allergies Coded Allergies Sulfa (Sulfonamide Antibiotics) (Verified Allergy, Severe, SWELLING, 06/14/23) Past Ynelvin-Ykoznp-Gbuxcl Hx Patient Social History Tobacco Use?: No Smoking Status: Former Smoker Use of E-Cig and/or Vaping dev: No Substance use?: No Alcohol Use?: No Immunizations Up To Date Date of Influenza Vaccine: Jul 26, 2022 First/Initial COVID19 Vaccinat: 10/28/2020 Second COVID19 Vaccination [place]: 11/25/2020 Tetanus Booster (TDap): More Than 5 Years Hepatitis A: No Hepatitis B: No Date of Pneumonia Vaccine: Jul 03, 2017 Seasonal Allergies Seasonal Allergies: No Current Status Primary Language: Colombian Preferred Spoken Language: Colombian Past Medical History Surgeries: Adenoidectomy, Cardiac, Eye Surgery, Joint Replacement, Orthopedic, Tonsillectomy Pulmonary Embolism Currently Using CPAP: No Currently Using BIPAP: No Atrial Fibrillation, Chronic Edema/Swelling, Coronary Artery Disease, Hypertension Sexually Transmitted Disease: No HIV/AIDS: No UTI-Chronic Abdominal Hernia, Gastroesophageal Reflux, Chronic Constipation, Hiatal Hernia, Gall Bladder Disease Arthritis, Fractures Hypothyroidsim Cataract Loss of Vision: Denies Hearing Impairment: Denies Anxiety Blood Disorders: No Adverse Reaction/Blood Tranf: No (N/A) Family Medical History Blood cancer G8 SISTER Diabetes mellitus 19 MOTHER Review of Systems Constitutional: see HPI Physical Exam Physical Exam Vital Signs Vital Signs - First Documented 06/14/23 06/14/23 06/14/23 12:58 13:25 14:44 Temp 37.1 Pulse 117 Resp 22 B/P (MAP) 140/40 (73) Pulse Ox 93 O2 Delivery Nasal Cannula O2 Flow Rate 5.00 Capillary Refill : Less Than 3 Seconds Height, Weight, BMI Height: 5'7" Weight: 142lbs. 5.0oz. [id number]; 22.05 BMI Method:Stated General Appearance: No Apparent Distress, Chronically ill, Thin Respiratory: Lungs Clear, No Respiratory Distress Cardiovascular: Regular Rate, Rhythm, No Murmur Gastrointestinal: Normal Bowel Sounds, Non Tender, Soft Neurologic/Psychiatric: Alert, Oriented x3 Results Results/Procedures Labs Laboratory Tests 06/14/23 13:23 06/15/23 05:15 Patient resulted labs reviewed. Imaging: Reviewed Imaging Report Imaging [facility], [place] NAME: [facility] REC#: [id number] PT STATUS: REG ER : 1935 PHYSICIAN: CAIO MANLEY ADMIT DATE: 06/14/23/ER Draft Date of Exam:06/14/23 CT PELVIS WO PROCEDURE: CT pelvis without contrast. TECHNIQUE: Multiple contiguous axial images were obtained through the pelvis without the use of intravenous contrast. Sagittal and coronal reformations were performed. Auto Exposure Controls were utilized during the CT exam to meet ALARA standards for radiation dose reduction. INDICATION: Fall and pelvic pain and low back pain. Postoperative changes to the left hip are noted. There is a compression screw and lateral sideplate transfixing a left hip fracture. Femoral acetabular alignment is normal bilaterally. There is an acute fracture of the left superior pubic ramus near the pubic body, nondisplaced. There is also an acute fracture of the left inferior pubic ramus. Right-sided rami are intact. Symphysis is non-widened. There is also an acute fracture of the left sacral ala. Right sacral alar is intact. SI joints are non-widened. IMPRESSION: Left-sided pelvic fractures, as described. Dictated on workstation # [id number] Dict: 06/14/23 1334 Trans: 06/14/[address] [facility] [id number] Interpreted by: JORDON DEL TORO MD Electronically signed by: Assessment/Plan Admission Diagnosis Pelvic Fracture Admission Status: Inpatient Order (span 2 midnights) Reason for Inpatient Admission: see below Assessment and Plan Pelvic Fracture Pain regimen Ortho consulted, appreciate recs PT/OT IRF tax services professional consulted HTN HLD Anxiety Hypothyroidism Gout AFib Continue home med as appropriate DVT ppx: Lovenox Diagnosis/Problems Diagnosis/Problems (1) Pelvic fracture STAR CID MD Jun 14, 2023 15:07
[2023-06-14] MEDS: ENOXAPARIN 30 MG/0.3 ML SYRINGE SC SCH (15:14)
[2023-06-14] MEDS: HYDROcodone/ACETAMINOPHEN 5 MG/325 MG TABLET PO PRN (15:14)
[2023-06-14 15:33] VITALS: BP 143/91
[2023-06-14] MEDS: LORazepam 0.5 MG TABLET PO PRN ×2 (17:06→23:09)
[2023-06-14 19:21] VITALS: BP 132/89
[2023-06-14] MEDS: RT-Ipratropium/Albuterol NEB 3 ML VIAL INH SCH (20:26)
[2023-06-14 23:31] VITALS: BP 129/68
[2023-06-15] VITALS (7 sets, daily range): BP systolic 126–151; BP diastolic 68–94
[2023-06-15] MEDS: HYDROcodone/ACETAMINOPHEN 5 MG/325 MG TABLET PO PRN ×3 (02:01→21:33)
[2023-06-15 05:46] LABS: HEMATOCRIT 33 % (35-52); HEMOGLOBIN 10.8 g/dL (11.5-16.0); MEAN CORPUSCULAR HEMOGLOBIN 32 pg (25-34); MEAN CORPUSCULAR HGB CONC 33 g/dL (32-36); MEAN CORPUSCULAR VOLUME 97 fL (80-99); PLATELET COUNT 179 10^3/uL (130-400); WHITE BLOOD COUNT 8.1 10^3/uL (4.3-11.0)
[2023-06-15 06:09] LABS: CALCIUM 8.8 MG/DL (8.5-10.1); CREATININE SERUM 1.44 MG/DL (0.60-1.30); POTASSIUM 3.3 MMOL/L (3.6-5.0)
[2023-06-15] MEDS: LEVOTHYROXINE 50 MCG TABLET PO SCH (06:21)
--- NOTE | 2023-06-15 08:18 | Consultation - Ortho ---
Consult - Ortho Subjective Date of Exam 06/15/23 Chief Complaint Fall HPI/Events since last exam had fall when she tripped over her oxygen line, landed on left side, seen in ER the next day and CT scan demonstrated a pelvic ring injury, I was asked to evaluate the fractures Medical, Surgical History see admit Social History see admit Family History see admit Review of Systems - Allergies: Coded Allergies: Sulfa (Sulfonamide Antibiotics) (Verified Allergy, Severe, SWELLING, 06/14/23) Home Meds Reported Medications Amlodipine Besylate (Amlodipine Besylate) 2.5 Mg Tablet, 2.5 MG PO BID, TAB 12/09/22 Furosemide (Lasix) 40 Mg Tablet, 40 MG PO EVERY OTHER PM, TAB 12/09/22 Levothyroxine Sodium (Levothyroxine Sodium) 88 Mcg Tablet, 88 MCG PO DAILY, TAB 11/15/22 Ferrous Sulfate (Ferrous Sulfate) 325 Mg (65 Mg Iron) Tablet.dr, 325 MG PO DAILY, TAB 06/29/22 Lorazepam (Ativan) 1 Mg Tablet, 0.5 MG PO Q6H, TAB TAKES OF A 1MG 06/29/22 Allopurinol (Allopurinol) 100 Mg Tablet, 100 MG PO DAILY, TAB 06/29/22 Furosemide (Furosemide) 40 Mg Tablet, 40 MG PO DAILY, TAB 06/29/22 Apixaban (Eliquis) 5 Mg Tablet, 2.5 MG PO BID, TAB 06/29/22 Losartan Potassium (Losartan Potassium) 50 Mg Tablet, 50 MG PO DAILY, TAB 06/29/22 Metoprolol Succinate (Metoprolol Succinate) 100 Mg Tab.er.24h, 50 MG PO DAILY, TAB TAKES 1/4 (25MG) TABLET 06/11/21 Simvastatin (Simvastatin) 20 Mg Tablet, 20 MG PO HS 07/10/15 Objective Exam Left Leg: some ecchymotic change, +DF of ankle, no s/s of DVT, sensation to light touch grossly diminished, distal pulses palpable Vital Signs Vital Signs Date Time Temp Pulse Resp B/P (MAP) Pulse Ox O2 Delivery O2 Flow Rate FiO2 06/15/23 07:58 35.8 101 20 151/94 (113) 91 Nasal Cannula 2.50 06/15/23 04:29 36.4 96 16 144/72 (96) 91 Nasal Cannula 3.00 3.00 06/15/23 02:35 36.2 06/14/23 23:31 36.2 86 16 129/68 (88) 92 Nasal Cannula 3.00 3.00 06/14/23 20:59 92 Nasal Cannula 3.00 06/14/23 20:26 92 Nasal Cannula 3.00 06/14/23 19:21 36.6 90 22 132/89 (103) 93 Nasal Cannula 3.00 06/14/23 15:33 36.7 111 20 143/91 (108) 93 Nasal Cannula 3.00 06/14/23 15:17 Nasal Cannula 3.00 06/14/23 14:44 36.9 93 16 142/81 (101) 90 Nasal Cannula 5.00 06/14/23 14:39 37.1 117 93 06/14/23 13:25 37.1 06/14/23 12:58 117 22 140/40 (73) 93 5.00 I & O 06/15/23 07:00 Intake Total 350 ml Output Total 100 ml Balance 250 ml Lab Results Laboratory Tests 06/14/23 13:23: White Blood Count 8.0, Red Blood Count 3.47L, Hemoglobin 10.7L, Hematocrit 34L, Mean Corpuscular Volume 99, Mean Corpuscular Hemoglobin 31, Mean Corpuscular Hemoglobin Concent 31L, Red Cell Distribution Width 14.6H, Platelet Count 205, Mean Platelet Volume 9.8, Immature Granulocyte % (Auto) 1, Neutrophils (%) (Auto) 78H, Lymphocytes (%) (Auto) 13, Monocytes (%) (Auto) 7, Eosinophils (%) (Auto) 1, Basophils (%) (Auto) 1, Neutrophils # (Auto) 6.2, Lymphocytes # (Auto) 1.0, Monocytes # (Auto) 0.6, Eosinophils # (Auto) 0.1, Basophils # (Auto) 0.0, Immature Granulocyte # (Auto) 0.0, Sodium Level 141, Potassium Level 3.5L, Chloride Level 103, Carbon Dioxide Level 24, Anion Gap 14, Blood Urea Nitrogen 34H, Creatinine 1.67H, Estimat Glomerular Filtration Rate 29, BUN/Creatinine Ratio 20, Glucose Level 165H, Calcium Level 8.8, Corrected Calcium 9.0, Total Bilirubin 0.8, Aspartate Amino Transf (AST/SGOT) 18, Alanine Aminotransferase (ALT/SGPT) 13, Alkaline Phosphatase 72, Total Protein 6.8, Albumin 3.7 06/15/23 05:15: White Blood Count 8.1, Red Blood Count 3.43L, Hemoglobin 10.8L, Hematocrit 33L, Mean Corpuscular Volume 97, Mean Corpuscular Hemoglobin 32, Mean Corpuscular Hemoglobin Concent 33, Red Cell Distribution Width 14.6H, Platelet Count 179, Mean Platelet Volume 10.0, Sodium Level 140, Potassium Level 3.3L, Chloride Level 103, Carbon Dioxide Level 27, Anion Gap 10, Blood Urea Nitrogen 35H, Creatinine 1.44H, Estimat Glomerular Filtration Rate 35, BUN/Creatinine Ratio 24, Glucose Level 115H, Calcium Level 8.[address] scan of pelvis dated 06/14/23 was reviewed and demonstrated a nondisplaced left sacral ala fracture and minimally displaced left-sided pubic rami fract ures, prior compression screw fixation of left hip Assessment and Plan Assessment Pelvic Ring Injury Problem List Pelvic Ring Injury Plan PT WBAT with walker Lives in a daughter's home and has another daughter that assists in care; depending on overall situation, my require some form of extended care during her convalescence F/U in 1 month with AP pelvis xray Final Diagonsis Pelvic Ring Injury Level of the visit: Level 3 JENNIFER SILVA MD Jun 15, 2023 08:18
[2023-06-15] MEDS: ALLOPURINOL 100 MG TABLET PO SCH (08:32)
[2023-06-15] MEDS: LOSARTAN 50 MG TABLET PO SCH (08:33)
[2023-06-15] MEDS: RT-Ipratropium/Albuterol NEB 3 ML VIAL INH SCH ×2 (09:02→21:25)
--- NOTE | 2023-06-15 10:21 | Physical Therapy Evaluation ---
PT Evaluation-General Medical Diagnosis Admission Date Jun 14, 2023 at 14:14 Medical Diagnosis: pelvic fracture Onset Date: Jun 14, 2023 Therapy Diagnosis Therapy Diagnosis: gait deficit/weakness Height/Weight Height (Feet): 5 Height (Inches): 7 Weight (Pounds): 142 Weight (Ounces): 5.0 Precautions Precautions/Isolations: Standard Precautions Weight Bear Status Right Lower Extremity: Right Weight Bearing/Tolerated Left Lower Extremity: Left Non Weight Bearing Referral Physician: Jenelle Reason for Referral: Evaluation/Treatment Medical History Pertinent Medical History: Atrial Fib, CAD, Fractures, HTN, Hypothroidism, [place], Smoking Current History ER secondary to tripped over O2 tubing at home Prior Prior Level of Function SCALE: Activities may be completed with or without assistive devices. 9-Xfcfmuhxze-tvpzcwl completes the activity by him/herself with no assistance from a helper. 5-Set-up or Clean-up Assistance-helper sets up or cleans up; patient completes activity. [place] assists only prior to or following the activity. 4-Supervision or Touching Assistance-helper provides verbal cues and/or touching/steadying and/or contact guard assistance as patient completes activity. Assistance may be provided throughout the activity or intermittently. 3-Partial/Moderate Assistance-helper does LESS THAN HALF the effort. [place] lifts, holds or supports trunk or limbs, but provides less than half the effort. 2-Substantial/Maximal Assistance-helper does MORE THAN HALF the effort. [place] lifts or holds trunk or limbs and provides more than half the effort. 8-Cftxlvovv-kxcvxu does ALL the effort. Patient does none of the effort to complete the activity. Or, the assistance of 2 or more helpers is required for the patient to complete the activity. If activity was not attempted, code reason: 7-Patient Refused. 9-Not Applicable-not attempted and the patient did not perform the activity before the current illness, exacerbation or injury. 10-Not Attempted due to Environmental Limitations-(lack of equipment, weather restraints, etc.). 88-Not Attempted due to Medical Conditions or Safety Concerns. Bed Mobility: 6 Transfers (B,C,W/C): 6 Gait: 6 Indoor Mobility (Ambulation): Independent Prior Devices Use: None PT Evaluation-Current Subjective Patient agrees to therapy. Yells with left LE movement Pain Numeric Pain Scale: 10-Worst Possible Pain Location: Left Location Body Site: Pelvic Pain Description: Acute Comment: FLACC Objective Attachments: Oxygen, Malin Catheter ROM/Strength ROM Lower Extremities bilateral LE WFL Strength Lower Extremities 3/5 grossly bilateral LE all planes Integumentary/Posture Bladder Incontinence: Malin Cath Posture WFL Neuromuscular (Tone, Coordination, Reflexes) grossly intact Sensory Vision: Functional Hearing: Impaired Transfers Lying to Sitting/Side of Bed(Q: 2 Sit to Stand (QC): 2 Chair/Zsp-ph-Azocm Xfer(QC): 2 scooting feet with no foot clearance Gait Does the Patient Walk?: No and Walking Goal IS indicated Mode of Locomotion: Walk Balance Sitting Static: Fair Sitting Dynamic: Fair Standing Static: Fair Standing Dynamic: Fair Assessment/Needs Patient will benefit from skilled PT to address functional strength and mobility to improve current LOF to safely return to home at maximum LOF. Rehab Potential: Fair PT Inside Sales Person Goals Inside Sales Person Goals PT Inside Sales Person Goals Time Frame: Jul 08, 2023 Roll Left & Right (QC): 6 Sit to Lying (QC): 6 Lying-Sitting on Side/Bed(QC): 6 Sit to Stand (QC): 6 Chair/Qna-pm-Guqpf Xfer(QC): 6 Toilet Transfer (QC): 6 Walk 10 feet (QC): 4 Walk 50ft with 2 Turns (QC): 4 Walk 150 ft (QC): 4 PT Plan Problem List Problem List: Activity Tolerance, Functional Strength, Safety, Balance, Gait, Transfer, Bed Mobility Treatment/Plan Treatment Plan: Continue Plan of Care Treatment Plan: Bed Mobility, Education, Functional Activity Huey, Functional Strength, Gait, Safety, Therapeutic Exercise, Transfers Treatment Duration: Jul 08, 2023 Frequency: 6 times per week Estimated Hrs Per Day: .25 hour per day Discharge Recommendations Therapy Discharge Recommendati: Post Acute PT Time Time In: 830 Time Out: 844 DATE: Jun 15, 2023 Total Billed Treatment Time: 14 Total Billed Treatment 1 visit EVMod 14 min ROB MALONE PT Jun 15, 2023 10:21
--- NOTE | 2023-06-15 10:35 | Occupational Therapy Eval ---
OT Evaluation-General/PLF Medical Diagnosis Admission Date Jun 14, 2023 at 14:14 Medical Diagnosis: pelvic fracture Onset Date: Jun 14, 2023 Therapy Diagnosis Therapy Diagnosis: weakness, pain Height/Weight Height (Feet): 5 Height (Inches): 7 Weight (Pounds): 142 Weight (Ounces): 5.0 Precautions Precautions/Isolations: Standard Precautions Weight Bear Status Weight Bearing Restriction: Weight Bearing/Tolerated Referral Physician: Jenelle Referral Reason: Activity Tolerance, Self Care, Evaluation/Treatment Medical History Pertinent Medical History: Atrial Fib, CAD, Fractures, HTN, Hypothroidism, [place], Smoking Additional Medical History "I fell trying to do too many things at once" Current History Fell carrying laundry w/o use of an ADS Reviewed History: Yes Social History Home: Single Level Current Living Status: Alone ADL-Prior Level of Function SCALE: Activities may be completed with or without assistive devices. 8-Nzvhvzfuwc-gggrktn completes the activity by him/herself with no assistance f rom a helper. 5-Set-up or Clean-up Assistance-helper sets up or cleans up; patient completes activity. [place] assists only prior to or following the activity. 4-Supervision or Touching Assistance-helper provides verbal cues and/or touching/steadying and/or contact guard assistance as patient completes activity. Assistance may be provided throughout the activity or intermittently. 3-Partial/Moderate Assistance-helper does LESS THAN HALF the effort. [place] lifts, holds or supports trunk or limbs, but provides less than half the effort. 2-Substantial/Maximal Assistance-helper does MORE THAN HALF the effort. [place] lifts or holds trunk or limbs and provides more than half the effort. 7-Qmedhyiiq-oqhcfw does ALL the effort. Patient does none of the effort to complete the activity. Or, the assistance of 2 or more helpers is required for the patient to complete the activity. If activity was not attempted, code reason: 7-Patient Refused. 9-Not Applicable-not attempted and the patient did not perform the activity before the current illness, exacerbation or injury. 10-Not Attempted due to Environmental Limitations-(lack of equipment, weather restraints, etc.). 88-Not Attempted due to Medical Conditions or Safety Concerns. Self Care: Independent Functional Cognition: Independent OT Current Status Subjective Agreeable to therapy Pain Numeric Pain Scale: 8 Location Body Site: Pelvic Mental Status/Objective Patient Orientation: Person, Place, Time, Situation Attachments: Malin Catheter Current Glasses/Contacts: Yes Hand Dominance: Right Upper Extremity ROM BUE ROM WFLs Upper Extremity Coordination IMPAIRED d/t increased wood levels Upper Extremity Strength +3/5 grossly ADL-Treatment Eating (QC): 5 Oral Hygiene (QC): 5 Shower/Bathe Self (QC): 7 Upper Body Dressing (QC): 3 Lower Body Dressing (QC): 2 (Transfer max assit, once standing wood lessens an dpatien is able to assist in LB garment management) On/Off Footwear (QC): 1 Toileting Hygiene (QC): 3 Education OT Patient Education: Correct positioning, Exercise program, Modified ADL techniques, Progress toward Goal/Update tx plan, Purpose of tx/functional activities, Reviewed precautions, Rehab process, Safety issues, Transfer techniques, Use of adapted equipment Teaching Recipient: Patient Teaching Methods: Demonstration Response to Teaching: Verbalize Understanding, Reinforcement Needed OT Longterm Goals Longterm Goals Time Frame: Jun 19, 2023 Eating (QC): 6 Oral Hygiene (QC): 6 Toileting Hygiene (QC): 5 Shower/Bathe Self (QC): 4 Upper Body Dressing (QC): 5 Lower Body Dressing (QC): 4 On/Off Footwear (QC): 4 1=Demonstrate adherence to instructed precautions during ADL tasks. 2=Patient will verbalize/demonstrate understanding of assistive devices/modifications for ADL. 3=Patient will improve strength/tolerance for activity to enable patient to perform ADL's. OT Education/Plan Problem List/Assessment Assessment: Decreased Activ Tolerance, Decreased Safety Aware, Decreased UE Strength, Impaired Bed Mobility, Impaired Coordination, Impaired Funct Balance, Impaired Self-Care Skills Discharge Recommendations Plan/Recommendations: Continue POC Treatment Plan/Plan of Care Treatment,Training & Education: Yes Patient would benefit from OT for education, treatment and training to promote independence in ADL's, mobility, safety and/or upper extremity function for ADL's. Plan of Care: ADL Retraining, Functional Mobility, Group Exercise/Act as Ind, UE Funct Exercise/Act Treatment Duration: Jun 19, 2023 Frequency: 3 times per week (3-5 times per week) Rehab Potential: Fair Time Start Time: 08:28 Stop Time: 08:45 DATE: Jun 15, 2023 Total Time Billed (hr/min): 17 Billed Treatment Time EV 17 min YUMIKO PEDERSEN OT Jun 15, 2023 10:35
--- NOTE | 2023-06-15 13:44 | Progress Note - Hospitalist ---
Subjective HPI/CC On Admission Date Seen by Provider: Jun 15, 2023 Patient is an 87-year-old female with past medical history of hypertension, A-fib, anxiety, hypothyroidism who presented to the emergency department due to a fall. She reports she was folding some close and bent over and tripped over her oxygen tubing and fell down. It took her a while to get up but she was not on the ground for more than an hour. Her family was able to he lp her get into bed but she did not sleep very well due to the pain. Her daughter tried to take her to the emergency department but she refused yesterday. Finally today her pain first denies that she agreed to come. In the ER she was found to have left sided pelvic fractures so was admitted for PT/OT and pain control. Subjective/Events-last exam Pt reports doing ok today. No new complaints. Pain contrlled if not moving but did just work with PT. Doing ok though. Objective Exam Vital Signs Vital Signs Date Time Temp Pulse Resp B/P (MAP) Pulse Ox O2 Delivery O2 Flow Rate FiO2 06/15/23 13:04 36.8 88 22 142/78 (99) 96 Nasal Cannula 3.00 Capillary Refill : Less Than 3 Seconds General Appearance: No Apparent Distress Respiratory: Lungs Clear, No Respiratory Distress Cardiovascular: Regular Rate, Rhythm, No Murmur Neurologic/Psychiatric: Alert, Oriented x3 Results/Procedures Lab Laboratory Tests 06/15/23 05:15 Patient resulted labs reviewed. Imaging: Reviewed Imaging Report Assessment/Plan Assessment and Plan Assess & Plan/Chief Complaint Pelvic Fracture Pain regimen- well controlled Ortho consulted, appreciate recs PT/OT IRF eval requested social services director consulted HTN HLD Anxiety Hypothyroidism Gout AFib Continue home med as appropriate DVT ppx: Lovenox Diagnosis/Problems Diagnosis/Problems (1) Pelvic fracture STAR CID MD Jun 15, 2023 13:44
[2023-06-15] MEDS ORDERED: LORA-404 PO (15:11)
[2023-06-15] MEDS ORDERED: LEVO50TA6 PO (15:11)
[2023-06-15] MEDS ORDERED: NITR0.4T39 SL (15:11)
[2023-06-15] MEDS ORDERED: MTP25TSR PO (15:11)
[2023-06-15] MEDS ORDERED: POTA-169 PO (15:13)
[2023-06-15] MEDS: ENOXAPARIN 30 MG/0.3 ML SYRINGE SC SCH (15:20)
[2023-06-15] MEDS: LORazepam 0.5 MG TABLET PO PRN (19:14)
[2023-06-16] MEDS: LORazepam 0.5 MG TABLET PO PRN (02:19)
[2023-06-16 03:41] VITALS: BP 127/79
[2023-06-16 05:36] LABS: HEMATOCRIT 33 % (35-52); HEMOGLOBIN 10.4 g/dL (11.5-16.0); MEAN CORPUSCULAR HEMOGLOBIN 31 pg (25-34); MEAN CORPUSCULAR HGB CONC 32 g/dL (32-36); MEAN CORPUSCULAR VOLUME 98 fL (80-99); PLATELET COUNT 176 10^3/uL (130-400); WHITE BLOOD COUNT 6.8 10^3/uL (4.3-11.0)
[2023-06-16 05:53] LABS: POTASSIUM 3.5 MMOL/L (3.6-5.0)
[2023-06-16 05:54] LABS: CALCIUM 8.5 MG/DL (8.5-10.1)
[2023-06-16 05:59] LABS: CREATININE SERUM 1.16 MG/DL (0.60-1.30)
[2023-06-16] MEDS: LEVOTHYROXINE 50 MCG TABLET PO SCH (06:19)
[2023-06-16 07:23] VITALS: BP 143/81
[2023-06-16] MEDS: ALLOPURINOL 100 MG TABLET PO SCH (08:28)
[2023-06-16] MEDS: LOSARTAN 50 MG TABLET PO SCH (08:28)
[2023-06-16] MEDS ORDERED: APIX2.5T PO (08:42)
[2023-06-16] MEDS: RT-Ipratropium/Albuterol NEB 3 ML VIAL INH SCH (10:04)
[2023-06-16 11:15] VITALS: BP 115/62
--- NOTE | 2023-06-16 11:28 | Discharge Summary ---
Diagnosis/Chief Complaint Date of Admission Jun 14, 2023 at 14:14 Date of Discharge Discharge Date: Jun 16, 2023 Admission Diagnosis Pelvic Fracture Primary Care Chuck Saeed MD Discharge Diagnosis (1) Pelvic fracture Discharge Summary Discharge Physical Exam Allergies: Coded Allergies: Sulfa (Sulfonamide Antibiotics) (Verified Allergy, Severe, SWELLING, 06/14/23) Vitals & I&Os Vital Signs Date Time Temp Pulse Resp B/P (MAP) Pulse Ox O2 Delivery O2 Flow Rate FiO2 06/16/23 12:29 37.0 100 17 115/62 98 Nasal Cannula 3.50 General Appearance: No Apparent Distress, Chronically ill, Thin Respiratory: Lungs Clear Cardiovascular: Regular Rate, Rhythm, No Murmur Gastrointestinal: Normal Bowel Sounds Neurologic/Psychiatric: Alert, Oriented x3 Hospital Course Patient was admitted to the hospital secondary to pelvic fracture after mechanical fall at home. She was admitted for pain control and physical therapy. She did relatively well with physical therapy and pain control was obtained. She was deemed an appropriate candidate for inpatient rehab and was discharged there for continued intensive therapies with a goal of returning home. Labs (last 24 hrs) Patient resulted labs reviewed. Pending Labs Imaging: Reviewed Imaging Report Discussion & Recommendations Discharge Planning: >30 minutes discharge planning Discharge Home Medications: Active Scripts Active Reported Eliquis (Apixaban) 2.5 Mg Tablet 2.5 Mg PO BID Klor-Con M20 (Potassium Chloride) 20 Meq Tab.er.prt 20 Meq PO DAILY Nitroglycerin 0.4 Mg Tab.subl 0.4 Mg SL UD PRN Metoprolol Succinate 25 Mg Tab.er.24h 25 Mg PO HS Levothyroxine Sodium 50 Mcg Tablet 50 Mcg PO DAILY Ativan (Lorazepam) 0.5 Mg Tablet 0.25 Mg PO Q6H PRN TAKES OF A 0.5MG TAB Ferrous Sulfate 325 Mg (65 Mg Iron) Tablet.dr 325 Mg PO Q48H Allopurinol 100 Mg Tablet 100 Mg PO HS Furosemide 40 Mg Tablet 40 Mg PO BID Losartan Potassium 50 Mg Tablet 25 Mg PO HS TAKES OF A 25MG TAB Simvastatin 20 Mg Tablet 20 Mg PO HS Instructions to patient/family Please see electronic discharge instructions given to patient. STAR CID MD Jun 16, 2023 11:28
[2023-06-16 12:29] VITALS: BP 115/62
== END 2023-06-16 13:02 | DRG 536 ==
LOC: EDUNIT# 12:45 → ER 12:46 → 4TH 14:14
PROVIDERS: ADMIT Family Medicine; ATTEND Family Medicine
DX: S32.592A Other specified fracture of left pubis, initial encounter for closed fracture (principal); S32.10XA Unspecified fracture of sacrum, initial encounter for closed fracture; I11.0 Hypertensive heart disease with heart failure; I50.9 Heart failure, unspecified; J44.9 Chronic obstructive pulmonary disease, unspecified; M10.9 Gout, unspecified; I48.91 Unspecified atrial fibrillation; I25.10 Atherosclerotic heart disease of native coronary artery without angina pectoris; K21.9 Gastro-esophageal reflux disease without esophagitis; E03.9 Hypothyroidism, unspecified; F41.9 Anxiety disorder, unspecified; M19.90 Unspecified osteoarthritis, unspecified site; Z99.81 Dependence on supplemental oxygen; Z79.01 Long term (current) use of anticoagulants; Z86.711 Personal history of pulmonary embolism; Z88.2 Allergy status to sulfonamides; Z79.899 Other long term (current) drug therapy; W18.09XA Striking against other object with subsequent fall, initial encounter; Y92.009 Unspecified place in unspecified non-institutional (private) residence as the place of occurrence of the external cause
CPT/HCPCS: 36415; 72131; 72192; 80048; 80053; 85025; 85027; 94640; 94760

== ENCOUNTER 2023-06-16 10:38 | Inpatient (IN) | payer MEDICARE ==
[~2023-06-16] VITALS: Ht 170.2 cm; Wt 62.6 kg
[~2023-06-16 10:38] MED LIST changes: +APIX2.5T PO; +LORA-404 PO; +MTP25TSR PO; +NITR0.4T39 SL; +POTA-169 PO
--- NOTE | 2023-06-16 13:14 | PM&R Post Admission Assessment ---
PM&R Date of Visit: Jun 16, 2023 Time of Visit: 16:00 History of Present Illness Chief complaint: Pelvic fracture HPI: This is an 87-year-old female clinic patient of Dr. Saeed and Dr. Reddy who has a past medical history of atrial fibrillation and hypertension who presented to inpatient rehab following a fourth floor hospital course uneventful but in need of aggressive rehab in order to return back home to independent living. She is dependent on oxygen / and she tripped over her oxygen tubing. At this current time her pain is controlled. We will start all home medication and continue pain control. Prior level of functioning is independent lives alone but family around to help her. Past Tawtdby-Xudveh-Bdkjhe Hx Past Med/Social Hx: Reviewed Nursing Past Med/Soc Hx, Reviewed and Corrections made Patient Social History Marrital Status: single Employed/Student: retired Alcohol Use: Denies Use Smoking Status: Former Smoker Former Smoker, Quit: Sep 25, 1984 Type Used: Cigarettes 2nd Hand Smoke Exposure: Yes Recent Hopitalizations: No (JUNE 2022 [facility] [place]) Immunizations Up To Date Tetanus Booster (TDap): Unknown Date of Pneumonia Vaccine: Jul 03, 2017 Date of Influenza Vaccine: Jul 26, 2022 Seasonal Allergies Seasonal Allergies: No Past Medical History Surgeries: Adenoidectomy, Cardiac, Eye Surgery, Joint Replacement, Orthopedic, Tonsillectomy Respiratory: COPD, Emphysema Currently Using CPAP: No Currently Using BIPAP: No Cardiac: Atrial Fibrillation, Chronic Edema/Swelling, Coronary Artery Disease, Hypertension Reproductive: No Sexually Transmitted Disease: No HIV/AIDS: No Genitourinary: UTI-Chronic Gastrointestinal: Abdominal Hernia, Gastroesophageal Reflux, Chronic Constipation, Hiatal Hernia, Gall Bladder Disease Musculoskeletal: Arthritis, Fractures Endocrine: Hypothyroidsim HEENT: Cataract Loss of Vision: Denies Hearing Impairment: Denies Psychosocial: Anxiety History of Blood Disorders: No Adverse Reaction to Blood Daley: No (N/A) Family History Blood cancer G8 SISTER Diabetes mellitus 19 MOTHER PM&R Allergy/Meds/Data Review Allergies Coded Allergies: Sulfa (Sulfonamide Antibiotics) (Verified Allergy, Severe, SWELLING, 06/14/23) Home Medications Scheduled Allopurinol (Allopurinol), 100 MG PO HS, (Reported) Apixaban (Eliquis), 2.5 MG PO BID, (Reported) Ferrous Sulfate (Ferrous Sulfate), 325 MG PO Q48H, (Reported) Furosemide (Furosemide), 40 MG PO BID, (Reported) Levothyroxine Sodium (Levothyroxine Sodium), 50 MCG PO DAILY, (Reported) Losartan Potassium (Losartan Potassium), 25 MG PO HS, (Reported) Metoprolol Succinate (Metoprolol Succinate), 25 MG PO HS, (Reported) Potassium Chloride (Klor-Con M20), 20 MEQ PO DAILY, (Reported) Simvastatin (Simvastatin), 20 MG PO HS, (Reported) Scheduled PRN Lorazepam (Ativan), 0.25 MG PO Q6H PRN for ANXIETY, (Reported) Nitroglycerin (Nitroglycerin), 0.4 MG SL UD PRN for CHEST PAIN, (Reported) Discontinued Medications Amlodipine Besylate (Amlodipine Besylate), 2.5 MG PO BID, (Reported) Discontinued Reason: No Longer Taking Apixaban (Eliquis), 2.5 MG PO BID, (Reported) Discontinued Reason: Prescription changed Furosemide (Lasix), 40 MG PO EVERY OTHER PM, (Reported) Discontinued Reason: No Longer Taking Levothyroxine Sodium (Levothyroxine Sodium), 88 MCG PO DAILY, (Reported) Discontinued Reason: No Longer Taking Lorazepam (Ativan), 0.5 MG PO Q6H, (Reported) Discontinued Reason: Duplicate Order Metoprolol Succinate (Metoprolol Succinate), 50 MG PO DAILY, (Reported) Discontinued Reason: New Order Current Medications Current Medications Reviewed Review of Systems Constitutional: see HPI, malaise, weakness EENTM: no symptoms reported Respiratory: no symptoms reported Cardiovascular: no symptoms reported Gastrointestinal: constipation Genitourinary: no symptoms reported Musculoskeletal: back pain, joint pain Skin: no symptoms reported Psychiatric/Neurological: Anxiety, Depressed All Other Systems Reviewed Negative Unless Noted: Yes Physical Exam Physical Exam Vital Signs Capillary Refill : Height, Weight, BMI Height: 5'7" Weight: 142lbs. 5.0oz. [id number]; 20.89 BMI Method:Stated General Appearance: No Apparent Distress, WD/WN, Chronically ill, Thin, Other (frail) Eyes: Bilateral Eye Normal Inspection, Bilateral Eye PERRL HEENT: PERRL/EOMI, Normal ENT Inspection, Pharynx Normal Neck: Full Range of Motion, Normal Inspection, Non Tender, Supple, Carotid Bruit Respiratory: Chest Non Tender, Lungs Clear, Normal Breath Sounds, No Accessory Muscle Use, No Respiratory Distress Cardiovascular: Regular Rate, Rhythm, No Edema, No Gallop, No JVD, No Murmur, Normal Peripheral Pulses Gastrointestinal: Normal Bowel Sounds, No Organomegaly, No Pulsatile Mass, Non Tender, Soft Back: Normal Inspection, No CVA Tenderness, No Vertebral Tenderness Extremity: Normal Capillary Refill, Normal Inspection, Normal Range of Motion (Except lower extremities due to pelvic pain), Non Tender, No Calf Tenderness, No Pedal Edema Neurologic/Psychiatric: Alert, Oriented x3, latex dipper II-XII Norm as Tested, Abnormal Gait, Depressed Affect, Motor Weakness ( lower extremities due to pain) Skin: Normal Color, Warm/Dry Lymphatic: No Adenopathy PM&R Medical Assessment & Plan REHAB/MEDICAL ASSESSMENT AND PLAN: REHAB IMPAIRMENT GROUP: Status post pelvic fracture ETIOLOGIC DIAGNOSIS: Acute fractures of left inferior/superior pubic ramus, nondisplaced The comorbidities that impact the patients function and/or functional outcome by: advanced age, lives alone, atrial fibrillation, hypothyroidism, fall risk, oxygen dependent COPD REHAB PLAN: The patient is being admitted to our comprehensive inpatient rehabilitation facility and can tolerate the intensity of service consisting of at least: 180 minutes of therapy a day, 5 out of 7 days a week Rehab treatment will consist of: PT and OT will focus on regaining function with use of assistive devices while managing pain to increase mobility and stamina increase mobility and independence in ADLs The patient/family has a good understanding of our discharge process and will benefit from an interdisciplinary inpatient rehabilitation program. The patient has potential to make improvement and is in need of at least two of the following multidisciplinary therapies including but not limited to physical, occupational, speech, and prosthetics and orthotics. Additionally the patient will need services from respiratory, nutritional services, wound care, psychology, etc. (Customize this to each patient). Given the patients complex condition and risk of further medical complications, rehabilitation services cannot be safely or effectively provided at a lower level of care such as a fci facility. BARRIERS TO DISCHARGE: severe pain ESTIMATED LOS: 10 days DISPOSITION: home RELEVANT CHANGES SINCE PREADMISSION SCREENING: I have compared the patients medical and functional status at the time of the preadmission screening and there are: no changes PROGNOSIS: good REHABILITATION GOALS: 1. PT and OT will focus on regaining function with use of assistive devices while managing pain to increase mobility and stamina increase mobility and independence in ADLs All the above goals were reviewed with the patient and he/she is in agreement. By signing this document, I acknowledge that I have personally performed a full physical examination on this patient within 24 hours of admission to this inpatient rehabilitation facility and have determined the patient to be able to tolerate the above course of treatment at an intensive level for a reasonable period of time. I will be completing a detailed individualized Plan of Care for this patient by day #4 of the patients stay based upon the Preadmission Screen, the Post-Admission Evaluation, and the therapy evaluations. Admission Dx/Comorbidities: (1) Pelvic fracture ICD Codes: S32.9XXA - Fracture of unspecified parts of lumbosacral spine and pelvis, initial encounter for closed fracture (2) Aortic stenosis ICD Codes: I35.0 - Nonrheumatic aortic (valve) stenosis (3) Pulmonary hypertension ICD Codes: I27.20 - Pulmonary hypertension, unspecified (4) Chronic atrial fibrillation Status: Chronic (5) HTN (hypertension) Status: Acute ICD Codes: I10 - Essential (primary) hypertension Assessment/Plan Assessment and Plan Assess & Plan/Chief Complaint Assessment: Pelvic fracture Oxygen dependent COPD Pulmonary hypertension Atrial fibrillation Anticoagulation for stroke prophylaxis Advanced age Frail status Hypothyroidism Osteoporosis Hypertension Hyperlipidemia Anxiety Anemia of chronic disease Plan: Pain control Aggressive rehab Oxygen supplementation Home meds FE MESA DO Jun 16, 2023 13:14
[2023-06-16] MEDS ORDERED: LOPERAMIDE 2 MG CAPSULE PO PRN (13:15)
[2023-06-16] MEDS ORDERED: ONDANSETRON 4 MG ORAL DISSOLVE TABLET PO PRN (13:15)
[2023-06-16] MEDS ORDERED: ACETAMINOPHEN 500 MG TABLET PO PRN (13:15)
[2023-06-16] MEDS ORDERED: guaiFENesin/CODEINE 10ML UDC PO PRN (13:15)
[2023-06-16] MEDS ORDERED: BISACODYL 10 MG SUPPOSITORY PR PRN ×2 (13:15)
[2023-06-16] MEDS ORDERED: DOCUSATE SODIUM 100 MG CAPSULE PO PRN (13:15)
[2023-06-16] MEDS ORDERED: CALCIUM CARBONATE 500 MG CHEW TABLET PO PRN (13:15)
[2023-06-16] MEDS ORDERED: ALPRAZolam 0.25 MG TABLET PO PRN (13:15)
[2023-06-16] MEDS ORDERED: MELATONIN 3 MG TABLET PO PRN (13:15)
[2023-06-16] MEDS ORDERED: ONDANSETRON INJECTION 4 MG/2 ML (SDV) IV PRN (13:15)
[2023-06-16] MEDS ORDERED: ACETAMINOPHEN 325 MG TABLET PO PRN ×2 (13:15)
[2023-06-16] MEDS ORDERED: Sodium Phosphate/Sodium Biphosphate ADULT enema PR PRN (13:15)
[2023-06-16] MEDS ORDERED: LACTULOSE SYRUP 10GM/15ML 30ML UDC PO PRN ×2 (13:15)
[2023-06-16] MEDS ORDERED: MILK OF MAGNESIA 400 MG/5 ML 30 ML UDC PO PRN (13:15)
[2023-06-16] MEDS ORDERED: RT-Ipratropium/Albuterol NEB 3 ML VIAL INH PRN (13:15)
[2023-06-16 13:21] VITALS: BP 137/90
--- NOTE | 2023-06-16 13:27 | Occupational Therapy Eval ---
OT Evaluation-General/PLF Medical Diagnosis Admission Date Jun 16, 2023 at 13:00 Medical Diagnosis: L pelvic fx Onset Date: Jun 13, 2023 Therapy Diagnosis Therapy Diagnosis: Decreased ADL independence and activity tolerance Height/Weight Height (Feet): 5 Height (Inches): 7 Weight (Pounds): 142 Weight (Ounces): 5.0 Precautions Precautions/Isolations: Fall Prevention Weight Bear Status Weight Bearing Restriction: Weight Bearing/Tolerated Medical History Pertinent Medical History: Atrial Fib, CAD, Fractures, HTN, Hypothroidism, DC, Smoking Reviewed History: Yes Social History Home: Single Level Current Living Status: Children Entry Into Home: Ramp ADL-Prior Level of Function SCALE: Activities may be completed with or without assistive devices. 2-Cngcnhiite-khhvxsc completes the activity by him/herself with no assistance from a helper. 5-Set-up or Clean-up Assistance-helper sets up or cleans up; patient completes activity. [place] assists only prior to or following the activity. 4-Supervision or Touching Assistance-helper provides verbal cues and/or touching/steadying and/or contact guard assistance as patient completes activity. Assistance may be provided throughout the activity or intermittently. 3-Partial/Moderate Assistance-helper does LESS THAN HALF the effort. Hermitage lifts, holds or supports trunk or limbs, but provides less than half the effort. 2-Substantial/Maximal Assistance-helper does MORE THAN HALF the effort. [place] lifts or holds trunk or limbs and provides more than half the effort. 6-Meqkwiwcs-ummkdl does ALL the effort. Patient does none of the effort to complete the activity. Or, the assistance of 2 or more helpers is required for the patient to complete the activity. If activity was not attempted, code reason: 7-Patient Refused. 9-Not Applicable-not attempted and the patient did not perform the activity before the current illness, exacerbation or injury. 10-Not Attempted due to Environmental Limitations-(lack of equipment, weather restraints, etc.). 88-Not Attempted due to Medical Conditions or Safety Concerns. Self Care: Needed Some Help (Pt states that she is independent with ADL's though daughter states that she aids her in the shower. Completes most IADL's including laundry and cleaning) DME/Equipment: Bath Chair, Shower, Tall Toilet DME/Equipment Comments Wheelchair, 2WW, Quad cane Occupation: Retired Drive Self: No Leisure Interests: Reading books OT Current Status Subjective Pt received sitting in recliner and was agreeable to therapy. Throughout session pt required increased encouragement to participate. Pain Comment: Pt had no pain when in sitting, though pain jumped to a 10 with actvity Mental Status/Objective Patient Orientation: Person, Place, Situation Attachments: Malin Catheter, Oxygen (3L) Current Glasses/Contacts: Yes Hearing Aids: No Dentures/Partials: Yes Hand Dominance: Right Upper Extremity ROM WFL Upper Extremity Coordination WFL Upper Extremity Sensation WFL Upper Extremity Strength Bilateral shoulders 3+/5; elbows 4-/5; machine heddle cleaner 4-/5 ADL-Treatment Eating (QC): 6 Oral Hygiene (QC): 5 (Pt completed oral care in sitting with setup. ) Shower/Bathe Self (QC): 2 Upper Body Dressing (QC): 5 Lower Body Dressing (QC): 2 On/Off Footwear (QC): 1 Toileting Hygiene (QC): 3 Other Treatments Pt completed functional standing activity while reaching outside of SARAH in order to increase functional balance and ADL independence. OT/PT cotreat due to skill of 2 clinicians required which a rehab therapist could not perform in order to coordinate UE/LEs, decrease fall risk, and due to pt's limitations in strength, mobility, and fear of falling. OT focused on UE placement during transfers and ambulation, cues for sequencing and safety and ADLS; PT focused on LE placement, gross overall movement, transfers and mobility. Education OT Patient Education: Correct positioning, Energy conservation, Exercise program, Instructions to caregiver, Modified ADL techniques, Progress toward Goal/Update tx plan, Purpose of tx/functional activities, Reviewed precautions, Rehab process, Transfer techniques, Use of adapted equipment Teaching Recipient: Patient, Family Teaching Methods: Demonstration, Discussion Response to Teaching: Verbalize Understanding, Return Demonstration, Reinforcement Needed BIMS CAM BIMS Expression of Ideas and Wants: Without Difficulty Understanding Verbal Content: Usually Understands Brief Interview/Mental Status: Yes IRF SIRENA BIMS: IRF SIRENA BIMS Response (Comments) Value Repitition of Three Words Three 3 Recalls Socks No, Could Not Recall 0 Recalls Blue Yes, No Cue Required 2 Recalls Bed No, Could Not Recall 0 Year Correct 3 Month Missed by 6 Days/1 Month 1 Day Incorrect or No Answer 0 Total 9 Patient Normally Able to Recal: Current Session, Location of own room, Staff Names and faces, That he/she in a hsp Should Staff Asses. Mental St.: Yes Notes: Pt became increasing agitated throughout session, though was able to be redirected. Memory/Recall Ability: Current Season, Staff Names and Faces, That He/She in [facility] Mental Status Change/Baseline: 0 Inattention: 0 Disorganized thinkin Altered level of consciousness: 0 OT Short Term Goals Short Term Goals Time Frame: Jun 23, 2023 Eatin Oral hygiene: 6 Toileting hygiene: 4 Shower/bathe self: 3 Upper body dressin Lower body dressin Putting on/taking off footwear: 4 OT Precision Jig Grinder Goals Assisted Goals Time Frame: Jun 30, 2023 Acute change in mental status: 0 Inattention: 0 Disorganized thinkin Altered level of consciousness: 0 Eating (QC): 6 Oral Hygiene (QC): 6 Toileting Hygiene (QC): 6 Shower/Bathe Self (QC): 4 Upper Body Dressing (QC): 6 Lower Body Dressing (QC): 6 On/Off Footwear (QC): 6 1=Demonstrate adherence to instructed precautions during ADL tasks. 2=Patient will verbalize/demonstrate understanding of assistive devices/modifications for ADL. 3=Patient will improve strength/tolerance for activity to enable patient to perform ADL's. OT Education/Plan Problem List/Assessment Assessment: Decreased Activ Tolerance, Decreased Safety Aware, Decreased UE Strength, Impaired Bed Mobility, Impaired Cognition, Impaired Funct Balance, Impaired I ADL's, Impaired Self-Care Skills Discharge Recommendations Plan/Recommendations: Continue POC Comment TBD as pt progresses Barriers to Progress Increased pain, fear of falling Treatment Plan/Plan of Care Treatment,Training & Education: Yes Patient would benefit from OT for education, treatment and training to promote independence in ADL's, mobility, safety and/or upper extremity function for ADL's. Plan of Care: ADL Retraining, Caregiver Training, Concurrent Therapy, Functional Mobility, Group Exercise/Act as Ind, UE Funct Exercise/Act, W/C Management Training Treatment Duration: Jul 07, 2023 Frequency: At least 5 of 7 days/Wk (IRF) Estimated Hrs Per Day: 1.5 hours per day Agreement: Yes Rehab Potential: Fair Time Start Time: 13:00 (8222-1200 OT Eval) Stop Time: 14:50 ([id number] Cotreat with PT ) DATE: Jun 16, 2023 Total Time Billed (hr/min): 90 Billed Treatment Time 1, EVM, ADL 3, FA 2 Fletcher Hawk Jun 16, 2023 13:27
--- OUTSIDE RECORDS SUMMARY | 2023-06-16 13:33 | XMS REPORT ---
Author Author [facility] Address Unknown Phone Unavailable Care Team Providers Care Dye Range Operator Name Role Phone CORKY JOSE Unavailable ENCOUNTERS from 1935 to 2022-11-10 Encounter Location Date Provider Diagnosis [facility] [address] [id number] [address] Nov, JOSE FRIED IMMUNIZATIONS Vaccine Route Administration Date Status COVID-19 Moderna (history) Unknown November 25, 2020 Administered COVID-19 Moderna (history) Unknown Oct 28, 2020 A dministered SOCIAL HISTORY Sex Assigned At : Social History Observation Description Sex Assigned At Unknown REASON FOR REFERRAL No Information MEDICATIONS Medication SIG (Take, Route, Frequency, Duration) Notes Start Date End Date Status Ciprofloxacin HCl 500 mg 1 tablet Orally every 12 hrs for 7 day(s) Jul, Active Vitamin D 25 MCG (1000 UT) 1 tablet Oral ly Once a day Active Nitrofurantoin 25 MG/5ML as directed Orally Active Lisinopril 40 MG 1 tablet Orally Once a day Active cloNIDine 0.2 MG/24HR 1 patch to skin Transdermal Active Levothyroxine Sodium 75 MCG 1 tablet in the morning on an empty stomach Orally Once a day Active Simvastatin 20 MG 1 tablet in the even ing Orally Once a day Active LORazepam 1 MG 1 tablet at bedtime as needed Orally Once a day Active REASON FOR VISIT Covid Vaccine 2 MENTAL STATUS No Information PLAN OF TREATMENT Medication Medication Name Sig Start Date Stop Date Ciprofloxacin HCl 500 mg 1 tablet Orally every 12 hrs for 7 day(s) Jul, Insurance Providers Payer Name Payer Address Payer Phone Insured Name Patient Relationship to Insured Coverage Start Date Coverage End Date Subscriber Number Group Number [facility] [address] [facility] [phone] Pedro Brock Self - patient is the insured [id number] [facility] [address] [facility] [place] [phone] Pedro Brock Self - patient is the insured [id number] [employer] MED[employer] Part A FI [address] [facility] [address] [phone] Pedro Brock Self - patient is the insured [id number]
[2023-06-16 13:36] VITALS: BP 137/90
[2023-06-16 14:00] VITALS: BP 127/74
--- NOTE | 2023-06-16 14:23 | Physical Therapy Evaluation ---
PT Evaluation-General Medical Diagnosis Admission Date Jun 16, 2023 at 13:00 Medical Diagnosis: Pelvic Fx Onset Date: Jun 13, 2023 Therapy Diagnosis Therapy Diagnosis: Decreased strength; Decreased functional mobility Height/Weight Height (Feet): 5 Height (Inches): 7 Weight (Pounds): 142 Weight (Ounces): 5.0 Precautions Precautions/Isolations: Fall Prevention, Standard Precautions Weight Bear Status Right Lower Extremity: Right Weight Bearing/Tolerated Left Lower Extremity: Left Weight Bearing/Tolerated Referral Physician: [place] Reason for Referral: Evaluation/Treatment Medical History Pertinent Medical History: Atrial Fib, Arthritis, CAD, COPD, Fractures, HTN, Hypothroidism, NM, Smoking Additional Medical History HTN, A-Fib, Anxiety, Hypothyroidism, PE, CAD, Arthritis, CHF, COPD, L hip sx, R knee sx Current History Fell on 06/13/23; ED on 06/14/23 with pelvic fx; Admitted to ARU on 06/16/23 Reviewed History: Yes Social History Home: Single Level Current Living Status: Children (daughter ) Entry Into Home: Ramp Pt lives with her daughter in a single level home with ramp with HR to enter/exit; Walk-in shower with seat, GBs, toilet riser Pt has 4 steps into another daughters home, with B HR Prior Prior Level of Function SCALE: Activities may be completed with or without assistive devices. 1-Qdikxycjyt-outrvra completes the activity by him/herself with no assistance from a helper. 5-Set-up or Clean-up Assistance-helper sets up or cleans up; patient completes activity. [place] assists only prior to or following the activity. 4-Supervision or Touching Assistance-helper provides verbal cues and/or touching/steadying and/or contact guard assistance as patient completes activity. Assistance may be provided throughout the activity or intermittently. 3-Partial/Moderate Assistance-helper does LESS THAN HALF the effort. [place] lifts, holds or supports trunk or limbs, but provides less than half the effort. 2-Substantial/Maximal Assistance-helper does MORE THAN HALF the effort. [place] lifts or holds trunk or limbs and provides more than half the effort. 0-Zclyxigmb-nuogma does ALL the effort. Patient does none of the effort to complete the activity. Or, the assistance of 2 or more helpers is required for the patient to complete the activity. If activity was not attempted, code reason: 7-Patient Refused. 9-Not Applicable-not attempted and the patient did not perform the activity before the current illness, exacerbation or injury. 10-Not Attempted due to Environmental Limitations-(lack of equipment, weather restraints, etc.). 88-Not Attempted due to Medical Conditions or Safety Concerns. Bed Mobility: 6 Transfers (B,C,W/C): 6 Gait: 6 Stairs: 6 (4 in other daughters house ) Wheelchair Mobility: 9 Indoor Mobility (Ambulation): Independent Stairs: Independent Prior Devices Use: None At PLOF, pt was Mod I with the QC. Daughter drives. Pt has a QC, FWW, and W/C PT Evaluation-Current Subjective Pt is agreeable to PT; Denies pain when sitting, but reports L hip pain at 10/10 with standing/walking Pain Numeric Pain Scale: 10-Worst Possible Pain Location: Left Location Body Site: Hip Section J - Health Conditions 1. Rarely or not at all 2. Occasionally 3. Frequently 4. Almost constantly 8. Unable to answer Pain Effect on Sleep: 1 Pain Interference with Therapy: 4 Pain Interference w/Day-to-Day: 3 Pt/Family Goals Safely return home with daughter Objective Patient Orientation: Person, Place, Time, Situation ROM/Strength ROM Upper Extremities See OT eval ROM Lower Extremities B LE ROM limited by pain Strength Upper Extremities See OT eval Strength Lower Extremities B LE MMT = 3/5 grossly Integumentary/Posture Integumentary See nurses note Bowel Incontinence: No Bladder Incontinence: Malin Cath Sensory Vision: Wears Glasses Hearing: Functional Hand Dominance: Right Sensation Right Upper Extremit: Intact Sensation Left Upper Extremity: Intact Sensation Right Lower Extremit: Intact Sensation Left Lower Extremity: Intact Transfers Roll Left & Right (QC): 2 (Max A ) Sit to Lying (QC): 2 (Max A ) Lying to Sitting/Side of Bed(Q: 2 (Max A ) Sit to Stand (QC): 2 (Max A ) Chair/Mix-hn-Rdgxs Xfer(QC): 2 (Max A ) Toilet Transfer (QC): 88 (Pain ) Car Transfer (QC): 88 (Pain ) Gait Does the Patient Walk?: Yes Mode of Locomotion: Both Anticipated Mode of Locomotion: Both Walk 10 feet (QC): 1 (Min A x 2) Walk 50 ft with 2 Turns(QC): 88 (Pain ) Walk 150 ft (QC): 88 (Pain ) Walking 10ft/uneven surface-QC: 88 (Pain ) Distance: 10ft Gait Assistive Device: FWW Wheelchair Training Does the Pt Use a Wheelchair?: Yes Wheel 50 ft with 2 turns (QC): 88 (Pain ) Wheel 150 ft (QC): 88 (Pain ) Type of Wheelchair: Manual Stairs 1 Step (curb) (QC): 88 (Pain ) 4 Steps (QC): 88 (Pain ) 12 Steps (QC): 9 Balance Sitting Static: Fair Sitting Dynamic: Fair Standing Static: Poor Standing Dynamic: Poor Picking up an Object (QC): 3 (Min A ) Special Test Comments [facility] standing balance scale = 2/5 (goal = 4/5) Treatment PT eval completed Assessment/Needs Pts tolerance to PT was fair, secondary to increased pain Rehab Potential: Good Post Rehab Potential-Barriers: Pain Equipment Needs N/A PT Dental Ceramist Goals Dental Ceramist Goals PT Detention Goals Time Frame: Jul 07, 2023 Roll Left to Right (QC): 4 (Pt will be SBA for functional mobility, in order to safely return home with daughter. ) Sit to Lying (QC): 4 (Pt will be SBA for functional mobility, in order to safely return home with daughter. ) Lying-Sitting on Side/Bed(QC): 4 (Pt will be SBA for functional mobility, in order to safely return home with daughter. ) Sit to Stand (QC): 4 (Pt will be SBA for functional mobility, in order to safely return home with daughter. ) Chair/Ncp-my-Xaqgc Xfer(QC): 4 (Pt will be SBA for functional mobility, in o rder to safely return home with daughter. ) Toilet/Commode Transfer (QC): 4 (Pt will be SBA for functional mobility, in order to safely return home with daughter. ) Car Transfer (QC): 4 (Pt will be SBA for functional mobility, in order to safely return home with daughter. ) Does the Patient Walk: Yes Walk 10 feet (QC): 4 (Pt will be SBA for functional mobility, in order to safely return home with daughter. ) Walk 10ft-Uneven Surface(QC): 4 (Pt will be SBA for functional mobility, in order to safely return home with daughter. ) Walk 50ft with 2 Turns (QC): 4 (Pt will be SBA for functional mobility, in order to safely return home with daughter. ) Walk 150 ft (QC): 4 (Pt will be SBA for functional mobility, in order to safely return home with daughter. ) Does the Pt use WC or Scooter?: Yes Wheel 50 feet with 2 turns (QC: 4 (Pt will be SBA for functional mobility, in order to safely return home with daughter. ) Type: Manual Wheel 150 feet: 4 (Pt will be SBA for functional mobility, in order to safely return home with daughter. ) Type: Manual 1 Step (curb) (QC): 4 (Pt will be SBA for functional mobility, in order to safely return home with daughter. ) 4 Steps (QC): 4 (Pt will be SBA for functional mobility, in order to safely return home with daughter. ) 12 Steps (QC): 9 Picking up an Object (QC): 4 (Pt will be SBA for functional mobility, in order to safely return home with daughter. With plane captain ) PT Plan Problem List Problem List: Activity Tolerance, Functional Strength, Safety, Balance, Gait, Transfer, Bed Mobility, ROM Treatment/Plan Treatment Plan: Continue Plan of Care Treatment Plan: Bed Mobility, Education, Functional Activity Huey, Functional Strength, Group Therapy, Gait, Safety, Therapeutic Exercise, Transfers Treatment Duration: Jul 07, 2023 Frequency: At least 5 of 7 days/Wk (IRF) Estimated Hrs Per Day: 1.5 hours per day Patient and/or Family Agrees t: Yes Safety Risks/Education Patient Education: Gait Training, Transfer Techniques, Correct Positioning, W/C Management, Safety Issues Teaching Recipient: Patient Teaching Methods: Demonstration, Discussion Response to Teaching: Reinforcement Needed Discharge Recommendations Therapy Discharge Recommendati: Home & Family, Post Acute PT Equpiment Recommendations-D/C: None Discharge Status/Home Program Cont per POC Barriers to Progress Pain, Weakness, Endurance, Self-limitations Target Placement Home with family support and [facility] Time Time In: 1320 Time Out: 1340 DATE: Jun 16, 2023 Total Billed Treatment Time: 20 Total Billed Treatment 20 min 1 visit OMAR RAMIREZ PT Jun 16, 2023 14:23
[2023-06-16] MEDS: LORazepam 0.5 MG TABLET PO PRN ×2 (14:25→20:12)
[2023-06-16] MEDS ORDERED: ENOXAPARIN 30 MG/0.3 ML SYRINGE SC SCH (15:00)
--- NOTE | 2023-06-16 15:22 | Speech Therapy Progress Note ---
Therapy Progress Note Screening completed for cognition and swallowing, no concerns were noted. Speech therapy services are not indicated at this time. AROLDO SANCHEZ Jun 16, 2023 15:22
--- NOTE | 2023-06-16 16:41 | Physical Therapy Daily Note ---
PT Daily Note-Current Subjective Patient seated in w/c when PT enters room with OT and OT student in room. Patient agreeable to co-tx session with PT. Patient report no pain initially while sitting in w/c, increasing to 10/10 with any repositioning and WB activity. Patient req freq cuing and encouragement for redirection and participation. Note: Patient presents with suicidal ideation if does not receive appropriate medication. Pain Section J - Health Conditions 1. Rarely or not at all 2. Occasionally 3. Frequently 4. Almost constantly 8. Unable to answer Pain Effect on Sleep: 1 Pain Interference with Therapy: 4 Pain Interference w/Day-to-Day: 3 Mental Status Patient Orientation: Place, Time, Situation Transfers SCALE: Activities may be completed with or without assistive devices. 7-Jiexthfkfi-jjfzxpy completes the activity by him/herself with no assistance from a helper. 5-Set-up or Clean-up Assistance-helper sets up or cleans up; patient completes activity. [place] assists only prior to or following the activity. 4-Supervision or Touching Assistance-helper provides verbal cues and/or touching/steadying and/or contact guard assistance as patient completes activity. Assistance may be provided throughout the activity or intermittently. 3-Partial/Moderate Assistance-helper does LESS THAN HALF the effort. [place] lift s, holds or supports trunk or limbs, but provides less than half the effort. 2-Substantial/Maximal Assistance-helper does MORE THAN HALF the effort. [place] lifts or holds trunk or limbs and provides more than half the effort. 6-Sbhmiduln-soujyu does ALL the effort. Patient does none of the effort to complete the activity. Or, the assistance of 2 or more helpers is required for the patient to complete the activity. If activity was not attempted, code reason: 7-Patient Refused. 9-Not Applicable-not attempted and the patient did not perform the activity before the current illness, exacerbation or injury. 10-Not Attempted due to Environmental Limitations-(lack of equipment, weather restraints, etc.). 88-Not Attempted due to Medical Conditions or Safety Concerns. Roll Left & Right (QC): 2 Sit to Lying (QC): 2 Lying to Sitting/Side of Bed(Q: 2 Sit to Stand (QC): 2 Chair/Gsy-pp-Rfdre Xfer(QC): 2 Toilet Transfer (QC): 2 Car Transfer (QC): 88 Patient participated in functional transfer practice with use of AD focusing on improving performance, sequence and safety. With initial functional practice patient perform sit <> stands from w/c surface focusing on positioning, scooting to edge of surface, alignment, achieving standing position, backing to surface and controlling descent. Patient req maxA with poor tolerance noted due to pain exacerbation and existing impairment. Patient advance to stand-pivot transfers between surfaces with use of AD, req PT maxA for positioning, achieving standing positioning, weight shifting, dynamic stepping, alignment with surface, backing to surface and controlling descent. Patient educated on improving performance and provided with cues throughout continued functional practice. Weight Bearing Right Lower Extremity: Right Weight Bearing/Tolerated Left Lower Extremity: Left Weight Bearing/Tolerated Gait Training Walk 10 feet (QC): 2 Walk 50 ft with 2 Turns(QC): 88 Walk 150 ft (QC): 88 Walking 10ft/uneven surface-QC: 88 Gait Persons Needed: 1 Gait Assistive Device: FWW Patient participated in functional gait training with use of FWW focusing on improving quality, efficiency and tolerance of functional gait. Patient achieve maximum distance of 10ft with PT facilitating upward force to belt while facilitating weight shifting. Patient educated on impaired SLS LLE and increased utilization of AD for offloading and progressive loading of extremity to tolerance. Patient req maxA for functional gait, limited by pain exacerbation. Wheelchair Training Does the Pt Use a Wheelchair?: Yes Wheel 50 ft with 2 turns (QC): 88 Wheel 150 ft (QC): 88 Neuromuscular Patient perform static and dynamic seated balance challenges, progressing from unsupported sitting balance to dynamic weight shifting and reaching challenges variable distances and angles outside SARAH for improved functional seated balance, stability and reactive control. SBAx1 Patient perform static and dynamic standing balance challenges, progressing from static standing with BUE support to single UE support, followed by no UE support, with progressive decline in tolerance and increased need of external assist. Patient progressed to dynamic weight shifting in all functional planes CGA-modA, followed by functional reaching CGA-ModA. Performed to promote improved functional balance, stability and reactive control. Assessment Current Status: Good Progress Patient tolerated treatment well without adverse rxn, limited in participation and functional progress by pain exacerbation with activity. Patient further limited by single outburst of suicidal ideation following session challenges, medically managed by medication. 1 session 70 minutes 1:40p - 2:50p FAx2 NMx2 GTx1 PT Broom Stitcher Goals Broom Stitcher Goals PT Broom Stitcher Goals Time Frame: Jul 07, 2023 Roll Left & Right (QC): 4 (Pt will be SBA for functional mobility, in order to safely return home with daughter. ) Sit to Lying (QC): 4 (Pt will be SBA for functional mobility, in order to safely return home with daughter. ) Lying-Sitting on Side/Bed(QC): 4 (Pt will be SBA for functional mobility, in order to safely return home with daughter. ) Sit to Stand (QC): 4 (Pt will be SBA for functional mobility, in order to safely return home with daughter. ) Chair/Lpw-eg-Brkzd Xfer(QC): 4 (Pt will be SBA for functional mobility, in order to safely return home with daughter. ) Toilet Transfer (QC): 4 (Pt will be SBA for functional mobility, in order to safely return home with daughter. ) Car Transfer (QC): 4 (Pt will be SBA for functional mobility, in order to safely return home with daughter. ) Does the Patient Walk: Yes Walk 10 feet (QC): 4 (Pt will be SBA for functional mobility, in order to safely return home with daughter. ) Walk 50ft with 2 Turns (QC): 4 (Pt will be SBA for functional mobility, in order to safely return home with daughter. ) Walk 150 ft (QC): 4 (Pt will be SBA for functional mobility, in order to safely return home with daughter. ) Walking 10ft on Uneven Surface: 4 (Pt will be SBA for functional mobility, in order to safely return home with daughter. ) 1 Step (curb) (QC): 4 (Pt will be SBA for functional mobility, in order to safely return home with daughter. ) 4 Steps (QC): 4 (Pt will be SBA for functional mobility, in order to safely return home with daughter. ) 12 Steps (QC): 9 Picking up an Object (QC): 4 (Pt will be SBA for functional mobility, in order to safely return home with daughter. With farm field manager ) Does the Pt use WC or Scooter?: Yes Wheel 50 feet with 2 turns (QC: 4 (Pt will be SBA for functional mobility, in order to safely return home with daughter. ) Type: Manual Wheel 150 feet: 4 (Pt will be SBA for functional mobility, in order to safely r eturn home with daughter. ) Type: Manual PT Plan Treatment/Plan Treatment Plan: Continue Plan of Care Treatment Plan: Bed Mobility, Education, Functional Activity Huey, Functional Strength, Group Therapy, Gait, Safety, Therapeutic Exercise, Transfers Treatment Duration: Jul 07, 2023 Frequency: At least 5 of 7 days/Wk (IRF) Estimated Hrs Per Day: 1.5 hours per day Patient and/or Family Agrees t: Yes Time Time In: 1340 Time Out: 1450 DATE: Jun 16, 2023 Total Billed Treatment Time: 70 Total Billed Treatment 1 session 70 minutes 1:40p - 2:50p FAx2 NMx2 GTx1 TRISTIAN KABA PT Jun 16, 2023 16:40
[2023-06-16] MEDS: HYDROcodone/ACETAMINOPHEN 5 MG/325 MG TABLET PO PRN (20:13)
[2023-06-16 20:15] VITALS: BP 129/89
[2023-06-16] MEDS: DOCUSATE SODIUM 100 MG CAPSULE PO SCH (21:00)
[2023-06-16] MEDS: SENNA W/DOCUSATE TABLET PO SCH (21:00)
[2023-06-17] MEDS: LEVOTHYROXINE 50 MCG TABLET PO SCH (05:36)
[2023-06-17] MEDS: LORazepam 0.5 MG TABLET PO PRN ×3 (05:36→20:31)
[2023-06-17 06:15] LABS: BASOPHILS % (AUTO) 0 % (0-10); EOSINOPHILS # (AUTO) 0.3 10^3/uL (0.0-0.3); EOSINOPHILS % (AUTO) 5 % (0-10); HEMATOCRIT 33 % (35-52); HEMOGLOBIN 10.5 g/dL (11.5-16.0); LYMPHOCYTES # (AUTO) 1.3 10^3/uL (1.0-4.0); LYMPHOCYTES % (AUTO) 21 % (12-44); MEAN CORPUSCULAR HEMOGLOBIN 31 pg (25-34); MEAN CORPUSCULAR HGB CONC 32 g/dL (32-36); MEAN CORPUSCULAR VOLUME 97 fL (80-99); MEAN PLATELET VOLUME 9.9 fL (9.0-12.2); MONOCYTES # (AUTO) 0.7 10^3/uL (0.0-1.0); MONOCYTES % (AUTO) 12 % (0-12); NEUTROPHILS # (AUTO) 3.7 10^3/uL (1.8-7.8); NEUTROPHILS % (AUTO) 61 % (42-75); PLATELET COUNT 179 10^3/uL (130-400); WHITE BLOOD COUNT 6.1 10^3/uL (4.3-11.0)
[2023-06-17 06:37] LABS: ALBUMIN 3.1 GM/DL (3.2-4.5); POTASSIUM 3.5 MMOL/L (3.6-5.0)
[2023-06-17 06:38] LABS: CALCIUM 8.3 MG/DL (8.5-10.1)
[2023-06-17 06:39] LABS: TOTAL PROTEIN 5.9 GM/DL (6.4-8.2)
[2023-06-17 06:41] LABS: BILIRUBIN,TOTAL 0.6 MG/DL (0.1-1.0)
[2023-06-17 06:43] LABS: CREATININE SERUM 1.05 MG/DL (0.60-1.30)
[2023-06-17] MEDS ORDERED: NITROGLYCERIN 0.4 MG SL TABLETS BTL 25'S SL PRN (06:45)
[2023-06-17] MEDS ORDERED: LORazepam 0.5 MG TABLET PO PRN (06:45)
[2023-06-17] MEDS ORDERED: LEVOTHYROXINE 50 MCG TABLET PO SCH (07:00)
--- NOTE | 2023-06-17 07:05 | PM&R Progress Note ---
Subjective HPI/CC On Admission Date Seen by Provider: Jun 17, 2023 Time Seen by Provider: 12:00 Subjective/Events-last exam 06/17/2023: Patient doing well Compromising on discontinuation of catheter until tomorrow Pain is pretty well controlled unless she moves Bowels are moving currently on a bedpan Review of Systems General: Fatigue, Malaise Objective Exam Vital Signs Vital Signs Date Time Temp Pulse Resp B/P (MAP) Pulse Ox O2 Delivery O2 Flow Rate FiO2 06/17/23 15:15 95 Nasal Cannula 3.00 06/17/23 07:52 36.4 81 20 114/58 (76) Capillary Refill : General Appearance: No Apparent Distress, WD/WN, Chronically ill, Thin, Other (frail) HEENT: PERRL/EOMI, Normal ENT Inspection, Pharynx Normal Neck: Full Range of Motion, Normal Inspection, Non Tender, Supple, Carotid Bruit Respiratory: Chest Non Tender, Lungs Clear, Normal Breath Sounds, No Accessory Muscle Use, No Respiratory Distress Cardiovascular: Regular Rate, Rhythm, No Edema, No Gallop, No JVD, No Murmur, Normal Peripheral Pulses Gastrointestinal: Normal Bowel Sounds, No Organomegaly, No Pulsatile Mass, Non Tender, Soft Back: Normal Inspection, No CVA Tenderness, No Vertebral Tenderness Extremity: Normal Capillary Refill, Normal Inspection, Normal Range of Motion (Except lower extremities due to pelvic pain), Non Tender, No Calf Tenderness, No Pedal Edema Neurologic/Psychiatric: Alert, Oriented x3, operations research director II-XII Norm as Tested, Abnormal Gait, Depressed Affect, Motor Weakness ( lower extremities due to pain) Skin: Normal Color, Warm/Dry Lymphatic: No Adenopathy Results/Procedures Lab Laboratory Tests 06/17/23 05:55 Patient resulted labs reviewed. FIM Transfers Therapy Code Descriptions/Definitions Functional [place] Measure: 0=Not Assessed/NA 4=Minimal Assistance 1=Total Assistance 5=Supervision or Setup 2=Maximal Assistance 6=Modified [place] 3=Moderate Assistance 7=Complete IndependenceSCALE: Activities may be completed with or without assistive devices. 7-Uthfyyzatp-vqdgrpm completes the activity by him/herself with no assistance from a helper. 5-Set-up or Clean-up Assistance-helper sets up or cleans up; patient completes activity. [place] assists only prior to or following the activity. 4-Supervision or Touching Assistance-helper provides verbal cues and/or touching/steadying and/or contact guard assistance as patient completes activity. Assistance may be provided throughout the activity or intermittently. 3-Partial/Moderate Assistance-helper does LESS THAN HALF the effort. [place] lifts, holds or supports trunk or limbs, but provides less than half the effort. 2-Substantial/Maximal Assistance-helper does MORE THAN HALF the effort. [place] lifts or holds trunk or limbs and provides more than half the effort. 9-Yxkhgjxsk-zsdytp does ALL the effort. Patient does none of the effort to complete the activity. Or, the assistance of 2 or more helpers is required for the patient to complete the activity. If activity was not attempted, code reason: 7-Patient Refused. 9-Not Applicable-not attempted and the patient did not perform the activity before the current illness, exacerbation or injury. 10-Not Attempted due to Environmental Limitations-(lack of equipment, weather restraints, etc.). 88-Not Attempted due to Medical Conditions or Safety Concerns. Roll Left to Right (QC): 2 Sit to Lying (QC): 2 Sit to Stand (QC): 2 Chair/Kcv-ut-Empld Xfer(QC): 2 Car Transfer (QC): 88 Gait Training Does the Patient Walk?: Yes Walk 10 feet (QC): 2 Walk 50 ft with 2 Turns(QC): 88 Walk 150 ft (QC): 88 Walking 10ft/uneven surface-QC: 88 Gait Persons Needed: 1 Gait Assistive Device: FWW Wheelchair Training Does the Pt Use a Wheelchair?: Yes Wheel 50 ft with 2 turns (QC): 88 Wheel 150 ft (QC): 88 Type of Wheelchair: Manual Stair Training 1 Step (curb) (QC): 88 (Pain ) 4 Steps (QC): 88 (Pain ) 12 Steps (QC): 9 Balance Picking up an Object (QC): 3 (Min A ) ADL-Treatment Eating (QC): 6 Oral Hygiene (QC): 5 (Pt completed oral care in sitting with setup. ) Shower/Bathe Self (QC): 2 Upper Body Dressing (QC): 5 Lower Body Dressing (QC): 2 On/Off Footwear (QC): 1 Toileting Hygiene (QC): 3 Assessment/Plan Assessment and Plan Assess & Plan/Chief Complaint Assessment: Pelvic fracture Oxygen dependent COPD Pulmonary hypertension Atrial fibrillation Anticoagulation for stroke prophylaxis Advanced age Frail status Hypothyroidism Osteoporosis Hypertension Hyperlipidemia Anxiety Anemia of chronic disease Plan: Pain control Aggressive rehab Oxygen supplementation Home meds 06/17/2023: Supportive care Pain control DC catheter tomorrow morning (1) Pelvic fracture (2) Aortic stenosis (3) Pulmonary hypertension (4) Chronic atrial fibrillation Status: Chronic (5) HTN (hypertension) Status: Acute FE MESA DO Jun 17, 2023 07:05
--- NOTE | 2023-06-17 07:06 | Individualized Plan of Care ---
Individualized Plan of Care Rehab Nursing IPOC Order Admission Date Jun 16, 2023 at 13:00 Current Orders Orders Admission Arrival Bed Request (06/16/23 12:59) Admission Order(Inpt,Obs,Sdc) (06/16/23 13:12) Vital Signs: Per Unit Policy ( 08,16,00 (06/16/23 13:12) Frank Anthony 09,21 (06/16/23 13:12) Sequential Compression Device [id number] (06/16/23 13:12) Babbitter-Inpt Rehab Con (06/16/23 13:12) Rehab Nursing Orders-Ipoc (06/16/23 13:12) Physical Therapy Rehab Orders (06/16/23 13:12) Occupational Therapy Rehab Ord (06/16/23 13:12) Speech Therapy Rehab Orders (06/16/23 13:12) Cbc And Automated Diff (06/17/23 06:00) Comprehensive Metabolic Panel (06/17/23 06:00) Precautions (Aru) (06/16/23 13:12) Weekly Weight WEEK (06/16/23 13:12) Rehab-Intensity Of Therapy (06/16/23 13:12) Initiate Admission Nursing Pro .admission (06/16/23 13:12) Alprazolam Tablet (Alprazolam Tablet) (06/16/23 13:15) Calcium Carbonate Chew Tablet (Calcium C (06/16/23 13:15) Diphenhydramine Tablet (Diphenhydramine (06/16/23 13:15) Docusate Sodium Capsule (Docusate Sodium (06/16/23 21:00) Docusate Sodium Capsule (Docusate Sodium (06/16/23 13:15) Bisacodyl Suppository (Bisacodyl Supposi (06/16/23 13:15) Lactulose Oral Solution (Enulose Oral So (06/16/23 13:15) Na Phos/Na Biphos Adult Enema (Na Phos/N (06/16/23 13:15) Guaifenesin/Codeine Syrup (Guaifenesin/C (06/16/23 13:15) Loperamide Capsule (Loperamide Capsule) (06/16/23 13:15) Melatonin Tablet (Melatonin Tablet) (06/16/23 13:15) Polyethylene Glycol Powder (Polyethylen (06/16/23 21:00) Ondansetron Oral Dissolve Tab (Ondanset (06/16/23 13:15) Senna W/Docusate Tablet (Senna W/Docusat (06/16/23 21:00) Acetaminophen Tablet (Acetaminophen Ta (06/16/23 13:15) Initiate Admission Nursing Pro .admission (06/16/23 13:12) Code/Resuscitation (06/16/23 13:14) Catheter(Urinary) Care .0300, 1500 (06/16/23 13:14) Follow-Up Appointment (06/16/23 13:14) Weight Bearing As Tolerated (06/16/23 13:14) General/Regular (06/16/23 Lunch) Acetaminophen Tablet (Acetaminophen Ta (06/16/23 13:15) Allopurinol Tablet (Allopurinol Tablet) (06/17/23 09:00) Bisacodyl Suppository (Bisacodyl Supposi (06/16/23 13:15) Enoxaparin Injection (Enoxaparin Injecti (06/16/23 15:00) Lactulose Oral Solution (Enulose Oral So (06/16/23 13:15) Hydrocodone/Apap 5/325 Tablet (Hydrocod (06/16/23 13:15) Ipratropium/Albuterol Inh Soln (Ipratrop (06/16/23 13:15) Lorazepam Tablet (Lorazepam Tablet) (06/16/23 13:15) Levothyroxine Tablet (Levothyroxine Tabl (06/17/23 06:30) Losartan Tablet (Losartan Tablet) (06/17/23 09:00) Melatonin Tablet (Melatonin Tablet) (06/16/23 13:15) Milk Of Magnesia Oral Susp (Milk Of Magn (06/16/23 13:15) Polyethylene Glycol Powder (Polyethylen (06/16/23 13:15) Calcium Carbonate Chew Tablet (Calcium C (06/16/23 13:15) Acetaminophen Tablet (Acetaminophen Ta (06/16/23 13:15) Ondansetron Injection (Ondansetron Inj (06/16/23 13:15) Metoprolol Succinate (Xl) Tab (Metoprolo (06/17/23 09:00) Tramadol Tablet (Ultram Tablet) (06/16/23 13:15) Mat Initiate Protocol (06/16/23 13:14) Svn Small Volume Nebulizer (06/16/23 13:14) Svn Small Volume Nebulizer (06/16/23 13:14) Patient Visit (06/16/23 ) Pt Eval Moderate Complexity (06/16/23 ) Allopurinol Tablet (Allopurinol Tablet) (06/17/23 21:00) Apixaban Tablet (Apixaban Tablet) (06/17/23 09:00) Furosemide Tablet (Furosemide Tablet) (06/17/23 09:00) Levothyroxine Tablet (Levothyroxine Tabl (06/17/23 07:00) Lorazepam Tablet (Lorazepam Tablet) (06/17/23 06:45) Losartan Tablet (Losartan Tablet) (06/17/23 21:00) Metoprolol Succinate (Xl) Tab (Metoprolo (06/17/23 21:00) Nitroglycerin 0.4 Mg Btl 25's (Nitroglyc (06/17/23 06:45) Potassium Chloride (Tablet) (Potassium C (06/17/23 09:00) Ferrous Sulfate Tablet (Ferrous Sulfate (06/17/23 09:00) Atorvastatin Tablet (Atorvastatin Tablet (06/17/23 21:00) Catheter(Urinary) Discontinue (06/18/23 09:00) Rehab Nursing Orders: Ongoing Assess. of Cognitive Status, Ongoing Assess. of Function Status, Bladder Management, Bladder Scan, Bladder Training, Bowel Management, Bowel Training, Disease Management & Educaiton, DVT Prophylaxis, Fall Prevention, Fluid/Electrolyte/Nutrition Mgmt, Infection Prevention, Medication Management & Education, Management of Risks & Complications, Management of Skin Intergrity, Nutrition Management, Pain Management, Patient/Family Support, Safety Management, Weight Bearing Precaution Intensity of Therapy to be met Patient to be seen: Min.3h per day/5 of 7d PT IPOC Problem List: Activity Tolerance, Functional Strength, Safety, Balance, Gait, Transfer, Bed Mobility, ROM Treatment Plan: Continue Plan of Care Bed Mobility, Education, Functional Activity Huey, Functional Strength, Group Therapy, Gait, Safety, Therapeutic Exercise, Transfers Treatment Duration: Jul 07, 2023 Frequency: At least 5 of 7 days/Wk (IRF) Estimated Hrs Per Day: 1.5 hours per day OT IPOC Problems: Decreased Activ Tolerance, Decreased Safety Aware, Decreased UE Stre ngth, Impaired Bed Mobility, Impaired Cognition, Impaired Funct Balance, Impaired I ADL's, Impaired Self-Care Skills OT Treatment, Training and Edu: Yes Plan of Care: ADL Retraining, Caregiver Training, Concurrent Therapy, Functional Mobility, Group Exercise/Act as Ind, UE Funct Exercise/Act, W/C Management Training Treatment Duration: Jul 07, 2023 Frequency: At least 5 of 7 days/Wk (IRF) Estimated Hrs Per Day: 1.[address] IPOC Speech Therapy Treatment Plan: Discontinue ST Treatment Duration: Jun 16, 2023 Frequency: Modified Program (IRF) Estimated Hrs Per Day: Other Babbitter/Case Mgmt Babbitter/Case Managemen: Discharge Planning Dietitian/Auto Suspension And Steering Mechanic Dietitian/Auto Suspension And Steering Mechanic to monitor nutritional status and make changes and/or recommendations as needed and work with speech pathology on dietary upgrades as the occur. Physician IPOC Medical Issues being managed closely and that require the 24 hour availability of a physician: Recent pelvic fracture with advanced age and oxygen requirement with frail status will require close monitoring for any decompensation and pneumonia risk Medical Issues: Bowel/Bladder Function, DVT Prophylaxis, Falls Precautions, Fluid/Electrolyte/Nutrition Balance, Infection Protection, Pain Management, Wound Care Brief Synthesis of Preadmission Screen, Post-Admission Evaluation, and Therapy Evaluations: PT and OT will focus on regaining function with use of assistive devices in order to gain stamina and ambulatory strength and increase ADLs in order to return home Medical Prognosis: Good Anticipated Length of Stay: 10 days FE MESA DO Jun 17, 2023 07:05
[2023-06-17 07:52] VITALS: BP 114/58
[2023-06-17] MEDS: APIXABAN 2.5 MG TABLET PO SCH ×2 (08:52→20:32)
[2023-06-17] MEDS: SENNA W/DOCUSATE TABLET PO SCH ×2 (08:52→20:35)
[2023-06-17] MEDS: DOCUSATE SODIUM 100 MG CAPSULE PO SCH ×2 (08:52→20:35)
[2023-06-17] MEDS: POTASSIUM CHLORIDE 20 MEQ TABLET PO SCH (08:53)
[2023-06-17] MEDS: ALLOPURINOL 100 MG TABLET PO SCH ×2 (08:53→20:31)
[2023-06-17] MEDS: FUROSEMIDE 40 MG TABLET PO SCH ×2 (08:53→20:42)
[2023-06-17] MEDS: FERROUS SULFATE 325 MG (IRON) TABLET PO SCH (08:53)
[2023-06-17] MEDS: LOSARTAN 50 MG TABLET PO SCH ×2 (08:53→20:42)
[2023-06-17 20:20] VITALS: BP 149/86
[2023-06-17] MEDS: HYDROcodone/ACETAMINOPHEN 5 MG/325 MG TABLET PO PRN (22:14)
[2023-06-18] MEDS: LORazepam 0.5 MG TABLET PO PRN ×4 (02:21→21:09)
[2023-06-18] MEDS: LEVOTHYROXINE 50 MCG TABLET PO SCH (06:06)
--- NOTE | 2023-06-18 07:24 | PM&R Progress Note ---
Subjective HPI/CC On Admission Date Seen by Provider: Jun 18, 2023 Time Seen by Provider: 12:00 Subjective/Events-last exam 06/18/2023: Patient doing well Discontinued catheter and now she is having some retention We will start Urecholine low-dose Supportive care Reviewed meds and labs 06/17/2023: Patient doing well Compromising on discontinuation of catheter until tomorrow Pain is pretty well controlled unless she moves Bowels are moving currently on a bedpan Review of Systems General: Fatigue, Malaise Objective Exam Vital Signs Vital Signs Date Time Temp Pulse Resp B/P (MAP) Pulse Ox O2 Delivery O2 Flow Rate FiO2 06/18/23 09:00 Nasal Cannula 3.00 06/18/23 08:00 36.5 78 23 113/73 (86) 100 Capillary Refill : General Appearance: No Apparent Distress, WD/WN, Chronically ill, Thin, Other (frail) HEENT: PERRL/EOMI, Normal ENT Inspection, Pharynx Normal Neck: Full Range of Motion, Normal Inspection, Non Tender, Supple, Carotid Bruit Respiratory: Chest Non Tender, Lungs Clear, Normal Breath Sounds, No Accessory Muscle Use, No Respiratory Distress Cardiovascular: Regular Rate, Rhythm, No Edema, No Gallop, No JVD, No Murmur, Normal Peripheral Pulses Gastrointestinal: Normal Bowel Sounds, No Organomegaly, No Pulsatile Mass, Non Tender, Soft Back: Normal Inspection, No CVA Tenderness, No Vertebral Tenderness Extremity: Normal Capillary Refill, Normal Inspection, Normal Range of Motion (Except lower extremities due to pelvic pain), Non Tender, No Calf Tenderness, No Pedal Edema Neurologic/Psychiatric: Alert, Oriented x3, hydro electric station operator II-XII Norm as Tested, Abnormal Gait, Depressed Affect, Motor Weakness ( lower extremities due to pain) Skin: Normal Color, Warm/Dry Lymphatic: No Adenopathy Results/Procedures Lab Patient resulted labs reviewed. FIM Transfers Therapy Code Descriptions/Definitions Functional [place] Measure: 0=Not Assessed/NA 4=Minimal Assistance 1=Total Assistance 5=Supervision or Setup 2=Maximal Assistance 6=Modified [place] 3=Moderate Assistance 7=Complete IndependenceSCALE: Activities may be completed with or without assistive devices. 1-Hnwnhluqyv-lnormzk completes the activity by him/herself with no assistance from a helper. 5-Set-up or Clean-up Assistance-helper sets up or cleans up; patient completes activity. [place] assists only prior to or following the activity. 4-Supervision or Touching Assistance-helper provides verbal cues and/or touching/steadying and/or contact guard assistance as patient completes activit y. Assistance may be provided throughout the activity or intermittently. 3-Partial/Moderate Assistance-helper does LESS THAN HALF the effort. [place] lifts, holds or supports trunk or limbs, but provides less than half the effort. 2-Substantial/Maximal Assistance-helper does MORE THAN HALF the effort. [place] lifts or holds trunk or limbs and provides more than half the effort. 7-Drqidoywt-vqaqfx does ALL the effort. Patient does none of the effort to complete the activity. Or, the assistance of 2 or more helpers is required for the patient to complete the activity. If activity was not attempted, code reason: 7-Patient Refused. 9-Not Applicable-not attempted and the patient did not perform the activity before the current illness, exacerbation or injury. 10-Not Attempted due to Environmental Limitations-(lack of equipment, weather restraints, etc.). 88-Not Attempted due to Medical Conditions or Safety Concerns. Roll Left to Right (QC): 2 Sit to Lying (QC): 2 Sit to Stand (QC): 2 Chair/Nuf-py-Skibe Xfer(QC): 2 Car Transfer (QC): 88 Gait Training Does the Patient Walk?: Yes Walk 10 feet (QC): 2 Walk 50 ft with 2 Turns(QC): 88 Walk 150 ft (QC): 88 Walking 10ft/uneven surface-QC: 88 Gait Persons Needed: 1 Gait Assistive Device: FWW Wheelchair Training Does the Pt Use a Wheelchair?: Yes Wheel 50 ft with 2 turns (QC): 88 Wheel 150 ft (QC): 88 Type of Wheelchair: Manual Stair Training 1 Step (curb) (QC): 88 (Pain ) 4 Steps (QC): 88 (Pain ) 12 Steps (QC): 9 Balance Picking up an Object (QC): 3 (Min A ) ADL-Treatment Eating (QC): 6 Oral Hygiene (QC): 5 (Pt completed oral care in sitting with setup. ) Shower/Bathe Self (QC): 2 Upper Body Dressing (QC): 5 Lower Body Dressing (QC): 2 On/Off Footwear (QC): 1 Toileting Hygiene (QC): 3 Assessment/Plan Assessment and Plan Assess & Plan/Chief Complaint Assessment: Pelvic fracture Oxygen dependent COPD Pulmonary hypertension Atrial fibrillation Anticoagulation for stroke prophylaxis Advanced age Frail status Hypothyroidism Osteoporosis Hypertension Hyperlipidemia Anxiety Anemia of chronic disease Plan: Pain control Aggressive rehab Oxygen supplementation Home meds 06/17/2023: Supportive care Pain control DC catheter tomorrow morning 06/18/2023: Urinary retention treatment Low-dose Urecholine due to COPD (1) Pelvic fracture (2) Aortic stenosis (3) Pulmonary hypertension (4) Chronic atrial fibrillation Status: Chronic (5) HTN (hypertension) Status: Acute FE MESA DO Jun 18, 2023 07:24
[2023-06-18 08:00] VITALS: BP 113/73
[2023-06-18] MEDS: POTASSIUM CHLORIDE 20 MEQ TABLET PO SCH (09:05)
[2023-06-18] MEDS: FUROSEMIDE 40 MG TABLET PO SCH ×2 (09:06→21:09)
[2023-06-18] MEDS: LOSARTAN 50 MG TABLET PO SCH ×2 (09:06→21:10)
[2023-06-18] MEDS: APIXABAN 2.5 MG TABLET PO SCH ×2 (09:06→21:09)
[2023-06-18] MEDS: SENNA W/DOCUSATE TABLET PO SCH ×2 (09:06→22:04)
[2023-06-18] MEDS: ALLOPURINOL 100 MG TABLET PO SCH ×2 (09:06→21:11)
[2023-06-18] MEDS: DOCUSATE SODIUM 100 MG CAPSULE PO SCH ×2 (09:06→22:08)
[2023-06-18] MEDS: HYDROcodone/ACETAMINOPHEN 5 MG/325 MG TABLET PO PRN ×2 (16:27→22:59)
[2023-06-18 20:01] VITALS: BP 117/57
[2023-06-18] MEDS: BETHANECHOL 10 MG TABLET PO SCH (21:10)
[2023-06-19] MEDS: LORazepam 0.5 MG TABLET PO PRN ×3 (03:03→20:50)
--- NOTE | 2023-06-19 05:04 | PM&R Progress Note ---
Subjective HPI/CC On Admission Date Seen by Provider: Jun 19, 2023 Time Seen by Provider: 09:00 Subjective/Events-last exam 06/19/2023: No major issues Urinary retention noted No falls Started Urecholine BM+ Pain controlled for the most part 06/18/2023: Patient doing well Discontinued catheter and now she is having some retention We will start Urecholine low-dose Supportive care Reviewed meds and labs 06/17/2023: Patient doing well Compromising on discontinuation of catheter until tomorrow Pain is pretty well controlled unless she moves Bowels are moving currently on a bedpan Review of Systems General: Fatigue, Malaise Objective Exam Vital Signs Vital Signs Date Time Temp Pulse Resp B/P (MAP) Pulse Ox O2 Delivery O2 Flow Rate FiO2 06/19/23 09:30 37.0 87 99 32 06/19/23 09:25 Nasal Cannula 3.00 06/19/23 08:39 20 127/79 (95) Capillary Refill : General Appearance: No Apparent Distress, WD/WN, Chronically ill, Thin, Other (frail) HEENT: PERRL/EOMI, Normal ENT Inspection, Pharynx Normal Neck: Full Range of Motion, Normal Inspection, Non Tender, Supple, Carotid Bruit Respiratory: Chest Non Tender, Lungs Clear, Normal Breath Sounds, No Accessory Muscle Use, No Respiratory Distress Cardiovascular: Regular Rate, Rhythm, No Edema, No Gallop, No JVD, No Murmur, Normal Peripheral Pulses Gastrointestinal: Normal Bowel Sounds, No Organomegaly, No Pulsatile Mass, Non Tender, Soft Back: Normal Inspection, No CVA Tenderness, No Vertebral Tenderness Extremity: Normal Capillary Refill, Normal Inspection, Normal Range of Motion (Except lower extremities due to pelvic pain), Non Tender, No Calf Tenderness, No Pedal Edema Neurologic/Psychiatric: Alert, Oriented x3, special systems technician II-XII Norm as Tested, Abnormal Gait, Depressed Affect, Motor Weakness ( lower extremities due to pain) Skin: Normal Color, Warm/Dry Lymphatic: No Adenopathy Results/Procedures Lab Patient resulted labs reviewed. FIM Transfers Therapy Code Descriptions/Definitions Functional [place] Measure: 0=Not Assessed/NA 4=Minimal Assistance 1=Total Assistance 5=Supervision or Setup 2=Maximal Assistance 6=Modified [place] 3=Moderate Assistance 7=Complete IndependenceSCALE: Activities may be completed with or without assistive devices. 6-Glbmnoaszf-tehrohj completes the activity by him/herself with no assistance from a helper. 5-Set-up or Clean-up Assistance-helper sets up or cleans up; patient completes activity. [place] assists only prior to or following the activity. 4-Supervision or Touching Assistance-helper provides verbal cues and/or touching/steadying and/or contact guard assistance as patient completes activity. Assistance may be provided throughout the activity or intermittently. 3-Partial/Moderate Assistance-helper does LESS THAN HALF the effort. [place] lifts, holds or supports trunk or limbs, but provides less than half the effort. 2-Substantial/Maximal Assistance-helper does MORE THAN HALF the effort. [place] lifts or holds trunk or limbs and provides more than half the effort. 6-Kavfyutvp-bwcunj does ALL the effort. Patient does none of the effort to complete the activity. Or, the assistance of 2 or more helpers is required for the patient to complete the activity. If activity was not attempted, code reason: 7-Patient Refused. 9-Not Applicable-not attempted and the patient did not perform the activity before the current illness, exacerbation or injury. 10-Not Attempted due to Environmental Limitations-(lack of equipment, weather restraints, etc.). 88-Not Attempted due to Medical Conditions or Safety Concerns. Roll Left to Right (QC): 2 Sit to Lying (QC): 2 Sit to Stand (QC): 2 Chair/Gif-dy-[place] Xfer(QC): 2 Car Transfer (QC): 88 Gait Training Does the Patient Walk?: Yes Walk 10 feet (QC): 2 Walk 50 ft with 2 Turns(QC): 88 Walk 150 ft (QC): 88 Walking 10ft/uneven surface-QC: 88 Gait Persons Needed: 1 Gait Assistive Device: FWW Wheelchair Training Does the Pt Use a Wheelchair?: Yes Wheel 50 ft with 2 turns (QC): 88 Wheel 150 ft (QC): 88 Type of Wheelchair: Manual Stair Training 1 Step (curb) (QC): 88 (Pain ) 4 Steps (QC): 88 (Pain ) 12 Steps (QC): 9 Balance Picking up an Object (QC): 3 (Min A ) ADL-Treatment Eating (QC): 6 Oral Hygiene (QC): 5 (Pt completed oral care in sitting with setup. ) Shower/Bathe Self (QC): 2 Upper Body Dressing (QC): 5 Lower Body Dressing (QC): 2 On/Off Footwear (QC): 1 Toileting Hygiene (QC): 3 Assessment/Plan Assessment and Plan Assess & Plan/Chief Complaint Assessment: Pelvic fracture Oxygen dependent COPD Pulmonary hypertension Atrial fibrillation Anticoagulation for stroke prophylaxis Advanced age Frail status Hypothyroidism Osteoporosis Hypertension Hyperlipidemia Anxiety Anemia of chronic disease Plan: Pain control Aggressive rehab Oxygen supplementation Home meds 06/17/2023: Supportive care Pain control DC catheter tomorrow morning 06/18/2023: Urinary retention treatment Low-dose Urecholine due to COPD 06/19/2023: Urecholine Monitor lung status since added Urecholine (1) Pelvic fracture (2) Aortic stenosis (3) Pulmonary hypertension (4) Chronic atrial fibrillation Status: Chronic (5) HTN (hypertension) Status: Acute FE MESA DO Jun 19, 2023 05:04
[2023-06-19] MEDS: BETHANECHOL 10 MG TABLET PO SCH (05:41)
[2023-06-19] MEDS: LEVOTHYROXINE 50 MCG TABLET PO SCH (05:41)
[2023-06-19] MEDS: APIXABAN 2.5 MG TABLET PO SCH ×2 (08:03→20:50)
[2023-06-19] MEDS: SENNA W/DOCUSATE TABLET PO SCH ×2 (08:03→20:51)
[2023-06-19] MEDS: DOCUSATE SODIUM 100 MG CAPSULE PO SCH ×2 (08:03→20:50)
[2023-06-19] MEDS: POTASSIUM CHLORIDE 20 MEQ TABLET PO SCH (08:03)
[2023-06-19] MEDS: FUROSEMIDE 40 MG TABLET PO SCH ×2 (08:04→20:50)
[2023-06-19] MEDS: FERROUS SULFATE 325 MG (IRON) TABLET PO SCH (08:04)
[2023-06-19] MEDS: ALLOPURINOL 100 MG TABLET PO SCH ×2 (08:04→20:50)
[2023-06-19] MEDS: LOSARTAN 50 MG TABLET PO SCH ×2 (08:10→20:51)
[2023-06-19] MEDS: HYDROcodone/ACETAMINOPHEN 5 MG/325 MG TABLET PO PRN ×2 (08:11→23:04)
[2023-06-19 08:39] VITALS: BP 127/79
[2023-06-19 09:30] VITALS: BP 127/79
--- NOTE | 2023-06-19 09:37 | Physical Therapy Daily Note ---
PT Daily Note-Current Subjective Pt reports she is doing well and is agreeable to PT. Pt denies pain with sitting, but reported 9/10 L hip pain with walking. Pain Numeric Pain Scale: 9 Location: Left Location Body Site: Hip Section J - Health Conditions 1. Rarely or not at all 2. Occasionally 3. Frequently 4. Almost constantly 8. Unable to answer Pain Effect on Sleep: 1 Pain Interference with Therapy: 4 Pain Interference w/Day-to-Day: 3 Transfers SCALE: Activities may be completed with or without assistive devices. 3-Qeesxmlakn-bxezekd completes the activity by him/herself with no assistance from a helper. 5-Set-up or Clean-up Assistance-helper sets up or cleans up; patient completes activity. [place] assists only prior to or following the activity. 4-Supervision or Touching Assistance-helper provides verbal cues and/or touching/steadying and/or contact guard assistance as patient completes activity. Assistance may be provided throughout the activity or intermittently. 3-Partial/Moderate Assistance-helper does LESS THAN HALF the effort. [place] lifts, holds or supports trunk or limbs, but provides less than half the effort. 2-Substantial/Maximal Assistance-helper does MORE THAN HALF the effort. [place] lifts or holds trunk or limbs and provides more than half the effort. 7-Dabvvhrkj-jazkpc does ALL the effort. Patient does none of the effort to complete the activity. Or, the assistance of 2 or more helpers is required for the patient to complete the activity. If activity was not attempted, code reason: 7-Patient Refused. 9-Not Applicable-not attempted and the patient did not perform the activity before the current illness, exacerbation or injury. 10-Not Attempted due to Environmental Limitations-(lack of equipment, weather restraints, etc.). 88-Not Attempted due to Medical Conditions or Safety Concerns. Sit to Stand (QC): 3 (Min/Mod A ) Weight Bearing Right Lower Extremity: Right Weight Bearing/Tolerated Left Lower Extremity: Left Weight Bearing/Tolerated Gait Training Does the Patient Walk?: Yes Distance: 40ft Walk 10 feet (QC): 4 Walk 50 ft with 2 Turns(QC): 88 (pain ) Walk 150 ft (QC): 88 (pain ) Gait Assistive Device: FWW Treatments [id number] PT/OT co-tx due to skill of 2 clinicians required which a rn cardiac rehab could not perform in order to coordinate UE/LEs, decrease fall risk, and due to pt's limitations in strength, activity tolerance, mobility, and pain. PT focused on LE placement, gross overall movement, transfers, walking, and balance. OT focused on UE placement, cues for sequencing and safety. Pt completed functional transfers with Min/Mod A. Pt ambulated 40ft with the FWW and CGA. Pt completed 1 standing bout of balloon batting with CGA for ~ 5 min. After PT treatment session, pt was left in the care of OT. All needs met. Assessment Current Status: Good Progress Pt tolerated PT well, with good effort PT Prison Goals Prison Goals PT Construction Engineering Manager Goals Time Frame: Jul 07, 2023 Roll Left & Right (QC): 4 (Pt will be SBA for functional mobility, in order to safely return home with daughter. ) Sit to Lying (QC): 4 (Pt will be SBA for functional mobility, in order to safely return home with daughter. ) Lying-Sitting on Side/Bed(QC): 4 (Pt will be SBA for functional mobility, in order to safely return home with daughter. ) Sit to Stand (QC): 4 (Pt will be SBA for functional mobility, in order to safely return home with daughter. ) Chair/Msa-sq-Vkmxl Xfer(QC): 4 (Pt will be SBA for functional mobility, in order to safely return home with daughter. ) Toilet Transfer (QC): 4 (Pt will be SBA for functional mobility, in order to safely return home with daughter. ) Car Transfer (QC): 4 (Pt will be SBA for functional mobility, in order to safely return home with daughter. ) Does the Patient Walk: Yes Walk 10 feet (QC): 4 (Pt will be SBA for functional mobility, in order to safely return home with daughter. ) Walk 50ft with 2 Turns (QC): 4 (Pt will be SBA for functional mobility, in order to safely return home with daughter. ) Walk 150 ft (QC): 4 (Pt will be SBA for functional mobility, in order to safely return home with daughter. ) Walking 10ft on Uneven Surface: 4 (Pt will be SBA for functional mobility, in order to safely return home with daughter. ) 1 Step (curb) (QC): 4 (Pt will be SBA for functional mobility, in order to safely return home with daughter. ) 4 Steps (QC): 4 (Pt will be SBA for functional mobility, in order to safely return home with daughter. ) 12 Steps (QC): 9 Picking up an Object (QC): 4 (Pt will be SBA for functional mobility, in order to safely return home with daughter. With recruiting operations consultant ) Does the Pt use WC or Scooter?: Yes Wheel 50 feet with 2 turns (QC: 4 (Pt will be SBA for functional mobility, in order to safely return home with daughter. ) Type: Manual Wheel 150 feet: 4 (Pt will be SBA for functional mobility, in order to safely return home with daughter. ) Type: Manual PT Plan Problem List Problem List: Activity Tolerance, Functional Strength, Safety, Balance, Gait, Transfer, Bed Mobility, ROM Treatment/Plan Treatment Plan: Continue Plan of Care Treatment Plan: Bed Mobility, Education, Functional Activity Huey, Functional Strength, Group Therapy, Gait, Safety, Therapeutic Exercise, Transfers Treatment Duration: Jul 07, 2023 Frequency: At least 5 of 7 days/Wk (IRF) Estimated Hrs Per Day: 1.5 hours per day Patient and/or Family Agrees t: Yes Safety Risks/Education Patient Education: Gait Training, Transfer Techniques, Correct Positioning, W/C Management, Safety Issues Teaching Recipient: Patient Teaching Methods: Demonstration, Discussion Response to Teaching: Reinforcement Needed Discharge Recommendations Therapy Discharge Recommendati: Home & Family, Post Acute PT Equpiment Recommendations-D/C: None Discharge Status/Home Program Cont per POC Barriers to Progress Weakness, endurance, pain, self-limiting Target Placement Home with family Time Time In: 930 Time Out: 1015 DATE: Jun 19, 2023 Total Billed Treatment Time: 45 Total Billed Treatment 45 min total from [id number]; 15 min co-tx from [id number] 1 visit FA x 1 GT x 1 NM x 1 OMAR ALLEN PT Jun 19, 2023 09:37
[2023-06-19] MEDS ORDERED: BETHANECHOL 10 MG TABLET PO SCH (11:00)
[2023-06-19] MEDS: BETHANECHOL 25 MG TABLET PO SCH ×3 (11:04→20:51)
--- NOTE | 2023-06-19 11:45 | Progress Note ---
KATARINA SANDERSON 06/19/23 1145: Progress Note Problem list: left sided pelvic fracture O2 dependent COPD HTN A-fib Hypothyroidism CAD CHF Chronic edema GERD Hiatal Hernia Anxiety HLD Gout Abdominal hernia - underwent surgical repair 3 weeks ago Pulmonary HTN Mitral reguritation History of PE Recurrent UTIs Moderate b/l carotid stenosis Anemia of chronic disease R TKA Advanced age former smoker ANTONETTE HANNAH DO 06/19/232053: Supervisory-Addendum Brief Verification & Attestation Participated in pt care: history, MDM, physical Personally performed: exam, history, MDM, supervision of care Care discussed with: Medical Student Procedures: n/a Results interpretation: Verified all documentation Verification and Attestation of Medical Student E/M Service A medical student performed and documented this service in my presence. I reviewed and verified all information documented by the medical student and made modifications to such information, when appropriate. I personally performed the physical exam and medical decision making. Antonette Hannah Jun 19, 2023,20:54 KATARINA SANDERSON Jun 19, 2023 11:45 ANTONETTE HANNAH DO Jun 19, 2023 20:54
--- NOTE | 2023-06-19 13:44 | Occupational Ther Daily Note ---
OT Current Status-Daily Note Subjective Pt alert sitting in w/c in ARU lobby working with PT upon arrival. Pt verbalized c/o of pain during functional mobility, nrsg notified. [id number] PT/OT co-tx due to skill of 2 clinicians required which a rehabilitation psychologist could not perform in order to coordinate UE/LEs, decrease fall risk, and due to pt's limitations in strength, activity tolerance, mobility, and pain. PT focused on LE placement, gross overall movement, transfers, walking, and balance for daily functional tasks. OT focused on UE placement, cues for sequencing and safety for daily functional tasks. Mental Status/Objective Patient Orientation: Person, Place, Time, Situation ADL-Treatment Therapy Code Descriptions/Definitions Functional [place] Measure: 0=Not Assessed/NA 4=Minimal Assistance 1=Total Assistance 5=Supervision or Setup 2=Maximal Assistance 6=Modified [place] 3=Moderate Assistance 7=Complete IndependenceSCALE: Activities may be completed with or without assistive devices. 0-Umzwbirygw-cnttucc completes the activity by him/herself with no assistance from a helper. 5-Set-up or Clean-up Assistance-helper sets up or cleans up; patient completes activity. [place] assists only prior to or following the activity. 4-Supervision or Touching Assistance-helper provides verbal cues and/or touching/steadying and/or contact guard assistance as patient completes activity. Assistance may be provided throughout the activity or intermittently. 3-Partial/Moderate Assistance-helper does LESS THAN HALF the effort. [place] lifts, holds or supports trunk or limbs, but provides less than half the effort. 2-Substantial/Maximal Assistance-helper does MORE THAN HALF the effort. [place] lifts or holds trunk or limbs and provides more than half the effort. 6-Kxvgfcaus-wubmil does ALL the effort. Patient does none of the effort to complete the activity. Or, the assistance of 2 or more helpers is required for the patient to complete the activity. If activity was not attempted, code reason: 7-Patient Refused. 9-Not Applicable-not attempted and the patient did not perform the activity before the current illness, exacerbation or injury. 10-Not Attempted due to Environmental Limitations-(lack of equipment, weather restraints, etc.). 88-Not Attempted due to Medical Conditions or Safety Concerns. Toileting Hygiene (QC): 4 (CGA while pt stood to clean nesha area after urination.) Toilet Transfer (QC): 3 (Min/mod A sit-> stand from BS, CGA for steadying and safety once stood. Pt used grab bars and FWW.) Pt refused to complete showering and dressing this session. Other Treatment Pt required increased time to complete functional tasks and ADLs due to max encouragement to participate. Pt transported to therapy gym via w/c. Pt standing with FWW and CGA from PT while tossing balloon with OTAS. Pt working on dynamic standing balance, standing tolerance, activity tolerance, and overall strengthening for daily functional tasks. Pt able to tolerate standing for ~5 min. Ended session with PT at 1015. Sit-> stand from w/c Mod A. Pt ambulated with FWW ~10ft with max encouragement. Then, pt standing in // bars ~5 mins to complete functional activity. Pt working on B LE weightbearing/weight-shifting, standing tolerance, and standing balance for daily functional tasks. Pt transported to room from therapy gym via w/c to complete toileting ADLs. Ended session with pt sitting in w/c with call light/ phone in reach. All needs met. Education OT Patient Education: Correct positioning, Purpose of tx/functional activities, Transfer techniques Teaching Recipient: Patient Teaching Methods: Demonstration, Discussion Response to Teaching: Verbalize Understanding, Return Demonstration OT Short Term Goals Short Term Goals Time Frame: Jun 23, 2023 Eatin Oral hygiene: 6 Toileting hygiene: 4 Shower/bathe self: 3 Upper body dressin Lower body dressin Putting on/taking off footwear: 4 OT Alf Goals Beating Machine Operator Goals Time Frame: Jun 30, 2023 Acute change in mental status: 0 Inattention: 0 Disorganized thinkin Altered level of consciousness: 0 Eating (QC): 6 Oral Hygiene (QC): 6 Toileting Hygiene (QC): 6 Shower/Bathe Self (QC): 4 Upper Body Dressing (QC): 6 Lower Body Dressing (QC): 6 On/Off Footwear (QC): 6 1=Demonstrate adherence to instructed precautions during ADL tasks. 2=Patient will verbalize/demonstrate understanding of assistive de vices/modifications for ADL. 3=Patient will improve strength/tolerance for activity to enable patient to perform ADL's. OT Education/Plan Problem List/Assessment Assessment: Decreased Activ Tolerance, Decreased UE Strength, Impaired Self- Care Skills Discharge Recommendations Plan/Recommendations: Continue POC Treatment Plan/Plan of Care Patient would benefit from OT for education, treatment and training to promote independence in ADL's, mobility, safety and/or upper extremity function for ADL's. Plan of Care: ADL Retraining, Caregiver Training, Concurrent Therapy, Functional Mobility, Group Exercise/Act as Ind, UE Funct Exercise/Act, W/C Management Training Treatment Duration: Jul 07, 2023 Frequency: At least 5 of 7 days/Wk (IRF) Estimated Hrs Per Day: 1.5 hours per day Agreement: Yes Rehab Potential: Fair Time Start Time: 10:00 Stop Time: 11:00 DATE: Jun 19, 2023 Total Time Billed (hr/min): 60 Billed Treatment Time 1 visit- FA 3 (50 min) ADL (10 min), PT/OT cotx ([id number]), individual (1015- 1100) IRENA VALDES Jun 19, 2023 13:44
--- NOTE | 2023-06-19 14:47 | Therapy Group Daily Note ---
Therapy Daily Group Note Patient Education Topic Exercises, Other List Below (memory, ARU description/expecations) Exercises LE Seated Exercise, UE Exercise Session Ratio (pt:therapist): 7:2 Goal of Session: Education on ARU Expectations, Memory Strategies, UE/LE Strengthing Goal Met for this Session: Yes Pt Benefit of Group: Contributions to Others, F/U Use of Strategies @Home, Increased Functional Safety, Increased Functional Strength, Improved Cognition, Recognition of Peers, Socialization Other/Notes Pt transported via w/c to [facility] for OT/PT group. Group consisted of introductions (name, place living, favorite fall dessert), socialization, B UE/LE seated exercises, memory activity and educational topics on memory strategies and ARU expectations/descriptions. Pt introduced self appropriately and actively listened to peers. Pt then actively participated in B UE/LE seated exercises, tolerated well. Pt able to complete memory activity at 50%. Pt acknowledged understanding of educational topics by giving own personal story and strategies concerning each. After session, pt sitting in recliner with call light/phone in reach. All needs met in room. Start Time: 13:00 Stop Time: 14:15 Total Billed Treatment Time: 75 Total Billed Treatment 1-GRP IRENA VALDES Jun 19, 2023 14:47
[2023-06-19 20:30] VITALS: BP 121/85
[2023-06-20] MEDS: LORazepam 0.5 MG TABLET PO PRN ×2 (03:11→20:21)
[2023-06-20] MEDS: HYDROcodone/ACETAMINOPHEN 5 MG/325 MG TABLET PO PRN ×4 (03:12→21:24)
[2023-06-20] MEDS: LEVOTHYROXINE 50 MCG TABLET PO SCH (05:45)
[2023-06-20] MEDS: diphenhydrAMINE 25 MG TABLET PO PRN ×2 (05:45→20:21)
[2023-06-20] MEDS: BETHANECHOL 25 MG TABLET PO SCH ×4 (05:45→20:22)
[2023-06-20] MEDS: POTASSIUM CHLORIDE 20 MEQ TABLET PO SCH (08:14)
[2023-06-20] MEDS: LOSARTAN 50 MG TABLET PO SCH ×2 (08:14→20:21)
[2023-06-20] MEDS: APIXABAN 2.5 MG TABLET PO SCH ×2 (08:14→20:21)
[2023-06-20] MEDS: FUROSEMIDE 40 MG TABLET PO SCH ×2 (08:15→16:53)
[2023-06-20] MEDS: SENNA W/DOCUSATE TABLET PO SCH ×2 (08:15→21:00)
[2023-06-20] MEDS: ALLOPURINOL 100 MG TABLET PO SCH ×2 (08:15→20:22)
[2023-06-20] MEDS: DOCUSATE SODIUM 100 MG CAPSULE PO SCH ×2 (08:15→21:00)
[2023-06-20 08:26] VITALS: BP 118/66
--- NOTE | 2023-06-20 10:02 | Occupational Ther Daily Note ---
OT Current Status-Daily Note Subjective Pt agreeable to OT Tx, she had difficulty keeping her eyes open at start of tx, RN notified. Pt required max encouragement to participate throughout tx, education provided on purpose of therapy in regards to her goal of returning home, pt replied "I don't care", SW notified. Mental Status/Objective Attachments: Oxygen (3L) ADL-Treatment Therapy Code Descriptions/Definitions Functional [place] Measure: 0=Not Assessed/NA 4=Minimal Assistance 1=Total Assistance 5=Supervision or Setup 2=Maximal Assistance 6=Modified [place] 3=Moderate Assistance 7=Complete IndependenceSCALE: Activities may be completed with or without assistive devices. 4-Ehgwhhrpxm-znthnvq completes the activity by him/herself with no assistance from a helper. 5-Set-up or Clean-up Assistance-helper sets up or cleans up; patient completes activity. [place] assists only prior to or following the activity. 4-Supervision or Touching Assistance-helper provides verbal cues and/or touching/steadying and/or contact guard assistance as patient completes activity. Assistance may be provided throughout the activity or intermittently. 3-Partial/Moderate Assistance-helper does LESS THAN HALF the effort. [place] lifts, holds or supports trunk or limbs, but provides less than half the effort. 2-Substantial/Maximal Assistance-helper does MORE THAN HALF the effort. [place] lifts or holds trunk or limbs and provides more than half the effort. 5-Vcimvejzc-szdggs does ALL the effort. Patient does none of the effort to complete the activity. Or, the assistance of 2 or more helpers is required for the patient to complete the activity. If activity was not attempted, code reason: 7-Patient Refused. 9-Not Applicable-not attempted and the patient did not perform the activity before the current illness, exacerbation or injury. 10-Not Attempted due to Environmental Limitations-(lack of equipment, weather restraints, etc.). 88-Not Attempted due to Medical Conditions or Safety Concerns. Other Treatment [id number]: OT tx. Pt in recliner, agreeable to OT tx with slight encouragement. Pt states "I'm lazy" and indicated she didn't want to do anything today. Pt able to wash her face with set up assistance. She used RUE to reach for coffee on tray table, take a drink independently, and place cup back onto table. OT educated pt on UE theraband exercises in order to increase BUE strength and activity tolerance. Pt completed x15 reps of the following using light resistance (yellow) theraband: shoulder flexion, horizontal abduction, and external rotation. Pt had difficulty keeping her eyes open throughout exercises, requiring VCs to continue with reps. [id number] OT/PT cotreat due to skill of 2 clinicians required which a rehab department manager could not perform in order to coordinate UE/LEs, decrease fall risk, and due to pt's limitations in pain, mobility, transfers, and activity tolerance. OT focused on UE placement, cues for sequencing and safety, and ADLs, PT focused on LE placement, gross overall movement, transfers and mobility. Pt stood from recliner, used FWW to perform functional mobility from chair to doorway (16'), this distance took max encouragement and ~40 mins. Pt encouraged to perform w/c mobility, but pt was reluctant. Pt agreed to propelling w/c backwards towards her recliner, assistance required. Pt stood from w/c and transferred to recliner using FWW. Post tx, pt in recliner, call light in reach and all needs met. Min/mod A with functional transfers. 16' min A x2 using FWW. min A w/c mobility (backwards) Education OT Patient Education: Correct positioning, Energy conservation, Modified ADL techniques, Progress toward Goal/Update tx plan, Purpose of tx/functional ac tivities, Rehab process Teaching Recipient: Patient Teaching Methods: Discussion Response to Teaching: Verbalize Understanding, Reinforcement Needed OT Short Term Goals Short Term Goals Time Frame: Jun 23, 2023 Eatin Oral hygiene: 6 Toileting hygiene: 4 Shower/bathe self: 3 Upper body dressin Lower body dressin Putting on/taking off footwear: 4 OT Fdc Goals Systems Integration Manager Goals Time Frame: Jun 30, 2023 Acute change in mental status: 0 Inattention: 0 Disorganized thinkin Altered level of consciousness: 0 Eating (QC): 6 Oral Hygiene (QC): 6 Toileting Hygiene (QC): 6 Shower/Bathe Self (QC): 4 Upper Body Dressing (QC): 6 Lower Body Dressing (QC): 6 On/Off Footwear (QC): 6 1=Demonstrate adherence to instructed precautions during ADL tasks. 2=Patient will verbalize/demonstrate understanding of assistive devices/modifications for ADL. 3=Patient will improve strength/tolerance for activity to enable patient to perform ADL's. OT Education/Plan Problem List/Assessment Assessment: Decreased Activ Tolerance, Decreased Safety Aware, Decreased UE Strength, Impaired Funct Balance, Impaired I ADL's, Impaired Self-Care Skills Discharge Recommendations Plan/Recommendations: Continue POC Treatment Plan/Plan of Care Patient would benefit from OT for education, treatment and training to promote independence in ADL's, mobility, safety and/or upper extremity function for ADL's. Plan of Care: ADL Retraining, Caregiver Training, Concurrent Therapy, Functional Mobility, Group Exercise/Act as Ind, UE Funct Exercise/Act, W/C Management Training Treatment Duration: Jul 07, 2023 Frequency: At least 5 of 7 days/Wk (IRF) Estimated Hrs Per Day: 1.5 hours per day Agreement: Yes Rehab Potential: Fair Time Start Time: 09:30 Stop Time: 11:00 DATE: Jun 20, 2023 Total Time Billed (hr/min): 90 Billed Treatment Time [id number] OT tx, [id number] cotreat 1, ADL (15'), EX (15'), FA 4 (60') CLAY BRODERICK OT Jun 20, 2023 10:02
--- NOTE | 2023-06-20 11:59 | Physical Therapy Daily Note ---
PT Daily Note-Current Subjective Pt was very reluctant to work with PT/OT on this date. Pt reported R hip pain at 10/10. Pain Numeric Pain Scale: 10-Worst Possible Pain Location: Right Location Body Site: Hip Section J - Health Conditions 1. Rarely or not at all 2. Occasionally 3. Frequently 4. Almost constantly 8. Unable to answer Pain Effect on Sleep: 1 Pain Interference with Therapy: 4 Pain Interference w/Day-to-Day: 3 Transfers SCALE: Activities may be completed with or without assistive devices. 7-Feypxfnxbr-degrhqs completes the activity by him/herself with no assistance from a helper. 5-Set-up or Clean-up Assistance-helper sets up or cleans up; patient completes activity. [place] assists only prior to or following the activity. 4-Supervision or Touching Assistance-helper provides verbal cues and/or touching/steadying and/or contact guard assistance as patient completes activity. Assistance may be provided throughout the activity or intermittently. 3-Partial/Moderate Assistance-helper does LESS THAN HALF the effort. [place] lifts, holds or supports trunk or limbs, but provides less than half the effort. 2-Substantial/Maximal Assistance-helper does MORE THAN HALF the effort. [place] lifts or holds trunk or limbs and provides more than half the effort. 2-Wfnannurx-ziorqn does ALL the effort. Patient does none of the effort to complete the activity. Or, the assistance of 2 or more helpers is required for the patient to complete the activity. If activity was not attempted, code reason: 7-Patient Refused. 9-Not Applicable-not attempted and the patient did not perform the activity before the current illness, exacerbation or injury. 10-Not Attempted due to Environmental Limitations-(lack of equipment, weather restraints, etc.). 88-Not Attempted due to Medical Conditions or Safety Concerns. Sit to Stand (QC): 3 (Min/Mod A ) Weight Bearing Right Lower Extremity: Right Weight Bearing/Tolerated Left Lower Extremity: Left Weight Bearing/Tolerated Gait Training Does the Patient Walk?: Yes Distance: 16ft Walk 10 feet (QC): 1 (Min A x 2 ) Gait Assistive Device: FWW Wheelchair Training Does the Pt Use a Wheelchair?: Yes 16ft backwards with Min A Treatments [id number] PT/OT co-tx due to skill of 2 clinicians required which a vocational rehab consultant could not perform in order to coordinate UE/LEs, decrease fall risk, and due to pt's limitations in pain, mobility, transfers, and activity tolerance. PT focused on LE placement, gross overall movement, transfers and walking. OT focused on UE placement, cues for sequencing and safety, and ADLs. Pt completed functional transfers with Min/Mod A and Max v/c for participation. Pt ambulated 16ft with the FWW and Min A x 2. This distance took max encouragement and ~40 mins to complete. Pt encouraged to perform w/c mobility, but pt was reluctant. Pt agreed to propelling w/c backwards towards her recliner (16ft with Min A). Pt transferred from w/c to recliner with Mod/Max A and Max encouragement. Post tx, pt in recliner, call light in reach and all needs met. Assessment Current Status: Poor Progress Poor tolerance and self-limiting PT Automatic Blocker Goals Intermediate Goals PT Intermediate Goals Time Frame: Jul 07, 2023 Roll Left & Right (QC): 4 (Pt will be SBA for functional mobility, in order to safely return home with daughter. ) Sit to Lying (QC): 4 (Pt will be SBA for functional mobility, in order to safely return home with daughter. ) Lying-Sitting on Side/Bed(QC): 4 (Pt will be SBA for functional mobility, in order to safely return home with daughter. ) Sit to Stand (QC): 4 (Pt will be SBA for functional mobility, in order to safely return home with daughter. ) Chair/Weu-dl-Nosgt Xfer(QC): 4 (Pt will be SBA for functional mobility, in order to safely return home with daughter. ) Toilet Transfer (QC): 4 (Pt will be SBA for functional mobility, in order to safely return home with daughter. ) Car Transfer (QC): 4 (Pt will be SBA for functional mobility, in order to safely return home with daughter. ) Does the Patient Walk: Yes Walk 10 feet (QC): 4 (Pt will be SBA for functional mobility, in order to safely return home with daughter. ) Walk 50ft with 2 Turns (QC): 4 (Pt will be SBA for functional mobility, in order to safely return home with daughter. ) Walk 150 ft (QC): 4 (Pt will be SBA for functional mobility, in order to safely return home with daughter. ) Walking 10ft on Uneven Surface: 4 (Pt will be SBA for functional mobility, in order to safely return home with daughter. ) 1 Step (curb) (QC): 4 (Pt will be SBA for functional mobility, in order to safely return home with daughter. ) 4 Steps (QC): 4 (Pt will be SBA for functional mobility, in order to safely return home with daughter. ) 12 Steps (QC): 9 Picking up an Object (QC): 4 (Pt will be SBA for functional mobility, in order to safely return home with daughter. With hvac field service technician ) Does the Pt use WC or Scooter?: Yes Wheel 50 feet with 2 turns (QC: 4 (Pt will be SBA for functional mobility, in order to safely return home with daughter. ) Type: Manual Wheel 150 feet: 4 (Pt will be SBA for functional mobility, in order to safely return home with daughter. ) Type: Manual PT Plan Problem List Problem List: Activity Tolerance, Functional Strength, Safety, Balance, Gait, Transfer, Bed Mobility, ROM Treatment/Plan Treatment Plan: Continue Plan of Care Treatment Plan: Bed Mobility, Education, Functional Activity [place], Functional Strength, Group Therapy, Gait, Safety, Therapeutic Exercise, Transfers Treatment Duration: Jul 07, 2023 Frequency: At least 5 of 7 days/Wk (IRF) Estimated Hrs Per Day: 1.5 hours per day Patient and/or Family Agrees t: Yes Safety Risks/Education Patient Education: Gait Training, Transfer Techniques, Correct Positioning, Safety Issues Teaching Recipient: Patient Teaching Methods: Demonstration, Discussion Response to Teaching: Reinforcement Needed Discharge Recommendations Therapy Discharge Recommendati: Home & Family, Post Acute PT Equpiment Recommendations-D/C: None Discharge Status/Home Program Cont per POC Barriers to Progress Pain, Weakness, Self-limiting Target Placement Home with family assistance Time Time In: 1000 Time Out: 1100 DATE: Jun 20, 2023 Total Billed Treatment Time: 60 Total Billed Treatment 60 min co-tx from [id number] 1 visit FA x 1 GT x 3 OMAR ALLEN PT Jun 20, 2023 11:59
--- NOTE | 2023-06-20 13:13 | PM&R Progress Note ---
Subjective HPI/CC On Admission Date Seen by Provider: Jun 20, 2023 Time Seen by Provider: 12:30 Subjective/Events-last exam 06/20/2023: Slow recovery Pain is an issue but improved right now Voiding fairly well 06/19/2023: No major issues Urinary retention noted No falls Started Urecholine BM+ Pain controlled for the most part 06/18/2023: Patient doing well Discontinued catheter and now she is having some retention We will start Urecholine low-dose Supportive care Reviewed meds and labs 06/17/2023: Patient doing well Compromising on discontinuation of catheter until tomorrow Pain is pretty well controlled unless she moves Bowels are moving currently on a bedpan Review of Systems General: Fatigue, Malaise Objective Exam Vital Signs Vital Signs Date Time Temp Pulse Resp B/P (MAP) Pulse Ox O2 Delivery O2 Flow Rate FiO2 06/20/23 09:16 99 Nasal Cannula 3.00 06/20/23 08:26 36.0 82 17 118/66 (83) 06/19/23 09:30 32 Capillary Refill : General Appearance: No Apparent Distress, WD/WN, Chronically ill, Thin, Other (frail) HEENT: PERRL/EOMI, Normal ENT Inspection, Pharynx Normal Neck: Full Range of Motion, Normal Inspection, Non Tender, Supple, Carotid Bruit Respiratory: Chest Non Tender, Lungs Clear, Normal Breath Sounds, No Accessory Muscle Use, No Respiratory Distress Cardiovascular: Regular Rate, Rhythm, No Edema, No Gallop, No JVD, No Murmur, Normal Peripheral Pulses Gastrointestinal: Normal Bowel Sounds, No Organomegaly, No Pulsatile Mass, Non Tender, Soft Back: Normal Inspection, No CVA Tenderness, No Vertebral Tenderness Extremity: Normal Capillary Refill, Normal Inspection, Normal Range of Motion (Except lower extremities due to pelvic pain), Non Tender, No Calf Tenderness, No Pedal Edema Neurologic/Psychiatric: Alert, Oriented x3, dairy supplies sales representative II-XII Norm as Tested, Abnormal Gait, Depressed Affect, Motor Weakness ( lower extremities due to pain) Skin: Normal Color, Warm/Dry Lymphatic: No Adenopathy Results/Procedures Lab Patient resulted labs reviewed. FIM Transfers Therapy Code Descriptions/Definitions Functional [place] Measure: 0=Not Assessed/NA 4=Minimal Assistance 1=Total Assistance 5=Supervision or Setup 2=Maximal Assistance 6=Modified [place] 3=Moderate Assistance 7=Complete IndependenceSCALE: Activities may be completed with or without assistive devices. 0-Lrhrzupdvl-xnnyziq completes the activity by him/herself with no assistance from a helper. 5-Set-up or Clean-up Assistance-helper sets up or cleans up; patient completes activity. [place] assists only prior to or following the activity. 4-Supervision or Touching Assistance-helper provides verbal cues and/or touching/steadying and/or contact guard assistance as patient completes activity. Assistance may be provided throughout the activity or intermittently. 3-Partial/Moderate Assistance-helper does LESS THAN HALF the effort. [place] lifts, holds or supports trunk or limbs, but provides less than half the effort. 2-Substantial/Maximal Assistance-helper does MORE THAN HALF the effort. [place] lifts or holds trunk or limbs and provides more than half the effort. 8-Fszhvwryb-qosqss does ALL the effort. Patient does none of the effort to complete the activity. Or, the assistance of 2 or more helpers is required for the patient to complete the activity. If activity was not attempted, code reason: 7-Patient Refused. 9-Not Applicable-not attempted and the patient did not perform the activity before the current illness, exacerbation or injury. 10-Not Attempted due to Environmental Limitations-(lack of equipment, weather restraints, etc.). 88-Not Attempted due to Medical Conditions or Safety Concerns. Roll Left to Right (QC): 2 Sit to Lying (QC): 2 Sit to Stand (QC): 3 (Min/Mod A ) Chair/Lfs-zk-Tjhet Xfer(QC): 2 Car Transfer (QC): 88 Gait Training Does the Patient Walk?: Yes Distance: 16ft Walk 10 feet (QC): 1 (Min A x 2 ) Walk 50 ft with 2 Turns(QC): 88 (pain ) Walk 150 ft (QC): 88 (pain ) Walking 10ft/uneven surface-QC: 88 Gait Persons Needed: 1 Gait Assistive Device: FWW Wheelchair Training Does the Pt Use a Wheelchair?: Yes Wheel 50 ft with 2 turns (QC): 88 Wheel 150 ft (QC): 88 Type of Wheelchair: Manual Stair Training 1 Step (curb) (QC): 88 (Pain ) 4 Steps (QC): 88 (Pain ) 12 Steps (QC): 9 Balance Picking up an Object (QC): 3 (Min A ) ADL-Treatment Eating (QC): 6 Oral Hygiene (QC): 5 (Pt completed oral care in sitting with setup. ) Shower/Bathe Self (QC): 2 Upper Body Dressing (QC): 5 Lower Body Dressing (QC): 2 On/Off Footwear (QC): 1 Toileting Hygiene (QC): 4 (CGA while pt stood to clean nesha area after urination.) Toilet Transfer (QC): 3 (Min/mod A sit-> stand from [facility], CGA for steadying and safety once stood. Pt used grab bars and FWW.) Assessment/Plan Assessment and Plan Assess & Plan/Chief Complaint Assessment: Pelvic fracture Oxygen dependent COPD Pulmonary hypertension Atrial fibrillation Anticoagulation for stroke prophylaxis Advanced age Frail status Hypothyroidism Osteoporosis Hypertension Hyperlipidemia Anxiety Anemia of chronic disease Plan: Pain control Aggressive rehab Oxygen supplementation Home meds 06/17/2023: Supportive care Pain control DC catheter tomorrow morning 06/18/2023: Urinary retention treatment Low-dose Urecholine due to COPD 06/19/2023: Urecholine Monitor lung status since added Urecholine 06/20/2023: Supportive care Monitor closely (1) Pelvic fracture (2) Aortic stenosis (3) Pulmonary hypertension (4) Chronic atrial fibrillation Status: Chronic (5) HTN (hypertension) Status: Acute FE MESA DO Jun 20, 2023 13:13
--- NOTE | 2023-06-20 13:33 | Occupational Ther Daily Note ---
OT Current Status-Daily Note Subjective Pt alert, sitting in recliner. Pt agrees to therapy. No c/o pain at this time. Mental Status/Objective Patient Orientation: Person, Place, Time, Situation Attachments: IV, Oxygen ADL-Treatment Therapy Code Descriptions/Definitions Functional [place] Measure: 0=Not Assessed/NA 4=Minimal Assistance 1=Total Assistance 5=Supervision or Setup 2=Maximal Assistance 6=Modified [place] 3=Moderate Assistance 7=Complete IndependenceSCALE: Activities may be completed with or without assistive devices. 8-Lqhjxlvcwb-wzbfndw completes the activity by him/herself with no assistance from a helper. 5-Set-up or Clean-up Assistance-helper sets up or cleans up; patient completes activity. [place] assists only prior to or following the activity. 4-Supervision or Touching Assistance-helper provides verbal cues and/or touching/steadying and/or contact guard assistance as patient completes activity. Assistance may be provided throughout the activity or intermittently. 3-Partial/Moderate Assistance-helper does LESS THAN HALF the effort. [place] lifts, holds or supports trunk or limbs, but provides less than half the effort. 2-Substantial/Maximal Assistance-helper does MORE THAN HALF the effort. [place] lifts or holds trunk or limbs and provides more than half the effort. 9-Xnywrbzxs-dtixhq does ALL the effort. Patient does none of the effort to complete the activity. Or, the assistance of 2 or more helpers is required for the patient to complete the activity. If activity was not attempted, code reason: 7-Patient Refused. 9-Not Applicable-not attempted and the patient did not perform the activity before the current illness, exacerbation or injury. 10-Not Attempted due to Environmental Limitations-(lack of equipment, weather restraints, etc.). 88-Not Attempted due to Medical Conditions or Safety Concerns. Other Treatment Skilled instruction for B UE exercises for correct technique and modifications when necessary. 1 set 10 reps with lengthy recovery break between each exercise. After session, pt sitting in recliner with call light/phone in reach. All needs met in room. OT Short Term Goals Short Term Goals Time Frame: Jun 23, 2023 Eatin Oral hygiene: 6 Toileting hygiene: 4 Shower/bathe self: 3 Upper body dressin Lower body dressin Putting on/taking off footwear: 4 OT [facility] Goals [facility] Goals Time Frame: Jun 30, 2023 Acute change in mental status: 0 Inattention: 0 Disorganized thinkin Altered level of consciousness: 0 Eating (QC): 6 Oral Hygiene (QC): 6 Toileting Hygiene (QC): 6 Shower/Bathe Self (QC): 4 Upper Body Dressing (QC): 6 Lower Body Dressing (QC): 6 On/Off Footwear (QC): 6 1=Demonstrate adherence to instructed precautions during ADL tasks. 2=Patient will verbalize/demonstrate understanding of assistive devices/modifications for ADL. 3=Patient will improve strength/tolerance for activity to enable patient to perform ADL's. OT Education/Plan Problem List/Assessment Assessment: Decreased Activ Tolerance, Decreased UE Strength Discharge Recommendations Plan/Recommendations: Continue POC Treatment Plan/Plan of Care Patient would benefit from OT for education, treatment and training to promote independence in ADL's, mobility, safety and/or upper extremity function for ADL's. Plan of Care: ADL Retraining, Caregiver Training, Concurrent Therapy, Functional Mobility, Group Exercise/Act as Ind, UE Funct Exercise/Act, W/C Management Training Treatment Duration: Jul 07, 2023 Frequency: At least 5 of 7 days/Wk (IRF) Estimated Hrs Per Day: 1.5 hours per day Agreement: Yes Rehab Potential: Fair Time Start Time: 13:00 Stop Time: 13:30 DATE: Jun 20, 2023 Total Time Billed (hr/min): 30 Billed Treatment Time 1 visit-EX 2 (30 min) IRENA VALDES Jun 20, 2023 13:33
[2023-06-20 20:40] VITALS: BP 132/68
[2023-06-21] MEDS: MELATONIN 3 MG TABLET PO PRN ×2 (00:16→21:04)
[2023-06-21] MEDS: CALCIUM CARBONATE 500 MG CHEW TABLET PO PRN (00:24)
[2023-06-21] MEDS: LORazepam 0.5 MG TABLET PO PRN ×2 (02:01→15:55)
[2023-06-21] MEDS: diphenhydrAMINE 25 MG TABLET PO PRN ×2 (02:01→21:03)
[2023-06-21] MEDS: HYDROcodone/ACETAMINOPHEN 5 MG/325 MG TABLET PO PRN ×3 (03:32→21:04)
[2023-06-21] MEDS: LEVOTHYROXINE 50 MCG TABLET PO SCH (06:03)
[2023-06-21] MEDS: BETHANECHOL 25 MG TABLET PO SCH ×4 (06:03→21:03)
[2023-06-21] MEDS: FUROSEMIDE 40 MG TABLET PO SCH ×2 (06:03→15:55)
[2023-06-21 07:54] VITALS: BP 132/91
[2023-06-21] MEDS: FERROUS SULFATE 325 MG (IRON) TABLET PO SCH (08:45)
[2023-06-21] MEDS: APIXABAN 2.5 MG TABLET PO SCH ×2 (08:45→21:04)
[2023-06-21] MEDS: POTASSIUM CHLORIDE 20 MEQ TABLET PO SCH (08:45)
[2023-06-21] MEDS: LOSARTAN 50 MG TABLET PO SCH ×2 (08:46→21:04)
[2023-06-21] MEDS: ALLOPURINOL 100 MG TABLET PO SCH ×2 (08:46→21:07)
[2023-06-21] MEDS: DOCUSATE SODIUM 100 MG CAPSULE PO SCH ×2 (08:48→21:00)
[2023-06-21] MEDS: SENNA W/DOCUSATE TABLET PO SCH ×2 (08:49→21:00)
--- NOTE | 2023-06-21 11:12 | Occupational Ther Daily Note ---
OT Current Status-Daily Note Subjective Pt agreeable to therapy session on this date. She required some encouragement to attempt longer distances with mobility. Mental Status/Objective Attachments: Oxygen ADL-Treatment Therapy Code Descriptions/Definitions Functional [place] Measure: 0=Not Assessed/NA 4=Minimal Assistance 1=Total Assistance 5=Supervision or Setup 2=Maximal Assistance 6=Modified [place] 3=Moderate Assistance 7=Complete IndependenceSCALE: Activities may be completed with or without assistive devices. 1-Jbafzwrkcw-kpgnnjn completes the activity by him/herself with no assistance from a helper. 5-Set-up or Clean-up Assistance-helper sets up or cleans up; patient completes activity. [place] assists only prior to or following the activity. 4-Supervision or Touching Assistance-helper provides verbal cues and/or touching/steadying and/or contact guard assistance as patient completes activity. Assistance may be provided throughout the activity or intermittently. 3-Partial/Moderate Assistance-helper does LESS THAN HALF the effort. [place] lifts, holds or supports trunk or limbs, but provides less than half the effort. 2-Substantial/Maximal Assistance-helper does MORE THAN HALF the effort. [place] lifts or holds trunk or limbs and provides more than half the effort. 7-Eiqkkgklc-hmhzhd does ALL the effort. Patient does none of the effort to complete the activity. Or, the assistance of 2 or more helpers is required for the patient to complete the activity. If activity was not attempted, code reason: 7-Patient Refused. 9-Not Applicable-not attempted and the patient did not perform the activity before the current illness, exacerbation or injury. 10-Not Attempted due to Environmental Limitations-(lack of equipment, weather restraints, etc.). 88-Not Attempted due to Medical Conditions or Safety Concerns. Lower Body Dressing (QC): 3 (Assist threading LLE) Toileting Hygiene (QC): 3 (Min A pant hike in back) Toilet Transfer (QC): 4 (CGA) Other Treatment OT/PT cotreat due to skill of 2 clinicians required which a wildlife rehabilitator could not perform in order to coordinate UE/LEs, decrease fall risk, and due to pt's limitations in pain, mobility, transfers, and activity tolerance. OT focused on UE placement, cues for sequencing and safety, and ADLs, PT focused on LE placement, gross overall movement, transfers and mobility. Pt states need to use toilet, stood from recliner and performed functional mobility into bathroom using FWW, CGA. Pt sat on toilet, completed toileting and LE dressing, then stood from toilet. Pt used FWW to perform functional mobility out of room and into the halls. Pt performed w/c mobility in ARU common area. Education provided on using BUEs and LEs to propel w/c. Pt taken back to her room via w/c, used FWW to return to recliner. Post tx, pt in recliner, call light in reach and all needs met. Transfers CGA-Min A. CGA with functional mobility using FWW, 26', 13'x2 Education OT Patient Education: Correct positioning, Energy conservation, Modified ADL techniques, Progress toward Goal/Update tx plan, Purpose of tx/functional activities, Rehab process Teaching Recipient: Patient Teaching Methods: Demonstration Response to Teaching: Verbalize Understanding OT Short Term Goals Short Term Goals Time Frame: Jun 23, 2023 Eatin Oral hygiene: 6 Toileting hygiene: 4 Shower/bathe self: 3 Upper body dressin Lower body dressin Putting on/taking off footwear: 4 OT [facility] Goals Manager [employer] Goals Time Frame: Jun 30, 2023 Acute change in mental status: 0 Inattention: 0 Disorganized thinkin Altered level of consciousness: 0 Eating (QC): 6 Oral Hygiene (QC): 6 Toileting Hygiene (QC): 6 Shower/Bathe Self (QC): 4 Upper Body Dressing (QC): 6 Lower Body Dressing (QC): 6 On/Off Footwear (QC): 6 1=Demonstrate adherence to instructed precautions during ADL tasks. 2=Patient will verbalize/demonstrate understanding of assistive devices/modifications for ADL. 3=Patient will improve strength/tolerance for activity to enable patient to perform ADL's. OT Education/Plan Problem List/Assessment Assessment: Decreased Activ Tolerance, Decreased UE Strength, Impaired Funct Balance, Impaired I ADL's, Impaired Self-Care Skills Discharge Recommendations Plan/Recommendations: Continue POC Treatment Plan/Plan of Care Patient would benefit from OT for education, treatment and training to promote independence in ADL's, mobility, safety and/or upper extremity function for ADL's. Plan of Care: ADL Retraining, Caregiver Training, Concurrent Therapy, Functional Mobility, Group Exercise/Act as Ind, UE Funct Exercise/Act, W/C Management Training Treatment Duration: Jul 07, 2023 Frequency: At least 5 of 7 days/Wk (IRF) Estimated Hrs Per Day: 1.5 hours per day Agreement: Yes Rehab Potential: Fair Time Start Time: 10:00 Stop Time: 11:00 DATE: Jun 21, 2023 Total Time Billed (hr/min): 60 Billed Treatment Time cotreat x60' 1, ADL 2 (30'), FA 2 (30') CLAY BRODERICK OT Jun 21, 2023 11:11
--- NOTE | 2023-06-21 11:36 | PM&R Progress Note ---
Subjective HPI/CC On Admission Date Seen by Provider: Jun 21, 2023 Time Seen by Provider: 12:00 Subjective/Events-last exam 06/21/2023: Patient doing a lot better Moving around better No concerns Participation is fairly good 06/20/2023: Slow recovery Pain is an issue but improved right now Voiding fairly well 06/19/2023: No major issues Urinary retention noted No falls Started Urecholine BM+ Pain controlled for the most part 06/18/2023: Patient doing well Discontinued catheter and now she is having some retention We will start Urecholine low-dose Supportive care Reviewed meds and labs 06/17/2023: Patient doing well Compromising on discontinuation of catheter until tomorrow Pain is pretty well controlled unless she moves Bowels are moving currently on a bedpan Review of Systems General: Fatigue, Malaise Objective Exam Vital Signs Vital Signs Date Time Temp Pulse Resp B/P (MAP) Pulse Ox O2 Delivery O2 Flow Rate FiO2 06/21/23 20:03 35.9 66 16 110/73 (85) Nasal Cannula 2.50 06/21/23 08:56 93 06/19/23 09:30 32 Capillary Refill : General Appearance: No Apparent Distress, WD/WN, Chronically ill, Thin, Other (frail) HEENT: PERRL/EOMI, Normal ENT Inspection, Pharynx Normal Neck: Full Range of Motion, Normal Inspection, Non Tender, Supple, Carotid Brui t Respiratory: Chest Non Tender, Lungs Clear, Normal Breath Sounds, No Accessory Muscle Use, No Respiratory Distress Cardiovascular: Regular Rate, Rhythm, No Edema, No Gallop, No JVD, No Murmur, Normal Peripheral Pulses Gastrointestinal: Normal Bowel Sounds, No Organomegaly, No Pulsatile Mass, Non Tender, Soft Back: Normal Inspection, No CVA Tenderness, No Vertebral Tenderness Extremity: Normal Capillary Refill, Normal Inspection, Normal Range of Motion (Except lower extremities due to pelvic pain), Non Tender, No Calf Tenderness, No Pedal Edema Neurologic/Psychiatric: Alert, Oriented x3, computer laboratory technician II-XII Norm as Tested, Abnormal Gait, Depressed Affect, Motor Weakness ( lower extremities due to pain) Skin: Normal Color, Warm/Dry Lymphatic: No Adenopathy Results/Procedures Lab Patient resulted labs reviewed. FIM Transfers Therapy Code Descriptions/Definitions Functional [place] Measure: 0=Not Assessed/NA 4=Minimal Assistance 1=Total Assistance 5=Supervision or Setup 2=Maximal Assistance 6=Modified [place] 3=Moderate Assistance 7=Complete IndependenceSCALE: Activities may be completed with or without assistive devices. 0-Vunksuymai-qlclhni completes the activity by him/herself with no assistance from a helper. 5-Set-up or Clean-up Assistance-helper sets up or cleans up; patient completes activity. [place] assists only prior to or following the activity. 4-Supervision or Touching Assistance-helper provides verbal cues and/or to uching/steadying and/or contact guard assistance as patient completes activity. Assistance may be provided throughout the activity or intermittently. 3-Partial/Moderate Assistance-helper does LESS THAN HALF the effort. [place] lifts, holds or supports trunk or limbs, but provides less than half the effort. 2-Substantial/Maximal Assistance-helper does MORE THAN HALF the effort. [place] lifts or holds trunk or limbs and provides more than half the effort. 6-Bejqqocql-llevzi does ALL the effort. Patient does none of the effort to complete the activity. Or, the assistance of 2 or more helpers is required for the patient to complete the activity. If activity was not attempted, code reason: 7-Patient Refused. 9-Not Applicable-not attempted and the patient did not perform the activity before the current illness, exacerbation or injury. 10-Not Attempted due to Environmental Limitations-(lack of equipment, weather restraints, etc.). 88-Not Attempted due to Medical Conditions or Safety Concerns. Roll Left to Right (QC): 2 Sit to Lying (QC): 2 Sit to Stand (QC): 3 (Min/Mod A ) Chair/Jbk-js-[place] Xfer(QC): 2 Car Transfer (QC): 88 Gait Training Does the Patient Walk?: Yes Distance: 16ft Walk 10 feet (QC): 1 (Min A x 2 ) Walk 50 ft with 2 Turns(QC): 88 (pain ) Walk 150 ft (QC): 88 (pain ) Walking 10ft/uneven surface-QC: 88 Gait Persons Needed: 1 Gait Assistive Device: FWW Wheelchair Training Does the Pt Use a Wheelchair?: Yes Wheel 50 ft with 2 turns (QC): 88 Wheel 150 ft (QC): 88 Type of Wheelchair: Manual Stair Training 1 Step (curb) (QC): 88 (Pain ) 4 Steps (QC): 88 (Pain ) 12 Steps (QC): 9 Balance Picking up an Object (QC): 3 (Min A ) ADL-Treatment Eating (QC): 6 Oral Hygiene (QC): 5 (Pt completed oral care in sitting with setup. ) Shower/Bathe Self (QC): 2 Upper Body Dressing (QC): 5 Lower Body Dressing (QC): 3 (Assist threading LLE) On/Off Footwear (QC): 1 Toileting Hygiene (QC): 3 (Min A pant hike in back) Toilet Transfer (QC): 4 (CGA) Assessment/Plan Assessment and Plan Assess & Plan/Chief Complaint Assessment: Pelvic fracture Oxygen dependent COPD Pulmonary hypertension Atrial fibrillation Anticoagulation for stroke prophylaxis Advanced age Frail status Hypothyroidism Osteoporosis Hypertension Hyperlipidemia Anxiety Anemia of chronic disease Plan: Pain control Aggressive rehab Oxygen supplementation Home meds 06/17/2023: Supportive care Pain control DC catheter tomorrow morning 06/18/2023: Urinary retention treatment Low-dose Urecholine due to COPD 06/19/2023: Urecholine Monitor lung status since added Urecholine 06/20/2023: Supportive care Monitor closely 06/21/2023: Supportive care Monitor closely (1) Pelvic fracture (2) Aortic stenosis (3) Pulmonary hypertension (4) Chronic atrial fibrillation Status: Chronic (5) HTN (hypertension) Status: Acute FE MESA DO Jun 21, 2023 11:36
[2023-06-21] MEDS: DICLOFENAC 1% GEL 50 GM TUBE TOP PRN ×2 (12:45→23:01)
--- NOTE | 2023-06-21 14:42 | Therapy Group Daily Note ---
Therapy Daily Group Note Patient Education Topic Exercises Exercises LE Seated Exercise, UE Exercise Session Ratio (pt:therapist): 4:1 Goal of Session: UE/LE Strengthing Goal Met for this Session: Yes Pt Benefit of Group: Contributions to Others, Increased Functional Strength, Improved Cognition, Recognition of Peers Other/Notes Pt transported via w/c to [facility] for OT/PT group. Group consisted of introductions (name, place living and favorite part of fall season), socialization, B UE/LE seated exercises and education on benefits of exercise. Pt introduced self appropriately and actively listened to peers. Pt was able to participate and complete B UE/LE seated exercises with skilled instruction and modifications when necessary. Pt verbalized understanding of educational topic by giving own experiences and strategies for completing a variety of different exercises at home. After session, pt sitting in w/c with call light/phone in reach. All needs met in room. Start Time: 13:00 Stop Time: 14:00 Total Billed Treatment Time: 60 Total Billed Treatment 1-IRENA RAMIREZ Jun 21, 2023 14:42
--- NOTE | 2023-06-21 16:00 | Physical Therapy Daily Note ---
PT Daily Note-Current Subjective Pt requires some encouragement, but is agreeable to PT/OT. Pt reported R hip pain at 9/10. Pain Numeric Pain Scale: 9 Location: Right Location Body Site: Hip Section J - Health Conditions 1. Rarely or not at all 2. Occasionally 3. Frequently 4. Almost constantly 8. Unable to answer Pain Effect on Sleep: 1 Pain Interference with Therapy: 4 Pain Interference w/Day-to-Day: 3 Transfers SCALE: Activities may be completed with or without assistive devices. 8-Qwpjbpcdel-ejfujnt completes the activity by him/herself with no assistance from a helper. 5-Set-up or Clean-up Assistance-helper sets up or cleans up; patient completes activity. [place] assists only prior to or following the activity. 4-Supervision or Touching Assistance-helper provides verbal cues and/or touching/steadying and/or contact guard assistance as patient completes activity. Assistance may be provided throughout the activity or intermittently. 3-Partial/Moderate Assistance-helper does LESS THAN HALF the effort. [place] lifts, holds or supports trunk or limbs, but provides less than half the effort. 2-Substantial/Maximal Assistance-helper does MORE THAN HALF the effort. [place] lifts or holds trunk or limbs and provides more than half the effort. 6-Gtkdzueha-augott does ALL the effort. Patient does none of the effort to complete the activity. Or, the assistance of 2 or more helpers is required for the patient to complete the activity. If activity was not attempted, code reason: 7-Patient Refused. 9-Not Applicable-not attempted and the patient did not perform the activity before the current illness, exacerbation or injury. 10-Not Attempted due to Environmental Limitations-(lack of equipment, weather restraints, etc.). 88-Not Attempted due to Medical Conditions or Safety Concerns. Sit to Stand (QC): 3 Chair/Khw-cl-Hwrqp Xfer(QC): 3 Toilet Transfer (QC): 3 Weight Bearing Right Lower Extremity: Right Weight Bearing/Tolerated Left Lower Extremity: Left Weight Bearing/Tolerated Gait Training Does the Patient Walk?: Yes Walk 10 feet (QC): 4 Gait Assistive Device: FWW Wheelchair Training Does the Pt Use a Wheelchair?: Yes Wheel 50 ft with 2 turns (QC): 3 Type of Wheelchair: Manual Treatments PT/OT co-tx from [id number] due to skill of 2 clinicians required which a certified rehabilitation counselor could not perform in order to coordinate UE/LEs, decrease fall risk, and due to pt's limitations in pain, mobility, transfers, and activity tolerance. PT focused on LE placement, gross overall movement, transfers, w/c mobility, and walking. OT focused on UE placement, cues for sequencing and safety, and ADLs. Pt completed functional transfers, including toilet transfer, with Min A. See OT note for toileting. Pt ambulated 26ft and 13ft x 2 with the FWW and CGA. Pt completed w/c mobility x 50ft with Min A. Pt edu on using BUEs and LEs to propel w/c. After treatment session, pt in recliner, call light in reach, and all needs met. Assessment Current Status: Good Progress Pt tolerated PT better on this date. PT Group Home Goals Medical Review Coordinator Goals PT Group Home Goals Time Frame: Jul 07, 2023 Roll Left & Right (QC): 4 (Pt will be SBA for functional mobility, in order to safely return home with daughter. ) Sit to Lying (QC): 4 (Pt will be SBA for functional mobility, in order to safely return home with daughter. ) Lying-Sitting on Side/Bed(QC): 4 (Pt will be SBA for functional mobility, in order to safely return home with daughter. ) Sit to Stand (QC): 4 (Pt will be SBA for functional mobility, in order to safely return home with daughter. ) Chair/Ukx-hb-Krvlu Xfer(QC): 4 (Pt will be SBA for functional mobility, in order to safely return home with daughter. ) Toilet Transfer (QC): 4 (Pt will be SBA for functional mobility, in order to safely return home with daughter. ) Car Transfer (QC): 4 (Pt will be SBA for functional mobility, in order to safely return home with daughter. ) Does the Patient Walk: Yes Walk 10 feet (QC): 4 (Pt will be SBA for functional mobility, in order to safely return home with daughter. ) Walk 50ft with 2 Turns (QC): 4 (Pt will be SBA for functional mobility, in order to safely return home with daughter. ) Walk 150 ft (QC): 4 (Pt will be SBA for functional mobility, in order to safely return home with daughter. ) Walking 10ft on Uneven Surface: 4 (Pt will be SBA for functional mobility, in order to safely return home with daughter. ) 1 Step (curb) (QC): 4 (Pt will be SBA for functional mobility, in order to safely return home with daughter. ) 4 Steps (QC): 4 (Pt will be SBA for functional mobility, in order to safely return home with daughter. ) 12 Steps (QC): 9 Picking up an Object (QC): 4 (Pt will be SBA for functional mobility, in order to safely return home with daughter. With adventure challenge instructor ) Does the Pt use WC or Scooter?: Yes Wheel 50 feet with 2 turns (QC: 4 (Pt will be SBA for functional mobility, in order to safely return home with daughter. ) Type: Manual Wheel 150 feet: 4 (Pt will be SBA for functional mobility, in order to safely return home with daughter. ) Type: Manual PT Plan Problem List Problem List: Activity Tolerance, Functional Strength, Safety, Balance, Gait, Transfer, Bed Mobility, ROM Treatment/Plan Treatment Plan: Continue Plan of Care Treatment Plan: Bed Mobility, Education, Functional Activity [place], Functional Strength, Group Therapy, Gait, Safety, Therapeutic Exercise, Transfers Treatment Duration: Jul 07, 2023 Frequency: At least 5 of 7 days/Wk (IRF) Estimated Hrs Per Day: 1.5 hours per day Patient and/or Family Agrees t: Yes Safety Risks/Education Patient Education: Gait Training, Transfer Techniques, Correct Positioning, W/C Management, Safety Issues Teaching Recipient: Patient Teaching Methods: Demonstration, Discussion Response to Teaching: Reinforcement Needed Discharge Recommendations Therapy Discharge Recommendati: Home & Family, Post Acute PT Equpiment Recommendations-D/C: None Discharge Status/Home Program Cont per POC Barriers to Progress Weakness, pain, endurance, self-limiting Target Placement Home with family support Time Time In: 1000 Time Out: 1100 DATE: Jun 21, 2023 Total Billed Treatment Time: 60 Total Billed Treatment 60 min co-tx from [id number] 1 visit GT x 2 FA x 2 OMAR ALLEN PT Jun 21, 2023 16:00
[2023-06-21 20:03] VITALS: BP_SYST 110; BP_SYST 98; BP_DIAS 66; BP_DIAS 73
[2023-06-22] MEDS: LORazepam 0.5 MG TABLET PO PRN ×3 (00:24→20:14)
[2023-06-22] MEDS: HYDROcodone/ACETAMINOPHEN 5 MG/325 MG TABLET PO PRN ×4 (03:57→23:43)
--- NOTE | 2023-06-22 05:03 | PM&R Progress Note ---
Subjective HPI/CC On Admission Date Seen by Provider: Jun 22, 2023 Time Seen by Provider: 12:00 Subjective/Events-last exam 06/22/2023: Much improved status No urinary retention noted No falls No pain except pelvis 06/21/2023: Patient doing a lot better Moving around better No concerns Participation is fairly good 06/20/2023: Slow recovery Pain is an issue but improved right now Voiding fairly well 06/19/2023: No major issues Urinary retention noted No falls Started Urecholine BM+ Pain controlled for the most part 06/18/2023: Patient doing well Discontinued catheter and now she is having some retention We will start Urecholine low-dose Supportive care Reviewed meds and labs 06/17/2023: Patient doing well Compromising on discontinuation of catheter until tomorrow Pain is pretty well controlled unless she moves Bowels are moving currently on a bedpan Review of Systems General: Fatigue, Malaise Objective Exam Vital Signs Vital Signs Date Time Temp Pulse Resp B/P (MAP) Pulse Ox O2 Delivery O2 Flow Rate FiO2 06/22/23 20:20 36.4 83 18 132/72 (92) 98 Nasal Cannula 3.00 06/19/23 09:30 32 Capillary Refill : General Appearance: No Apparent Distress, WD/WN, Chronically ill, Thin, Other (frail) HEENT: PERRL/EOMI, Normal ENT Inspection, Pharynx Normal Neck: Full Range of Motion, Normal Inspection, Non Tender, Supple, Carotid Bruit Respiratory: Chest Non Tender, Lungs Clear, Normal Breath Sounds, No Accessory Muscle Use, No Respiratory Distress Cardiovascular: Regular Rate, Rhythm, No Edema, No Gallop, No JVD, No Murmur, Normal Peripheral Pulses Gastrointestinal: Normal Bowel Sounds, No Organomegaly, No Pulsatile Mass, Non Tender, Soft Back: Normal Inspection, No CVA Tenderness, No Vertebral Tenderness Extremity: Normal Capillary Refill, Normal Inspection, Normal Range of Motion (Except lower extremities due to pelvic pain), Non Tender, No Calf Tenderness, No Pedal Edema Neurologic/Psychiatric: Alert, Oriented x3, rubber stamp dies inspector II-XII Norm as Tested, Abnormal Gait, Depressed Affect, Motor Weakness ( lower extremities due to pain) Skin: Normal Color, Warm/Dry Lymphatic: No Adenopathy Results/Procedures Lab Patient resulted labs reviewed. FIM Transfers Therapy Code Descriptions/Definitions Functional [place] Measure: 0=Not Assessed/NA 4=Minimal Assistance 1=Total Assistance 5=Supervision or Setup 2=Maximal Assistance 6=Modified [place] 3=Moderate Assistance 7=Complete IndependenceSCALE: Activities may be completed with or without assistive devices. 3-Ihsoxljzje-uvloewy completes the activity by him/herself with no assistance from a helper. 5-Set-up or Clean-up Assistance-helper sets up or cleans up; patient completes activity. [place] assists only prior to or following the activity. 4-Supervision or Touching Assistance-helper provides verbal cues and/or touching/steadying and/or contact guard assistance as patient completes activity. Assistance may be provided throughout the activity or intermittently. 3-Partial/Moderate Assistance-helper does LESS THAN HALF the effort. [place] lifts, holds or supports trunk or limbs, but provides less than half the effort. 2-Substantial/Maximal Assistance-helper does MORE THAN HALF the effort. [place] lifts or holds trunk or limbs and provides more than half the effort. 9-Tptgapgql-rrbshh does ALL the effort. Patient does none of the effort to complete the activity. Or, the assistance of 2 or more helpers is required for the patient to complete the activity. If activity was not attempted, code reason: 7-Patient Refused. 9-Not Applicable-not attempted and the patient did not perform the activity before the current illness, exacerbation or injury. 10-Not Attempted due to Environmental Limitations-(lack of equipment, weather restraints, etc.). 88-Not Attempted due to Medical Conditions or Safety Concerns. Roll Left to Right (QC): 2 Sit to Lying (QC): 2 Sit to Stand (QC): 3 Chair/Cpu-qb-Zopmn Xfer(QC): 3 Car Transfer (QC): 88 Gait Training Does the Patient Walk?: Yes Distance: 16ft Walk 10 feet (QC): 4 Walk 50 ft with 2 Turns(QC): 88 (pain ) Walk 150 ft (QC): 88 (pain ) Walking 10ft/uneven surface-QC: 88 Gait Persons Needed: 1 Gait Assistive Device: FWW Wheelchair Training Does the Pt Use a Wheelchair?: Yes Wheel 50 ft with 2 turns (QC): 3 Wheel 150 ft (QC): 88 Type of Wheelchair: Manual Stair Training 1 Step (curb) (QC): 88 (Pain ) 4 Steps (QC): 88 (Pain ) 12 Steps (QC): 9 Balance Picking up an Object (QC): 3 (Min A ) ADL-Treatment Eating (QC): 6 Oral Hygiene (QC): 5 (Pt completed oral care in sitting with setup. ) Shower/Bathe Self (QC): 2 Upper Body Dressing (QC): 5 Lower Body Dressing (QC): 3 (Assist threading LLE) On/Off Footwear (QC): 1 Toileting Hygiene (QC): 3 (Min A pant hike in back) Toilet Transfer (QC): 4 (CGA) Assessment/Plan Assessment and Plan Assess & Plan/Chief Complaint Assessment: Pelvic fracture Oxygen dependent COPD Pulmonary hypertension Atrial fibrillation Anticoagulation for stroke prophylaxis Advanced age Frail status Hypothyroidism Osteoporosis Hypertension Hyperlipidemia Anxiety Anemia of chronic disease Plan: Pain control Aggressive rehab Oxygen supplementation Home meds 06/17/2023: Supportive care Pain control DC catheter tomorrow morning 06/18/2023: Urinary retention treatment Low-dose Urecholine due to COPD 06/19/2023: Urecholine Monitor lung status since added Urecholine 06/20/2023: Supportive care Monitor closely 06/21/2023: Supportive care Monitor closely 06/22/2023: Monitor pain Fall risk 06/22/2023: (1) Pelvic fracture (2) Aortic stenosis (3) Pulmonary hypertension (4) Chronic atrial fibrillation Status: Chronic (5) HTN (hypertension) Status: Acute FE MESA DO Jun 22, 2023 05:03
[2023-06-22] MEDS: BETHANECHOL 25 MG TABLET PO SCH ×4 (06:06→20:13)
[2023-06-22] MEDS: LEVOTHYROXINE 50 MCG TABLET PO SCH (06:07)
[2023-06-22] MEDS: FUROSEMIDE 40 MG TABLET PO SCH ×2 (06:07→16:11)
[2023-06-22 07:56] VITALS: BP 113/66
[2023-06-22] MEDS: SENNA W/DOCUSATE TABLET PO SCH ×2 (07:56→20:14)
[2023-06-22] MEDS: DOCUSATE SODIUM 100 MG CAPSULE PO SCH ×2 (07:56→20:15)
[2023-06-22] MEDS: ALLOPURINOL 100 MG TABLET PO SCH ×2 (07:56→20:14)
[2023-06-22] MEDS: APIXABAN 2.5 MG TABLET PO SCH ×2 (07:56→20:14)
[2023-06-22] MEDS: POTASSIUM CHLORIDE 20 MEQ TABLET PO SCH (07:56)
[2023-06-22] MEDS: LOSARTAN 50 MG TABLET PO SCH ×2 (07:56→20:13)
--- NOTE | 2023-06-22 08:58 | Occupational Ther Daily Note ---
OT Current Status-Daily Note Subjective Pt up in recliner, agreeable to OT Tx. Mental Status/Objective Attachments: Oxygen ADL-Treatment Therapy Code Descriptions/Definitions Functional [place] Measure: 0=Not Assessed/NA 4=Minimal Assistance 1=Total Assistance 5=Supervision or Setup 2=Maximal Assistance 6=Modified [place] 3=Moderate Assistance 7=Complete IndependenceSCALE: Activities may be completed with or without assistive devices. 9-Onkvbwtrbj-dfqbajt completes the activity by him/herself with no assistance from a helper. 5-Set-up or Clean-up Assistance-helper sets up or cleans up; patient completes activity. [place] assists only prior to or following the activity. 4-Supervision or Touching Assistance-helper provides verbal cues and/or touching/steadying and/or contact guard assistance as patient completes activity . Assistance may be provided throughout the activity or intermittently. 3-Partial/Moderate Assistance-helper does LESS THAN HALF the effort. [place] lifts, holds or supports trunk or limbs, but provides less than half the effort. 2-Substantial/Maximal Assistance-helper does MORE THAN HALF the effort. [place] lifts or holds trunk or limbs and provides more than half the effort. 6-Tiyqaxyvj-qrfgqp does ALL the effort. Patient does none of the effort to complete the activity. Or, the assistance of 2 or more helpers is required for the patient to complete the activity. If activity was not attempted, code reason: 7-Patient Refused. 9-Not Applicable-not attempted and the patient did not perform the activity before the current illness, exacerbation or injury. 10-Not Attempted due to Environmental Limitations-(lack of equipment, weather restraints, etc.). 88-Not Attempted due to Medical Conditions or Safety Concerns. Eating (QC): 6 (Pt ate breakfast and took medications provided by RN with increased time.) Shower/Bathe Self (QC): 4 (SBA, pt able to wash/dry all parts during sponge bath with increased time.) Upper Body Dressing (QC): 5 Lower Body Dressing (QC): 4 (AE utilized as needed, pt required mod VCs with AE) On/Off Footwear: 3 (Pt able to doff using environmental education specialist and VCs, Assist to don b/l gripper socks utilizing sock aide.) Increased time required with all ADLS Other Treatment Pt in recliner, agreeable to OT Tx. Pt finished breakfast and took medications provided by RN, increased time needed with task. Pt initially declined ADLS, but with slight encouragement agreed to a sponge bath instead of a shower, as she didn't want to be cold afterwards. Pt doffed clothes, completed sponge bath and donned clothes as outlined above. OT educated pt on AE for LE dressing, moderate VCs required for correct technique. Min A sit to stand (due to slight retropulsion, cues required to lean forward as standing), CGA stand to sit transfer throughout ADL session. Pt felt nauseous, throwing up x2 after medications provided, RN notified. Post tx, pt in recliner, call light in reach and all needs met. Education OT Patient Education: Correct positioning, Energy conservation, Modified ADL techniques, Progress toward Goal/Update tx plan, Purpose of tx/functional activities, Rehab process, Safety issues, Transfer techniques, Use of adapted equipment Teaching Recipient: Patient Teaching Methods: Discussion Response to Teaching: Verbalize Understanding OT Short Term Goals Short Term Goals Time Frame: Jun 23, 2023 Eatin Oral hygiene: 6 Toileting hygiene: 4 Shower/bathe self: 3 Upper body dressin Lower body dressin Putting on/taking off footwear: 4 OT Cattle Sorter Goals Senior Care Goals Time Frame: Jun 30, 2023 Acute change in mental status: 0 Inattention: 0 Disorganized thinkin Altered level of consciousness: 0 Eating (QC): 6 Oral Hygiene (QC): 6 Toileting Hygiene (QC): 6 Shower/Bathe Self (QC): 4 Upper Body Dressing (QC): 6 Lower Body Dressing (QC): 6 On/Off Footwear (QC): 6 1=Demonstrate adherence to instructed precautions during ADL tasks. 2=Patient will verbalize/demonstrate understanding of assistive devices/modifications for ADL. 3=Patient will improve strength/tolerance for activity to enable patient to perform ADL's. OT Education/Plan Problem List/Assessment Assessment: Decreased Activ Tolerance, Decreased UE Strength, Impaired Funct Balance, Impaired I ADL's, Impaired Self-Care Skills Discharge Recommendations Plan/Recommendations: Continue POC Treatment Plan/Plan of Care Patient would benefit from OT for education, treatment and training to promote independence in ADL's, mobility, safety and/or upper extremity function for ADL's. Plan of Care: ADL Retraining, Caregiver Training, Concurrent Therapy, Fu nctional Mobility, Group Exercise/Act as Ind, UE Funct Exercise/Act, W/C Management Training Treatment Duration: Jul 07, 2023 Frequency: At least 5 of 7 days/Wk (IRF) Estimated Hrs Per Day: 1.5 hours per day Agreement: Yes Rehab Potential: Fair Time Start Time: 07:30 Stop Time: 09:00 DATE: Jun 22, 2023 Total Time Billed (hr/min): 90 Billed Treatment Time 1, ADL 6 CLAY BRODERICK OT Jun 22, 2023 08:58
--- NOTE | 2023-06-22 13:37 | Occupational Ther Daily Note ---
OT Current Status-Daily Note Subjective Pt alert, working with PT. Co-treat with PT ([id number]), skills of 2 clinicians required for decreasing fall risk, pain and increase activity tolerance for daily functional tasks. PT focusing on B LE strengthening and mobility while OT focusing on B UE strengthening and functional mobility. Mental Status/Objective Patient Orientation: Person, Place, Time, Situation Attachments: IV ADL-Treatment Therapy Code Descriptions/Definitions Functional [place] Measure: 0=Not Assessed/NA 4=Minimal Assistance 1=Total Assistance 5=Supervision or Setup 2=Maximal Assistance 6=Modified [place] 3=Moderate Assistance 7=Complete IndependenceSCALE: Activities may be completed with or without assistive devices. 4-Pwnzlrncdw-neuexba completes the activity by him/herself with no assistance from a helper. 5-Set-up or Clean-up Assistance-helper sets up or cleans up; patient completes activity. [place] assists only prior to or following the activity. 4-Supervision or Touching Assistance-helper provides verbal cues and/or touching/steadying and/or contact guard assistance as patient completes activity. Assistance may be provided throughout the activity or intermittently. 3-Partial/Moderate Assistance-helper does LESS THAN HALF the effort. [place] lifts, holds or supports trunk or limbs, but provides less than half the effort. 2-Substantial/Maximal Assistance-helper does MORE THAN HALF the effort. [place] lifts or holds trunk or limbs and provides more than half the effort. 6-Lmvujozho-zytfee does ALL the effort. Patient does none of the effort to complete the activity. Or, the assistance of 2 or more helpers is required for the patient to complete the activity. If activity was not attempted, code reason: 7-Patient Refused. 9-Not Applicable-not attempted and the patient did not perform the activity before the current illness, exacerbation or injury. 10-Not Attempted due to Environmental Limitations-(lack of equipment, weather restraints, etc.). 88-Not Attempted due to Medical Conditions or Safety Concerns. Other Treatment See PT notes for ambulation distance and assistance. Pt requires vc for hand placement for sit <--> stand from a variety of surfaces. Pt able to propel w/c in straight line for ~5' each time. Pt requires max encouragement to participate in any mobility tasks. No LOB when ambulating though requires verbal cues for slow stand to sit. After session, pt sitting in recliner with call light/phone in reach. All needs met in room. OT Short Term Goals Short Term Goals Time Frame: Jun 23, 2023 Eatin Oral hygiene: 6 Toileting hygiene: 4 Shower/bathe self: 3 Upper body dressin Lower body dressin Putting on/taking off footwear: 4 OT Chcf Goals Chcf Goals Time Frame: Jun 30, 2023 Acute change in mental status: 0 Inattention: 0 Disorganized thinkin Altered level of consciousness: 0 Eating (QC): 6 Oral Hygiene (QC): 6 Toileting Hygiene (QC): 6 Shower/Bathe Self (QC): 4 Upper Body Dressing (QC): 6 Lower Body Dressing (QC): 6 On/Off Footwear (QC): 6 1=Demonstrate adherence to instructed precautions during ADL tasks. 2=Patient will verbalize/demonstrate understanding of assistive devices/modifications for ADL. 3=Patient will improve strength/tolerance for activity to enable patient to perform ADL's. OT Education/Plan Problem List/Assessment Assessment: Decreased Activ Tolerance, Decreased Safety Aware, Decreased UE Strength Discharge Recommendations Plan/Recommendations: Continue POC Treatment Plan/Plan of Care Patient would benefit from OT for education, treatment and training to promote independence in ADL's, mobility, safety and/or upper extremity function for ADL's. Plan of Care: ADL Retraining, Caregiver Training, Concurrent Therapy, Functional Mobility, Group Exercise/Act as Ind, UE Funct Exercise/Act, W/C Management Training Treatment Duration: Jul 07, 2023 Frequency: At least 5 of 7 days/Wk (IRF) Estimated Hrs Per Day: 1.5 hours per day Agreement: Yes Rehab Potential: Fair Time Start Time: 11:30 Stop Time: 12:00 DATE: Jun 22, 2023 Total Time Billed (hr/min): 1200 Billed Treatment Time 1 visit-FA 2 (30 min) co-treat with PT 30 min IRENA VALDES Jun 22, 2023 13:37
--- NOTE | 2023-06-22 15:31 | Physical Therapy Daily Note ---
PT Daily Note-Current Subjective Pt is agreeable to PT. Pt reported R hip pain at 6. PT/OT co-tx from 1130- 1200, skills of 2 clinicians required for decreasing fall risk, for increased pain, and to increase activity tolerance for daily functional tasks. PT focusing on B LE strengthening, w/c mobility, walking, safety, and Ind, while OT focusing on B UE strengthening and functional mobility. Pain Numeric Pain Scale: 6 Location: Right Location Body Site: Hip Section J - Health Conditions 1. Rarely or not at all 2. Occasionally 3. Frequently 4. Almost constantly 8. Unable to answer Pain Effect on Sleep: 1 Pain Interference with Therapy: 4 Pain Interference w/Day-to-Day: 3 Mental Status Attachments: Oxygen (3L) Transfers SCALE: Activities may be completed with or without assistive devices. 7-Vnwwefhnep-girarqh completes the activity by him/herself with no assistance from a helper. 5-Set-up or Clean-up Assistance-helper sets up or cleans up; patient completes activity. [place] assists only prior to or following the activity. 4-Supervision or Touching Assistance-helper provides verbal cues and/or touching/steadying and/or contact guard assistance as patient completes activity. Assistance may be provided throughout the activity or intermittently. 3-Partial/Moderate Assistance-helper does LESS THAN HALF the effort. [place] lifts, holds or supports trunk or limbs, but provides less than half the effort. 2-Substantial/Maximal Assistance-helper does MORE THAN HALF the effort. [place] lifts or holds trunk or limbs and provides more than half the effort. 2-Xlaomysld-dcwewd does ALL the effort. Patient does none of the effort to complete the activity. Or, the assistance of 2 or more helpers is required for the patient to complete the activity. If activity was not attempted, code reason: 7-Patient Refused. 9-Not Applicable-not attempted and the patient did not perform the activity before the current illness, exacerbation or injury. 10-Not Attempted due to Environmental Limitations-(lack of equipment, weather restraints, etc.). 88-Not Attempted due to Medical Conditions or Safety Concerns. Sit to Stand (QC): 3 Weight Bearing Right Lower Extremity: Right Weight Bearing/Tolerated Left Lower Extremity: Left Weight Bearing/Tolerated Gait Training Does the Patient Walk?: Yes Walk 10 feet (QC): 4 Walk 50 ft with 2 Turns(QC): 88 Walk 150 ft (QC): 88 Walking 10ft/uneven surface-QC: 88 Gait Persons Needed: 1 Gait Assistive Device: FWW Wheelchair Training Does the Pt Use a Wheelchair?: Yes Wheel 50 ft with 2 turns (QC): 4 Wheel 150 ft (QC): 7 Type of Wheelchair: Manual Treatments Pt required Min A for sit to stand transfers with Mod v/c for correct hand placement, technique, and safety. Pt ambulated 44ft, 18ft, and 10ft with the FWW and CGA and Mod encouragement to cont. Pt able to propel w/c in straight line for ~5' each time with SBA, for a total of 50ft, while working through the facility. Pt requires max encouragement to participate in any mobility tasks. After treatment session, pt was sitting in recliner with call light/phone in reach. All needs met in room. Assessment Current Status: Good Progress Pt tolerated treatment better on this date, with improved effort/participation PT Switchboard Operator Goals Switchboard Operator Goals PT Longterm Goals Time Frame: Jul 07, 2023 Roll Left & Right (QC): 4 (Pt will be SBA for functional mobility, in order to safely return home with daughter. ) Sit to Lying (QC): 4 (Pt will be SBA for functional mobility, in order to safely return home with daughter. ) Lying-Sitting on Side/Bed(QC): 4 (Pt will be SBA for functional mobility, in order to safely return home with daughter. ) Sit to Stand (QC): 4 (Pt will be SBA for functional mobility, in order to safely return home with daughter. ) Chair/Fps-er-Orafr Xfer(QC): 4 (Pt will be SBA for functional mobility, in order to safely return home with daughter. ) Toilet Transfer (QC): 4 (Pt will be SBA for functional mobility, in order to safely return home with daughter. ) Car Transfer (QC): 4 (Pt will be SBA for functional mobility, in order to safely return home with daughter. ) Does the Patient Walk: Yes Walk 10 feet (QC): 4 (Pt will be SBA for functional mobility, in order to safely return home with daughter. ) Walk 50ft with 2 Turns (QC): 4 (Pt will be SBA for functional mobility, in order to safely return home with daughter. ) Walk 150 ft (QC): 4 (Pt will be SBA for functional mobility, in order to safely return home with daughter. ) Walking 10ft on Uneven Surface: 4 (Pt will be SBA for functional mobility, in order to safely return home with daughter. ) 1 Step (curb) (QC): 4 (Pt will be SBA for functional mobility, in order to safely return home with daughter. ) 4 Steps (QC): 4 (Pt will be SBA for functional mobility, in order to safely return home with daughter. ) 12 Steps (QC): 9 Picking up an Object (QC): 4 (Pt will be SBA for functional mobility, in order to safely return home with daughter. With sewing machine tester ) Does the Pt use WC or Scooter?: Yes Wheel 50 feet with 2 turns (QC: 4 (Pt will be SBA for functional mobility, in order to safely return home with daughter. ) Type: Manual Wheel 150 feet: 4 (Pt will be SBA for functional mobility, in order to safely return home with daughter. ) Type: Manual PT Plan Problem List Problem List: Activity Tolerance, Functional Strength, Safety, Balance, Gait, Transfer, Bed Mobility, ROM Treatment/Plan Treatment Plan: Continue Plan of Care Treatment Plan: Bed Mobility, Education, Functional Activity Huey, Functional Strength, Group Therapy, Gait, Safety, Therapeutic Exercise, Transfers Treatment Duration: Jul 07, 2023 Frequency: At least 5 of 7 days/Wk (IRF) Estimated Hrs Per Day: 1.5 hours per day Patient and/or Family Agrees t: Yes Safety Risks/Education Patient Education: Gait Training, Transfer Techniques, Correct Positioning, W/C Management, Safety Issues Teaching Recipient: Patient Teaching Methods: Demonstration, Discussion Response to Teaching: Reinforcement Needed Discharge Recommendations Therapy Discharge Recommendati: Home & Family, Post Acute PT Equpiment Recommendations-D/C: None Discharge Status/Home Program Cont per POC Barriers to Progress Pain, Weakness, Endurance, Self-limiting Target Placement Home with family assistance and [facility] Time Time In: 1100 Time Out: 1200 DATE: Jun 22, 2023 Total Billed Treatment Time: 60 Total Billed Treatment 60 min total from [id number]; Co-tx for 30 min from [id number] 1 visit FA x 2 GT x 2 OMAR ALLEN PT Jun 22, 2023 15:31
[2023-06-22] MEDS: MELATONIN 3 MG TABLET PO PRN (20:13)
[2023-06-22 20:20] VITALS: BP 132/72
[2023-06-23] MEDS: LORazepam 0.5 MG TABLET PO PRN ×4 (02:53→20:42)
[2023-06-23] MEDS: HYDROcodone/ACETAMINOPHEN 5 MG/325 MG TABLET PO PRN ×2 (05:42→13:50)
[2023-06-23] MEDS: LEVOTHYROXINE 50 MCG TABLET PO SCH (05:42)
[2023-06-23] MEDS: BETHANECHOL 25 MG TABLET PO SCH ×4 (05:42→20:41)
[2023-06-23] MEDS: FUROSEMIDE 40 MG TABLET PO SCH ×2 (05:42→16:34)
[2023-06-23 08:25] VITALS: BP 126/76
--- NOTE | 2023-06-23 08:29 | Occupational Ther Daily Note ---
OT Current Status-Daily Note Subjective Pt agreeable to OT Tx. Does not verbalize pain during tx. Mental Status/Objective Attachments: Oxygen ADL-Treatment Therapy Code Descriptions/Definitions Functional [place] Measure: 0=Not Assessed/NA 4=Minimal Assistance 1=Total Assistance 5=Supervision or Setup 2=Maximal Assistance 6=Modified [place] 3=Moderate Assistance 7=Complete IndependenceSCALE: Activities may be completed with or without assistive devices. 1-Hrabazhehr-hgwnyuo completes the activity by him/herself with no assistance from a helper. 5-Set-up or Clean-up Assistance-helper sets up or cleans up; patient completes activity. [place] assists only prior to or following the activity. 4-Supervision or Touching Assistance-helper provides verbal cues and/or touching/steadying and/or contact guard assistance as patient completes activity. Assistance may be provided throughout the activity or intermittently. 3-Partial/Moderate Assistance-helper does LESS THAN HALF the effort. [place] lifts, holds or supports trunk or limbs, but provides less than half the effort. 2-Substantial/Maximal Assistance-helper does MORE THAN HALF the effort. [place] lifts or holds trunk or limbs and provides more than half the effort. 6-Icrzmyxas-hbvfut does ALL the effort. Patient does none of the effort to complete the activity. Or, the assistance of 2 or more helpers is required for the patient to complete the activity. If activity was not attempted, code reason: 7-Patient Refused. 9-Not Applicable-not attempted and the patient did not perform the activity before the current illness, exacerbation or injury. 10-Not Attempted due to Environmental Limitations-(lack of equipment, weather restraints, etc.). 88-Not Attempted due to Medical Conditions or Safety Concerns. Eating (QC): 6 Other Treatment Pt in recliner, completed breakfast independently. Pt able to open containers and manipulate utensils to bring food to her mouth. Pt able to comb hair independently. [facility], transferring to /c, [facility]. Pt propelled w/c around [facility] common area, seated RBs as needed. Pt returned to her room, stood from w/c with mod A, then transferred to [facility], [facility]-SBA once [address] and. Post tx, pt in recliner, call light in reach and all needs met. Education OT Patient Education: Correct positioning, Energy conservation, Modified ADL techniques, Progress toward Goal/Update tx plan, Purpose of tx/functional activities, Rehab process Teaching Recipient: Patient Teaching Methods: Discussion Response to Teaching: Verbalize Understanding OT Short Term Goals Short Term Goals Time Frame: Jun 23, 2023 Eatin Oral hygiene: 6 Toileting hygiene: 4 Shower/bathe self: 3 Upper body dressin Lower body dressin Putting on/taking off footwear: 4 OT Machine Tech Goals Snf Goals Time Frame: Jun 30, 2023 Acute change in mental status: 0 Inattention: 0 Disorganized thinkin Altered level of consciousness: 0 Eating (QC): 6 Oral Hygiene (QC): 6 Toileting Hygiene (QC): 6 Shower/Bathe Self (QC): 4 Upper Body Dressing (QC): 6 Lower Body Dressing (QC): 6 On/Off Footwear (QC): 6 1=Demonstrate adherence to instructed precautions during ADL tasks. 2=Patient will verbalize/demonstrate understanding of assistive devices/modifications for ADL. 3=Patient will improve strength/tolerance for activity to enable patient to perform ADL's. OT Education/Plan Problem List/Assessment Assessment: Decreased Activ Tolerance, Decreased UE Strength, Impaired Funct Balance, Impaired I ADL's, Impaired Self-Care Skills Discharge Recommendations Plan/Recommendations: Continue POC Treatment Plan/Plan of Care Patient would benefit from OT for education, treatment and training to promote independence in ADL's, mobility, safety and/or upper extremity function for ADL's. Plan of Care: ADL Retraining, Caregiver Training, Concurrent Therapy, Functional Mobility, Group Exercise/Act as Ind, UE Funct Exercise/Act, W/C Management Training Treatment Duration: Jul 07, 2023 Frequency: At least 5 of 7 days/Wk (IRF) Estimated Hrs Per Day: 1.5 hours per day Agreement: Yes Rehab Potential: Fair Time Start Time: 07:15 Stop Time: 08:30 DATE: Jun 23, 2023 Total Time Billed (hr/min): 75 Billed Treatment Time 1, ADL 2 (30'), FA 3 (45') CLAY BRODERICK OT Jun 23, 2023 08:29
[2023-06-23] MEDS: LOSARTAN 50 MG TABLET PO SCH ×2 (09:05→20:42)
[2023-06-23] MEDS: SENNA W/DOCUSATE TABLET PO SCH ×2 (09:05→20:42)
[2023-06-23] MEDS: FERROUS SULFATE 325 MG (IRON) TABLET PO SCH (09:05)
[2023-06-23] MEDS: DOCUSATE SODIUM 100 MG CAPSULE PO SCH ×2 (09:05→20:41)
[2023-06-23] MEDS: APIXABAN 2.5 MG TABLET PO SCH ×2 (09:05→20:42)
[2023-06-23] MEDS: POTASSIUM CHLORIDE 20 MEQ TABLET PO SCH (09:05)
--- NOTE | 2023-06-23 09:58 | PM&R Progress Note ---
Subjective HPI/CC On Admission Date Seen by Provider: Jun 23, 2023 Time Seen by Provider: 11:00 Subjective/Events-last exam 06/23/2023: Doing well Voiding well but abnl urine so obtained UA and will start on abx since UTI dx No falls Pain controlled 06/22/2023: Much improved status No urinary retention noted No falls No pain except pelvis 06/21/2023: Patient doing a lot better Moving around better No concerns Participation is fairly good 06/20/2023: Slow recovery Pain is an issue but improved right now Voiding fairly well 06/19/2023: No major issues Urinary retention noted No falls Started Urecholine BM+ Pain controlled for the most part 06/18/2023: Patient doing well Discontinued catheter and now she is having some retention We will start Urecholine low-dose Supportive care Reviewed meds and labs 06/17/2023: Patient doing well Compromising on discontinuation of catheter until tomorrow Pain is pretty well controlled unless she moves Bowels are moving currently on a bedpan Review of Systems General: Fatigue, Malaise Objective Exam Vital Signs Vital Signs Date Time Temp Pulse Resp B/P (MAP) Pulse Ox O2 Delivery O2 Flow Rate FiO2 06/23/23 09:00 Nasal Cannula 3.00 06/23/23 08:25 36.2 87 20 126/76 (93) 100 06/19/23 09:30 32 Capillary Refill : General Appearance: No Apparent Distress, WD/WN, Chronically ill, Thin, Other (frail) HEENT: PERRL/EOMI, Normal ENT Inspection, Pharynx Normal Neck: Full Range of Motion, Normal Inspection, Non Tender, Supple, Carotid Bruit Respiratory: Chest Non Tender, Lungs Clear, Normal Breath Sounds, No Accessory Muscle Use, No Respiratory Distress Cardiovascular: Regular Rate, Rhythm, No Edema, No Gallop, No JVD, No Murmur, Normal Peripheral Pulses Gastrointestinal: Normal Bowel Sounds, No Organomegaly, No Pulsatile Mass, Non Tender, Soft Back: Normal Inspection, No CVA Tenderness, No Vertebral Tenderness Extremity: Normal Capillary Refill, Normal Inspection, Normal Range of Motion (Except lower extremities due to pelvic pain), Non Tender, No Calf Tenderness, No Pedal Edema Neurologic/Psychiatric: Alert, Oriented x3, return checker II-XII Norm as Tested, Abnormal Gait, Depressed Affect, Motor Weakness ( lower extremities due to pain) Skin: Normal Color, Warm/Dry Lymphatic: No Adenopathy Results/Procedures Lab Patient resulted labs reviewed. FIM Transfers Therapy Code Descriptions/Definitions Functional [place] Measure: 0=Not Assessed/NA 4=Minimal Assistance 1=Total Assistance 5=Supervision or Setup 2=Maximal Assistance 6=Modified [place] 3=Moderate Assistance 7=Complete IndependenceSCALE: Activities may be completed with or without assistive devices. 7-Dyjmhjkerz-zclwlli completes the activity by him/herself with no assistance from a helper. 5-Set-up or Clean-up Assistance-helper sets up or cleans up; patient completes activity. [place] assists only prior to or following the activity. 4-Supervision or Touching Assistance-helper provides verbal cues and/or touching/steadying and/or contact guard assistance as patient completes activity. Assistance may be provided throughout the activity or intermittently. 3-Partial/Moderate Assistance-helper does LESS THAN HALF the effort. [place] lifts, holds or supports trunk or limbs, but provides less than half the effort. 2-Substantial/Maximal Assistance-helper does MORE THAN HALF the effort. [place] lifts or holds trunk or limbs and provides more than half the effort. 4-Eehyvcveh-wzucwz does ALL the effort. Patient does none of the effort to complete the activity. Or, the assistance of 2 or more helpers is required for the patient to complete the activity. If activity was not attempted, code reason: 7-Patient Refused. 9-Not Applicable-not attempted and the patient did not perform the activity befo re the current illness, exacerbation or injury. 10-Not Attempted due to Environmental Limitations-(lack of equipment, weather re straints, etc.). 88-Not Attempted due to Medical Conditions or Safety Concerns. Roll Left to Right (QC): 2 Sit to Lying (QC): 2 Sit to Stand (QC): 3 Chair/Xem-pw-Kjdlh Xfer(QC): 3 Car Transfer (QC): 88 Gait Training Does the Patient Walk?: Yes Distance: 16ft Walk 10 feet (QC): 4 Walk 50 ft with 2 Turns(QC): 88 Walk 150 ft (QC): 88 Walking 10ft/uneven surface-QC: 88 Gait Persons Needed: 1 Gait Assistive Device: FWW Wheelchair Training Does the Pt Use a Wheelchair?: Yes Wheel 50 ft with 2 turns (QC): 4 Wheel 150 ft (QC): 7 Type of Wheelchair: Manual Stair Training 1 Step (curb) (QC): 88 (Pain ) 4 Steps (QC): 88 (Pain ) 12 Steps (QC): 9 Balance Picking up an Object (QC): 3 (Min A ) ADL-Treatment Eating (QC): 6 Oral Hygiene (QC): 5 (Pt completed oral care in sitting with setup. ) Shower/Bathe Self (QC): 4 (SBA, pt able to wash/dry all parts during sponge bath with increased time.) Upper Body Dressing (QC): 5 Lower Body Dressing (QC): 4 (AE utilized as needed, pt required mod VCs with AE) On/Off Footwear (QC): 3 (Pt able to doff using pleat patternmaker and VCs, Assist to don b/l gripper socks utilizing sock aide.) Toileting Hygiene (QC): 3 (Min A pant hike in back) Toilet Transfer (QC): 4 (CGA) Assessment/Plan Assessment and Plan Assess & Plan/Chief Complaint Assessment: Pelvic fracture Oxygen dependent COPD Pulmonary hypertension Atrial fibrillation Anticoagulation for stroke prophylaxis Advanced age Frail status Hypothyroidism Osteoporosis Hypertension Hyperlipidemia Anxiety Anemia of chronic disease Acute UTI placed on abx 06/23/23 Plan: Pain control Aggressive rehab Oxygen supplementation Home meds 06/17/2023: Supportive care Pain control DC catheter tomorrow morning 06/18/2023: Urinary retention treatment Low-dose Urecholine due to COPD 06/19/2023: Urecholine Monitor lung status since added Urecholine 06/20/2023: Supportive care Monitor closely 06/21/2023: Supportive care Monitor closely 06/22/2023: Monitor pain Fall risk 06/23/2023: Treat UTI (1) Pelvic fracture (2) Aortic stenosis (3) Pulmonary hypertension (4) Chronic atrial fibrillation Status: Chronic (5) HTN (hypertension) Status: Acute FE MESA DO Jun 23, 2023 09:58
--- NOTE | 2023-06-23 12:00 | Physical Therapy Daily Note ---
PT Daily Note-Current Subjective Pt found seated in recliner upon entry. Agreed to PT. Reports soreness in pelvis pre-treatment. Pain Section J - Health Conditions 1. Rarely or not at all 2. Occasionally 3. Frequently 4. Almost constantly 8. Unable to answer Pain Effect on Sleep: 1 Pain Interference with Therapy: 4 Pain Interference w/Day-to-Day: 3 Mental Status Patient Orientation: Person, Place Attachments: Oxygen 3L Transfers SCALE: Activities may be completed with or without assistive devices. 9-Psaibalzre-isruylp completes the activity by him/herself with no assistance from a helper. 5-Set-up or Clean-up Assistance-helper sets up or cleans up; patient completes activity. [place] assists only prior to or following the activity. 4-Supervision or Touching Assistance-helper provides verbal cues and/or touching/steadying and/or contact guard assistance as patient completes activity. Assistance may be provided throughout the activity or intermittently. 3-Partial/Moderate Assistance-helper does LESS THAN HALF the effort. [place] lifts, holds or supports trunk or limbs, but provides less than half the effort. 2-Substantial/Maximal Assistance-helper does MORE THAN HALF the effort. [place] lifts or holds trunk or limbs and provides more than half the effort. 9-Auhifecna-mrebpo does ALL the effort. Patient does none of the effort to complete the activity. Or, the assistance of 2 or more helpers is required for the patient to complete the activity. If activity was not attempted, code reason: 7-Patient Refused. 9-Not Applicable-not attempted and the patient did not perform the activity before the current illness, exacerbation or injury. 10-Not Attempted due to Environmental Limitations-(lack of equipment, weather restraints, etc.). 88-Not Attempted due to Medical Conditions or Safety Concerns. Sit to Stand (QC): 3 Toilet Transfer (QC): 3 Sit to stand transfer complete 5x from chair. Weight Bearing Right Lower Extremity: Right Weight Bearing/Tolerated Left Lower Extremity: Left Weight Bearing/Tolerated Gait Training Does the Patient Walk?: Yes Distance: 30, 50 Walk 10 feet (QC): 4 Walk 50 ft with 2 Turns(QC): 4 Gait Persons Needed: 1 Gait Assistive Device: FWW Wheelchair Training Does the Pt Use a Wheelchair?: Yes Wheel 50 ft with 2 turns (QC): 6 Treatments Seated Therapeutic Exercises (B) x 10ea: Hamstring curls /c TYB Hip abd /c YTB Heel/toe raises LAQs TA sets Assessment Current Status: Fair Progress Pt ambulates up to 50 feet /c use of FWW. CGA required for safety due to strength deficits. Increased pain reported during standing activities. Pt required frequent verbal cues for proper head posture and step length. No loss of balance demonstrated during gait training but pt does require two short nidhi ding rest breaks to complete 50 feet of ambulation. MIN assistance required to perform sit to stand and toilet transfer for lifting. Limited ROM displayed while performing seated therapeutic exercises. Continue to progress pt per POC. PT Fast Food Cashier Goals Fast Food Cashier Goals PT Usp Goals Time Frame: Jul 07, 2023 Roll Left & Right (QC): 4 (Pt will be SBA for functional mobility, in order to safely return home with daughter. ) Sit to Lying (QC): 4 (Pt will be SBA for functional mobility, in order to safely return home with daughter. ) Lying-Sitting on Side/Bed(QC): 4 (Pt will be SBA for functional mobility, in order to safely return home with daughter. ) Sit to Stand (QC): 4 (Pt will be SBA for functional mobility, in order to safely return home with daughter. ) Chair/Thk-xc-Vmvjx Xfer(QC): 4 (Pt will be SBA for functional mobility, in order to safely return home with daughter. ) Toilet Transfer (QC): 4 (Pt will be SBA for functional mobility, in order to safely return home with daughter. ) Car Transfer (QC): 4 (Pt will be SBA for functional mobility, in order to sa fritz return home with daughter. ) Does the Patient Walk: Yes Walk 10 feet (QC): 4 (Pt will be SBA for functional mobility, in order to safely return home with daughter. ) Walk 50ft with 2 Turns (QC): 4 (Pt will be SBA for functional mobility, in order to safely return home with daughter. ) Walk 150 ft (QC): 4 (Pt will be SBA for functional mobility, in order to safely return home with daughter. ) Walking 10ft on Uneven Surface: 4 (Pt will be SBA for functional mobility, in order to safely return home with daughter. ) 1 Step (curb) (QC): 4 (Pt will be SBA for functional mobility, in order to safely return home with daughter. ) 4 Steps (QC): 4 (Pt will be SBA for functional mobility, in order to safely return home with daughter. ) 12 Steps (QC): 9 Picking up an Object (QC): 4 (Pt will be SBA for functional mobility, in order to safely return home with daughter. With investigation division lieutenant ) Does the Pt use WC or Scooter?: Yes Wheel 50 feet with 2 turns (QC: 4 (Pt will be SBA for functional mobility, in order to safely return home with daughter. ) Type: Manual Wheel 150 feet: 4 (Pt will be SBA for functional mobility, in order to safely return home with daughter. ) Type: Manual PT Plan Treatment/Plan Treatment Plan: Continue Plan of Care Treatment Plan: Bed Mobility, Education, Functional Activity Huey, Functional Strength, Group Therapy, Gait, Safety, Therapeutic Exercise, Transfers Treatment Duration: Jul 07, 2023 Frequency: At least 5 of 7 days/Wk (IRF) Estimated Hrs Per Day: 1.5 hours per day Patient and/or Family Agrees t: Yes Time Time In: 0900 Time Out: 1000 DATE: Jun 23, 2023 Total Billed Treatment Time: 60 Total Billed Treatment 1 visit BRISEYDA BAUER PTA Jun 23, 2023 11:59
--- NOTE | 2023-06-23 14:45 | Occupational Ther Daily Note ---
OT Current Status-Daily Note Subjective Pt required encouragement to participate in therapy tx this afternoon. Cotreat with PT due to scheduled family training with pt's daughter Victoria. Mental Status/Objective Attachments: Oxygen ADL-Treatment Therapy Code Descriptions/Definitions Functional [place] Measure: 0=Not Assessed/NA 4=Minimal Assistance 1=Total Assistance 5=Supervision or Setup 2=Maximal Assistance 6=Modified [place] 3=Moderate Assistance 7=Complete IndependenceSCALE: Activities may be completed with or without assistive devices. 9-Cdbckrlwlj-bfwnpml completes the activity by him/herself with no assistance from a helper. 5-Set-up or Clean-up Assistance-helper sets up or cleans up; patient completes activity. [place] assists only prior to or following the activity. 4-Supervision or Touching Assistance-helper provides verbal cues and/or touching/steadying and/or contact guard assistance as patient completes activity. Assistance may be provided throughout the activity or intermittently. 3-Partial/Moderate Assistance-helper does LESS THAN HALF the effort. [place] lifts, holds or supports trunk or limbs, but provides less than half the effort. 2-Substantial/Maximal Assistance-helper does MORE THAN HALF the effort. [place] lifts or holds trunk or limbs and provides more than half the effort. 5-Fvfepesxs-zevkvd does ALL the effort. Patient does none of the effort to complete the activity. Or, the assistance of 2 or more helpers is required for the patient to complete the activity. If activity was not attempted, code reason: 7-Patient Refused. 9-Not Applicable-not attempted and the patient did not perform the activity before the current illness, exacerbation or injury. 10-Not Attempted due to Environmental Limitations-(lack of equipment, weather restraints, etc.). 88-Not Attempted due to Medical Conditions or Safety Concerns. Other Treatment OT/PT cotreat due to skill of 2 clinicians required which a autocad technician could not perform in order to coordinate UE/LEs, decrease fall risk, focus on family training with pt's daughter and due to pt's limitations in strength, activity tolerance, mobility/transfers and pain. OT focused on UE placement, cues for sequencing and safety and ADLS, PT focused on LE placement, gross overall movement, transfers and mobility. Pt initially declined therapy tx, stating she didn't want to get out of bed but with some encouragement, pt agreeable. Pt required assistance with getting BLEs to EOB, and trunk assistance to sit EOB. Pt stood from EOB to FWW, then performed functional mobility to doorway and back to recliner (please refer to PT note for distance and assistance levels with mobility/transfers). Pt's daughter Victoria educated on assistance levels required with mobility and transfers, assistance level with ADLs, and recommendations for sock aide and costumed character entertainer, she verbalized understanding. Post tx, pt in recliner, call light in reach and all needs met. OT Short Term Goals Short Term Goals Time Frame: Jun 23, 2023 Eatin Oral hygiene: 6 Toileting hygiene: 4 Shower/bathe self: 3 Upper body dressin Lower body dressin Putting on/taking off footwear: 4 OT Real Estate Paralegal Goals Penit[facility]iary Goals Time Frame: Jun 30, 2023 Acute change in mental status: 0 Inattention: 0 Disorganized thinkin Altered level of consciousness: 0 Eating (QC): 6 Oral Hygiene (QC): 6 Toileting Hygiene (QC): 6 Shower/Bathe Self (QC): 4 Upper Body Dressing (QC): 6 Lower Body Dressing (QC): 6 On/Off Footwear (QC): 6 1=Demonstrate adherence to instructed precautions during ADL tasks. 2=Patient will verbalize/demonstrate understanding of assistive devices/modifications for ADL. 3=Patient will improve strength/tolerance for activity to enable patient to perform ADL's. OT Education/Plan Problem List/Assessment Assessment: Decreased Activ Tolerance, Decreased UE Strength, Impaired Funct Balance, Impaired I ADL's, Impaired Self-Care Skills Discharge Recommendations Plan/Recommendations: Continue POC Treatment Plan/Plan of Care Patient would benefit from OT for education, treatment and training to promote independence in ADL's, mobility, safety and/or upper extremity function for ADL's. Plan of Care: ADL Retraining, Caregiver Training, Concurrent Therapy, Functional Mobility, Group Exercise/Act as Ind, UE Funct Exercise/Act, W/C Management Training Treatment Duration: Jul 07, 2023 Frequency: At least 5 of 7 days/Wk (IRF) Estimated Hrs Per Day: 1.5 hours per day Agreement: Yes Rehab Potential: Fair Time Start Time: 14:00 Stop Time: 14:30 DATE: Jun 23, 2023 Total Time Billed (hr/min): 30 Billed Treatment Time cotreat x30 1, FA 2 CLAY BRODERICK OT Jun 23, 2023 14:45
[2023-06-23 15:07] LABS: BACTERIA,URINE LARGE /HPF; BILIRUBIN,URINE NEGATIVE (NEGATIVE); CLARITY,URINE CLOUDY; COLOR,URINE YELLOW; GLUCOSE, URINE (UA) NEGATIVE (NEGATIVE); KETONES,URINE NEGATIVE (NEGATIVE); LEUKOCYTE ESTERASE ,URINE 3+ (NEGATIVE); NITRITE,URINE NEGATIVE (NEGATIVE); PH,URINE 5.5 (5-9); PROTEIN,URINE TRACE (NEGATIVE); WBC,URINE TNTC /HPF
--- NOTE | 2023-06-23 15:14 | Physical Therapy Daily Note ---
PT Daily Note-Current Subjective Pt found lying in bed upon entry. Initially refuses gait training but agrees /c encouragement. PT/OT co-treatment for family training. Pt's daughter present. Pain Section J - Health Conditions 1. Rarely or not at all 2. Occasionally 3. Frequently 4. Almost constantly 8. Unable to answer Pain Effect on Sleep: 1 Pain Interference with Therapy: 4 Pain Interference w/Day-to-Day: 3 Mental Status Patient Orientation: Person, Place Attachments: Oxygen Transfers SCALE: Activities may be completed with or without assistive devices. 0-Dnxrzugxsz-bopvhzi completes the activity by him/herself with no assistance from a helper. 5-Set-up or Clean-up Assistance-helper sets up or cleans up; patient completes activity. [place] assists only prior to or following the activity. 4-Supervision or Touching Assistance-helper provides verbal cues and/or touching/steadying and/or contact guard assistance as patient completes activity. Assistance may be provided throughout the activity or intermittently. 3-Partial/Moderate Assistance-helper does LESS THAN HALF the effort. [place] lifts, holds or supports trunk or limbs, but provides less than half the effort. 2-Substantial/Maximal Assistance-helper does MORE THAN HALF the effort. [place] lifts or holds trunk or limbs and provides more than half the effort. 2-Lteowtjsp-xnclhc does ALL the effort. Patient does none of the effort to complete the activity. Or, the assistance of 2 or more helpers is required for the patient to complete the activity. If activity was not attempted, code reason: 7-Patient Refused. 9-Not Applicable-not attempted and the patient did not perform the activity before the current illness, exacerbation or injury. 10-Not Attempted due to Environmental Limitations-(lack of equipment, weather restraints, etc.). 88-Not Attempted due to Medical Conditions or Safety Concerns. Lying to Sitting/Side of Bed(Q: 3 Sit to Stand (QC): 4 Weight Bearing Right Lower Extremity: Right Weight Bearing/Tolerated Left Lower Extremity: Left Weight Bearing/Tolerated Gait Training Does the Patient Walk?: Yes Distance: 20 Walk 10 feet (QC): 4 Gait Persons Needed: 1 Gait Assistive Device: FWW Assessment Current Status: Fair Progress Pt difficult to motivate this visit. Pt ambulated 20 feet to room door and back /c use of a FWW. CGA required for safety due to balance deficits. Pt continues to display poor head posture while ambulating. Required MIN assist /c BLEs for lifting due to reported pelvic pain. Sit to stand transfer performed from edge of bed /c SBA only. Call light in place /c all needs met most treatment and daughter present. Continue to progress pt per POC. PT Take Down Inspector Goals Take Down Inspector Goals PT Take Down Inspector Goals Time Frame: Jul 07, 2023 Roll Left & Right (QC): 4 (Pt will be SBA for functional mobility, in order to safely return home with daughter. ) Sit to Lying (QC): 4 (Pt will be SBA for functional mobility, in order to safely return home with daughter. ) Lying-Sitting on Side/Bed(QC): 4 (Pt will be SBA for functional mobility, in order to safely return home with daughter. ) Sit to Stand (QC): 4 (Pt will be SBA for functional mobility, in order to safely return home with daughter. ) Chair/Rcn-qy-Ulfak Xfer(QC): 4 (Pt will be SBA for functional mobility, in order to safely return home with daughter. ) Toilet Transfer (QC): 4 (Pt will be SBA for functional mobility, in order to safely return home with daughter. ) Car Transfer (QC): 4 (Pt will be SBA for functional mobility, in order to safely return home with daughter. ) Does the Patient Walk: Yes Walk 10 feet (QC): 4 (Pt will be SBA for functional mobility, in order to safely return home with daughter. ) Walk 50ft with 2 Turns (QC): 4 (Pt will be SBA for functional mobility, in order to safely return home with daughter. ) Walk 150 ft (QC): 4 (Pt will be SBA for functional mobility, in order to safely return home with daughter. ) Walking 10ft on Uneven Surface: 4 (Pt will be SBA for functional mobility, in order to safely return home with daughter. ) 1 Step (curb) (QC): 4 (Pt will be SBA for functional mobility, in order to safely return home with daughter. ) 4 Steps (QC): 4 (Pt will be SBA for functional mobility, in order to safely return home with daughter. ) 12 Steps (QC): 9 Picking up an Object (QC): 4 (Pt will be SBA for functional mobility, in order to safely return home with daughter. With carpet measurer ) Does the Pt use WC or Scooter?: Yes Wheel 50 feet with 2 turns (QC: 4 (Pt will be SBA for functional mobility, in order to safely return home with daughter. ) Type: Manual Wheel 150 feet: 4 (Pt will be SBA for functional mobility, in order to safely return home with daughter. ) Type: Manual PT Plan Treatment/Plan Treatment Plan: Continue Plan of Care Treatment Plan: Bed Mobility, Education, Functional Activity [place], Functional Strength, Group Therapy, Gait, Safety, Therapeutic Exercise, Transfers Treatment Duration: Jul 07, 2023 Frequency: At least 5 of 7 days/Wk (IRF) Estimated Hrs Per Day: 1.5 hours per day Patient and/or Family Agrees t: Yes Time Time In: 1400 Time Out: 1430 DATE: Jun 23, 2023 Total Billed Treatment Time: 30 Total Billed Treatment 1 visit GT x 1 FA x 1 BRISEYDA BAUER COFFERDAM CONSTRUCTION SUPERVISOR Jun 23, 2023 15:14
[2023-06-23] MEDS ORDERED: CEFDINIR 300 MG CAPSULE PO NR (16:15)
[2023-06-23 20:10] VITALS: BP 114/67
[2023-06-23] MEDS: ALLOPURINOL 100 MG TABLET PO SCH (20:42)
[2023-06-23] MEDS: CEFDINIR 300 MG CAPSULE PO SCH (22:19)
[2023-06-24] MEDS: HYDROcodone/ACETAMINOPHEN 5 MG/325 MG TABLET PO PRN ×2 (00:34→18:47)
[2023-06-24] MEDS: diphenhydrAMINE 25 MG TABLET PO PRN ×2 (00:35→22:28)
[2023-06-24] MEDS: BETHANECHOL 25 MG TABLET PO SCH ×4 (06:37→21:02)
[2023-06-24] MEDS: LEVOTHYROXINE 50 MCG TABLET PO SCH (06:38)
[2023-06-24] MEDS: FUROSEMIDE 40 MG TABLET PO SCH ×2 (06:38→16:17)
--- NOTE | 2023-06-24 06:46 | PM&R Progress Note ---
Subjective HPI/CC On Admission Date Seen by Provider: Jun 24, 2023 Time Seen by Provider: 12:00 Subjective/Events-last exam 06/24/2023: Patient doing pretty well Pain is fairly well controlled Slow recovery Not real active at home to begin with 06/23/2023: Doing well Voiding well but abnl urine so obtained UA and will start on abx since UTI dx No falls Pain controlled 06/22/2023: Much improved status No urinary retention noted No falls No pain except pelvis 06/21/2023: Patient doing a lot better Moving around better No concerns Participation is fairly good 06/20/2023: Slow recovery Pain is an issue but improved right now Voiding fairly well 06/19/2023: No major issues Urinary retention noted No falls Started Urecholine BM+ Pain controlled for the most part 06/18/2023: Patient doing well Discontinued catheter and now she is having some retention We will start Urecholine low-dose Supportive care Reviewed meds and labs 06/17/2023: Patient doing well Compromising on discontinuation of catheter until tomorrow Pain is pretty well controlled unless she moves Bowels are moving currently on a bedpan Review of Systems General: Fatigue, Malaise Objective Exam Vital Signs Vital Signs Date Time Temp Pulse Resp B/P (MAP) Pulse Ox O2 Delivery O2 Flow Rate FiO2 06/24/23 20:01 36.5 84 12 116/65 (82) Nasal Cannula 3.00 06/24/23 08:16 98 06/19/23 09:30 32 Capillary Refill : General Appearance: No Apparent Distress, WD/WN, Chronically ill, Thin, Other HEENT: PERRL/EOMI, Normal ENT Inspection, Pharynx Normal Neck: Full Range of Motion, Normal Inspection, Non Tender, Supple, Carotid Bruit Respiratory: Chest Non Tender, Lungs Clear, Normal Breath Sounds, No Accessory Muscle Use, No Respiratory Distress Cardiovascular: Regular Rate, Rhythm, No Edema, No Gallop, No JVD, No Murmur, Normal Peripheral Pulses Gastrointestinal: Normal Bowel Sounds, No Organomegaly, No Pulsatile Mass, Non Tender, Soft Back: Normal Inspection, No CVA Tenderness, No Vertebral Tenderness Extremity: Normal Capillary Refill, Normal Inspection, Normal Range of Motion, Non Tender, No Calf Tenderness, No Pedal Edema Neurologic/Psychiatric: Alert, Oriented x3, fixed interest dealer II-XII Norm as Tested, Abnormal Gait, Depressed Affect, Motor Weakness Skin: Normal Color, Warm/Dry Lymphatic: No Adenopathy Results/Procedures Lab Patient resulted labs reviewed. FIM Transfers Therapy Code Descriptions/Definitions Functional [place] Measure: 0=Not Assessed/NA 4=Minimal Assistance 1=Total Assistance 5=Supervision or Setup 2=Maximal Assistance 6=Modified [place] 3=Moderate Assistance 7=Complete IndependenceSCALE: Activities may be completed with or without assistive devices. 0-Xutjkkliru-kldckdi completes the activity by him/herself with no assistance from a helper. 5-Set-up or Clean-up Assistance-helper sets up or cleans up; patient completes activity. [place] assists only prior to or following the activity. 4-Supervision or Touching Assistance-helper provides verbal cues and/or touc yvan/steadying and/or contact guard assistance as patient completes activity. Assistance may be provided throughout the activity or intermittently. 3-Partial/Moderate Assistance-helper does LESS THAN HALF the effort. [place] lifts, holds or supports trunk or limbs, but provides less than half the effort. 2-Substantial/Maximal Assistance-helper does MORE THAN HALF the effort. [place] lifts or holds trunk or limbs and provides more than half the effort. 4-Bjzknueam-cglbik does ALL the effort. Patient does none of the effort to complete the activity. Or, the assistance of 2 or more helpers is required for the patient to complete the activity. If activity was not attempted, code reason: 7-Patient Refused. 9-Not Applicable-not attempted and the patient did not perform the activity before the current illness, exacerbation or injury. 10-Not Attempted due to Environmental Limitations-(lack of equipment, weather restraints, etc.). 88-Not Attempted due to Medical Conditions or Safety Concerns. Roll Left to Right (QC): 2 Sit to Lying (QC): 2 Sit to Stand (QC): 4 Chair/Vwe-de-Fxtdq Xfer(QC): 3 Car Transfer (QC): 88 Gait Training Does the Patient Walk?: Yes Distance: 20 Walk 10 feet (QC): 4 Walk 50 ft with 2 Turns(QC): 4 Walk 150 ft (QC): 88 Walking 10ft/uneven surface-QC: 88 Gait Persons Needed: 1 Gait Assistive Device: FWW Wheelchair Training Does the Pt Use a Wheelchair?: Yes Wheel 50 ft with 2 turns (QC): 6 Wheel 150 ft (QC): 7 Type of Wheelchair: Manual Stair Training 1 Step (curb) (QC): 88 (Pain ) 4 Steps (QC): 88 (Pain ) 12 Steps (QC): 9 Balance Picking up an Object (QC): 3 (Min A ) ADL-Treatment Eating (QC): 6 Oral Hygiene (QC): 5 (Pt completed oral care in sitting with setup. ) Shower/Bathe Self (QC): 4 (SBA, pt able to wash/dry all parts during sponge bath with increased time.) Upper Body Dressing (QC): 5 Lower Body Dressing (QC): 4 (AE utilized as needed, pt required mod VCs with AE) On/Off Footwear (QC): 3 (Pt able to doff using outboard motor tester and VCs, Assist to don b/l gripper socks utilizing sock aide.) Toileting Hygiene (QC): 3 (Min A pant hike in back) Toilet Transfer (QC): 4 (CGA) Assessment/Plan Assessment and Plan Assess & Plan/Chief Complaint Assessment: Pelvic fracture Oxygen dependent COPD Pulmonary hypertension Atrial fibrillation Anticoagulation for stroke prophylaxis Advanced age Frail status Hypothyroidism Osteoporosis Hypertension Hyperlipidemia Anxiety Anemia of chronic disease Acute UTI placed on abx 06/23/23 Plan: Pain control Aggressive rehab Oxygen supplementation Home meds 06/17/2023: Supportive care Pain control DC catheter tomorrow morning 06/18/2023: Urinary retention treatment Low-dose Urecholine due to COPD 06/19/2023: Urecholine Monitor lung status since added Urecholine 06/20/2023: Supportive care Monitor closely 06/21/2023: Supportive care Monitor closely 06/22/2023: Monitor pain Fall risk 06/23/2023: Treat UTI 06/24/2023: Maintain bowel regimen (1) Pelvic fracture (2) Aortic stenosis (3) Pulmonary hypertension (4) Chronic atrial fibrillation Status: Chronic (5) HTN (hypertension) Status: Acute FE MESA DO Jun 24, 2023 06:46
[2023-06-24 08:16] VITALS: BP 115/59
[2023-06-24] MEDS: POTASSIUM CHLORIDE 20 MEQ TABLET PO SCH (08:54)
[2023-06-24] MEDS: SENNA W/DOCUSATE TABLET PO SCH ×2 (08:55→21:02)
[2023-06-24] MEDS: LOSARTAN 50 MG TABLET PO SCH ×2 (08:55→21:02)
[2023-06-24] MEDS: DOCUSATE SODIUM 100 MG CAPSULE PO SCH ×2 (08:55→21:02)
[2023-06-24] MEDS: CEFDINIR 300 MG CAPSULE PO SCH ×2 (08:55→21:02)
[2023-06-24] MEDS: APIXABAN 2.5 MG TABLET PO SCH ×2 (08:55→21:02)
[2023-06-24] MEDS: LORazepam 0.5 MG TABLET PO PRN ×4 (08:57→22:28)
[2023-06-24] MEDS: CALCIUM CARBONATE 500 MG CHEW TABLET PO PRN ×2 (14:52→23:42)
[2023-06-24] MEDS: diphenhydrAMINE 2% CREAM 30 GM TOP PRN ×2 (16:17→21:03)
[2023-06-24] MEDS: DICLOFENAC 1% GEL 50 GM TUBE TOP PRN (18:47)
[2023-06-24 20:01] VITALS: BP 116/65
[2023-06-24] MEDS: ALLOPURINOL 100 MG TABLET PO SCH (21:02)
[2023-06-25] MEDS: HYDROcodone/ACETAMINOPHEN 5 MG/325 MG TABLET PO PRN ×4 (02:16→19:02)
[2023-06-25] MEDS: FUROSEMIDE 40 MG TABLET PO SCH ×2 (06:11→16:58)
[2023-06-25] MEDS: LEVOTHYROXINE 50 MCG TABLET PO SCH (06:11)
[2023-06-25] MEDS: LORazepam 0.5 MG TABLET PO PRN ×3 (06:11→21:27)
[2023-06-25] MEDS: BETHANECHOL 25 MG TABLET PO SCH ×4 (06:11→21:26)
--- NOTE | 2023-06-25 06:53 | PM&R Progress Note ---
Subjective HPI/CC On Admission Date Seen by Provider: Jun 25, 2023 Time Seen by Provider: 13:00 Subjective/Events-last exam 06/25/2023: Patient seems to be doing well Eating and drinking well Taking frequent naps Mostly sedentary at home 06/24/2023: Patient doing pretty well Pain is fairly well controlled Slow recovery Not real active at home to begin with 06/23/2023: Doing well Voiding well but abnl urine so obtained UA and will start on abx since UTI dx No falls Pain controlled 06/22/2023: Much improved status No urinary retention noted No falls No pain except pelvis 06/21/2023: Patient doing a lot better Moving around better No concerns Participation is fairly good 06/20/2023: Slow recovery Pain is an issue but improved right now Voiding fairly well 06/19/2023: No major issues Urinary retention noted No falls Started Urecholine BM+ Pain controlled for the most part 06/18/2023: Patient doing well Discontinued catheter and now she is having some retention We will start Urecholine low-dose Supportive care Reviewed meds and labs 06/17/2023: Patient doing well Compromising on discontinuation of catheter until tomorrow Pain is pretty well controlled unless she moves Bowels are moving currently on a bedpan Review of Systems General: Fatigue, Malaise Objective Exam Vital Signs Vital Signs Date Time Temp Pulse Resp B/P (MAP) Pulse Ox O2 Delivery O2 Flow Rate FiO2 06/25/23 08:30 Nasal Cannula 3.00 06/25/23 08:26 89 18 118/73 (88) 99 06/25/23 08:06 35.9 06/19/23 09:30 32 Capillary Refill : General Appearance: No Apparent Distress, WD/WN, Chronically ill, Thin, Other HEENT: PERRL/EOMI, Normal ENT Inspection, Pharynx Normal Neck: Full Range of Motion, Normal Inspection, Non Tender, Supple, Carotid Bruit Respiratory: Chest Non Tender, Lungs Clear, Normal Breath Sounds, No Accessory Muscle Use, No Respiratory Distress Cardiovascular: Regular Rate, Rhythm, No Edema, No Gallop, No JVD, No Murmur, Normal Peripheral Pulses Gastrointestinal: Normal Bowel Sounds, No Organomegaly, No Pulsatile Mass, Non Tender, Soft Back: Normal Inspection, No CVA Tenderness, No Vertebral Tenderness Extremity: Normal Capillary Refill, Normal Inspection, Normal Range of Motion, Non Tender, No Calf Tenderness, No Pedal Edema Neurologic/Psychiatric: Alert, Oriented x3, public policy manager II-XII Norm as Tested, Abnormal Gait, Depressed Affect, Motor Weakness Skin: Normal Color, Warm/Dry Lymphatic: No Adenopathy Results/Procedures Lab Patient resulted labs reviewed. FIM Transfers Therapy Code Descriptions/Definitions Functional [place] Measure: 0=Not Assessed/NA 4=Minimal Assistance 1=Total Assistance 5=Supervision or Setup 2=Maximal Assistance 6=Modified [place] 3=Moderate Assistance 7=Complete IndependenceSCALE: Activities may be completed with or without assistive devices. 2-Lokmbnqpda-ohwoyig completes the activity by him/herself with no assistance from a helper. 5-Set-up or Clean-up Assistance-helper sets up or cleans up; patient completes activity. [place] assists only prior to or following the activity. 4-Supervision or Touching Assistance-helper provides verbal cues and/or touching/steadying and/or contact guard assistance as patient completes activity. Assistance may be provided throughout the activity or intermittently. 3-Partial/Moderate Assistance-helper does LESS THAN HALF the effort. [place] lifts, holds or supports trunk or limbs, but provides less than half the effort. 2-Substantial/Maximal Assistance-helper does MORE THAN HALF the effort. [place] lifts or holds trunk or limbs and provides more than half the effort. 2-Pjccfrsla-hdnaob does ALL the effort. Patient does none of the effort to complete the activity. Or, the assistance of 2 or more helpers is required for the patient to complete the activity. If activity was not attempted, code reason: 7-Patient Refused. 9-Not Applicable-not attempted and the patient did not perform the activity before the current illness, exacerbation or injury. 10-Not Attempted due to Environmental Limitations-(lack of equipment, weather restraints, etc.). 88-Not Attempted due to Medical Conditions or Safety Concerns. Roll Left to Right (QC): 2 Sit to Lying (QC): 2 Sit to Stand (QC): 4 Chair/Uhd-pp-Uasii Xfer(QC): 3 Car Transfer (QC): 88 Gait Training Does the Patient Walk?: Yes Distance: 20 Walk 10 feet (QC): 4 Walk 50 ft with 2 Turns(QC): 4 Walk 150 ft (QC): 88 Walking 10ft/uneven surface-QC: 88 Gait Persons Needed: 1 Gait Assistive Device: FWW Wheelchair Training Does the Pt Use a Wheelchair?: Yes Wheel 50 ft with 2 turns (QC): 6 Wheel 150 ft (QC): 7 Type of Wheelchair: Manual Stair Training 1 Step (curb) (QC): 88 (Pain ) 4 Steps (QC): 88 (Pain ) 12 Steps (QC): 9 Balance Picking up an Object (QC): 3 (Min A ) ADL-Treatment Eating (QC): 6 Oral Hygiene (QC): 5 (Pt completed oral care in sitting with setup. ) Shower/Bathe Self (QC): 4 (SBA, pt able to wash/dry all parts during sponge bath with increased time.) Upper Body Dressing (QC): 5 Lower Body Dressing (QC): 4 (AE utilized as needed, pt required mod VCs with AE) On/Off Footwear (QC): 3 (Pt able to doff using inspection manager and VCs, Assist to don b/l gripper socks utilizing sock aide.) Toileting Hygiene (QC): 3 (Min A pant hike in back) Toilet Transfer (QC): 4 (CGA) Assessment/Plan Assessment and Plan Assess & Plan/Chief Complaint Assessment: Pelvic fracture Oxygen dependent COPD Pulmonary hypertension Atrial fibrillation Anticoagulation for stroke prophylaxis Advanced age Frail status Hypothyroidism Osteoporosis Hypertension Hyperlipidemia Anxiety Anemia of chronic disease Acute UTI placed on abx 06/23/23 Plan: Pain control Aggressive rehab Oxygen supplementation Home meds 06/17/2023: Supportive care Pain control DC catheter tomorrow morning 06/18/2023: Urinary retention treatment Low-dose Urecholine due to COPD 06/19/2023: Urecholine Monitor lung status since added Urecholine 06/20/2023: Supportive care Monitor closely 06/21/2023: Supportive care Monitor closely 06/22/2023: Monitor pain Fall risk 06/23/2023: Treat UTI 06/24/2023: Maintain bowel regimen 06/25/2023: Supportive care Monitor closely (1) Pelvic fracture (2) Aortic stenosis (3) Pulmonary hypertension (4) Chronic atrial fibrillation Status: Chronic (5) HTN (hypertension) Status: Acute FE MESA DO Jun 25, 2023 06:53
[2023-06-25 08:06] VITALS: BP 102/65
[2023-06-25] MEDS: APIXABAN 2.5 MG TABLET PO SCH ×2 (08:13→21:28)
[2023-06-25] MEDS: FERROUS SULFATE 325 MG (IRON) TABLET PO SCH (08:13)
[2023-06-25] MEDS: CEFDINIR 300 MG CAPSULE PO SCH ×2 (08:13→21:26)
[2023-06-25] MEDS: SENNA W/DOCUSATE TABLET PO SCH ×2 (08:16→21:42)
[2023-06-25] MEDS: DOCUSATE SODIUM 100 MG CAPSULE PO SCH ×2 (08:16→21:42)
[2023-06-25] MEDS: diphenhydrAMINE 2% CREAM 30 GM TOP PRN (08:18)
[2023-06-25] MEDS: POTASSIUM CHLORIDE 20 MEQ TABLET PO SCH (08:25)
[2023-06-25 08:26] VITALS: BP 118/73
[2023-06-25] MEDS: LOSARTAN 50 MG TABLET PO SCH ×2 (08:33→21:27)
[2023-06-25 19:50] VITALS: BP 137/80
[2023-06-25] MEDS: MELATONIN 3 MG TABLET PO PRN (21:26)
[2023-06-25] MEDS: ALLOPURINOL 100 MG TABLET PO SCH (21:27)
[2023-06-26] MEDS: LORazepam 0.5 MG TABLET PO PRN ×2 (05:05→20:49)
[2023-06-26] MEDS: FUROSEMIDE 40 MG TABLET PO SCH ×2 (05:06→14:50)
[2023-06-26] MEDS: BETHANECHOL 25 MG TABLET PO SCH ×4 (05:06→20:49)
[2023-06-26] MEDS: LEVOTHYROXINE 50 MCG TABLET PO SCH (05:06)
--- NOTE | 2023-06-26 05:19 | PM&R Progress Note ---
Subjective HPI/CC On Admission Date Seen by Provider: Jun 26, 2023 Time Seen by Provider: 09:00 Subjective/Events-last exam 06/26/2023: Patient doing really well No falls No pain unless she moves Reviewed meds and labs 06/25/2023: Patient seems to be doing well Eating and drinking well Taking frequent naps Mostly sedentary at home 06/24/2023: Patient doing pretty well Pain is fairly well controlled Slow recovery Not real active at home to begin with 06/23/2023: Doing well Voiding well but abnl urine so obtained UA and will start on abx since UTI dx No falls Pain controlled 06/22/2023: Much improved status No urinary retention noted No falls No pain except pelvis 06/21/2023: Patient doing a lot better Moving around better No concerns Participation is fairly good 06/20/2023: Slow recovery Pain is an issue but improved right now Voiding fairly well 06/19/2023: No major issues Urinary retention noted No falls Started Urecholine BM+ Pain controlled for the most part 06/18/2023: Patient doing well Discontinued catheter and now she is having some retention We will start Urecholine low-dose Supportive care Reviewed meds and labs 06/17/2023: Patient doing well Compromising on discontinuation of catheter until tomorrow Pain is pretty well controlled unless she moves Bowels are moving currently on a bedpan Review of Systems General: Fatigue, Malaise Objective Exam Vital Signs Vital Signs Date Time Temp Pulse Resp B/P (MAP) Pulse Ox O2 Delivery O2 Flow Rate FiO2 06/26/23 20:21 36.0 67 16 155/95 (115) 100 Nasal Cannula 3.00 Capillary Refill : General Appearance: No Apparent Distress, WD/WN, Chronically ill, Thin, Other HEENT: PERRL/EOMI, Normal ENT Inspection, Pharynx Normal Neck: Full Range of Motion, Normal Inspection, Non Tender, Supple, Carotid Bruit Respiratory: Chest Non Tender, Lungs Clear, Normal Breath Sounds, No Accessory Muscle Use, No Respiratory Distress Cardiovascular: Regular Rate, Rhythm, No Edema, No Gallop, No JVD, No Murmur, Normal Peripheral Pulses Gastrointestinal: Normal Bowel Sounds, No Organomegaly, No Pulsatile Mass, Non Tender, Soft Back: Normal Inspection, No CVA Tenderness, No Vertebral Tenderness Extremity: Normal Capillary Refill, Normal Inspection, Normal Range of Motion, Non Tender, No Calf Tenderness, No Pedal Edema Neurologic/Psychiatric: Alert, Oriented x3, asbestos removal worker II-XII Norm as Tested, Abnormal Gait, Depressed Affect, Motor Weakness Skin: Normal Color, Warm/Dry Lymphatic: No Adenopathy Results/Procedures Lab Laboratory Tests 06/26/23 05:28 Patient resulted labs reviewed. FIM Transfers Therapy Code Descriptions/Definitions Functional [place] Measure: 0=Not Assessed/NA 4=Minimal Assistance 1=Total Assistance 5=Supervision or Setup 2=Maximal Assistance 6=Modified [place] 3=Moderate Assistance 7=Complete IndependenceSCALE: Activities may be completed with or without assistive devices. 5-Lbfutwaqrs-rysobuo completes the activity by him/herself with no assistance from a helper. 5-Set-up or Clean-up Assistance-helper sets up or cleans up; patient completes activity. [place] assists only prior to or following the activity. 4-Supervision or Touching Assistance-helper provides verbal cues and/or touching/steadying and/or contact guard assistance as patient completes activity. Assistance may be provided throughout the activity or intermittently. 3-Partial/Moderate Assistance-helper does LESS THAN HALF the effort. [place] lifts, holds or supports trunk or limbs, but provides less than half the effort. 2-Substantial/Maximal Assistance-helper does MORE THAN HALF the effort. [place] lifts or holds trunk or limbs and provides more than half the effort. 1-Vuehchdpi-mabvmt does ALL the effort. Patient does none of the effort to complete the activity. Or, the assistance of 2 or more helpers is required for the patient to complete the activity. If activity was not attempted, code reason: 7-Patient Refused. 9-Not Applicable-not attempted and the patient did not perform the activity before the current illness, exacerbation or injury. 10-Not Attempted due to Environmental Limitations-(lack of equipment, weather restraints, etc.). 88-Not Attempted due to Medical Conditions or Safety Concerns. Roll Left to Right (QC): 2 Sit to Lying (QC): 2 Sit to Stand (QC): 4 Chair/Gad-pj-Xcfao Xfer(QC): 3 Car Transfer (QC): 88 Gait Training Does the Patient Walk?: Yes Distance: 20 Walk 10 feet (QC): 4 Walk 50 ft with 2 Turns(QC): 4 Walk 150 ft (QC): 88 Walking 10ft/uneven surface-QC: 88 Gait Persons Needed: 1 Gait Assistive Device: FWW Wheelchair Training Does the Pt Use a Wheelchair?: Yes Wheel 50 ft with 2 turns (QC): 6 Wheel 150 ft (QC): 7 Type of Wheelchair: Manual Stair Training 1 Step (curb) (QC): 88 (Pain ) 4 Steps (QC): 88 (Pain ) 12 Steps (QC): 9 Balance Picking up an Object (QC): 3 (Min A ) ADL-Treatment Eating (QC): 6 Oral Hygiene (QC): 5 (Pt completed oral care in sitting with setup. ) Shower/Bathe Self (QC): 4 (SBA, pt able to wash/dry all parts during sponge bath with increased time.) Upper Body Dressing (QC): 5 Lower Body Dressing (QC): 4 (AE utilized as needed, pt required mod VCs with AE) On/Off Footwear (QC): 3 (Pt able to doff using typesetters printer and VCs, Assist to don b/l gripper socks utilizing sock aide.) Toileting Hygiene (QC): 3 (Min A pant hike in back) Toilet Transfer (QC): 4 (CGA) Assessment/Plan Assessment and Plan Assess & Plan/Chief Complaint Assessment: Pelvic fracture Oxygen dependent COPD Pulmonary hypertension Atrial fibrillation Anticoagulation for stroke prophylaxis Advanced age Frail status Hypothyroidism Osteoporosis Hypertension Hyperlipidemia Anxiety Anemia of chronic disease Acute UTI placed on abx 06/23/23 Plan: Pain control Aggressive rehab Oxygen supplementation Home meds 06/17/2023: Supportive care Pain control DC catheter tomorrow morning 06/18/2023: Urinary retention treatment Low-dose Urecholine due to COPD 06/19/2023: Urecholine Monitor lung status since added Urecholine 06/20/2023: Supportive care Monitor closely 06/21/2023: Supportive care Monitor closely 06/22/2023: Monitor pain Fall risk 06/23/2023: Treat UTI 06/24/2023: Maintain bowel regimen 06/25/2023: Supportive care Monitor closely 06/26/2023: Continue aggressive care (1) Pelvic fracture (2) Aortic stenosis (3) Pulmonary hypertension (4) Chronic atrial fibrillation Status: Chronic (5) HTN (hypertension) Status: Acute FE MESA DO Jun 26, 2023 05:19
[2023-06-26 05:47] LABS: BASOPHILS # (AUTO) 0.1 10^3/uL (0.0-0.1); BASOPHILS % (AUTO) 1 % (0-10); EOSINOPHILS # (AUTO) 0.4 10^3/uL (0.0-0.3); EOSINOPHILS % (AUTO) 6 % (0-10); HEMATOCRIT 32 % (35-52); LYMPHOCYTES # (AUTO) 1.5 10^3/uL (1.0-4.0); LYMPHOCYTES % (AUTO) 24 % (12-44); MEAN CORPUSCULAR HEMOGLOBIN 31 pg (25-34); MEAN CORPUSCULAR HGB CONC 31 g/dL (32-36); MEAN CORPUSCULAR VOLUME 98 fL (80-99); MEAN PLATELET VOLUME 9.5 fL (9.0-12.2); MONOCYTES # (AUTO) 0.7 10^3/uL (0.0-1.0); MONOCYTES % (AUTO) 11 % (0-12); NEUTROPHILS # (AUTO) 3.6 10^3/uL (1.8-7.8); NEUTROPHILS % (AUTO) 57 % (42-75); PLATELET COUNT 243 10^3/uL (130-400); WHITE BLOOD COUNT 6.4 10^3/uL (4.3-11.0)
[2023-06-26 06:17] LABS: ALBUMIN 3.4 GM/DL (3.2-4.5); BILIRUBIN,TOTAL 0.4 MG/DL (0.1-1.0); CALCIUM 8.6 MG/DL (8.5-10.1); CREATININE SERUM 1.27 MG/DL (0.60-1.30); POTASSIUM 4.1 MMOL/L (3.6-5.0); TOTAL PROTEIN 6.3 GM/DL (6.4-8.2)
--- NOTE | 2023-06-26 07:35 | Occupational Ther Daily Note ---
OT Current Status-Daily Note Subjective Pt alert, supine in bed upon arrival. Pt agreeable to therapy. Pt stated pain was a 8/10 during functional movement. Nrsg notified. Pt required max assist to participate in tx due to easy agitation. Pt redirected and encouraged to participate. Mental Status/Objective Patient Orientation: Person, Place, Time, Situation ADL-Treatment Therapy Code Descriptions/Definitions Functional [place] Measure: 0=Not Assessed/NA 4=Minimal Assistance 1=Total Assistance 5=Supervision or Setup 2=Maximal Assistance 6=Modified [place] 3=Moderate Assistance 7=Complete IndependenceSCALE: Activities may be completed with or without assistive devices. 6-Pfmsrhttxe-glgcosd completes the activity by him/herself with no assistance from a helper. 5-Set-up or Clean-up Assistance-helper sets up or cleans up; patient completes activity. [place] assists only prior to or following the activity. 4-Supervision or Touching Assistance-helper provides verbal cues and/or touching/steadying and/or contact guard assistance as patient completes activity. Assistance may be provided throughout the activity or intermittently. 3-Partial/Moderate Assistance-helper does LESS THAN HALF the effort. [place] lifts, holds or supports trunk or limbs, but provides less than half the effort. 2-Substantial/Maximal Assistance-helper does MORE THAN HALF the effort. [place] lifts or holds trunk or limbs and provides more than half the effort. 9-Jmqkscqjw-kwnhox does ALL the effort. Patient does none of the effort to complete the activity. Or, the assistance of 2 or more helpers is required for the patient to complete the activity. If activity was not attempted, code reason: 7-Patient Refused. 9-Not Applicable-not attempted and the patient did not perform the activity before the current illness, exacerbation or injury. 10-Not Attempted due to Environmental Limitations-(lack of equipment, weather restraints, etc.). 88-Not Attempted due to Medical Conditions or Safety Concerns. Eating (QC): 6 (Pt sitting in recliner to eat breakfast. Able to open packages and use utensils properly. ) Oral Hygiene (QC): 5 (Set up in recliner to complete oral care. Pt refused to complete in bathroom at sink.) Toileting Hygiene (QC): 4 (SBA/CGA for safety while pt cleaned after urination and manipulated clothing. ) Toilet Transfer (QC): 4 (CGA/SBA while pt stood and used grab bars and FWW for support.) Pt refused to change clothes/complete dressing this tx session. Pt brushed hair sitting in recliner. Other Treatment Pt supine-> EOB Min A to manage B LEs. Pt ambulated from bed to bathroom with FWW, CGA/SBA for safety due to fall risk. Pt completed toileting and ambulated to recliner with FWW to eat breakfast. After ADLs, pt ambulated from recliner to room door with FWW, SBA/CGA. Pt then transported to [facility] via w/c. Pt completed functional activity while standing to work on activity tolerance, pain management, standing tolerance, and static standing balance for daily functional tasks. Pt able to tolerate standing for ~3 min and 30 secs. Pt transported back to room via w/c. Ended session with pt sitting in recliner with call light/phone in reach. All needs met. Education OT Patient Education: Correct positioning, Purpose of tx/functional activities, Safety issues, Use of adapted equipment Teaching Recipient: Patient Teaching Methods: Demonstration, Discussion Response to Teaching: Verbalize Understanding, Return Demonstration OT Short Term Goals Short Term Goals Time Frame: Jun 23, 2023 Eatin Oral hygiene: 6 Toileting hygiene: 4 Shower/bathe self: 3 Upper body dressin Lower body dressin Putting on/taking off footwear: 4 OT Eyeglass Cutter Goals Eyeglass Cutter Goals Time Frame: Jun 30, 2023 Acute change in mental status: 0 Inattention: 0 Disorganized thinkin Altered level of consciousness: 0 Eating (QC): 6 Oral Hygiene (QC): 6 Toileting Hygiene (QC): 6 Shower/Bathe Self (QC): 4 Upper Body Dressing (QC): 6 Lower Body Dressing (QC): 6 On/Off Footwear (QC): 6 1=Demonstrate adherence to instructed precautions during ADL tasks. 2=Patient will verbalize/demonstrate understanding of assistive devices/modifications for ADL. 3=Patient will improve strength/tolerance for activity to enable patient to perform ADL's. OT Education/Plan Problem List/Assessment Assessment: Decreased Activ Tolerance, Decreased UE Strength, Impaired Bed Mobility, Impaired Self-Care Skills Discharge Recommendations Plan/Recommendations: Continue POC Treatment Plan/Plan of Care Patient would benefit from OT for education, treatment and training to promote independence in ADL's, mobility, safety and/or upper extremity function for ADL's. Plan of Care: ADL Retraining, Caregiver Training, Concurrent Therapy, Functional Mobility, Group Exercise/Act as Ind, UE Funct Exercise/Act, W/C Management Training Treatment Duration: Jul 07, 2023 Frequency: At least 5 of 7 days/Wk (IRF) Estimated Hrs Per Day: 1.5 hours per day Agreement: Yes Rehab Potential: Fair Time Start Time: 07:00 Stop Time: 08:30 DATE: Jun 26, 2023 Total Time Billed (hr/min): 90 Billed Treatment Time 1 visit- ADL 3 (40 min) FA 3 (50 min) IRENA VALDES Jun 26, 2023 07:35
[2023-06-26 08:00] VITALS: BP 134/87
[2023-06-26] MEDS: HYDROcodone/ACETAMINOPHEN 5 MG/325 MG TABLET PO PRN ×3 (08:18→20:50)
[2023-06-26] MEDS: POTASSIUM CHLORIDE 20 MEQ TABLET PO SCH (08:39)
[2023-06-26] MEDS: LOSARTAN 50 MG TABLET PO SCH ×2 (08:39→20:50)
[2023-06-26] MEDS: APIXABAN 2.5 MG TABLET PO SCH ×2 (08:39→20:49)
[2023-06-26] MEDS: DOCUSATE SODIUM 100 MG CAPSULE PO SCH ×2 (08:39→20:01)
[2023-06-26] MEDS: CEFDINIR 300 MG CAPSULE PO SCH ×2 (08:39→20:49)
[2023-06-26] MEDS: SENNA W/DOCUSATE TABLET PO SCH ×2 (08:40→20:01)
[2023-06-26] MEDS: DICLOFENAC 1% GEL 50 GM TUBE TOP PRN (09:49)
[2023-06-26] MEDS: diphenhydrAMINE 2% CREAM 30 GM TOP PRN (09:49)
[2023-06-26] MEDS: CALCIUM CARBONATE 500 MG CHEW TABLET PO PRN (09:53)
[2023-06-26] MEDS: LORATADINE 10 MG TABLET PO SCH (09:53)
[2023-06-26] MEDS: ARTIFICAL TEARS Ophth solution 0.4 ML UNIT DOSE OU PRN ×2 (09:53→20:49)
--- NOTE | 2023-06-26 13:42 | Physical Therapy Daily Note ---
PT Daily Note-Current Subjective Pt is agreeable to PT. Reported R hip pain at 8/10. Pain Numeric Pain Scale: 8 Location: Right Location Body Site: Hip Section J - Health Conditions 1. Rarely or not at all 2. Occasionally 3. Frequently 4. Almost constantly 8. Unable to answer Pain Effect on Sleep: 1 Pain Interference with Therapy: 3 Pain Interference w/Day-to-Day: 2 Mental Status Attachments: Oxygen (3L ) Transfers SCALE: Activities may be completed with or without assistive devices. 5-Umxolrwlfv-ukdamnh completes the activity by him/herself with no assistance from a helper. 5-Set-up or Clean-up Assistance-helper sets up or cleans up; patient completes activity. [place] assists only prior to or following the activity. 4-Supervision or Touching Assistance-helper provides verbal cues and/or touching/steadying and/or contact guard assistance as patient completes activity. Assistance may be provided throughout the activity or intermittently. 3-Partial/Moderate Assistance-helper does LESS THAN HALF the effort. [place] lifts, holds or supports trunk or limbs, but provides less than half the effort. 2-Substantial/Maximal Assistance-helper does MORE THAN HALF the effort. [place] lifts or holds trunk or limbs and provides more than half the effort. 8-Hcxqrpgty-zmqxow does ALL the effort. Patient does none of the effort to complete the activity. Or, the assistance of 2 or more helpers is required for the patient to complete the activity. If activity was not attempted, code reason: 7-Patient Refused. 9-Not Applicable-not attempted and the patient did not perform the activity before the current illness, exacerbation or injury. 10-Not Attempted due to Environmental Limitations-(lack of equipment, weather restraints, etc.). 88-Not Attempted due to Medical Conditions or Safety Concerns. Sit to Stand (QC): 4 Toilet Transfer (QC): 4 Weight Bearing Right Lower Extremity: Right Weight Bearing/Tolerated Left Lower Extremity: Left Weight Bearing/Tolerated Gait Training Does the Patient Walk?: Yes Walk 10 feet (QC): 4 Walk 50 ft with 2 Turns(QC): 4 Walk 150 ft (QC): 4 Gait Persons Needed: 1 Gait Assistive Device: FWW Wheelchair Training Does the Pt Use a Wheelchair?: Yes Wheel 50 ft with 2 turns (QC): 4 Wheel 150 ft (QC): 4 Treatments Pt completed functional transfers, including a toilet transfer, with CGA. Pt ambulated 15ft and 195ft with the FWW and CGA/SBA. Pt completed seated B LE Ther Ex x 15 reps each with the red Tband. Pt completed w/c mobility x 150ft with SBA. After treatment session, pt was sitting up in the recliner with call light in reach and all needs met. Assessment Current Status: Good Progress Pt tolerated PT well, with good effort PT Skilled Nursing Goals [place] [employer] Loader Goals PT Skilled Nursing Goals Time Frame: Jul 07, 2023 Roll Left & Right (QC): 4 (Pt will be SBA for functional mobility, in order to safely return home with daughter. ) Sit to Lying (QC): 4 (Pt will be SBA for functional mobility, in order to safely return home with daughter. ) Lying-Sitting on Side/Bed(QC): 4 (Pt will be SBA for functional mobility, in order to safely return home with daughter. ) Sit to Stand (QC): 4 (Pt will be SBA for functional mobility, in order to safely return home with daughter. ) Chair/Rvg-dy-Vmsjx Xfer(QC): 4 (Pt will be SBA for functional mobility, in order to safely return home with daughter. ) Toilet Transfer (QC): 4 (Pt will be SBA for functional mobility, in order to safely return home with daughter. ) Car Transfer (QC): 4 (Pt will be SBA for functional mobility, in order to safely return home with daughter. ) Does the Patient Walk: Yes Walk 10 feet (QC): 4 (Pt will be SBA for functional mobility, in order to safely return home with daughter. ) Walk 50ft with 2 Turns (QC): 4 (Pt will be SBA for functional mobility, in order to safely return home with daughter. ) Walk 150 ft (QC): 4 (Pt will be SBA for functional mobility, in order to safely return home with daughter. ) Walking 10ft on Uneven Surface: 4 (Pt will be SBA for functional mobility, in order to safely return home with daughter. ) 1 Step (curb) (QC): 4 (Pt will be SBA for functional mobility, in order to safely return home with daughter. ) 4 Steps (QC): 4 (Pt will be SBA for functional mobility, in order to safely return home with daughter. ) 12 Steps (QC): 9 Picking up an Object (QC): 4 (Pt will be SBA for functional mobility, in order to safely return home with daughter. With development advisor ) Does the Pt use WC or Scooter?: Yes Wheel 50 feet with 2 turns (QC: 4 (Pt will be SBA for functional mobility, in order to safely return home with daughter. ) Type: Manual Wheel 150 feet: 4 (Pt will be SBA for functional mobility, in order to safely return home with daughter. ) Type: Manual PT Plan Problem List Problem List: Activity Tolerance, Functional Strength, Safety, Balance, Gait, Transfer, Bed Mobility, ROM Treatment/Plan Treatment Plan: Continue Plan of Care Treatment Plan: Bed Mobility, Education, Functional Activity [place], Functional Strength, Group Therapy, Gait, Safety, Therapeutic Exercise, Transfers Treatment Duration: Jul 07, 2023 Frequency: At least 5 of 7 days/Wk (IRF) Estimated Hrs Per Day: 1.5 hours per day Patient and/or Family Agrees t: Yes Safety Risks/Education Patient Education: Gait Training, Transfer Techniques, Correct Positioning, W/C Management, Safety Issues Teaching Recipient: Patient Teaching Methods: Demonstration, Discussion Response to Teaching: Verbalize Understanding, Return Demonstration, Rein forcement Needed Discharge Recommendations Therapy Discharge Recommendati: Home & Family, Post Acute PT Equpiment Recommendations-D/C: None Discharge Status/Home Program Cont per POC Barriers to Progress Weakness, endurance, pain Target Placement Home with family assistance and [facility] Time Time In: 1100 Time Out: 1200 DATE: Jun 26, 2023 Total Billed Treatment Time: 60 Total Billed Treatment 60 min 1 visit FA x 1 EX x 1 GT x 2 OMAR ALLEN PT Jun 26, 2023 13:42
--- NOTE | 2023-06-26 13:48 | Physical Therapy Daily Note ---
PT Daily Note-Current Subjective Pt is agreeable to PT. Pt reported R hip pain at 8/10. Pain Numeric Pain Scale: 8 Location: Right Location Body Site: Hip Section J - Health Conditions 1. Rarely or not at all 2. Occasionally 3. Frequently 4. Almost constantly 8. Unable to answer Pain Effect on Sleep: 1 Pain Interference with Therapy: 3 Pain Interference w/Day-to-Day: 2 Mental Status Attachments: Oxygen (3L ) Transfers SCALE: Activities may be completed with or without assistive devices. 5-Rzperxdlxf-cehtghz completes the activity by him/herself with no assistance from a helper. 5-Set-up or Clean-up Assistance-helper sets up or cleans up; patient completes activity. [place] assists only prior to or following the activity. 4-Supervision or Touching Assistance-helper provides verbal cues and/or touching/steadying and/or contact guard assistance as patient completes activit y. Assistance may be provided throughout the activity or intermittently. 3-Partial/Moderate Assistance-helper does LESS THAN HALF the effort. [place] lifts, holds or supports trunk or limbs, but provides less than half the effort. 2-Substantial/Maximal Assistance-helper does MORE THAN HALF the effort. [place] lifts or holds trunk or limbs and provides more than half the effort. 6-Etkvynbqa-agfrwj does ALL the effort. Patient does none of the effort to complete the activity. Or, the assistance of 2 or more helpers is required for the patient to complete the activity. If activity was not attempted, code reason: 7-Patient Refused. 9-Not Applicable-not attempted and the patient did not perform the activity before the current illness, exacerbation or injury. 10-Not Attempted due to Environmental Limitations-(lack of equipment, weather restraints, etc.). 88-Not Attempted due to Medical Conditions or Safety Concerns. Sit to Stand (QC): 4 Weight Bearing Right Lower Extremity: Right Weight Bearing/Tolerated Left Lower Extremity: Left Weight Bearing/Tolerated Gait Training Does the Patient Walk?: No and Walking Goal NOT indicated Distance: 60ft, 70ft Walk 10 feet (QC): 4 Walk 50 ft with 2 Turns(QC): 4 Gait Persons Needed: 1 Gait Assistive Device: FWW Treatments Pt completed functional transfers with SBA/CGA. Pt ambulated 60ft and 70ft with the FWW and SBA/CGA. After treatment session, pt was sitting up in the recliner with call light in reach and all needs met. Assessment Current Status: Good Progress Pt tolerated PT well with good effort PT Jail Goals Retention Manager Goals PT Jail Goals Time Frame: Jul 07, 2023 Roll Left & Right (QC): 4 (Pt will be SBA for functional mobility, in order to safely return home with daughter. ) Sit to Lying (QC): 4 (Pt will be SBA for functional mobility, in order to safely return home with daughter. ) Lying-Sitting on Side/Bed(QC): 4 (Pt will be SBA for functional mobility, in order to safely return home with daughter. ) Sit to Stand (QC): 4 (Pt will be SBA for functional mobility, in order to safely return home with daughter. ) Chair/Egy-oz-Oeyfj Xfer(QC): 4 (Pt will be SBA for functional mobility, in order to safely return home with daughter. ) Toilet Transfer (QC): 4 (Pt will be SBA for functional mobility, in order to safely return home with daughter. ) Car Transfer (QC): 4 (Pt will be SBA for functional mobility, in order to safely return home with daughter. ) Does the Patient Walk: Yes Walk 10 feet (QC): 4 (Pt will be SBA for functional mobility, in order to safe ly return home with daughter. ) Walk 50ft with 2 Turns (QC): 4 (Pt will be SBA for functional mobility, in order to safely return home with daughter. ) Walk 150 ft (QC): 4 (Pt will be SBA for functional mobility, in order to safely return home with daughter. ) Walking 10ft on Uneven Surface: 4 (Pt will be SBA for functional mobility, in order to safely return home with daughter. ) 1 Step (curb) (QC): 4 (Pt will be SBA for functional mobility, in order to safely return home with daughter. ) 4 Steps (QC): 4 (Pt will be SBA for functional mobility, in order to safely return home with daughter. ) 12 Steps (QC): 9 Picking up an Object (QC): 4 (Pt will be SBA for functional mobility, in order to safely return home with daughter. With inventory associate ) Does the Pt use WC or Scooter?: Yes Wheel 50 feet with 2 turns (QC: 4 (Pt will be SBA for functional mobility, in order to safely return home with daughter. ) Type: Manual Wheel 150 feet: 4 (Pt will be SBA for functional mobility, in order to safely return home with daughter. ) Type: Manual PT Plan Problem List Problem List: Activity Tolerance, Functional Strength, Safety, Balance, Gait, Transfer, Bed Mobility, ROM Treatment/Plan Treatment Plan: Continue Plan of Care Treatment Plan: Bed Mobility, Education, Functional Activity [place], Functional Strength, Group Therapy, Gait, Safety, Therapeutic Exercise, Transfers Treatment Duration: Jul 07, 2023 Frequency: At least 5 of 7 days/Wk (IRF) Estimated Hrs Per Day: 1.5 hours per day Patient and/or Family Agrees t: Yes Safety Risks/Education Patient Education: Gait Training, Transfer Techniques, Correct Positioning, Safety Issues Teaching Recipient: Patient Teaching Methods: Demonstration, Discussion Response to Teaching: Verbalize Understanding, Return Demonstration, Reinforcement Needed Discharge Recommendations Therapy Discharge Recommendati: Home & Family, Post Acute PT Equpiment Recommendations-D/C: None Discharge Status/Home Program Cont per POC Barriers to Progress Weakness, endurance, pain Target Placement Home with family assistance and [facility] Time Time In: 1300 Time Out: 1330 DATE: Jun 26, 2023 Total Billed Treatment Time: 30 Total Billed Treatment 30 min 1 visit GT x 2 OMAR ALLEN PT Jun 26, 2023 13:48
[2023-06-26 20:21] VITALS: BP 155/95
[2023-06-26] MEDS: ALLOPURINOL 100 MG TABLET PO SCH (20:49)
[2023-06-27] MEDS: HYDROcodone/ACETAMINOPHEN 5 MG/325 MG TABLET PO PRN ×2 (03:44→17:17)
[2023-06-27] MEDS: LORazepam 0.5 MG TABLET PO PRN ×3 (03:44→20:08)
--- NOTE | 2023-06-27 05:57 | PM&R Progress Note ---
Subjective HPI/CC On Admission Date Seen by Provider: Jun 27, 2023 Time Seen by Provider: 09:00 Subjective/Events-last exam 06/27/2023: Patient doing well No pain is reported No falls Reviewed meds and labs 06/26/2023: Patient doing really well No falls No pain unless she moves Reviewed meds and labs 06/25/2023: Patient seems to be doing well Eating and drinking well Taking frequent naps Mostly sedentary at home 06/24/2023: Patient doing pretty well Pain is fairly well controlled Slow recovery Not real active at home to begin with 06/23/2023: Doing well Voiding well but abnl urine so obtained UA and will start on abx since UTI dx No falls Pain controlled 06/22/2023: Much improved status No urinary retention noted No falls No pain except pelvis 06/21/2023: Patient doing a lot better Moving around better No concerns Participation is fairly good 06/20/2023: Slow recovery Pain is an issue but improved right now Voiding fairly well 06/19/2023: No major issues Urinary retention noted No falls Started Urecholine BM+ Pain controlled for the most part 06/18/2023: Patient doing well Discontinued catheter and now she is having some retention We will start Urecholine low-dose Supportive care Reviewed meds and labs 06/17/2023: Patient doing well Compromising on discontinuation of catheter until tomorrow Pain is pretty well controlled unless she moves Bowels are moving currently on a bedpan Review of Systems General: Fatigue, Malaise Objective Exam Vital Signs Vital Signs Date Time Temp Pulse Resp B/P (MAP) Pulse Ox O2 Delivery O2 Flow Rate FiO2 06/27/23 20:12 Nasal Cannula 3.00 06/27/23 20:10 36.3 92 18 164/84 (110) 06/26/23 20:21 100 Capillary Refill : General Appearance: No Apparent Distress, WD/WN, Chronically ill, Thin, Other HEENT: PERRL/EOMI, Normal ENT Inspection, Pharynx Normal Neck: Full Range of Motion, Normal Inspection, Non Tender, Supple, Carotid Bruit Respiratory: Chest Non Tender, Lungs Clear, Normal Breath Sounds, No Accessory Muscle Use, No Respiratory Distress Cardiovascular: Regular Rate, Rhythm, No Edema, No Gallop, No JVD, No Murmur, Normal Peripheral Pulses Gastrointestinal: Normal Bowel Sounds, No Organomegaly, No Pulsatile Mass, Non Tender, Soft Back: Normal Inspection, No CVA Tenderness, No Vertebral Tenderness Extremity: Normal Capillary Refill, Normal Inspection, Normal Range of Motion, Non Tender, No Calf Tenderness, No Pedal Edema Neurologic/Psychiatric: Alert, Oriented x3, vice president lending II-XII Norm as Tested, Abnormal Gait, Depressed Affect, Motor Weakness Skin: Normal Color, Warm/Dry Lymphatic: No Adenopathy Results/Procedures Lab Patient resulted labs reviewed. FIM Transfers Therapy Code Descriptions/Definitions Functional [place] Measure: 0=Not Assessed/NA 4=Minimal Assistance 1=Total Assistance 5=Supervision or Setup 2=Maximal Assistance 6=Modified [place] 3=Moderate Assistance 7=Complete IndependenceSCALE: Activities may be completed with or without assistive devices. 9-Cdaoevtfbr-bzbwbha completes the activity by him/herself with no assistance from a helper. 5-Set-up or Clean-up Assistance-helper sets up or cleans up; patient completes activity. [place] assists only prior to or following the activity. 4-Supervision or Touching Assistance-helper provides verbal cues and/or touching/steadying and/or contact guard assistance as patient completes activity. Assistance may be provided throughout the activity or intermittently. 3-Partial/Moderate Assistance-helper does LESS THAN HALF the effort. [place] lifts, holds or supports trunk or limbs, but provides less than half the effort. 2-Substantial/Maximal Assistance-helper does MORE THAN HALF the effort. [place] lifts or holds trunk or limbs and provides more than half the effort. 0-Pckyctqkf-jnwtht does ALL the effort. Patient does none of the effort to complete the activity. Or, the assistance of 2 or more helpers is required for the patient to complete the activity. If activity was not attempted, code reason: 7-Patient Refused. 9-Not Applicable-not attempted and the patient did not perform the activity before the current illness, exacerbation or injury. 10-Not Attempted due to Environmental Limitations-(lack of equipment, weather restraints, etc.). 88-Not Attempted due to Medical Conditions or Safety Concerns. Roll Left to Right (QC): 2 Sit to Lying (QC): 2 Sit to Stand (QC): 4 Chair/Xyt-ep-Gqvpe Xfer(QC): 3 Car Transfer (QC): 88 Gait Training Does the Patient Walk?: No and Walking Goal NOT indicated Distance: 60ft, 70ft Walk 10 feet (QC): 4 Walk 50 ft with 2 Turns(QC): 4 Walk 150 ft (QC): 4 Walking 10ft/uneven surface-QC: 88 Gait Persons Needed: 1 Gait Assistive Device: FWW Wheelchair Training Does the Pt Use a Wheelchair?: Yes Wheel 50 ft with 2 turns (QC): 4 Wheel 150 ft (QC): 4 Type of Wheelchair: Manual Stair Training 1 Step (curb) (QC): 88 (Pain ) 4 Steps (QC): 88 (Pain ) 12 Steps (QC): 9 Balance Picking up an Object (QC): 3 (Min A ) ADL-Treatment Eating (QC): 6 (Pt sitting in recliner to eat breakfast. Able to open packages and use utensils properly. ) Oral Hygiene (QC): 5 (Set up in recliner to complete oral care. Pt refused to complete in bathroom at sink.) Shower/Bathe Self (QC): 4 (SBA, pt able to wash/dry all parts during sponge bath with increased time.) Upper Body Dressing (QC): 5 Lower Body Dressing (QC): 4 (AE utilized as needed, pt required mod VCs with AE) On/Off Footwear (QC): 3 (Pt able to doff using geophysical laboratory supervisor and VCs, Assist to don b/l gripper socks utilizing sock aide.) Toileting Hygiene (QC): 4 (SBA/CGA for safety while pt cleaned after urination and manipulated clothing. ) Toilet Transfer (QC): 4 (CGA/SBA while pt stood and used grab bars and FWW for support.) Assessment/Plan Assessment and Plan Assess & Plan/Chief Complaint Assessment: Pelvic fracture Oxygen dependent COPD Pulmonary hypertension Atrial fibrillation Anticoagulation for stroke prophylaxis Advanced age [place] status Hypothyroidism Osteoporosis Hypertension Hyperlipidemia Anxiety Anemia of chronic disease Acute UTI placed on abx 06/23/23 Plan: Pain control Aggressive rehab Oxygen supplementation Home meds 06/17/2023: Supportive care Pain control DC catheter tomorrow morning 06/18/2023: Urinary retention treatment Low-dose Urecholine due to COPD 06/19/2023: Urecholine Monitor lung status since added Urecholine 06/20/2023: Supportive care Monitor closely 06/21/2023: Supportive care Monitor closely 06/22/2023: Monitor pain Fall risk 06/23/2023: Treat UTI 06/24/2023: Maintain bowel regimen 06/25/2023: Supportive care Monitor closely 06/26/2023: Continue aggressive care 06/27/2023: Supportive care Monitor closely (1) Pelvic fracture (2) Aortic stenosis (3) Pulmonary hypertension (4) Chronic atrial fibrillation Status: Chronic (5) HTN (hypertension) Status: Acute FE MESA DO Jun 27, 2023 05:57
[2023-06-27] MEDS: FUROSEMIDE 40 MG TABLET PO SCH ×2 (06:44→16:03)
[2023-06-27] MEDS: LEVOTHYROXINE 50 MCG TABLET PO SCH (06:44)
[2023-06-27] MEDS: BETHANECHOL 25 MG TABLET PO SCH ×4 (06:44→20:09)
[2023-06-27] MEDS: ARTIFICAL TEARS Ophth solution 0.4 ML UNIT DOSE OU PRN (06:52)
[2023-06-27] MEDS: CALCIUM CARBONATE 500 MG CHEW TABLET PO PRN (06:52)
[2023-06-27 08:00] VITALS: BP 126/78
[2023-06-27] MEDS: POTASSIUM CHLORIDE 20 MEQ TABLET PO SCH (08:28)
[2023-06-27] MEDS: LORATADINE 10 MG TABLET PO SCH (08:28)
[2023-06-27] MEDS: LOSARTAN 50 MG TABLET PO SCH ×2 (08:28→20:09)
[2023-06-27] MEDS: FERROUS SULFATE 325 MG (IRON) TABLET PO SCH (08:29)
[2023-06-27] MEDS: APIXABAN 2.5 MG TABLET PO SCH ×2 (08:29→20:08)
[2023-06-27] MEDS: CEFDINIR 300 MG CAPSULE PO SCH ×2 (08:29→20:09)
--- NOTE | 2023-06-27 08:29 | Occupational Ther Daily Note ---
OT Current Status-Daily Note Subjective Pt agreeable to OT Tx. She did not verbalize pain during tx. ADL-Treatment Therapy Code Descriptions/Definitions Functional [place] Measure: 0=Not Assessed/NA 4=Minimal Assistance 1=Total Assistance 5=Supervision or Setup 2=Maximal Assistance 6=Modified [place] 3=Moderate Assistance 7=Complete IndependenceSCALE: Activities may be completed with or without assistive devices. 6-Dcmrricqjb-bultxgi completes the activity by him/herself with no assistance from a helper. 5-Set-up or Clean-up Assistance-helper sets up or cleans up; patient completes activity. [place] assists only prior to or following the activity. 4-Supervision or Touching Assistance-helper provides verbal cues and/or touching /steadying and/or contact guard assistance as patient completes activity. Assistance may be provided throughout the activity or intermittently. 3-Partial/Moderate Assistance-helper does LESS THAN HALF the effort. [place] lifts, holds or supports trunk or limbs, but provides less than half the effort. 2-Substantial/Maximal Assistance-helper does MORE THAN HALF the effort. [place] lifts or holds trunk or limbs and provides more than half the effort. 5-Thkxtcwsw-ywdfla does ALL the effort. Patient does none of the effort to complete the activity. Or, the assistance of 2 or more helpers is required for the patient to complete the activity. If activity was not attempted, code reason: 7-Patient Refused. 9-Not Applicable-not attempted and the patient did not perform the activity before the current illness, exacerbation or injury. 10-Not Attempted due to Environmental Limitations-(lack of equipment, weather restraints, etc.). 88-Not Attempted due to Medical Conditions or Safety Concerns. Eating (QC): 6 Other Treatment Pt up in recliner, agreeable to OT Tx. Pt finished breakfast and completed grooming tasks at recliner, IND. Sit to stand from recliner, SBA, then transfer to w/c. In order to increase BUE strength and activity tolerance, pt performed w/c mobility around [facility] common area/2nd floor using BUEs. Pt required min A to navigate through doors and around obstacles, RBs as needed. Pt returned to her room, min A sit to stand from w/c, then SBA transfer to recliner. Post tx, pt in recliner, call light in reach and all needs met. Education OT Patient Education: Correct positioning, Energy conservation, Modified ADL techniques, Progress toward Goal/Update tx plan, Purpose of tx/functional activities, Rehab process Teaching Recipient: Patient Teaching Methods: Discussion Response to Teaching: Verbalize Understanding OT Short Term Goals Short Term Goals Time Frame: Jun 23, 2023 Eatin Oral hygiene: 6 Toileting hygiene: 4 Shower/bathe self: 3 Upper body dressin Lower body dressin Putting on/taking off footwear: 4 OT Room Server Goals Room Server Goals Time Frame: Jun 30, 2023 Acute change in mental status: 0 Inattention: 0 Disorganized thinkin Altered level of consciousness: 0 Eating (QC): 6 Oral Hygiene (QC): 6 Toileting Hygiene (QC): 6 Shower/Bathe Self (QC): 4 Upper Body Dressing (QC): 6 Lower Body Dressing (QC): 6 On/Off Footwear (QC): 6 1=Demonstrate adherence to instructed precautions during ADL tasks. 2=Patient will verbalize/demonstrate understanding of assistive devices/modifications for ADL. 3=Patient will improve strength/tolerance for activity to enable patient to perform ADL's. OT Education/Plan Problem List/Assessment Assessment: Decreased Activ Tolerance, Decreased UE Strength, Impaired Funct Balance, Impaired I ADL's, Impaired Self-Care Skills Discharge Recommendations Plan/Recommendations: Continue POC Treatment Plan/Plan of Care Patient would benefit from OT for education, treatment and training to promote independence in ADL's, mobility, safety and/or upper extremity function for ADL's. Plan of Care: ADL Retraining, Caregiver Training, Concurrent Therapy, Functional Mobility, Group Exercise/Act as Ind, UE Funct Exercise/Act, W/C Management Training Treatment Duration: Jul 07, 2023 Frequency: At least 5 of 7 days/Wk (IRF) Estimated Hrs Per Day: 1.5 hours per day Agreement: Yes Rehab Potential: Fair Time Start Time: 07:30 Stop Time: 08:30 DATE: Jun 27, 2023 Total Time Billed (hr/min): 60 Billed Treatment Time 1, ADL 2 (30'), FA 2 (30') CLAY BRODERICK OT Jun 27, 2023 08:29
[2023-06-27] MEDS: DOCUSATE SODIUM 100 MG CAPSULE PO SCH ×2 (08:32→19:32)
[2023-06-27] MEDS: SENNA W/DOCUSATE TABLET PO SCH ×2 (08:32→19:32)
[2023-06-27] MEDS: diphenhydrAMINE 2% CREAM 30 GM TOP PRN (10:41)
--- NOTE | 2023-06-27 14:10 | Physical Therapy Daily Note ---
PT Daily Note-Current Subjective Pt is agreeable to PT. Reported R hip pain at 8/10. Pain Numeric Pain Scale: 8 Location: Right Location Body Site: Hip Section J - Health Conditions 1. Rarely or not at all 2. Occasionally 3. Frequently 4. Almost constantly 8. Unable to answer Pain Effect on Sleep: 1 Pain Interference with Therapy: 3 Pain Interference w/Day-to-Day: 2 Transfers SCALE: Activities may be completed with or without assistive devices. 7-Igqqwndiuf-qwmehja completes the activity by him/herself with no assistance from a helper. 5-Set-up or Clean-up Assistance-helper sets up or cleans up; patient completes activity. [place] assists only prior to or following the activity. 4-Supervision or Touching Assistance-helper provides verbal cues and/or touching/steadying and/or contact guard assistance as patient completes activity. Assistance may be provided throughout the activity or intermittently. 3-Partial/Moderate Assistance-helper does LESS THAN HALF the effort. [place] lifts, holds or supports trunk or limbs, but provides less than half the effort. 2-Substantial/Maximal Assistance-helper does MORE THAN HALF the effort. [place] lifts or holds trunk or limbs and provides more than half the effort. 0-Sgalzbrqp-kvtwnl does ALL the effort. Patient does none of the effort to complete the activity. Or, the assistance of 2 or more helpers is required for the patient to complete the activity. If activity was not attempted, code reason: 7-Patient Refused. 9-Not Applicable-not attempted and the patient did not perform the activity before the current illness, exacerbation or injury. 10-Not Attempted due to Environmental Limitations-(lack of equipment, weather restraints, etc.). 88-Not Attempted due to Medical Conditions or Safety Concerns. Sit to Stand (QC): 4 Chair/Ube-cc-Dbwzq Xfer(QC): 4 Toilet Transfer (QC): 4 Weight Bearing Right Lower Extremity: Right Weight Bearing/Tolerated Left Lower Extremity: Left Weight Bearing/Tolerated Gait Training Does the Patient Walk?: Yes Walk 10 feet (QC): 4 Walk 50 ft with 2 Turns(QC): 4 Walk 150 ft (QC): 4 Gait Assistive Device: FWW Wheelchair Training Does the Pt Use a Wheelchair?: Yes Wheel 50 ft with 2 turns (QC): 4 Type of Wheelchair: Manual Treatments Pt completed functional transfers, including a toilet transfer, with SBA. Pt ambulated 15ft, 50ft, and 155ft with the FWW and SBA/CGA. Pt completed seated B LE Ther Ex x 15 reps each with the red Tband. Pt completed w/c mobility x 100ft with SBA. After treatment session, pt was sitting up in the recliner with call light in reach and all needs met. Assessment Current Status: Good Progress Pt tolerated PT well with good effort PT Asset Protection Officer Goals Half-Way Goals PT Half-Way Goals Time Frame: Jul 07, 2023 Roll Left & Right (QC): 4 (Pt will be SBA for functional mobility, in order to safely return home with daughter. ) Sit to Lying (QC): 4 (Pt will be SBA for functional mobility, in order to safely return home with daughter. ) Lying-Sitting on Side/Bed(QC): 4 (Pt will be SBA for functional mobility, in order to safely return home with daughter. ) Sit to Stand (QC): 4 (Pt will be SBA for functional mobility, in order to safely return home with daughter. ) Chair/Ypp-jb-Rilnl Xfer(QC): 4 (Pt will be SBA for functional mobility, in order to safely return home with daughter. ) Toilet Transfer (QC): 4 (Pt will be SBA for functional mobility, in order to safely return home with daughter. ) Car Transfer (QC): 4 (Pt will be SBA for functional mobility, in order to safely return home with daughter. ) Does the Patient Walk: Yes Walk 10 feet (QC): 4 (Pt will be SBA for functional mobility, in order to safely return home with daughter. ) Walk 50ft with 2 Turns (QC): 4 (Pt will be SBA for functional mobility, in order to safely return home with daughter. ) Walk 150 ft (QC): 4 (Pt will be SBA for functional mobility, in order to safely return home with daughter. ) Walking 10ft on Uneven Surface: 4 (Pt will be SBA for functional mobility, in order to safely return home with daughter. ) 1 Step (curb) (QC): 4 (Pt will be SBA for functional mobility, in order to safely return home with daughter. ) 4 Steps (QC): 4 (Pt will be SBA for functional mobility, in order to safely return home with daughter. ) 12 Steps (QC): 9 Picking up an Object (QC): 4 (Pt will be SBA for functional mobility, in order to safely return home with daughter. With land classifier ) Does the Pt use WC or Scooter?: Yes Wheel 50 feet with 2 turns (QC: 4 (Pt will be SBA for functional mobility, in order to safely return home with daughter. ) Type: Manual Wheel 150 feet: 4 (Pt will be SBA for functional mobility, in order to safely return home with daughter. ) Type: Manual PT Plan Problem List Problem List: Activity Tolerance, Functional Strength, Safety, Balance, Gait, Transfer, Bed Mobility, ROM Treatment/Plan Treatment Plan: Continue Plan of Care Treatment Plan: Bed Mobility, Education, Functional Activity [place], Functional Strength, Group Therapy, Gait, Safety, Therapeutic Exercise, Transfers Treatment Duration: Jul 07, 2023 Frequency: At least 5 of 7 days/Wk (IRF) Estimated Hrs Per Day: 1.5 hours per day Patient and/or Family Agrees t: Yes Safety Risks/Education Patient Education: Gait Training, Transfer Techniques, Correct Positioning, W/C Management, Safety Issues Teaching Recipient: Patient Teaching Methods: Demonstration, Discussion Response to Teaching: Verbalize Understanding, Return Demonstration, Reinforcement Needed Discharge Recommendations Therapy Discharge Recommendati: Home & Family, Post Acute PT Equpiment Recommendations-D/C: None Discharge Status/Home Program Cont per POC Barriers to Progress Weakness, endurance, self-limiting at times Target Placement Home with family support and [place] Time Time In: 1100 Time Out: 1200 DATE: Jun 27, 2023 Total Billed Treatment Time: 60 Total Billed Treatment 60 min 1 visit EX x 1 FA x 1 GT x 2 OMAR ALLEN PT Jun 27, 2023 14:10
--- NOTE | 2023-06-27 14:46 | Therapy Group Daily Note ---
Therapy Daily Group Note Patient Education Topic Home Safety, Exercises Exercises LE Seated Exercise, UE Exercise Session Ratio (pt:therapist): 3:1 Goal of Session: Education on ARU Expectations, Home Safety Strategies, UE/LE Strengthing Goal Met for this Session: Yes Pt Benefit of Group: Contributions to Others, F/U Use of Strategies @Home, Increased Functional Safety, Increased Functional Strength, Improved Cognition, Recognition of Peers, Socialization Other/Notes Pt transported via w/c to therapy gym for OT/PT group. Group consisted of introductions, socialization, B UE/LE seated exercises, educational topics of benefits of exercise, safety and ARU description. Pt introduced self appropriately and actively listened to peers. Pt completed B UE/LE seated exercises with skilled instructions for correct technique and modifications when needed. Pt acknowledged understanding of each educational topic by verbalizing understanding and giving own personal strategies/stories for each. After session, pt lying in bed with call light/phone in reach. All needs met in room. Start Time: 13:00 Stop Time: 14:00 Total Billed Treatment Time: 60 Total Billed Treatment 1-IRENA RAMIREZ Jun 27, 2023 14:46
[2023-06-27] MEDS: ALLOPURINOL 100 MG TABLET PO SCH (20:09)
[2023-06-27 20:10] VITALS: BP 164/84
[2023-06-28] MEDS: FUROSEMIDE 40 MG TABLET PO SCH ×2 (05:30→16:24)
[2023-06-28] MEDS: BETHANECHOL 25 MG TABLET PO SCH ×4 (05:30→20:13)
[2023-06-28] MEDS: HYDROcodone/ACETAMINOPHEN 5 MG/325 MG TABLET PO PRN ×3 (05:30→20:12)
[2023-06-28] MEDS: LORazepam 0.5 MG TABLET PO PRN ×2 (05:30→16:20)
[2023-06-28] MEDS: LEVOTHYROXINE 50 MCG TABLET PO SCH (05:30)
--- NOTE | 2023-06-28 07:40 | Occupational Ther Daily Note ---
OT Current Status-Daily Note Subjective Pt up in recliner, agreeable to OT Tx. ADL-Treatment Therapy Code Descriptions/Definitions Functional [place] Measure: 0=Not Assessed/NA 4=Minimal Assistance 1=Total Assistance 5=Supervision or Setup 2=Maximal Assistance 6=Modified [place] 3=Moderate Assistance 7=Complete IndependenceSCALE: Activities may be completed with or without assistive devices. 1-Ywwcwgfejz-ckivtdz completes the activity by him/herself with no assistance from a helper. 5-Set-up or Clean-up Assistance-helper sets up or cleans up; patient completes activity. [place] assists only prior to or following the activity. 4-Supervision or Touching Assistance-helper provides verbal cues and/or touching/steadying and/or contact guard assistance as patient completes activity. Assistance may be provided throughout the activity or intermittently. 3-Partial/Moderate Assistance-helper does LESS THAN HALF the effort. [place] lifts, holds or supports trunk or limbs, but provides less than half the effort. 2-Substantial/Maximal Assistance-helper does MORE THAN HALF the effort. [place] lifts or holds trunk or limbs and provides more than half the effort. 8-Yafolqepp-awtgwg does ALL the effort. Patient does none of the effort to co mplete the activity. Or, the assistance of 2 or more helpers is required for the patient to complete the activity. If activity was not attempted, code reason: 7-Patient Refused. 9-Not Applicable-not attempted and the patient did not perform the activity before the current illness, exacerbation or injury. 10-Not Attempted due to Environmental Limitations-(lack of equipment, weather restraints, etc.). 88-Not Attempted due to Medical Conditions or Safety Concerns. Eating (QC): 6 Oral Hygiene (QC): 6 (IND per pt report. Pt able to use fixodent and place dentures in mouth) Other Treatment Pt in recliner, agreeable to OT Tx. Pt completed breakfast independently. Able to use BUEs to reach for objects on tray table, manipulate utensils, and bring food to mouth successfully. She declined toileting and other ADLs at this time. In order to increase BUE strength and activity tolerance, pt completed UE reaching task, 1lb wrist weights b/l UE. Pt able to place/remove 1" pegs from foam pegboard, alternating hands, min VCs required to follow instructions given. Pt completed 70 pegs total. Post tx, pt in recliner, call light in reach and all needs met. Education OT Patient Education: Correct positioning, Energy conservation, Modified ADL techniques, Progress toward Goal/Update tx plan, Purpose of tx/functional activities, Rehab process Teaching Recipient: Patient Teaching Methods: Discussion Response to Teaching: Verbalize Understanding BIMS CAM BIMS Expression of Ideas and Wants: Without Difficulty Understanding Verbal Content: Understands Brief Interview/Mental Status: Yes IRF SIRENA BIMS: IRF SIRENA BIMS Response (Comments) Value Repitition of Three Words Three 3 Recalls Socks Yes, No Cue Required 2 Recalls Blue Yes, No Cue Required 2 Recalls Bed Yes, No Cue Required 2 Year Correct 3 Month Accurate Within 5 Days 2 Day Incorrect or No Answer 0 Total 14 [address] Staff Asses[address] Mental [address] No CAM Mental Status Change/Baseline: 0 Inattention: 0 Disorganized thinkin Altered level of consciousness: 0 OT Short Term Goals Short Term Goals Time Frame: Jun 23, 2023 Eatin Oral hygiene: 6 Toileting hygiene: 4 Shower/bathe self: 3 Upper body dressin Lower body dressin Putting on/taking off footwear: 4 OT Lightning Rod Installer Goals Intermediate Goals Time Frame: Jun 30, 2023 Acute change in mental status: 0 Inattention: 0 Disorganized thinkin Altered level of consciousness: 0 Eating (QC): 6 Oral Hygiene (QC): 6 Toileting Hygiene (QC): 6 Shower/Bathe Self (QC): 4 Upper Body Dressing (QC): 6 Lower Body Dressing (QC): 6 On/Off Footwear (QC): 6 1=Demonstrate adherence to instructed precautions during ADL tasks. 2=Patient will verbalize/demonstrate understanding of assistive devices/modifications for ADL. 3=Patient will improve strength/tolerance for activity to enable patient to perform ADL's. OT Education/Plan Problem List/Assessment Assessment: Decreased Activ Tolerance, Decreased UE Strength, Impaired Funct Balance, Impaired I ADL's, Impaired Self-Care Skills Discharge Recommendations Plan/Recommendations: Continue POC Treatment Plan/Plan of Care Patient would benefit from OT for education, treatment and training to promote independence in ADL's, mobility, safety and/or upper extremity function for ADL's. Plan of Care: ADL Retraining, Caregiver Training, Concurrent Therapy, Functional Mobility, Group Exercise/Act as Ind, UE Funct Exercise/Act, W/C Management Training Treatment Duration: Jul 07, 2023 Frequency: At least 5 of 7 days/Wk (IRF) Estimated Hrs Per Day: 1.5 hours per day Agreement: Yes Rehab Potential: Fair Time Start Time: 07:15 Stop Time: 08:15 DATE: Jun 28, 2023 Total Time Billed (hr/min): 60 Billed Treatment Time 1, ADL 2 (30'), FA 2 (30') CLAY BRODERICK OT Jun 28, 2023 07:40
[2023-06-28 08:00] VITALS: BP 137/75
[2023-06-28] MEDS: POTASSIUM CHLORIDE 20 MEQ TABLET PO SCH (09:05)
[2023-06-28] MEDS: DOCUSATE SODIUM 100 MG CAPSULE PO SCH ×2 (09:06→19:45)
[2023-06-28] MEDS: CEFDINIR 300 MG CAPSULE PO SCH ×2 (09:06→20:13)
[2023-06-28] MEDS: LOSARTAN 50 MG TABLET PO SCH ×2 (09:06→20:12)
[2023-06-28] MEDS: APIXABAN 2.5 MG TABLET PO SCH ×2 (09:06→20:11)
[2023-06-28] MEDS: LORATADINE 10 MG TABLET PO SCH (09:06)
[2023-06-28] MEDS: SENNA W/DOCUSATE TABLET PO SCH ×2 (09:07→19:45)
--- NOTE | 2023-06-28 10:25 | PM&R Progress Note ---
Subjective HPI/CC On Admission Date Seen by Provider: Jun 28, 2023 Time Seen by Provider: 05:30 Subjective/Events-last exam 06/28/2023: Patient doing pretty well Urinates a lot No retention noted No falls 06/27/2023: Patient doing well No pain is reported No falls Reviewed meds and labs 06/26/2023: Patient doing really well No falls No pain unless she moves Reviewed meds and labs 06/25/2023: Patient seems to be doing well Eating and drinking well Taking frequent naps Mostly sedentary at home 06/24/2023: Patient doing pretty well Pain is fairly well controlled Slow recovery Not real active at home to begin with 06/23/2023: Doing well Voiding well but abnl urine so obtained UA and will start on abx since UTI dx No falls Pain controlled 06/22/2023: Much improved status No urinary retention noted No falls No pain except pelvis 06/21/2023: Patient doing a lot better Moving around better No concerns Participation is fairly good 06/20/2023: Slow recovery Pain is an issue but improved right now Voiding fairly well 06/19/2023: No major issues Urinary retention noted No falls Started Urecholine BM+ Pain controlled for the most part 06/18/2023: Patient doing well Discontinued catheter and now she is having some retention We will start Urecholine low-dose Supportive care Reviewed meds and labs 06/17/2023: Patient doing well Compromising on discontinuation of catheter until tomorrow Pain is pretty well controlled unless she moves Bowels are moving currently on a bedpan Review of Systems General: Fatigue, Malaise Objective Exam Vital Signs Vital Signs Date Time Temp Pulse Resp B/P (MAP) Pulse Ox O2 Delivery O2 Flow Rate FiO2 06/28/23 13:35 Nasal Cannula 3.00 06/28/23 08:00 36.4 97 19 137/75 (95) 99 Capillary Refill : General Appearance: No Apparent Distress, WD/WN, Chronically ill, Thin, Other HEENT: PERRL/EOMI, Normal ENT Inspection, Pharynx Normal Neck: Full Range of Motion, Normal Inspection, Non Tender, Supple, Carotid Bruit Respiratory: Chest Non Tender, Lungs Clear, Normal Breath Sounds, No Accessory Muscle Use, No Respiratory Distress Cardiovascular: Regular Rate, Rhythm, No Edema, No Gallop, No JVD, No Murmur, Normal Peripheral Pulses Gastrointestinal: Normal Bowel Sounds, No Organomegaly, No Pulsatile Mass, Non Tender, Soft Back: Normal Inspection, No CVA Tenderness, No Vertebral Tenderness Extremity: Normal Capillary Refill, Normal Inspection, Normal Range of Motion, Non Tender, No Calf Tenderness, No Pedal Edema Neurologic/Psychiatric: Alert, Oriented x3, hotel server II-XII Norm as Tested, Abnormal Gait, Depressed Affect, Motor Weakness Skin: Normal Color, Warm/Dry Lymphatic: No Adenopathy Results/Procedures Lab Patient resulted labs reviewed. FIM Transfers Therapy Code Descriptions/Definitions Functional [place] Measure: 0=Not Assessed/NA 4=Minimal Assistance 1=Total Assistance 5=Supervision or Setup 2=Maximal Assistance 6=Modified [place] 3=Moderate Assistance 7=Complete IndependenceSCALE: Activities may be completed with or without assistive devices. 6-Dgpokrjemk-ywrsxru completes the activity by him/herself with no assistance from a helper. 5-Set-up or Clean-up Assistance-helper sets up or cleans up; patient completes activity. [place] assists only prior to or following the activity. 4-Supervision or Touching Assistance-helper provides verbal cues and/or touching/steadying and/or contact guard assistance as patient completes activity. Assistance may be provided throughout the activity or intermittently. 3-Partial/Moderate Assistance-helper does LESS THAN HALF the effort. [place] lifts, holds or supports trunk or limbs, but provides less than half the effort. 2-Substantial/Maximal Assistance-helper does MORE THAN HALF the effort. [place] lifts or holds trunk or limbs and provides more than half the effort. 8-Nqemyiand-bxoiwt does ALL the effort. Patient does none of the effort to complete the activity. Or, the assistance of 2 or more helpers is required for the patient to complete the activity. If activity was not attempted, code reason: 7-Patient Refused. 9-Not Applicable-not attempted and the patient did not perform the activity befo re the current illness, exacerbation or injury. 10-Not Attempted due to Environmental Limitations-(lack of equipment, weather re straints, etc.). 88-Not Attempted due to Medical Conditions or Safety Concerns. Roll Left to Right (QC): 2 Sit to Lying (QC): 2 Sit to Stand (QC): 4 Chair/Fnv-ot-Gyogy Xfer(QC): 4 Car Transfer (QC): 88 Gait Training Does the Patient Walk?: Yes Distance: 60ft, 70ft Walk 10 feet (QC): 4 Walk 50 ft with 2 Turns(QC): 4 Walk 150 ft (QC): 4 Walking 10ft/uneven surface-QC: 88 Gait Persons Needed: 1 Gait Assistive Device: FWW Wheelchair Training Does the Pt Use a Wheelchair?: Yes Wheel 50 ft with 2 turns (QC): 4 Wheel 150 ft (QC): 4 Type of Wheelchair: Manual Stair Training 1 Step (curb) (QC): 88 (Pain ) 4 Steps (QC): 88 (Pain ) 12 Steps (QC): 9 Balance Picking up an Object (QC): 3 (Min A ) ADL-Treatment Eating (QC): 6 Oral Hygiene (QC): 6 (IND per pt report. Pt able to use fixodent and place dentures in mouth) Shower/Bathe Self (QC): 4 (SBA, pt able to wash/dry all parts during sponge bath with increased time.) Upper Body Dressing (QC): 5 Lower Body Dressing (QC): 4 (AE utilized as needed, pt required mod VCs with AE) On/Off Footwear (QC): 3 (Pt able to doff using occupational health nurse and VCs, Assist to don b/l gripper socks utilizing sock aide.) Toileting Hygiene (QC): 4 (SBA/CGA for safety while pt cleaned after urination and manipulated clothing. ) Toilet Transfer (QC): 4 (CGA/SBA while pt stood and used grab bars and FWW for support.) Assessment/Plan Assessment and Plan Assess & Plan/Chief Complaint Assessment: Pelvic fracture Oxygen dependent COPD Pulmonary hypertension Atrial fibrillation Anticoagulation for stroke prophylaxis Advanced age Frail status Hypothyroidism Osteoporosis Hypertension Hyperlipidemia Anxiety Anemia of chronic disease Acute UTI placed on abx 06/23/23 Plan: Pain control Aggressive rehab Oxygen supplementation Home meds 06/17/2023: Supportive care Pain control DC catheter tomorrow morning 06/18/2023: Urinary retention treatment Low-dose Urecholine due to COPD 06/19/2023: Urecholine Monitor lung status since added Urecholine 06/20/2023: Supportive care Monitor closely 06/21/2023: Supportive care Monitor closely 06/22/2023: Monitor pain Fall risk 06/23/2023: Treat UTI 06/24/2023: Maintain bowel regimen 06/25/2023: Supportive care Monitor closely 06/26/2023: Continue aggressive care 06/27/2023: Supportive care Monitor closely 06/28/2023: Supportive care (1) Pelvic fracture (2) Aortic stenosis (3) Pulmonary hypertension (4) Chronic atrial fibrillation Status: Chronic (5) HTN (hypertension) Status: Acute FE MESA DO Jun 28, 2023 10:25
--- NOTE | 2023-06-28 10:25 | Physical Therapy Daily Note ---
PT Daily Note-Current Subjective Pt reports she is doing well and is agreeable to PT. Pt reported R hip pain at 7/10. Pain Numeric Pain Scale: 7 Location: Right Location Body Site: Hip Section J - Health Conditions 1. Rarely or not at all 2. Occasionally 3. Frequently 4. Almost constantly 8. Unable to answer Pain Effect on Sleep: 1 Pain Interference with Therapy: 2 Pain Interference w/Day-to-Day: 2 Mental Status Attachments: Oxygen (3L ) Transfers SCALE: Activities may be completed with or without assistive devices. 0-Ijeydjlfks-rqbmoqk completes the activity by him/herself with no assistance from a helper. 5-Set-up or Clean-up Assistance-helper sets up or cleans up; patient completes activity. [place] assists only prior to or following the activity. 4-Supervision or Touching Assistance-helper provides verbal cues and/or touching/steadying and/or contact guard assistance as patient completes activity. Assistance may be provided throughout the activity or intermittently. 3-Partial/Moderate Assistance-helper does LESS THAN HALF the effort. [place] lifts, holds or supports trunk or limbs, but provides less than half the effort. 2-Substantial/Maximal Assistance-helper does MORE THAN HALF the effort. [place] lifts or holds trunk or limbs and provides more than half the effort. 6-Lapalwqfa-fkivuq does ALL the effort. Patient does none of the effort to complete the activity. Or, the assistance of 2 or more helpers is required for the patient to complete the activity. If activity was not attempted, code reason: 7-Patient Refused. 9-Not Applicable-not attempted and the patient did not perform the activity before the current illness, exacerbation or injury. 10-Not Attempted due to Environmental Limitations-(lack of equipment, weather restraints, etc.). 88-Not Attempted due to Medical Conditions or Safety Concerns. Sit to Stand (QC): 4 Chair/Eah-pb-Ymjou Xfer(QC): 4 Toilet Transfer (QC): 4 Weight Bearing Right Lower Extremity: Right Weight Bearing/Tolerated Left Lower Extremity: Left Weight Bearing/Tolerated Gait Training Does the Patient Walk?: Yes Walk 10 feet (QC): 4 Walk 50 ft with 2 Turns(QC): 4 Walk 150 ft (QC): 4 Gait Persons Needed: 1 Gait Assistive Device: FWW Wheelchair Training Does the Pt Use a Wheelchair?: Yes Wheel 50 ft with 2 turns (QC): 4 Type of Wheelchair: Manual Treatments Pt completed functional transfers from the recliner and toilet with SBA. Pt did require Min A to transfer from the w/c, at the end of treatment session. Pt ambulated 15ft and 205ft with the FWW and SBA/CGA. Pt completed 10 min of standing peg hole activity with SBA. Pt completed 10 min and 7 min of standing, while taking off and putting on nuts to bolts. Pt completed w/c mobility x 100ft with SBA. After treatment session, pt was sitting up in the recliner with call light in reach and all needs met. Assessment Current Status: Good Progress Pt tolerated PT well with good effort PT Fingerprint Technician Goals Skilled Nursing Goals PT Skilled Nursing Goals Time Frame: Jul 07, 2023 Roll Left & Right (QC): 4 (Pt will be SBA for functional mobility, in order to safely return home with daughter. ) Sit to Lying (QC): 4 (Pt will be SBA for functional mobility, in order to safely return home with daughter. ) Lying-Sitting on Side/Bed(QC): 4 (Pt will be SBA for functional mobility, in order to safely return home with daughter. ) Sit to Stand (QC): 4 (Pt will be SBA for functional mobility, in order to saf kiya return home with daughter. ) Chair/Fgn-xr-Boisv Xfer(QC): 4 (Pt will be SBA for functional mobility, in order to safely return home with daughter. ) Toilet Transfer (QC): 4 (Pt will be SBA for functional mobility, in order to safely return home with daughter. ) Car Transfer (QC): 4 (Pt will be SBA for functional mobility, in order to safely return home with daughter. ) Does the Patient Walk: Yes Walk 10 feet (QC): 4 (Pt will be SBA for functional mobility, in order to safely return home with daughter. ) Walk 50ft with 2 Turns (QC): 4 (Pt will be SBA for functional mobility, in order to safely return home with daughter. ) Walk 150 ft (QC): 4 (Pt will be SBA for functional mobility, in order to safely return home with daughter. ) Walking 10ft on Uneven Surface: 4 (Pt will be SBA for functional mobility, in order to safely return home with daughter. ) 1 Step (curb) (QC): 4 (Pt will be SBA for functional mobility, in order to safely return home with daughter. ) 4 Steps (QC): 4 (Pt will be SBA for functional mobility, in order to safely return home with daughter. ) 12 Steps (QC): 9 Picking up an Object (QC): 4 (Pt will be SBA for functional mobility, in order to safely return home with daughter. With merchandising execution associate ) Does the Pt use WC or Scooter?: Yes Wheel 50 feet with 2 turns (QC: 4 (Pt will be SBA for functional mobility, in order to safely return home with daughter. ) Type: Manual Wheel 150 feet: 4 (Pt will be SBA for functional mobility, in order to safely return home with daughter. ) Type: Manual PT Plan Problem List Problem List: Activity Tolerance, Functional Strength, Safety, Balance, Gait, Transfer, Bed Mobility, ROM Treatment/Plan Treatment Plan: Continue Plan of Care Treatment Plan: Bed Mobility, Education, Functional Activity [place], Functional Strength, Group Therapy, Gait, Safety, Therapeutic Exercise, Transfers Treatment Duration: Jul 07, 2023 Frequency: At least 5 of 7 days/Wk (IRF) Estimated Hrs Per Day: 1.5 hours per day Patient and/or Family Agrees t: Yes Safety Risks/Education Patient Education: Gait Training, Transfer Techniques, Correct Positioning, W/C Management, Safety Issues Teaching Recipient: Patient Teaching Methods: Demonstration, Discussion Response to Teaching: Verbalize Understanding, Return Demonstration, Reinforc ement Needed Discharge Recommendations Therapy Discharge Recommendati: Home & Family, Post Acute PT Equpiment Recommendations-D/C: None Discharge Status/Home Program Cont per POC Barriers to Progress Weakness, pain, endurance, self-limiting Target Placement Home with family assistance Time Time In: 1020 Time Out: 1150 DATE: Jun 28, 2023 Total Billed Treatment Time: 90 Total Billed Treatment 90 min 1 visit GT x 2 FA x 4 OMAR ALLEN PT Jun 28, 2023 10:25
--- NOTE | 2023-06-28 13:12 | Occupational Ther Daily Note ---
OT Current Status-Daily Note Subjective Pt was received sitting in recliner and was agreeable to therapy. Pain Numeric Pain Scale: 2 Location Body Site: Hip Pain Description: Dull Mental Status/Objective Patient Orientation: Person, Place, Time, Situation Attachments: Oxygen ADL-Treatment Therapy Code Descriptions/Definitions Functional [place] Measure: 0=Not Assessed/NA 4=Minimal Assistance 1=Total Assistance 5=Supervision or Setup 2=Maximal Assistance 6=Modified [place] 3=Moderate Assistance 7=Complete IndependenceSCALE: Activities may be completed with or without assistive devices. 3-Auqsoujsbh-meucdya completes the activity by him/herself with no assistance from a helper. 5-Set-up or Clean-up Assistance-helper sets up or cleans up; patient completes activity. [place] assists only prior to or following the activity. 4-Supervision or Touching Assistance-helper provides verbal cues and/or touching/steadying and/or contact guard assistance as patient completes activity. Assistance may be provided throughout the activity or intermittently. 3-Partial/Moderate Assistance-helper does LESS THAN HALF the effort. [place] lifts, holds or supports trunk or limbs, but provides less than half the effort. 2-Substantial/Maximal Assistance-helper does MORE THAN HALF the effort. [place] lifts or holds trunk or limbs and provides more than half the effort. 0-Cmjwadbdv-kjfutj does ALL the effort. Patient does none of the effort to complete the activity. Or, the assistance of 2 or more helpers is required for the patient to complete the activity. If activity was not attempted, code reason: 7-Patient Refused. 9-Not Applicable-not attempted and the patient did not perform the activity before the current illness, exacerbation or injury. 10-Not Attempted due to Environmental Limitations-(lack of equipment, weather restraints, etc.). 88-Not Attempted due to Medical Conditions or Safety Concerns. Completed hair care and face hygiene with setup in sitting. Other Treatment Pt completed UE strengthening ex's 3x10 with yellow theraband. Focus on shoulder flexion/abduction, biceps/triceps and wrist curls. Pt completed hair care and face hygiene in sitting with setup. Education OT Patient Education: Correct positioning, Energy conservation, Exercise program, Progress toward Goal/Update tx plan, Purpose of tx/functional activities, Reviewed precautions, Rehab process Teaching Recipient: Patient Teaching Methods: Demonstration, Discussion Response to Teaching: Verbalize Understanding, Return Demonstration OT Short Term Goals Short Term Goals Time Frame: Jun 23, 2023 Eatin Oral hygiene: 6 Toileting hygiene: 4 Shower/bathe self: 3 Upper body dressin Lower body dressin Putting on/taking off footwear: 4 OT [facility] Goals Airline Pilot Flight Instructor Goals Time Frame: Jun 30, 2023 Acute change in mental status: 0 Inattention: 0 Disorganized thinkin Altered level of consciousness: 0 Eating (QC): 6 Oral Hygiene (QC): 6 Toileting Hygiene (QC): 6 Shower/Bathe Self (QC): 4 Upper Body Dressing (QC): 6 Lower Body Dressing (QC): 6 On/Off Footwear (QC): 6 1=Demonstrate adherence to instructed precautions during ADL tasks. 2=Patient will verbalize/demonstrate understanding of assistive devices/modifications for ADL. 3=Patient will improve strength/tolerance for activity to enable patient to perform ADL's. OT Education/Plan Problem List/Assessment Assessment: Decreased Activ Tolerance, Decreased UE Strength, Impaired Bed Mobility, Impaired Funct Balance, Impaired I ADL's, Impaired Self-Care Skills Discharge Recommendations Plan/Recommendations: Continue POC Treatment Plan/Plan of Care Treatment,Training & Education: Yes Patient would benefit from OT for education, treatment and training to promote independence in ADL's, mobility, safety and/or upper extremity function for ADL's. Plan of Care: ADL Retraining, Caregiver Training, Concurrent Therapy, Functional Mobility, Group Exercise/Act as Ind, UE Funct Exercise/Act, W/C Management Training Treatment Duration: Jul 07, 2023 Frequency: At least 5 of 7 days/Wk (IRF) Estimated Hrs Per Day: 1.5 hours per day Agreement: Yes Rehab Potential: Fair Time Start Time: 12:35 Stop Time: 13:05 DATE: Jun 28, 2023 Total Time Billed (hr/min): 30 Billed Treatment Time 1, ADL 1, EX 1 Erika Hawk OTR/L Jun 28, 2023 13:12
[2023-06-28] MEDS: MELATONIN 3 MG TABLET PO PRN (20:12)
[2023-06-28] MEDS: ALLOPURINOL 100 MG TABLET PO SCH (20:12)
[2023-06-28 20:39] VITALS: BP 128/71
[2023-06-29] MEDS: LEVOTHYROXINE 50 MCG TABLET PO SCH (05:12)
[2023-06-29] MEDS: BETHANECHOL 25 MG TABLET PO SCH ×4 (05:12→20:05)
[2023-06-29] MEDS: FUROSEMIDE 40 MG TABLET PO SCH ×2 (05:12→15:58)
[2023-06-29 08:00] VITALS: BP 125/74
[2023-06-29] MEDS: LORazepam 0.5 MG TABLET PO PRN ×2 (08:27→20:06)
[2023-06-29] MEDS: HYDROcodone/ACETAMINOPHEN 5 MG/325 MG TABLET PO PRN ×2 (08:27→20:06)
[2023-06-29] MEDS: POTASSIUM CHLORIDE 20 MEQ TABLET PO SCH (08:27)
[2023-06-29] MEDS: LOSARTAN 50 MG TABLET PO SCH ×2 (08:27→20:06)
[2023-06-29] MEDS: APIXABAN 2.5 MG TABLET PO SCH ×2 (08:27→20:05)
[2023-06-29] MEDS: LORATADINE 10 MG TABLET PO SCH (08:27)
[2023-06-29] MEDS: FERROUS SULFATE 325 MG (IRON) TABLET PO SCH (08:27)
[2023-06-29] MEDS: DOCUSATE SODIUM 100 MG CAPSULE PO SCH ×2 (08:29→19:45)
[2023-06-29] MEDS: SENNA W/DOCUSATE TABLET PO SCH ×2 (08:29→19:46)
--- NOTE | 2023-06-29 09:08 | Occupational Ther Daily Note ---
OT Current Status-Daily Note Subjective Pt up in recliner, agreeable to OT Tx with some encouragement. Pt reports 5/10 pain in neck, RN notified for pt's request for pain pill. Upon RN arrival, pt reports pain 10+/10. ADL-Treatment Therapy Code Descriptions/Definitions Functional [place] Measure: 0=Not Assessed/NA 4=Minimal Assistance 1=Total Assistance 5=Supervision or Setup 2=Maximal Assistance 6=Modified [place] 3=Moderate Assistance 7=Complete IndependenceSCALE: Activities may be completed with or without assistive devices. 7-Hclxlgtoge-bfihqtf completes the activity by him/herself with no assistance f rom a helper. 5-Set-up or Clean-up Assistance-helper sets up or cleans up; patient completes activity. [place] assists only prior to or following the activity. 4-Supervision or Touching Assistance-helper provides verbal cues and/or touching/steadying and/or contact guard assistance as patient completes activity. Assistance may be provided throughout the activity or intermittently. 3-Partial/Moderate Assistance-helper does LESS THAN HALF the effort. [place] lifts, holds or supports trunk or limbs, but provides less than half the effort. 2-Substantial/Maximal Assistance-helper does MORE THAN HALF the effort. [place] lifts or holds trunk or limbs and provides more than half the effort. 7-Cuqyzeevc-nymnuo does ALL the effort. Patient does none of the effort to complete the activity. Or, the assistance of 2 or more helpers is required for the patient to complete the activity. If activity was not attempted, code reason: 7-Patient Refused. 9-Not Applicable-not attempted and the patient did not perform the activity before the current illness, exacerbation or injury. 10-Not Attempted due to Environmental Limitations-(lack of equipment, weather restraints, etc.). 88-Not Attempted due to Medical Conditions or Safety Concerns. Shower/Bathe Self (QC): 4 (VCS for encouragement and sequencing due to pt not wanting to complete task.) Upper Body Dressing (QC): 5 Lower Body Dressing (QC): 4 (VCs for encouragement and sequencing due to pt not wanting to complete task.) On/Off Footwear: 3 (Pt refused task on this date. Per pt's past OT txs, she would require partial assistance with task.) Toileting Hygiene (QC): 4 (SBA per medical staff services coordinator) Toilet Transfer (QC): 4 (SBA per RN) Other Treatment Pt in recliner, agreeable to OT Tx with some encouragement. Pt initially declined all ADLs, but eventually agreeable to sponge bath and changing clothes with some encouragement. Pt's RN present to provide pain medication, pt able to take medications independently. While RN was in the room, pt attempted to get medical staff services coordinator to thread pants for her. OT informed pt she needed to complete task herself. Pt used LUE to reach for water cup on tray table, raised it up overhead and then threw cup on the ground. OT asked pt why she threw the cup, pt indicated it was because staff wouldn't help her with her pants. OT attempted therapeutic listening and communication with pt, encouraging her that she is leaving tomorrow and needs to try the task herself since she has demonstrated the ability to complete herself in prior txs. Pt then looked away from therapist and would not respond. Pt took a few more pills provided by RN, then agreeable to attempting pants with some encouragement. Pt refused to doff gripper socks, even with education and encouragement. Per previous tx sessions, pt has demonstrated ability to complete socks with partial assistance. Post tx, pt in recliner, call light in reach and all needs met. Education OT Patient Education: Correct positioning, Energy conservation, Modified ADL te chniques, Progress toward Goal/Update tx plan, Purpose of tx/functional activities, Rehab process Teaching Recipient: Patient Teaching Methods: Discussion Response to Teaching: Reinforcement Needed OT Short Term Goals Short Term Goals Time Frame: Jun 23, 2023 Eatin Oral hygiene: 6 Toileting hygiene: 4 Shower/bathe self: 3 Upper body dressin Lower body dressin Putting on/taking off footwear: 4 OT Livestock Commission Agent Goals [facility] Goals Time Frame: Jun 30, 2023 Acute change in mental status: 0 Inattention: 0 Disorganized thinkin Altered level of consciousness: 0 Eating (QC): 6 (met) Oral Hygiene (QC): 6 (met) Toileting Hygiene (QC): 6 (not met) Shower/Bathe Self (QC): 4 (met) Upper Body Dressing (QC): 6 (not met) Lower Body Dressing (QC): 6 (not met) On/Off Footwear (QC): 6 (not met) 1=Demonstrate adherence to instructed precautions during ADL tasks. 2=Patient will verbalize/demonstrate understanding of assistive devices/modifications for ADL. 3=Patient will improve strength/tolerance for activity to enable patient to perform ADL's. OT Education/Plan Problem List/Assessment Assessment: Decreased Activ Tolerance, Decreased UE Strength, Impaired Funct Balance, Impaired I ADL's, Impaired Self-Care Skills Discharge Recommendations Plan/Recommendations: Continue POC Treatment Plan/Plan of Care Patient would benefit from OT for education, treatment and training to promote independence in ADL's, mobility, safety and/or upper extremity function for ADL's. Plan of Care: ADL Retraining, Caregiver Training, Concurrent Therapy, Functional Mobility, Group Exercise/Act as Ind, UE Funct Exercise/Act, W/C Yahaira gement Training Treatment Duration: Jul 07, 2023 Frequency: At least 5 of 7 days/Wk (IRF) Estimated Hrs Per Day: 1.5 hours per day Agreement: Yes Rehab Potential: Fair Time Start Time: 07:45 Stop Time: 09:15 DATE: Jun 29, 2023 Total Time Billed (hr/min): 90 Billed Treatment Time 1, ADL 6 CLAY BRODERICK OT Jun 29, 2023 09:08
--- NOTE | 2023-06-29 10:26 | PM&R Progress Note ---
Subjective HPI/CC On Admission Date Seen by Provider: Jun 29, 2023 Time Seen by Provider: 10:30 Subjective/Events-last exam 06/29/2023: Doing well Neck pain from sleeping wrong No pain is reported as long as she doesn't move 06/28/2023: Patient doing pretty well Urinates a lot No retention noted No falls 06/27/2023: Patient doing well No pain is reported No falls Reviewed meds and labs 06/26/2023: Patient doing really well No falls No pain unless she moves Reviewed meds and labs 06/25/2023: Patient seems to be doing well Eating and drinking well Taking frequent naps Mostly sedentary at home 06/24/2023: Patient doing pretty well Pain is fairly well controlled Slow recovery Not real active at home to begin with 06/23/2023: Doing well Voiding well but abnl urine so obtained UA and will start on abx since UTI dx No falls Pain controlled 06/22/2023: Much improved status No urinary retention noted No falls No pain except pelvis 06/21/2023: Patient doing a lot better Moving around better No concerns Participation is fairly good 06/20/2023: Slow recovery Pain is an issue but improved right now Voiding fairly well 06/19/2023: No major issues Urinary retention noted No falls Started Urecholine BM+ Pain controlled for the most part 06/18/2023: Patient doing well Discontinued catheter and now she is having some retention We will start Urecholine low-dose Supportive care Reviewed meds and labs 06/17/2023: Patient doing well Compromising on discontinuation of catheter until tomorrow Pain is pretty well controlled unless she moves Bowels are moving currently on a bedpan Review of Systems General: Fatigue, Malaise Objective Exam Vital Signs Vital Signs Date Time Temp Pulse Resp B/P (MAP) Pulse Ox O2 Delivery O2 Flow Rate FiO2 06/29/23 20:00 36.9 71 17 135/65 (88) 99 Nasal Cannula 3.00 Capillary Refill : General Appearance: No Apparent Distress, WD/WN, Chronically ill, Thin, Other HEENT: PERRL/EOMI, Normal ENT Inspection, Pharynx Normal Neck: Full Range of Motion, Normal Inspection, Non Tender, Supple, Carotid Bruit Respiratory: Chest Non Tender, Lungs Clear, Normal Breath Sounds, No Accessory Muscle Use, No Respiratory Distress Cardiovascular: Regular Rate, Rhythm, No Edema, No Gallop, No JVD, No Murmur, Normal Peripheral Pulses Gastrointestinal: Normal Bowel Sounds, No Organomegaly, No Pulsatile Mass, Non Tender, Soft Back: Normal Inspection, No CVA Tenderness, No Vertebral Tenderness Extremity: Normal Capillary Refill, Normal Inspection, Normal Range of Motion, Non Tender, No Calf Tenderness, No Pedal Edema Neurologic/Psychiatric: Alert, Oriented x3, hunter trapper II-XII Norm as Tested, Abnormal Gait, Depressed Affect, Motor Weakness Skin: Normal Color, Warm/Dry Lymphatic: No Adenopathy Results/Procedures Lab Patient resulted labs reviewed. FIM Transfers Therapy Code Descriptions/Definitions Functional [place] Measure: 0=Not Assessed/NA 4=Minimal Assistance 1=Total Assistance 5=Supervision or Setup 2=Maximal Assistance 6=Modified [place] 3=Moderate Assistance 7=Complete IndependenceSCALE: Activities may be completed with or without assistive devices. 2-Usmfabyigz-ryvialb completes the activity by him/herself with no assistance from a helper. 5-Set-up or Clean-up Assistance-helper sets up or cleans up; patient completes activity. [place] assists only prior to or following the activity. 4-Supervision or Touching Assistance-helper provides verbal cues and/or touching/steadying and/or contact guard assistance as patient completes activity. Assistance may be provided throughout the activity or intermittently. 3-Partial/Moderate Assistance-helper does LESS THAN HALF the effort. [place] lifts, holds or supports trunk or limbs, but provides less than half the effort. 2-Substantial/Maximal Assistance-helper does MORE THAN HALF the effort. [place] lifts or holds trunk or limbs and provides more than half the effort. 1-Insovaqdy-luhioj does ALL the effort. Patient does none of the effort to complete the activity. Or, the assistance of 2 or more helpers is required for the patient to complete the activity. If activity was not attempted, code reason: 7-Patient Refused. 9-Not Applicable-not attempted and the patient did not perform the activity before the current illness, exacerbation or injury. 10-Not Attempted due to Environmental Limitations-(lack of equipment, weather restraints, etc.). 88-Not Attempted due to Medical Conditions or Safety Concerns. Roll Left to Right (QC): 2 Sit to Lying (QC): 2 Sit to Stand (QC): 4 Chair/Ens-fm-Pudjk Xfer(QC): 4 Car Transfer (QC): 88 Gait Training Does the Patient Walk?: Yes Distance: 60ft, 70ft Walk 10 feet (QC): 4 Walk 50 ft with 2 Turns(QC): 4 Walk 150 ft (QC): 4 Walking 10ft/uneven surface-QC: 88 Gait Persons Needed: 1 Gait Assistive Device: FWW Wheelchair Training Does the Pt Use a Wheelchair?: Yes Wheel 50 ft with 2 turns (QC): 4 Wheel 150 ft (QC): 4 Type of Wheelchair: Manual Stair Training 1 Step (curb) (QC): 88 (Pain ) 4 Steps (QC): 88 (Pain ) 12 Steps (QC): 9 Balance Picking up an Object (QC): 3 (Min A ) ADL-Treatment Eating (QC): 6 Oral Hygiene (QC): 6 (IND per pt report. Pt able to use fixodent and place dentures in mouth) Shower/Bathe Self (QC): 4 (VCS for encouragement and sequencing due to pt not wanting to complete task.) Upper Body Dressing (QC): 5 Lower Body Dressing (QC): 4 (VCs for encouragement and sequencing due to pt not wanting to complete task.) On/Off Footwear (QC): 3 (Pt refused task on this date. Per pt's past OT txs, she would require partial assistance with task.) Toileting Hygiene (QC): 4 (SBA per community health nurse staff) Toilet Transfer (QC): 4 (SBA per RN) Assessment/Plan Assessment and Plan Assess & Plan/Chief Complaint Assessment: Pelvic fracture Oxygen dependent COPD Pulmonary hypertension Atrial fibrillation Anticoagulation for stroke prophylaxis Advanced age Frail status Hypothyroidism Osteoporosis Hypertension Hyperlipidemia Anxiety Anemia of chronic disease Acute UTI placed on abx 06/23/23 Plan: Pain control Aggressive rehab Oxygen supplementation Home meds 06/17/2023: Supportive care Pain control DC catheter tomorrow morning 06/18/2023: Urinary retention treatment Low-dose Urecholine due to COPD 06/19/2023: Urecholine Monitor lung status since added Urecholine 06/20/2023: Supportive care Monitor closely 06/21/2023: Supportive care Monitor closely 06/22/2023: Monitor pain Fall risk 06/23/2023: Treat UTI 06/24/2023: Maintain bowel regimen 06/25/2023: Supportive care Monitor closely 06/26/2023: Continue aggressive care 06/27/2023: Supportive care Monitor closely 06/28/2023: Supportive care 06/29/2023: Monitor closely Pain control (1) Pelvic fracture (2) Aortic stenosis (3) Pulmonary hypertension (4) Chronic atrial fibrillation Status: Chronic (5) HTN (hypertension) Status: Acute FE MESA DO Jun 29, 2023 10:26
--- NOTE | 2023-06-29 10:44 | Physical Therapy Daily Note ---
PT Daily Note-Current Subjective Pt reports she is doing well today and is agreeable to PT. Reported R hip pain at 4/10. Pain Numeric Pain Scale: 4 Location: Right Location Body Site: Hip Section J - Health Conditions 1. Rarely or not at all 2. Occasionally 3. Frequently 4. Almost constantly 8. Unable to answer Pain Effect on Sleep: 1 Pain Interference with Therapy: 2 Pain Interference w/Day-to-Day: 2 Mental Status Attachments: Oxygen (3L ) Transfers SCALE: Activities may be completed with or without assistive devices. 7-Undudkfhvu-jyvoift completes the activity by him/herself with no assistance from a helper. 5-Set-up or Clean-up Assistance-helper sets up or cleans up; patient completes activity. [place] assists only prior to or following the activity. 4-Supervision or Touching Assistance-helper provides verbal cues and/or touching/steadying and/or contact guard assistance as patient completes activity. Assistance may be provided throughout the activity or intermittently. 3-Partial/Moderate Assistance-helper does LESS THAN HALF the effort. [place] lifts, holds or supports trunk or limbs, but provides less than half the effort. 2-Substantial/Maximal Assistance-helper does MORE THAN HALF the effort. [place] lifts or holds trunk or limbs and provides more than half the effort. 6-Ltmemkpvz-cwpvfe does ALL the effort. Patient does none of the effort to complete the activity. Or, the assistance of 2 or more helpers is required for the patient to complete the activity. If activity was not attempted, code reason: 7-Patient Refused. 9-Not Applicable-not attempted and the patient did not perform the activity before the current illness, exacerbation or injury. 10-Not Attempted due to Environmental Limitations-(lack of equipment, weather restraints, etc.). 88-Not Attempted due to Medical Conditions or Safety Concerns. Roll Left & Right (QC): 4 Sit to Lying (QC): 3 Lying to Sitting/Side of Bed(Q: 4 Sit to Stand (QC): 4 Chair/Xxj-lt-Cmcwu Xfer(QC): 4 Toilet Transfer (QC): 4 Car Transfer (QC): 3 Weight Bearing Right Lower Extremity: Right Weight Bearing/Tolerated Left Lower Extremity: Left Weight Bearing/Tolerated Gait Training Does the Patient Walk?: Yes Walk 10 feet (QC): 4 Walk 50 ft with 2 Turns(QC): 4 Walk 150 ft (QC): 4 Walking 10ft/uneven surface-QC: 4 Gait Persons Needed: 1 Gait Assistive Device: FWW Wheelchair Training Does the Pt Use a Wheelchair?: Yes Wheel 50 ft with 2 turns (QC): 4 Wheel 150 ft (QC): 4 Type of Wheelchair: Manual Stair Training Stair Training: Handrails/: 2 handrails #of Steps: 2 1 Step (curb) (QC): 3 4 Steps (QC): 7 12 Steps (QC): 9 Stairs: Pattern: Step to Balance Picking up an Object (QC): 4 (with examining officer ) Special Test Comments [facility] standing balance scale = 4/5 Treatments QC scoring completed on this date. Pt is SBA for all aspects of functional mobility, besides sit > supine and a car transfer, as the pt required Min A for lifting B LE. Pt also refused 4 steps and only completed 2, with B HR and Min A. Pt cont to require encouragement to complete tasks. At the end of treatment session, pt was sitting up in the w/c with call light in reach, eating lunch, and all needs met. Assessment Current Status: Good Progress Pt tolerated PT well with good effort; pt has progressed well with PT and met most set goals; pt to d/c on 06/30/23 PT Senior Living Goals Cake Wrapper Goals PT Senior Living Goals Time Frame: Jul 07, 2023 Roll Left & Right (QC): 4 (Pt will be SBA for functional mobility, in order to safely return home with daughter. ) Sit to Lying (QC): 4 (Pt will be SBA for functional mobility, in order to safely return home with daughter. ) Lying-Sitting on Side/Bed(QC): 4 (Pt will be SBA for functional mobility, in order to safely return home with daughter. ) Sit to Stand (QC): 4 (Pt will be SBA for functional mobility, in order to safely return home with daughter. ) Chair/Yqj-tf-Qxkai Xfer(QC): 4 (Pt will be SBA for functional mobility, in order to safely return home with daughter. ) Toilet Transfer (QC): 4 (Pt will be SBA for functional mobility, in order to safely return home with daughter. ) Car Transfer (QC): 4 (Pt will be SBA for functional mobility, in order to safely return home with daughter. ) Does the Patient Walk: Yes Walk 10 feet (QC): 4 (Pt will be SBA for functional mobility, in order to safely return home with daughter. ) Walk 50ft with 2 Turns (QC): 4 (Pt will be SBA for functional mobility, in order to safely return home with daughter. ) Walk 150 ft (QC): 4 (Pt will be SBA for functional mobility, in order to safely return home with daughter. ) Walking 10ft on Uneven Surface: 4 (Pt will be SBA for functional mobility, in order to safely return home with daughter. ) 1 Step (curb) (QC): 4 (Pt will be SBA for functional mobility, in order to safely return home with daughter. ) 4 Steps (QC): 4 (Pt will be SBA for functional mobility, in order to safely return home with daughter. ) 12 Steps (QC): 9 Picking up an Object (QC): 4 (Pt will be SBA for functional mobility, in order to safely return home with daughter. With examining officer ) Does the Pt use WC or Scooter?: Yes Wheel 50 feet with 2 turns (QC: 4 (Pt will be SBA for functional mobility, in order to safely return home with daughter. ) Type: Manual Wheel 150 feet: 4 (Pt will be SBA for functional mobility, in order to safely return home with daughter. ) Type: Manual PT Plan Problem List Problem List: Activity Tolerance, Functional Strength, Safety, Balance, Gait, Transfer, Bed Mobility, ROM Treatment/Plan Treatment Plan: Continue Plan of Care Treatment Plan: Bed Mobility, Education, Functional Activity Huey, Functional Strength, Group Therapy, Gait, Safety, Therapeutic Exercise, Transfers Treatment Duration: Jul 07, 2023 Frequency: At least 5 of 7 days/Wk (IRF) Estimated Hrs Per Day: 1.5 hours per day Patient and/or Family Agrees t: Yes Safety Risks/Education Patient Education: Gait Training, Transfer Techniques, Steps, Correct Positioning, W/C Management, Safety Issues Teaching Recipient: Patient Teaching Methods: Demonstration, Discussion Response to Teaching: Verbalize Understanding, Return Demonstration, Reinforcement Needed Discharge Recommendations Therapy Discharge Recommendati: Home & Family, Post Acute PT Equpiment Recommendations-D/C: None Discharge Status/Home Program Cont per POC Barriers to Progress weakness, endurance, pain Target Placement Home with family assistance Time Time In: 1030 Time Out: 1200 DATE: Jun 29, 2023 Total Billed Treatment Time: 90 Total Billed Treatment 90 min 1 visit GT x 3 FA x 3 OMAR ALLEN PT Jun 29, 2023 10:44
[2023-06-29] MEDS: ARTIFICAL TEARS Ophth solution 0.4 ML UNIT DOSE OU PRN (15:58)
[2023-06-29 20:00] VITALS: BP 135/65
[2023-06-29] MEDS: ALLOPURINOL 100 MG TABLET PO SCH (20:06)
[2023-06-29] MEDS: MELATONIN 3 MG TABLET PO PRN (20:06)
[2023-06-30] MEDS: diphenhydrAMINE 25 MG TABLET PO PRN (00:30)
[2023-06-30] MEDS: HYDROcodone/ACETAMINOPHEN 5 MG/325 MG TABLET PO PRN (00:30)
[2023-06-30] MEDS ORDERED: TRM50T PO (05:08)
[2023-06-30] MEDS ORDERED: BETH25TA2 PO (05:08)
[2023-06-30] MEDS ORDERED: SENN-271 PO (05:08)
[2023-06-30] MEDS ORDERED: LORA10TA7 PO (05:08)
[2023-06-30] MEDS ORDERED: CARB1DRO OU (05:08)
[2023-06-30] MEDS ORDERED: ACHD5005 PO (05:08)
[2023-06-30] MEDS ORDERED: DICL20GE TOP (05:08)
--- NOTE | 2023-06-30 05:09 | Discharge Summary ---
Diagnosis/Chief Complaint Date of Admission Jun 16, 2023 at 13:00 Date of Discharge Discharge Date: Jun 30, 2023 Discharge Diagnosis Assessment: Pelvic fracture Oxygen dependent COPD Pulmonary hypertension Atrial fibrillation Anticoagulation for stroke prophylaxis Advanced age Frail status Hypothyroidism Osteoporosis Hypertension Hyperlipidemia Anxiety Anemia of chronic disease Acute UTI placed on abx 06/23/23 Plan: Pain control Aggressive rehab Oxygen supplementation Home meds 06/17/2023: Supportive care Pain control DC catheter tomorrow morning 06/18/2023: Urinary retention treatment Low-dose Urecholine due to COPD 06/19/2023: Urecholine Monitor lung status since added Urecholine 06/20/2023: Supportive care Monitor closely 06/21/2023: Supportive care Monitor closely 06/22/2023: Monitor pain Fall risk 06/23/2023: Treat UTI 06/24/2023: Maintain bowel regimen 06/25/2023: Supportive care Monitor closely 06/26/2023: Continue aggressive care 06/27/2023: Supportive care Monitor closely 06/28/2023: Supportive care (1) Pelvic fracture (2) Aortic stenosis (3) Pulmonary hypertension (4) Chronic atrial fibrillation Status: Chronic (5) HTN (hypertension) Status: Acute FE MESA DO Discharge Summary Discharge Physical Examination Allergies: Coded Allergies: Sulfa (Sulfonamide Antibiotics) (Verified Allergy, Severe, SWELLING, 06/14/23) Vitals & I&Os Vital Signs Date Time Temp Pulse Resp B/P (MAP) Pulse Ox O2 Delivery O2 Flow Rate FiO2 06/30/23 09:00 Nasal Cannula 3.00 06/30/23 08:00 36.2 75 18 174/75 (108) 100 General Appearance: Alert, Oriented X3, Cooperative Respiratory: Clear to Auscultation Cardiovascular: Regular Rate Psych/Mental Status: Mental Status NL Hospital Course Was the Problem List Reviewed?: Yes Hospital course: Patient had an uneventful hospital course after she uses the pelvic fracture and fall at home. Patient had a slow recovery. Bowel regimen initiated and she regained baseline function. PT and OT initiated aggressive therapy and although she was slow in ambulation she was able to ambulate. She was deemed stable for discharge. Labs (last 24 hrs) Laboratory Tests 06/17/23 05:55: White Blood Count 6.1, Red Blood Count 3.37L, Hemoglobin 10.5L, Hematocrit 33L, Mean Corpuscular Volume 97, Mean Corpuscular Hemoglobin 31, Mean Corpuscular Hemoglobin Concent 32, Red Cell Distribution Width 14.6H, Platelet Count 179, Mean Platelet Volume 9.9, Immature Granulocyte % (Auto) 1, Neutrophils (%) (Auto) 61, Lymphocytes (%) (Auto) 21, Monocytes (%) (Auto) 12, Eosinophils (%) (Auto) 5, Basophils (%) (Auto) 0, Neutrophils # (Auto) 3.7, Lymphocytes # (Auto) 1.3, Monocytes # (Auto) 0.7, Eosinophils # (Auto) 0.3, Basophils # (Auto) 0.0, Immature Granulocyte # (Auto) 0.0, Sodium Level 137, Potassium Level 3.5L, Chloride Level 101, Carbon Dioxide Level 25, Anion Gap 11, Blood Urea Nitrogen 27H, Creatinine 1.05, Estimat Glomerular Filtration Rate 51, BUN/Creatinine Ratio 26, Glucose Level 99, Calcium Level 8.3L, Corrected Calcium 9.0, Total Bilirubin 0.6, Aspartate Amino Transf (AST/SGOT) 14, Alanine Aminotransferase (ALT/SGPT) 9, Alkaline Phosphatase 62, Total Protein 5.9L, Albumin 3.1L 06/23/23 13:40: Urine Color YELLOW, Urine Clarity CLOUDY, Urine pH 5.5, Urine Specific [place] 1.015L, Urine Protein TRACEH, Urine Glucose (UA) NEGATIVE, Urine Ketones NEGATIVE, Urine Nitrite NEGATIVE, Urine Bilirubin NEGATIVE, Urine Urobilinogen 0.2, Urine Leukocyte Esterase 3+H, Urine RBC (Auto) 2+H, Urine RBC 5-10H, Urine WBC TNTCH, Urine Squamous Epithelial Cells 2-5, Urine Crystals NONE, Urine Bacteria LARGEH, Urine Casts NONE, Urine White Blood Cell Casts , Urine Mucus NEGATIVE, Urine Culture Indicated YES 06/26/23 05:28: White Blood Count 6.4, Red Blood Count 3.25L, Hemoglobin 10.0L, Hematocrit 32L, Mean Corpuscular Volume 98, Mean Corpuscular Hemoglobin 31, Mean Corpuscular Hemoglobin Concent 31L, Red Cell Distribution Width 14.7H, Platelet Count 243, Mean Platelet Volume 9.5, Immature Granulocyte % (Auto) 1, Neutrophils (%) (Auto) 57, Lymphocytes (%) (Auto) 24, Monocytes (%) (Auto) 11, Eosinophils (%) (Auto) 6, Basophils (%) (Auto) 1, Neutrophils # (Auto) 3.6, Lymphocytes # (Auto) 1.5, Monocytes # (Auto) 0.7, Eosinophils # (Auto) 0.4H, Basophils # (Auto) 0.1, Immature Granulocyte # (Auto) 0.1, Sodium Level 139, Potassium Level 4.1, Chloride Level 100, Carbon Dioxide Level 28, Anion Gap 11, Blood Urea Nitrogen 34H, Creatinine 1.27, Estimat Glomerular Filtration Rate 40, BUN/Creatinine Ratio 27, Glucose Level 100, Calcium Level 8.6, Corrected Calcium 9.1, Total Bilirubin 0.4, Aspartate Amino Transf (AST/SGOT) 13, Alanine Aminotransferase (ALT/SGPT) 7, Alkaline Phosphatase 87, Total Protein 6.3L, Albumin 3.4 Microbiology 06/23/23 Urine Culture - Final, Complete Escherichia coli Pending Labs Microbiology Date/Time Source Procedure Growth Status 06/23/23 13:40 Urine Straight Cath, In/Out Urine Culture - Final Escherichia coli Complete Laboratory Tests 06/17/23 05:55: White Blood Count 6.1, Red Blood Count 3.37, Hemoglobin 10.5, Hematocrit 33, Mean Corpuscular Volume 97, Mean Corpuscular Hemoglobin 31, Mean Corpuscular Hemoglobin Concent 32, Red Cell Distribution Width 14.6, Platelet Count 179, Mean Platelet Volume 9.9, Immature Granulocyte % (Auto) 1, Neutrophils (%) (Auto) 61, Lymphocytes (%) (Auto) 21, Monocytes (%) (Auto) 12, Eosinophils (%) (Auto) 5, Basophils (%) (Auto) 0, Neutrophils # (Auto) 3.7, Lymphocytes # (Auto) 1.3, Monocytes # (Auto) 0.7, Eosinophils # (Auto) 0.3, Basophils # (Auto) 0.0, Immature Granulocyte # (Auto) 0.0, Sodium Level 137, Potassium Level 3.5, Chloride Level 101, Carbon Dioxide Level 25, Anion Gap 11, Blood Urea Nitrogen 27, Creatinine 1.05, Estimat Glomerular Filtration Rate 51, BUN/Creatinine Ratio 26, Glucose Level 99, Calcium Level 8.3, Corrected Calcium 9.0, Total Bilirubin 0.6, Aspartate Amino Transf (AST/SGOT) 14, Alanine Aminotransferase (ALT/SGPT) 9, Alkaline Phosphatase 62, Total Protein 5.9, Albumin 3.1 06/23/23 13:40: Urine Color YELLOW, Urine Clarity CLOUDY, Urine pH 5.5, Urine Specific [place] 1.015, Urine Protein TRACE, Urine Glucose (UA) NEGATIVE, Urine Ketones NEGATIVE, Urine Nitrite NEGATIVE, Urine Bilirubin NEGATIVE, Urine Urobilinogen 0.2, Urine Leukocyte Esterase 3+, Urine RBC (Auto) 2+, Urine RBC 5-10, Urine WBC TNTC, Urine Squamous Epithelial Cells 2-5, Urine Crystals NONE, Urine Bacteria LARGE, Urine Casts NONE, Urine White Blood Cell Casts , Urine Mucus NEGATIVE, Urine Culture Indicated YES 06/26/23 05:28: White Blood Count 6.4, Red Blood Count 3.25, Hemoglobin 10.0, Hematocrit 32, Mean Corpuscular Volume 98, Mean Corpuscular Hemoglobin 31, Mean Corpuscular Hemoglobin Concent 31, Red Cell Distribution Width 14.7, Platelet Count 243, Mean Platelet Volume 9.5, Immature Granulocyte % (Auto) 1, Neutrophils (%) (Auto) 57, Lymphocytes (%) (Auto) 24, Monocytes (%) (Auto) 11, Eosinophils (%) (Auto) 6, Basophils (%) (Auto) 1, Neutrophils # (Auto) 3.6, Lymphocytes # (Auto) 1.5, Monocytes # (Auto) 0.7, Eosinophils # (Auto) 0.4, Basophils # (Auto) 0.1, Immature Granulocyte # (Auto) 0.1, Sodium Level 139, Potassium Level 4.1, Chloride Level 100, Carbon Dioxide Level 28, Anion Gap 11, Blood Urea Nitrogen 34, Creatinine 1.27, Estimat Glomerular Filtration Rate 40, BUN/Creatinine Ratio 27, Glucose Level 100, Calcium Level 8.6, Corrected Calcium 9.1, Total Bilirubin 0.4, Aspartate Amino Transf (AST/SGOT) 13, Alanine Aminotransferase (ALT/SGPT) 7, Alkaline Phosphatase 87, Total Protein 6.3, Albumin 3.4 Discharge Home Medications: Active Scripts Active Stool Softener-Laxative Tablet (Sennosides/Docusate Sodium) 8.6 Mg-50 Mg Tablet 1 Ea PO BID Refresh Plus (Carboxymethylcellulose Sodium) 0.5 % Droperette 0 Each OU PRN PRN 1 drop in eyes as needed Tramadol HCl 50 Mg Tablet 50 Mg PO TID PRN Hydrocodone-Acetamin 5-325 mg (Hydrocodone/Acetaminophen) 5 Mg-325 Mg Tablet 1 Ea PO Q4H PRN Voltaren Arthritis Pain (Diclofenac Sodium) 1 % Gel..gram. 4 Gm TOP QID PRN Bethanechol Chloride 25 Mg Tablet 25 Mg PO ACHS Loratadine 10 Mg Tablet 10 Mg PO DAILY Reported Eliquis (Apixaban) 2.5 Mg Tablet 2.5 Mg PO BID Klor-Con M20 (Potassium Chloride) 20 Meq Tab.er.prt 20 Meq PO DAILY Nitroglycerin 0.4 Mg Tab.subl 0.4 Mg SL UD PRN Metoprolol Succinate 25 Mg Tab.er.24h 25 Mg PO HS Levothyroxine Sodium 50 Mcg Tablet 50 Mcg PO DAILY Ativan (Lorazepam) 0.5 Mg Tablet 0.25 Mg PO Q6H PRN TAKES OF A 0.5MG TAB Ferrous Sulfate 325 Mg (65 Mg Iron) Tablet.dr 325 Mg PO Q48H Allopurinol 100 Mg Tablet 100 Mg PO HS Furosemide 40 Mg Tablet 40 Mg PO BID Losartan Potassium 50 Mg Tablet 25 Mg PO HS TAKES OF A 25MG TAB Simvastatin 20 Mg Tablet 20 Mg PO HS Instructions to patient/family Please see electronic discharge instructions given to patient. Diagnosis/Problems Diagnosis/Problems (1) Pelvic fracture (2) Aortic stenosis (3) Pulmonary hypertension (4) Chronic atrial fibrillation Status: Chronic (5) HTN (hypertension) Status: Acute FE MESA DO Jun 30, 2023 05:09
[2023-06-30] MEDS: BETHANECHOL 25 MG TABLET PO SCH ×2 (06:12→11:36)
[2023-06-30] MEDS: LEVOTHYROXINE 50 MCG TABLET PO SCH (06:12)
[2023-06-30] MEDS: FUROSEMIDE 40 MG TABLET PO SCH (06:12)
[2023-06-30 08:00] VITALS: BP 174/75
[2023-06-30] MEDS: LOSARTAN 50 MG TABLET PO SCH (08:03)
[2023-06-30] MEDS: LORATADINE 10 MG TABLET PO SCH (08:03)
[2023-06-30] MEDS: LORazepam 0.5 MG TABLET PO PRN (08:03)
[2023-06-30] MEDS: SENNA W/DOCUSATE TABLET PO SCH (08:04)
[2023-06-30] MEDS: DOCUSATE SODIUM 100 MG CAPSULE PO SCH (08:04)
[2023-06-30] MEDS: APIXABAN 2.5 MG TABLET PO SCH (08:11)
[2023-06-30] MEDS: POTASSIUM CHLORIDE 20 MEQ TABLET PO SCH (08:11)
--- NOTE | 2023-06-30 09:30 | Therapy Team Discharge Summary ---
Therapy Discharge Summary Discharge Recommendations Date of Discharge Physical Therapy Roll Left to Right (QC): 4 Sit to Lying (QC): 3 Lying to Sitting/Side of Bed(Q: 4 Sit to Stand (QC): 4 Chair/Azz-fx-Pxysk Xfer(QC): 4 Toilet Transfer (QC): 5 Car Transfer (QC): 3 Does the Patient Walk: Yes Mode of Locomotion: Both Anticipated Mode of Locomotion: Both Walk 10 feet (QC): 4 Walk 50 ft with 2 Turns(QC): 4 Walk 150 ft (QC): 4 Walking 10ft on uneven surface: 4 Distance: 10ft Gait Assistive Device: FWW Does the Pt Use a Wheelchair: Yes Wheel 50 ft with 2 turns (QC): 4 Wheel 150 ft (QC): 4 Type of Wheelchair: Manual #of Steps: 2 1 Step (curb) (QC): 3 4 Steps (QC): 7 12 Steps (QC): 9 Balance Sitting Static: Fair Balance Sitting Dynamic: Fair Balance-Standing Static: Poor Picking up an Object (QC): 4 (with insurance service representative ) Occupational Therapy Pt admitted to ARU s/p pelvic fracture. At [facility], pt required some assistance with ADLS. Upon initial evaluation, pt was independent with eating, required set up with oral care and UBD, max A showering and LBD, total assist footwear and partial assist toileting. OT Tx focused on increasing BUE Strength and activity tolerance, and increasing safety and independence with ADLS and functional mobility. Pt's progress limited by her motivation to participate in therapy txs. Pt made some progress towards goals, attaining LTGs for eating, oral care and showering. Pt discharging home today with family support, d/c from OT. Decreased Activ Tolerance, Decreased UE Strength, Impaired Funct Balance, Impaired I ADL's, Impaired Self-Care Skills Eating (QC): 6 Oral Hygiene (QC): 6 (IND per pt report. Pt able to use fixodent and place dentures in mouth) Shower/Bathe Self (QC): 4 (VCS for encouragement and sequencing due to pt not wanting to complete task.) Upper Body Dressing (QC): 5 Lower Body Dressing (QC): 4 (VCs for encouragement and sequencing due to pt not wanting to complete task.) On/Off Footwear (QC): 3 (Pt refused task on this date. Per pt's past OT txs, she would require partial assistance with task.) Toileting Hygiene (QC): 4 (SBA per medical staff manager) PT Corncob P[employer] Manufacturing Supervisor Goals [employer] Manufacturing Supervisor Goals PT [employer] Supervisor Goals Time Frame: Jul 07, 2023 Roll Left to Right (QC): 4 (Pt will be SBA for functional mobility, in order to safely return home with daughter. ) Sit to Lying (QC): 4 (Pt will be SBA for functional mobility, in order to safely return home with daughter. ) Lying-Sitting on Side/Bed(QC): 4 (Pt will be SBA for functional mobility, in order to safely return home with daughter. ) Sit to Stand (QC): 4 (Pt will be SBA for functional mobility, in order to safely return home with daughter. ) Chair/Gmp-is-Sptaw Xfer(QC): 4 (Pt will be SBA for functional mobility, in order to safely return home with daughter. ) Toilet/Commode Transfer (QC): 4 (Pt will be SBA for functional mobility, in order to safely return home with daughter. ) Car Transfer (QC): 4 (Pt will be SBA for functional mobility, in order to safely return home with daughter. ) Does the Patient Walk: Yes Walk 10 feet (QC): 4 (Pt will be SBA for functional mobility, in order to safely return home with daughter. ) Walk 10ft-Uneven Surface(QC): 4 (Pt will be SBA for functional mobility, in order to safely return home with daughter. ) Walk 50ft with 2 Turns (QC): 4 (Pt will be SBA for functional mobility, in order to safely return home with daughter. ) Walk 150 ft (QC): 4 (Pt will be SBA for functional mobility, in order to safely return home with daughter. ) Does the Pt use WC or Scooter?: Yes Wheel 50 feet with 2 turns (QC: 4 (Pt will be SBA for functional mobility, in order to safely return home with daughter. ) Type: Manual Wheel 150 feet: 4 (Pt will be SBA for functional mobility, in order to safely return home with daughter. ) Type: Manual 1 Step (curb) (QC): 4 (Pt will be SBA for functional mobility, in order to safely return home with daughter. ) 4 Steps (QC): 4 (Pt will be SBA for functional mobility, in order to safely return home with daughter. ) 12 Steps (QC): 9 Picking up an Object (QC): 4 (Pt will be SBA for functional mobility, in order to safely return home with daughter. With insurance service representative ) OT [employer] Supervisor Goals Custodial Goals Time Frame: Jun 30, 2023 Acute change in mental status: 0 Inattention: 0 Disorganized thinkin Altered level of consciousness: 0 Eating (QC): 6 (met) Oral Hygiene (QC): 6 (met) Toileting Hygiene (QC): 6 (not met) Shower/Bathe Self (QC): 4 (met) Upper Body Dressing (QC): 6 (not met) Lower Body Dressing (QC): 6 (not met) On/Off Footwear (QC): 6 (not met) 1=Demonstrate adherence to instructed precautions during ADL tasks. 2=Patient will verbalize/demonstrate understanding of assistive devices/modifications for ADL. 3=Patient will improve strength/tolerance for activity to enable patient to perform ADL's. CLAY BRODERICK OT Jun 30, 2023 09:30
--- NOTE | 2023-07-03 13:32 | Therapy Team Discharge Summary ---
Therapy Discharge Summary Discharge Recommendations Date of Discharge Jun 30, 2023 at 14:20 Therapy D/C Recommendations: Home w/ Family Support, Physical Therapy Outpatient Physical Therapy Pt is an 87 y/o female who fell on 06/13/23; ED on 06/14/23 with pelvic fx; Admitted to ARU on 06/16/23. At [facility], pt was Mod I with the QC. Upon PT eval, pt was Max A for bed mobility and functional transfers. Pt was only able to ambula te 10ft with Min A x 2. PT focused on B LE strength, endurance, functional mobility, balance/safety, and overall Ind. Pt progressed well with PT and met most set goals. Pt d/c from ARU to home with family support and outpatient PT on 06/30/23; D/C from PT at this time. Roll Left to Right (QC): 4 Sit to Lying (QC): 3 Lying to Sitting/Side of Bed(Q: 4 Sit to Stand (QC): 4 Chair/Epl-fj-Cuttj Xfer(QC): 4 Toilet Transfer (QC): 4 Car Transfer (QC): 3 Does the Patient Walk: Yes Mode of Locomotion: Walk Anticipated Mode of Locomotion: Walk Walk 10 feet (QC): 4 Walk 50 ft with 2 Turns(QC): 4 Walk 150 ft (QC): 4 Walking 10ft on uneven surface: 4 Gait Assistive Device: FWW Does the Pt Use a Wheelchair: Yes Wheel 50 ft with 2 turns (QC): 4 Wheel 150 ft (QC): 4 Type of Wheelchair: Manual #of Steps: 2 1 Step (curb) (QC): 3 4 Steps (QC): 7 12 Steps (QC): 9 Balance Sitting Static: Fair Balance Sitting Dynamic: Fair Balance-Standing Static: Poor Picking up an Object (QC): 4 (with records associate ) Occupational Therapy Decreased Activ Tolerance, Decreased UE Strength, Impaired Funct Balance, Impaired I ADL's, Impaired Self-Care Skills Eating (QC): 6 Oral Hygiene (QC): 6 (IND per pt report. Pt able to use fixodent and place dentures in mouth) Shower/Bathe Self (QC): 4 (VCS for encouragement and sequencing due to pt not wanting to complete task.) Upper Body Dressing (QC): 5 Lower Body Dressing (QC): 4 (VCs for encouragement and sequencing due to pt not wanting to complete task.) On/Off Footwear (QC): 3 (Pt refused task on this date. Per pt's past OT txs, she would require partial assistance with task.) Toileting Hygiene (QC): 4 (SBA per engineer technical staff) PT Shirring Tender Goals Shirring Tender Goals PT Detention Goals Time Frame: Jul 07, 2023 Roll Left to Right (QC): 4 (Pt will be SBA for functional mobility, in order to safely return home with daughter. ) Sit to Lying (QC): 4 (Pt will be SBA for functional mobility, in order to safely return home with daughter. ) Lying-Sitting on Side/Bed(QC): 4 (Pt will be SBA for functional mobility, in order to safely return home with daughter. ) Sit to Stand (QC): 4 (Pt will be SBA for functional mobility, in order to safely return home with daughter. ) Chair/Zby-rk-Kejss Xfer(QC): 4 (Pt will be SBA for functional mobility, in order to safely return home with daughter. ) Toilet/Commode Transfer (QC): 4 (Pt will be SBA for functional mobility, in o rder to safely return home with daughter. ) Car Transfer (QC): 4 (Pt will be SBA for functional mobility, in order to safely return home with daughter. ) Does the Patient Walk: Yes Walk 10 feet (QC): 4 (Pt will be SBA for functional mobility, in order to safely return home with daughter. ) Walk 10ft-Uneven Surface(QC): 4 (Pt will be SBA for functional mobility, in order to safely return home with daughter. ) Walk 50ft with 2 Turns (QC): 4 (Pt will be SBA for functional mobility, in order to safely return home with daughter. ) Walk 150 ft (QC): 4 (Pt will be SBA for functional mobility, in order to safely return home with daughter. ) Does the Pt use WC or Scooter?: Yes Wheel 50 feet with 2 turns (QC: 4 (Pt will be SBA for functional mobility, in order to safely return home with daughter. ) Type: Manual Wheel 150 feet: 4 (Pt will be SBA for functional mobility, in order to safely return home with daughter. ) Type: Manual 1 Step (curb) (QC): 4 (Pt will be SBA for functional mobility, in order to safely return home with daughter. ) 4 Steps (QC): 4 (Pt will be SBA for functional mobility, in order to safely re turn home with daughter. ) 12 Steps (QC): 9 Picking up an Object (QC): 4 (Pt will be SBA for functional mobility, in order to safely return home with daughter. With records associate ) OT Detention Goals Shirring Tender Goals Time Frame: Jun 30, 2023 Acute change in mental status: 0 Inattention: 0 Disorganized thinkin Altered level of consciousness: 0 Eating (QC): 6 (met) Oral Hygiene (QC): 6 (met) Toileting Hygiene (QC): 6 (not met) Shower/Bathe Self (QC): 4 (met) Upper Body Dressing (QC): 6 (not met) Lower Body Dressing (QC): 6 (not met) On/Off Footwear (QC): 6 (not met) 1=Demonstrate adherence to instructed precautions during ADL tasks. 2=Patient will verbalize/demonstrate understanding of assistive devices/modifications for ADL. 3=Patient will improve strength/tolerance for activity to enable patient to perform ADL's. OMAR ALLEN PT Jul 03, 2023 13:32
== END 2023-06-30 14:20 | disposition home or self-care (01) | DRG 560 ==
PROVIDERS: ADMIT Internal Medicine; ATTEND Internal Medicine
DX: S32.9XXD Fracture of unspecified parts of lumbosacral spine and pelvis, subsequent encounter for fracture with routine healing (principal); I48.20 Chronic atrial fibrillation, unspecified; N39.0 Urinary tract infection, site not specified; J43.9 Emphysema, unspecified; R33.9 Retention of urine, unspecified; R54 Age-related physical debility; D63.8 Anemia in other chronic diseases classified elsewhere; I25.10 Atherosclerotic heart disease of native coronary artery without angina pectoris; K21.9 Gastro-esophageal reflux disease without esophagitis; M19.90 Unspecified osteoarthritis, unspecified site; E03.9 Hypothyroidism, unspecified; F41.9 Anxiety disorder, unspecified; I35.0 Nonrheumatic aortic (valve) stenosis; I27.20 Pulmonary hypertension, unspecified; I11.0 Hypertensive heart disease with heart failure; I50.9 Heart failure, unspecified; I65.23 Occlusion and stenosis of bilateral carotid arteries; M81.0 Age-related osteoporosis without current pathological fracture; M10.9 Gout, unspecified; E78.5 Hyperlipidemia, unspecified; Z91.81 History of falling; Z79.01 Long term (current) use of anticoagulants; Z87.891 Personal history of nicotine dependence; Z99.81 Dependence on supplemental oxygen; W18.09XD Striking against other object with subsequent fall, subsequent encounter
CPT/HCPCS: 36415; 80053; 81000; 85025; 87077; 87088; 87186; 94760

== ENCOUNTER 2023-07-09 18:29 | Emergency (ER) | payer MEDICARE ==
[~2023-07-09] VITALS: Ht 170.2 cm; Wt 62.6 kg
[~2023-07-09 18:29] MED LIST changes: +BETH25TA2 PO; +CARB1DRO OU; +DICL20GE TOP; +LORA10TA7 PO; +SENN-271 PO; +TRM50T PO
--- NOTE | 2023-07-09 20:44 | ED General ---
General Chief Complaint: General Problems/Pain Stated Complaint: BILAT FEET SWELLING Nursing Triage Note: c/o increased lower back pain, right arm pain, increased leg swelling after fall 2 days ago. Source of Information: Patient, Caregiver (JULIAHIRA) History of Present Illness Date Seen by Provider: Jul 09, 2023 Time Seen by Provider: 21:00 Initial Comments This is an 87 yo female with pmh of CHF, chronic AFIB, COPD and recent pelvic fracture that required inpatient rehab that presents with increased leg swelling, leg pain, nausea, and vomiting for 3 days. Daughter states that patient was released from inpatient rehab last month and was able to walk 200ft with walker. In the past three days, patient has been unable to eat or drink due to vomiting up "everything that she puts in her mouth". Pt tried to take nausea medication, but was unable to due to vomiting. Pt is normally on Lasix, but has been unable to take this as well due to vomiting. Vomit is bile colored. Pt has been ambulating significantly less due to not feeling well and having pain of her feet with weight bearing. No recent travel or extended time in car/airplane.No known sick contacts. Pt has had urinary retention today and burning with urination recently. Denies fever, constipation, diarrhea, hematochezia, hematemesis, hematuria, shortness of breath, cough, chest pain, and abdominal pain. (HIRA DUMONT) Allergies and Home Medications Allergies Coded Allergies: Sulfa (Sulfonamide Antibiotics) (Verified Allergy, Severe, SWELLING, 06/14/23) Patient Home Medication List Allopurinol (Allopurinol) 100 Mg Tablet, 100 MG PO HS, (Reported) Entered as Reported by: LAURA CHIU on 06/29/22 1100 Apixaban (Eliquis) 2.5 Mg Tablet, 2.5 MG PO BID, (Reported) Entered as Reported by: LAURA CHIU on 06/16/23 0842 Bethanechol Chloride (Bethanechol Chloride) 25 Mg Tablet, 25 MG PO ACHS Prescribed by: FE MESA on 06/30/23 0508 Carboxymethylcellulose Sodium (Refresh Plus) 0.5 % Droperette, 0 EACH OU PRN PRN for DRY EYES Prescribed by: FE MESA on 06/30/23 050 Diclofenac Sodium (Voltaren Arthritis Pain) 1 % Gel..gram., 4 GM TOP QID PRN for PAIN-MILD (1-4) Prescribed by: FE MESA on 06/30/23 0508 Ferrous Sulfate (Ferrous Sulfate) 325 Mg (65 Mg Iron) Tablet.dr, 325 MG PO Q48H, (Reported) Entered as Reported by: LAURA CHIU on 06/29/22 1101 Furosemide (Furosemide) 40 Mg Tablet, 40 MG PO BID, (Reported) Entered as Reported by: LAURA CHIU on 06/29/22 1100 Hydrocodone/Acetaminophen (Hydrocodone-Acetamin 5-325 mg) 5 Mg-325 Mg Tablet, 1 EA PO Q4H PRN for PAIN-SEVERE (8-10) Prescribed by: FE MESA on 06/30/23 0509 Levothyroxine Sodium (Levothyroxine Sodium) 50 Mcg Tablet, 50 MCG PO DAILY, (Reported) Entered as Reported by: LAURA CHIU on 06/15/23 151 Loratadine (Loratadine) 10 Mg Tablet, 10 MG PO DAILY Prescribed by: FE MESA on 06/30/23 0508 Lorazepam (Ativan) 0.5 Mg Tablet, 0.25 MG PO Q6H PRN for ANXIETY, (Reported) Entered as Reported by: LAURA CHIU on 06/15/23 151 Losartan Potassium (Losartan Potassium) 50 Mg Tablet, 25 MG PO HS, (Reported) Entered as Reported by: LAURA CHIU on 06/29/22 1100 Metoprolol Succinate (Metoprolol Succinate) 25 Mg Tab.er.24h, 25 MG PO HS, (Reported) Entered as Reported by: LAURA CHIU on 06/15/23 151 Nitroglycerin (Nitroglycerin) 0.4 Mg Tab.subl, 0.4 MG SL UD PRN for CHEST PAIN, (Reported) Entered as Reported by: LAURA CHIU on 06/15/23 151 Potassium Chloride (Klor-Con M20) 20 Meq Tab.er.prt, 20 MEQ PO DAILY, (Reported) Entered as Reported by: LAURA CHIU on 06/15/23 151 Sennosides/Docusate Sodium (Stool Softener-Laxative Tablet) 8.6 Mg-50 Mg Tablet, 1 EA PO BID Prescribed by: FE MESA on 06/30/23 0508 Simvastatin (Simvastatin) 20 Mg Tablet, 20 MG PO HS, (Reported) Entered as Reported by: HÉCTOR CLAUDIO on 07/10/15 0810 Tramadol HCl (Tramadol HCl) 50 Mg Tablet, 50 MG PO TID PRN for PAIN-MODERATE (5- 7) Prescribed by: FE MESA on 06/30/23 0509 Review of Systems Review of Systems Constitutional: see HPI EENTM: see HPI Respiratory: see HPI Cardiovascular: see HPI Gastrointestinal: see HPI Genitourinary: see HPI Musculoskeletal: see HPI Skin: change in color (bruising from bumping legs and recent fall. ) Psychiatric/Neurological: No Symptoms Reported Hematologic/Lymphatic: No Symptoms Reported (HIRA DUMONT) Past Xwdccvk-Kexdia-Iipwfs Hx Patient Social History Tobacco Use?: No Smoking Status: Former Smoker Substance use?: No Alcohol Use?: No Pt feels they are or have been: No (HIRA DUMONT) Immunizations Up To Date Tetanus Booster (TDap): Unknown First/Initial COVID19 Vaccinat: 10/28/2020 Second COVID19 Vaccination [place]: 11/25/2020 Third COVID19 Vaccination Date: 08/12/2021, 07/26/2022 (HIRA DUMONT) Seasonal Allergies Seasonal Allergies: No (HIRA DUMONT) Past Medical History Surgery/Hospitalization HX: HTN, A-FIB, ANXIETY, GERD, ARTHRITIS, CAD, HYPOTHYROIDISM, HIATAL HERNIA, ABD HERNIA, CHRONIC UTI, CHRONIC CONSTIPATION, CHRONIC EDEMA/SWELLING, GALLBLADDER DISEASE. PSH: LT KNEE REPLACEMENT, LT HIP REPAIR, T & A, BILAT CATARACT, Surgeries: Yes (CATARACT, RTKR, 2015 LEFT BROKEN LEG PLATE/SCREWS ?) Adenoidectomy, Cardiac, Eye Surgery, Joint Replacement, Orthopedic, Tonsillectomy Respiratory: No (NC 3L CONTINUOUS) Pulmonary Embolism Currently Using CPAP: No Currently Using BIPAP: No Cardiac: Yes Atrial Fibrillation, Chronic Edema/Swelling, Coronary Artery Disease, Hypertension Neurological: No Reproductive Disorders: No Sexually Transmitted Disease: No HIV/AIDS: No Genitourinary: Yes UTI-Chronic Gastrointestinal: No Abdominal Hernia, Gastroesophageal Reflux, Chronic Constipation, Hiatal Hernia, Gall Bladder Disease Musculoskeletal: Yes Arthritis, Fractures Endocrine: No Hypothyroidsim HEENT: Yes Cataract Loss of Vision: Denies Hearing Impairment: Denies Cancer: No Psychosocial: Yes Anxiety Integumentary: No Blood Disorders: No Adverse Reaction/Blood Tranf: No (N/A) (HIRA DUMONT) Family Medical History Blood cancer G8 SISTER Diabetes mellitus 19 MOTHER Physical Exam Vital Signs Vital Signs - First Documented 07/09/23 20:11 Temp 36.6 Pulse 123 Resp 18 B/P (MAP) 140/75 (96) Pulse Ox 95 O2 Delivery Nasal Cannula O2 Flow Rate 3.00 (TRAE NEWBY MD) Vital Signs Capillary Refill : (HIRA DUMONT) Height, Weight, BMI Height: 5'7" Weight: 142lbs. 5.0oz. [id number]; 21.00 BMI Method:Stated General Appearance: No Apparent Distress, WD/WN HEENT: PERRL/EOMI, Moist Mucous Membranes, Other (No enlarged/ tender lymph nodes of neck. Posterior pharynx is pink without lesions) Neck: Full Range of Motion, Non Tender, Supple Respiratory: Chest Non Tender, Lungs Clear, Normal Breath Sounds, No Accessory Muscle Use, No Respiratory Distress Cardiovascular: Regular Rate, Rhythm, Normal Peripheral Pulses (Radialis pulses 2+ b/l. Unable to palpate posterior tibialis or dorsalis pulses b/l due to pitting edema), Systolic Murmur (chronic), Other (Pitting edema ) Gastrointestinal: Normal Bowel Sounds, No Organomegaly, No Pulsatile Mass, Non Tender, Soft, Distended (suprapubic region. (Pt felt urge to pee when palpated)) Extremity: No Calf Tenderness, Pedal Edema (pitting edema +3) Neurologic/Psychiatric: Alert, Oriented x3, No Motor/Sensory Deficits, Normal Mood/Affect, spa manager/esthetician II-XII Norm as Tested Skin: Other (Bruising of anterior shins b/l) (HIRA DUMONT) Progress/Results/Core Measures Suspected Sepsis SIRS Temperature: Pulse: 123 Respiratory Rate: 18 Laboratory Tests 07/09/23 20:57: White Blood Count 8.9 Blood Pressure 140 /75 Mean: 96 Laboratory Tests 07/09/23 20:57: Creatinine 1.28, Platelet Count 184 (HIRA DUMONT) Results/Orders Lab Results Laboratory Tests Test 07/09/23 20:57 07/09/23 21:20 Range/Units White Blood Count 8.9 4.3-11.0 10^3/uL Red Blood Count 3.42 L 3.80-5.11 10^6/uL Hemoglobin 10.7 L 11.5-16.0 g/dL Hematocrit 33 L 35-52 % Mean Corpuscular Volume 98 80-99 fL Mean Corpuscular Hemoglobin 31 25-34 pg Mean Corpuscular Hemoglobin Concent 32 32-36 g/dL Red Cell Distribution Width 15.1 H 10.0-14.5 % Platelet Count 184 130-400 10^3/uL Mean Platelet Volume 9.4 9.0-12.2 fL Immature Granulocyte % (Auto) 1 % Neutrophils (%) (Auto) 75 42-75 % Lymphocytes (%) (Auto) 11 L 12-44 % Monocytes (%) (Auto) 10 0-12 % Eosinophils (%) (Auto) 2 0-10 % Basophils (%) (Auto) 0 0-10 % Neutrophils # (Auto) 6.7 1.8-7.8 10^3/uL Lymphocytes # (Auto) 1.0 1.0-4.0 10^3/uL Monocytes # (Auto) 0.9 0.0-1.0 10^3/uL Eosinophils # (Auto) 0.2 0.0-0.3 10^3/uL Basophils # (Auto) 0.0 0.0-0.1 10^3/uL Immature Granulocyte # (Auto) 0.1 0.0-0.1 10^3/uL Sodium Level 134 L 135-145 MMOL/L Potassium Level 2.8 L 3.6-5.0 MMOL/L Chloride Level 96 L 98-107 MMOL/L Carbon Dioxide Level 25 21-32 MMOL/L Anion Gap 13 5-14 MMOL/L Blood Urea Nitrogen 21 H 7-18 MG/DL Creatinine 1.28 0.60-1.30 MG/DL Estimat Glomerular Filtration Rate 40 BUN/Creatinine Ratio 16 Glucose Level 113 H 70-105 MG/DL Calcium Level 8.6 8.5-10.1 MG/DL B-Type Natriuretic Peptide 1088.8 H <100.0 PG/ML Urine Color YELLOW Urine Clarity CLOUDY Urine pH 5.5 5-9 Urine Specific [place] 1.015 L 1.016-1.022 Urine Protein 1+ H NEGATIVE Urine Glucose (UA) NEGATIVE NEGATIVE Urine Ketones TRACE H NEGATIVE Urine Nitrite NEGATIVE NEGATIVE Urine Bilirubin NEGATIVE NEGATIVE Urine Urobilinogen 0.2 < = 1.0 MG/DL Urine Leukocyte Esterase 2+ H NEGATIVE Urine RBC (Auto) 2+ H NEGATIVE Urine RBC 2-5 H /HPF Urine WBC >100 H /HPF Urine Squamous Epithelial Cells RARE /HPF Urine Crystals NONE /LPF Urine Bacteria LARGE H /HPF Urine Casts NONE /LPF Urine Mucus NEGATIVE /LPF Urine Culture Indicated YES (TRAE NEWBY MD) My Orders Orders - TRAE NEWBY MD Bladder Scan (07/09/23 20:45) Ua Culture If Indicated (07/09/23 20:45) Basic Metabolic Panel (07/09/23 20:45) Bnp [place] (07/09/23 20:45) Cbc And Automated Diff (07/09/23 20:45) Hydrocodone/Apap 5/325 Tablet (Hydrocod (07/09/23 21:15) Urine Culture (07/09/23 21:20) Furosemide Injection (Furosemide Injec (07/09/23 22:30) Ceftriaxone Iv/Im (Ceftriaxone Iv/Im) (07/09/23 22:30) Potassium Chloride (Tablet) (Potassium C (07/09/23 23:00) (TRAE NEWBY MD) Medications Given in ED Current Medications Medications Dose Ordered Sig/Julianne Route Start Time Stop Time Status Last Admin Dose Admin Acetaminophen/ Hydrocodone Bitart 1 ea ONCE ONCE PO 07/09/23 21:15 07/09/23 21:16 DC 07/09/23 21:27 1 EA Ceftriaxone Sodium 1000 mg/ Sodium Chloride 50 ml @ 100 mls/hr ONCE ONCE IV 07/09/23 22:30 07/09/23 22:59 07/09/23 22:31 100 MLS/HR Furosemide 80 mg ONCE ONCE IVP 07/09/23 22:30 07/09/23 22:31 DC 07/09/23 22:31 80 MG (TRAE NEWBY MD) Vital Signs/I&O 07/09/23 07/09/23 20:11 21:27 Temp 36.6 36.6 Pulse 123 Resp 18 B/P (MAP) 140/75 (96) Pulse Ox 95 O2 Delivery Nasal Cannula O2 Flow Rate 3.00 (TRAE NEWBY MD) Vital Signs/I&O Capillary Refill : (HIRA DUMONT) Blood Pressure Mean: 96 Departure Impression Primary Impression: Urinary tract infection Qualified Codes: N30.00 - Acute cystitis without hematuria Additional Impressions: Hypokalemia Acute exacerbation of congestive heart failure Qualified Codes: I50.9 - Heart failure, unspecified Disposition: HOME, SELF-CARE Condition: Stable Departure-Patient Inst. Decision time for Depature: 22:58 (TRAE NEWBY MD) Referrals: KIKO KHAN MD (PCP) Primary Care Physician Patient Instructions: Urinary Tract Infection, Adult (DC) Add. Discharge Instructions: Start your antibiotics for the bladder infection tomorrow. I have sent a prescription to [facility] pharmacy for you. Take your potassium supplement twice a day for the next 3 days. You have been given an extra dose today. You can take 1-1/2 hydrocodone tablets every 4-6 hours as needed for pain. Please keep your appointment with Dr. Khan tomorrow. Elevate your legs as instructed to decrease the swelling. Return to the emergency department for any new, concerning or emergent complaints Scripts Cephalexin (Cephalexin) 500 Mg Tablet 500 MG PO TID, #21 TAB Prov: TRAE NEWBY MD 07/09/23 Copy Copies To 1: KIKO KHAN MD, ETHAN Jul 09, 2023 20:44 TRAE NEWBY MD Jul 09, 2023 22:59
[2023-07-09 21:05] LABS: BASOPHILS % (AUTO) 0 % (0-10); EOSINOPHILS # (AUTO) 0.2 10^3/uL (0.0-0.3); EOSINOPHILS % (AUTO) 2 % (0-10); HEMATOCRIT 33 % (35-52); HEMOGLOBIN 10.7 g/dL (11.5-16.0); LYMPHOCYTES % (AUTO) 11 % (12-44); MEAN CORPUSCULAR HEMOGLOBIN 31 pg (25-34); MEAN CORPUSCULAR HGB CONC 32 g/dL (32-36); MEAN CORPUSCULAR VOLUME 98 fL (80-99); MEAN PLATELET VOLUME 9.4 fL (9.0-12.2); MONOCYTES # (AUTO) 0.9 10^3/uL (0.0-1.0); MONOCYTES % (AUTO) 10 % (0-12); NEUTROPHILS # (AUTO) 6.7 10^3/uL (1.8-7.8); NEUTROPHILS % (AUTO) 75 % (42-75); PLATELET COUNT 184 10^3/uL (130-400); WHITE BLOOD COUNT 8.9 10^3/uL (4.3-11.0)
[2023-07-09] MEDS ORDERED: HYDROcodone/ACETAMINOPHEN 5 MG/325 MG TABLET PO ONE (21:15)
[2023-07-09 21:17] LABS: POTASSIUM 2.8 MMOL/L (3.6-5.0)
[2023-07-09 21:18] LABS: CALCIUM 8.6 MG/DL (8.5-10.1)
[2023-07-09 21:22] LABS: CREATININE SERUM 1.28 MG/DL (0.60-1.30)
[2023-07-09 22:19] LABS: CLARITY,URINE CLOUDY; COLOR,URINE YELLOW; PH,URINE 5.5 (5-9)
[2023-07-09 22:20] LABS: BILIRUBIN,URINE NEGATIVE (NEGATIVE); GLUCOSE, URINE (UA) NEGATIVE (NEGATIVE); KETONES,URINE TRACE (NEGATIVE); NITRITE,URINE NEGATIVE (NEGATIVE); PROTEIN,URINE 1+ (NEGATIVE)
[2023-07-09 22:21] LABS: BACTERIA,URINE LARGE /HPF; LEUKOCYTE ESTERASE ,URINE 2+ (NEGATIVE); SQUAMOUS EPITHELIAL CELL,UR RARE /HPF; WBC,URINE >100 /HPF
[2023-07-09] MEDS ORDERED: FUROSEMIDE INJECTION 40 MG/4 ML VIAL IVP ONE (22:30)
[2023-07-09] MEDS ORDERED: cefTRIAXone IV/IM 1,000 MG in NS (IVPB) 50 ML 50 ML IV ONE (22:30)
[2023-07-09] MEDS ORDERED: CEPH500T PO (23:00)
[2023-07-09] MEDS ORDERED: POTASSIUM CHLORIDE 20 MEQ TABLET PO ONE (23:00)
[2023-07-09 23:04] VITALS: BP 135/74
== END 2023-07-09 23:06 | disposition home or self-care (01) ==
LOC: EDUNIT# 18:29 → ER 18:30
DX: N39.0 Urinary tract infection, site not specified (principal); E87.6 Hypokalemia; I11.0 Hypertensive heart disease with heart failure; I50.9 Heart failure, unspecified; Z87.891 Personal history of nicotine dependence; Z88.2 Allergy status to sulfonamides
CPT/HCPCS: 36415; 51701; 80048; 81000; 83880; 85025; 87077; 87088

== ENCOUNTER → 2023-07-25 | Outpatient (RCR) | payer MEDICARE | END | disposition home or self-care (01) | PROVIDERS: ATTEND Internal Medicine | DX: R53.1 Weakness (principal) ==

== ENCOUNTER → 2023-08-01 | Outpatient (CLI) | payer MEDICARE ==
--- NOTE | 2023-08-01 18:17 | Diagnostic Imaging Report ---
INDICATION: Pelvic pain COMPARISON: 06/14/2023 TECHNIQUE: Single radiograph of the pelvis dated 08/01/2023. FINDINGS: Lag screw fixation of a left intertrochanteric femoral fracture is partially visualized without evidence of hardware complication within [id number]. [place] right curvature of the visualized lower lumbar spine with associated moderate degenerative changes. Developing sclerosis is noted involving the left superior and inferior pubic rami, related to healing fractures remaining in stable not significantly displaced alignment. No new fracture. Moderate degenerative changes in bilateral hips. No dislocation. Mild degenerative changes of the pubic symphysis. Background vascular calcifications. IMPRESSION: Healing essentially nondisplaced left superior and inferior pubic rami fractures remaining in stable alignment. No new acute osseous abnormality with additional postsurgical and degenerative changes as above. Dictated by: Dictated on workstation # [id number]
== END ==
LOC: ORTHO 13:57
PROVIDERS: ATTEND Orthopaedic Surgery
DX: S32.502D Unspecified fracture of left pubis, subsequent encounter for fracture with routine healing (principal); I10 Essential (primary) hypertension; E78.5 Hyperlipidemia, unspecified; E03.9 Hypothyroidism, unspecified
CPT/HCPCS: 72170; G0463; 99213